=== PATIENT | female | born 1995 | race Caucasian/White ===

== ENCOUNTER 2021-09-21 15:02 | Emergency (ER) | payer OTHER, MEDICAID, SELFPAY ==
[2021-09-21 15:19] VITALS: BP 123/86; PULSE 85; RESP 20; TEMP 36.9; O2SAT 97; BMI 18.1
--- NOTE | 2021-09-21 15:51 | PC.NURSE ---
Attempted to locate from waiting room. Pt not found.
== END 2021-09-21 16:42 | disposition left against medical advice (07) ==
PROVIDERS: Emergency Provider Emergency Medicine
CPT/HCPCS: 99281

== ENCOUNTER → 2021-10-01 15:52 | Outpatient (CLI) | payer OTHER, MEDICAID, SELFPAY ==
[2021-10-01 16:40] LABS: COVID19 -Nasal RAPID Negative (Negative)
== END ==
PROVIDERS: Visit Provider Physician Assistant
DX: Z20.822 Contact with and (suspected) exposure to COVID-19 (principal)
CPT/HCPCS: 87635

== ENCOUNTER 2021-10-04 16:48 | Emergency (ER) | payer OTHER, MEDICAID, SELFPAY ==
[2021-10-04 17:02] VITALS: PULSE 111; RESP 20; TEMP 36.7; O2SAT 100; BMI 18.3
--- NOTE | 2021-10-04 17:42 | PC.NURSE ---
Pt reports green discharge, from both eyes, burning, redness and discomfort since earlier today after using OTC eye drops. Reports foggy vision. Pt also reports hx of a fever, cough, runny nose, diarrhea and nausea for the past 2 weeks. Pt given abx two weeks ago but reports I only took them 5 days then stopped when she felt better.
--- NOTE | 2021-10-04 17:56 | ED.URI ---
HPI - URI/Sore Throat <Ugo Islas PA-C - Last Filed: 10/04/21 18:19> General Chief Complaint: Eye Problems Stated Complaint: States burning eyes, discharge Time Seen by Provider: 10/04/21 17:19 Source: patient Mode of arrival: Ambulatory History of Present Illness HPI Narrative: Patient is a 25-year-old female presents to the ED complaining of URI symptoms along with conjunctivitis. She states that for the past 2 weeks she is had ongoing issues with congestion. Today she reports that she had some redness in her eyes and some purulent discharge. She is also reporting some associative shortness of breath with activity. No prior history of asthma reported. She has taken DayQuil OTC as directed with no relief of symptoms. No reported nausea vomiting or diarrhea. No fever or chills. Patient was tested last week for COVID and flu and was found to be negative. 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 Related Data Previous Rx's Medication Instructions Recorded azithromycin 250 mg tablet See Rx Instructions PO .COMPLEX #6 10/04/21 (Zithromax Z-Deni) tabs ciprofloxacin HCl 0.3 % eye drops 2 drp EYE-BOTH Q2H while awake 2 10/04/21 days #2.5 mL Allergies Allergy/AdvReac Type Severity Reaction Status Date / Time prochlorperazine Allergy Severe Palpitation Verified 10/04/21 17:05 [From Compazine] s Review of Systems <Ugo Islas PA-C - Last Filed: 10/04/21 18:19> Review of Systems ROS Unobtainable: All systems reviewed & are unremarkable except as noted in HPI and below Constitutional Constitutional: Denies chills, Denies fatigue, Denies fever(s), Denies frequent falls, Denies lethargy and Denies weakness Eyes Eyes: Denies change in vision, Reports eye discharge, Denies irritation and Denies loss of vision ENT Ears, Nose, Mouth, and Throat: Denies change in voice, Denies dizziness, Reports nasal congestion, Denies neck pain, Reports sore throat and Reports throat swelling Cardiovascular Cardiovascular: Denies chest pain, Denies irregular heart rhythm, Denies lightheadedness, Denies palpitations, Denies dyspnea, Denies dyspnea on exertion and Denies orthopnea Respiratory Respiratory: Denies cough, Denies dyspnea, Denies dyspnea on exertion and Denies wheezing Gastrointestinal Gastrointestinal: Denies abdominal pain, Denies change in bowel habits, Denies diarrhea, Denies nausea and Denies vomiting Genitourinary Genitourinary: Denies hematuria, Denies flank pain, Denies urinary incontinence and Denies urinary urgency Musculoskeletal Musculoskeletal: Denies back pain, Denies muscle weakness, Denies neck pain, Denies numbness and Denies tingling Integumentary/Breasts Skin/Breast: Denies pruritus, Denies erythema, Denies rash and Denies wounds Neurologic Neurologic: Denies behavioral changes, Denies confusion, Denies dizziness, Denies frequent falls, Denies loss of vision, Denies numbness, Denies tingling and Denies weakness Psychiatric Psychiatric: Denies anxiety, Denies behavioral changes, Denies confusion, Denies depression, Denies homicidal ideation and Denies suicidal ideation Endocrine Endocrine: Denies fatigue, Denies flushing and Denies palpitations Hematologic/Lymphatic Hematologic/Lymphatic: Denies easy bruising Allergic/Immunologic Allergic/Immunologic: Denies urticaria, Reports throat swelling and Denies wheezing Patient History <Ugo Islas PA-C - Last Filed: 10/04/21 18:19> Social History Smoking Status: Current every day smoker Smoking Status: Current every day smoker tobacco type: cigarettes Substance Use Type: marijuana Exam <Ugo Islas PA-C - Last Filed: 10/04/21 18:19> Initial Vital Signs Initial Vital Signs: Vital Signs Temperature 98.0 F 10/04/21 17:02 Pulse Rate 111 H 10/04/21 17:02 Respiratory Rate 20 10/04/21 17:02 Pulse Oximetry 100 10/04/21 17:02 Oxygen Delivery Method 10/04/21 17:02 Const General: cooperative, healthy appearing, comfortable and well developed Nutritional Appearance: average body habitus Orientation: Orientation [facility] Head: normal to inspection, normocephalic and atraumatic Ears: hearing grossly normal bilaterally and external ears normal Nose: external nose normal Face and sinus: normal facial exam Mouth: oral mucosae normal Teeth and gingiva: dentition normal and gingiva normal Throat: posterior oropharynx abnormal erythema Eyes General: Yes appearance normal, both eyes and all related structures Pupils: PERRL Neck Neck: normal visual inspection and full ROM Resp Effort & Inspection: normal respiratory effort and able to speak in complete sentences Auscultation: clear to auscultation bilaterally Cardio Palpation: normal PMI Rate: regular rate Rhythm: regular rhythm Heart Sounds: S1 normal and S2 normal GI Inspection: normal to inspection Palpation: soft and no hepatosplenomegaly Percussion: normal to percussion Auscultation: normal bowel sounds Neuro General: patient alert, patient awake and patient oriented x3 <Jose Marmolejo DO - Last Filed: 10/05/21 04:44> Initial Vital Signs Initial Vital Signs: Vital Signs Temperature 98.0 F 10/04/21 17:02 Pulse Rate 111 H 10/04/21 17:02 Respiratory Rate 20 10/04/21 17:02 Pulse Oximetry 100 10/04/21 17:02 Oxygen Delivery Method 10/04/21 17:02 Course <Ugo Islas PA-C - Last Filed: 10/04/21 18:19> Orders Ordered: ED Orders 10/04/21 17:10 Covid-19 + FLU A/B by PCR Stat Vital Signs Vital signs: Vital Signs - 8 hr 10/04/21 17:02 Temperature 98.0 F Pulse Rate 111 H Respiratory Rate 20 Pulse Oximetry 100 Oxygen Delivery Method Room Air <Jose Marmolejo DO - Last Filed: 10/05/21 04:44> Orders Ordered: ED Orders 10/04/21 17:10 Covid-19 + FLU A/B by PCR Stat Vital Signs Vital signs: Vital Signs - 8 hr 10/04/21 17:02 Temperature 98.0 F Pulse Rate 111 H Respiratory Rate 20 Pulse Oximetry 100 Oxygen Delivery Method Room Air MDM - URI/Sore Throat <ESA Aguilar Last Filed: 10/04/21 18:19> Differential Diagnosis Differential diagnosis: Likely upper respiratory infection Lab Data Labs: Lab Results 10/04/21 Range/Units 17:10 SARS-CoV-2 (PCR) Negative (Negative) Influenza A (RT-PCR) Flu a negative (NEGATIVE) Influenza B (RT-PCR) Flu b negative (NEGATIVE) MDM Narrative Medical decision making narrative: Based on patient's symptoms and the MAC the back that has been going on for a couple of weeks I think it is likely that this upper respiratory infection has moved into a bacterial infection. A Z-Deni will likely help her symptoms. I also believe a antibiotic eye drop will help with the bacterial conjunctivitis. Both of which can be treated outpatient patient will be discharged home and can follow up with regular physician. Patient will need a couple of days off work for the bacterial conjunctivitis return to work on Sunday. Patient was discharged home <Jose Marmolejo DO - Last Filed: 10/05/21 04:44> Lab Data Labs: Lab Results 10/04/21 Range/Units 17:10 SARS-CoV-2 (PCR) Negative (Negative) Influenza A (RT-PCR) Flu a negative (NEGATIVE) Influenza B (RT-PCR) Flu b negative (NEGATIVE) Discharge Plan Departure Patient Disposition: Home Clinical Impression: Bacterial conjunctivitis, Upper respiratory infection Instructions: DI for Conjunctivitis, DI for Viral Upper Respiratory Infection -- Adult Activity Restrictions/Additional Instructions: You were seen today for your upper respiratory infection. Based on the fact that it has been going on for a couple of weeks I think it is likely that we should prescribe an antibiotic at this point a Z-Deni was E scribed over to your pharmacy of choice. I also send over some antibiotic eyedrops for your bacterial conjunctivitis. It is contagious and it is spread by contact. I would recommend washing your hands frequently do not share any towels hot compresses as warm as you can make them will also help. Return to work on Sunday. Thank you for the opportunity to care for you today. Prescriptions: New azithromycin [Zithromax Z-Deni] 250 mg tablet See Rx Instructions .ROUTE .COMPLEX Qty: 6 0RF Rx Instructions: For 250 mg dose pack: take 500 mg today (day 1), then 250 mg for 4 days (days 2-5) ciprofloxacin HCl 0.3 % drops 2 drp EYE-BOTH Q2H 2 Days Qty: 2.5 0RF Referrals: Lucille Dietz INSTRUCTIONAL DESIGNER-BC [Primary Care Provider] - Stand Alone Forms: Work Release Note Visit Report Forms: Patient Portal/API <Jose Marmolejo DO - Last Filed: 10/05/21 04:44> Cosign ED Attending Cosignature Attestation: I was immediately available in the department for consultation. This documentation has been reviewed and I agree with assessment and plan. Supervised by Jose Marmolejo, DO
[2021-10-04 18:02] LABS: Influenza A - CEPHEID Flu A NEGATIVE (NEGATIVE); Influenza B - CEPHEID Flu B NEGATIVE (NEGATIVE)
[2021-10-04 18:04] LABS: COVID-19 CEPHEID PCR (VTM/NP) Negative (Negative)
[2021-10-04 18:24] VITALS: BP 120/70; PULSE 96; O2SAT 98
== END 2021-10-04 18:25 | disposition home or self-care (01) ==
PROVIDERS: Emergency Provider Physician Assistant; PCP Registered Nurse General Practice
DX: J06.9 Acute upper respiratory infection, unspecified (principal); H10.9 Unspecified conjunctivitis; Z20.822 Contact with and (suspected) exposure to COVID-19
CPT/HCPCS: 87635; 99281; 99282; C9803

== ENCOUNTER 2021-12-04 18:05 | Emergency (ER) | payer OTHER, MEDICAID, SELFPAY ==
[2021-12-04 18:19] VITALS: RESP 18; TEMP 36.7; O2SAT 100; BMI 18.3
[2021-12-04 18:42] LABS: Add Manual Diff / Slide Review NO; Basophils Absolute Auto 100 /uL (0-100); Basophils Percent Auto 1.2 % (0-2); Eosinophils Absolute Auto 0 /uL (0-450); Eosinophils Percent Auto 0.3 % (2-4); Hematocrit 41.5 % (36-46); Hemoglobin 14.3 g/dL (12.0-16.0); Lymphocytes Absolute Auto 2600 /uL (1100-4500); Lymphocytes Percent Auto 31.3 % (25-40); Mean Corpuscular HGB Conc 34.4 % (30-36); Mean Corpuscular Hemoglobin 28.8 PG (26-34); Mean Corpuscular Volume 83.8 fL (80-100); Monocytes Absolute Auto 500 /uL (0-900); Monocytes Percent Auto 6.6 % (3-14); Neutrophils Absolute Auto 4900 /uL (1500-7000); Neutrophils Percent Auto 60.6 % (50-75); Platelet Count 317 X10^3/uL (150-400); Red Blood Cell Count 4.95 X10^6/uL (4.0-5.2); Red Cell Distribution Width 13.4 % (11.6-14.8); White Blood Cell Count 8.1 X10^3/uL (4.5-11.0)
[2021-12-04 18:46] LABS: Alanine Aminotransferase 19 IU/L (<35); Albumin 5.1 g/dL (3.5-5.0); Albumin Globulin Ratio 1.3 (1.0-2.8); Alkaline Phosphatase 91 U/L (38-126); Aspartate Aminotransferase 24 IU/L (14-36); BUN Creatinine Ratio 16.3 (6-22); Bilirubin Total 1.2 mg/dL (0.2-1.3); Blood Urea Nitrogen 13 mg/dL (7-17); Calcium 9.9 mg/dL (8.4-10.2); Carbon Dioxide 26 mmol/L (22-32); Chloride 101 mmol/L (98-107); Estimated Glomerular Filt Rate > 60 mL/min (>60); Globulin 3.9 g/dL (1.7-4.1); Glucose 82 mg/dL (70-100); HEMOLYSIS < 15 (0-50); Lipase 92 U/L (23-300); Potassium 3.8 mmol/L (3.4-5.1); Sodium 139 mmol/L (137-145)
--- NOTE | 2021-12-04 19:08 | DI.US.S_ITS ---
PROCEDURE: US ABDOMEN LIMITED INDICATIONS: EPIGASTRIC PAIN TECHNIQUE: Real-time focused scanning was performed of the abdomen, with image documentation. COMPARISON: None. FINDINGS: Liver is within normal limits. Gallbladder surgically absent. No biliary ductal dilatation. Pancreas is within normal limits as visualized. IMPRESSION: No acute process. Dictated by: Fani Cheema M.D. on 12/04/2021 at 19:58 Approved by: Fani Cheema M.D. on 12/04/2021 at 19:59
--- NOTE | 2021-12-04 21:52 | ED_ITS ---
HPI - Abdominal Pain General Chief Complaint: Abdominal Pain Stated Complaint: Upper ABD pain Time Seen by Provider: 12/04/21 19:08 Source: patient Mode of arrival: Ambulatory History of Present Illness HPI narrative: 26-year-old female nonsmoker without significant alcohol history presents with a chief complaint of about 2 weeks of a burning epigastric discomfort and perhaps dark stool. She denies any emesis, let alone coffee-ground emesis. She is had no fever or chills. She denies any radiation of the discomfort but states that it seems to be worse after eating. She is not dizzy nor weak or lightheaded. She has no chest pain or difficulty breathing and has had no cough. She denies any recent injury or trauma Related Data Previous Rx's Medication Instructions Recorded azithromycin 250 mg tablet See Rx Instructions PO .COMPLEX #6 10/04/21 (Zithromax Z-Deni) tabs Allergies Allergy/AdvReac Type Severity Reaction Status Date / Time prochlorperazine Allergy Severe Palpitation Verified 10/04/21 17:05 [From Compazine] s Review of Systems Review of Systems Narrative: GENERAL: Denies chills, fatigue, malaise, fever, sweats. HEENT: Denies sinus pain, ear pain, sore throat, difficulty swallowing, dizziness. RESPIRATORY: Denies dyspnea, cough, wheezing, hemoptysis, sputum. CARDIOVASCULAR: Denies chest pain, palpitations, orthopnea, edema, GASTROINTESTINAL: See HPI : Denies dysuria, frequency, incontinence, hematuria, urinary retention. MUSCULOSKELETAL: denies weakness, joint pain, or bony pain SKIN: Denies rash, skin lesions, or other NEUROLOGIC: Denies weakness, headache, numbness, change in speech, confusion, seizures, incoordination. PSYCHIATRIC: No concerning psychosocial issues. 12 point review of systems is negative except for those stated above Patient History Social History Smoking Status: Current some day smoker Smoking Status: Current some day smoker tobacco type: cigarettes Substance Use Type: marijuana Exam Narrative Exam Narrative: GENERAL: 26[] year old patient appears stated age. Well-developed patient, in mild distress. HEAD: Atraumatic. Normocephalic. EYES: Pupils equal round and reactive. Extraocular motions intact. No scleral icterus. No injection or drainage. ENT: Nose without bleeding, purulent drainage. Throat without erythema, tonsillar hypertrophy or exudate. Airway patent. NECK: Trachea midline. Non tender CARDIOVASCULAR: Regular rate and rhythm without murmurs, gallops, or rubs. RESPIRATORY: Clear to auscultation. Breath sounds equal bilaterally. No wheezes, rales, or rhonchi. GASTROINTESTINAL: Abdomen soft, moderately tender in the epigastrium, nondistended. EXTREMITIES: No edema or joint tenderness. BACK: Nontender without deformity or crepitance. No flank tenderness. NEURO: AOx3. SKIN: No rash or erythema of visible areas Initial Vital Signs Initial Vital Signs: Vital Signs Temperature 98.0 F 12/04/21 18:19 Respiratory Rate 18 12/04/21 18:19 Pulse Oximetry 100 12/04/21 18:19 Oxygen Delivery Method 12/04/21 18:19 Course Orders Ordered: Discontinued Medications Ondansetron HCl (Ondansetron 4 Mg Odt Prepack) 1 bottle MISC SEEINSTR ONE Stop: 12/04/21 22:00 Last Admin: 12/04/21 22:08 Dose: 1 bottle Documented By: NELLY Pantoprazole Sodium (Pantoprazole 40 Mg Vial) 40 mg IV NOW ONE Stop: 12/04/21 19:09 Last Admin: 12/04/21 22:03 Dose: Not Given Documented By: NELLY Reevaluation(s) Reevaluation #1: Patient feeling much better after above-stated therapies Vital Signs Vital signs: Vital Signs - 8 hr 12/04/21 18:19 Temperature 98.0 F Respiratory Rate 18 Pulse Oximetry 100 Oxygen Delivery Method Room Air MDM - Abdominal Pain Lab Data Result diagrams: 12/04/21 18:25 12/04/21 18:25 Labs: Lab Results 12/04/21 12/04/21 12/04/21 Range/Units 18:25 18:25 21:31 WBC 8.1 (4.5-11.0) X10^3/uL RBC 4.95 (4.0-5.2) X10^6/uL Hgb 14.3 (12.0-16.0) g/dL Hct 41.5 (36-46) % MCV 83.8 (80-100) fL MCH 28.8 (26-34) PG MCHC 34.4 (30-36) % RDW 13.4 (11.6-14.8) % Plt Count 317 (150-400) X10^3/uL Neut % (Auto) 60.6 (50-75) % Lymph % (Auto) 31.3 (25-40) % [place] % (Auto) 6.6 (3-14) % Eos % (Auto) 0.3 L (2-4) % Baso % (Auto) 1.2 (0-2) % Neut # (Auto) 4900 (5702-1764) /uL Lymph # (Auto) 2600 (8878-5936) /uL [place] # (Auto) 500 (0-900) /uL Eos # (Auto) 0 (0-450) /uL Baso # (Auto) 100 (0-100) /uL Sodium 139 (137-145) mmol/L Potassium 3.8 (3.4-5.1) mmol/L Chloride 101 (98-107) mmol/L Carbon Dioxide 26 (22-32) mmol/L BUN 13 (7-17) mg/dL Creatinine 0.80 (0.52-1.04) mg/dL Estimated GFR > 60 (>60) mL/min BUN/Creatinine Ratio 16.3 (6-22) Glucose 82 (70-100) mg/dL Calcium 9.9 (8.4-10.2) mg/dL Total Bilirubin 1.2 (0.2-1.3) mg/dL AST 24 (14-36) IU/L ALT 19 (<35) IU/L Alkaline Phosphatase 91 (38-126) U/L Total Protein 9.0 H (6.3-8.2) g/dL Albumin 5.1 H (3.5-5.0) g/dL Globulin 3.9 (1.7-4.1) g/dL Albumin/Globulin Ratio 1.3 (1.0-2.8) Lipase 92 (23-300) U/L Urine RBC 1-5/hpf (0-5/HPF) Urine WBC 0-1/hpf (0-5/HPF) Ur Squamous Epith Cells 0-1 /hpf (0-5/HPF) Urine Bacteria Occasional (0-1) (None) Urine Mucus 3+ H (Negative) Ur Culture Indicated? Cult not indicated Point of care testing: Point of Care Testing Test Results Negative Urine Dip Bedside Urine Glucose Negative Bedside Urine Bilirubin - Negative Bedside Urine Ketone +++ 80 Urine Specific [place] 1.030 Bedside Urine Occult Blood +++ Bedside Urine pH 6.0 Bedside Urine Protein + 30 Bedside Urine Urobilinogen - Negative Bedside Urine Nitrite - Negative Bedside Urine Leukocytes - Negative Esterase Imaging Data US - abdomen: Radiologist's Impression: Close Abdomen Ultrasound (Signed) Fani Cheema - 12/04/21 Launch?[address] [address] Ultrasound Report Signed Patient: Jacinda Fox MR#: [id number] : 1995 Acct:[id number] Age/Sex: 26 / F Date of Service: 12/04/21 Loc: ED Accession Number: [id number] ?? Procedure: US abdomen limited Ordering Provider: Jose Marmolejo D.O. PROCEDURE: US ABDOMEN LIMITED ? INDICATIONS:? EPIGASTRIC PAIN ? TECHNIQUE:? Real-time focused scanning was performed of the abdomen, with image documen tation.? ? COMPARISON:? None. ? FINDINGS:? Liver is within normal limits.? Gallbladder surgically absent.? No biliary ductal dilatation.? Pancreas is within normal limits as visualized. ? IMPRESSION:? No acute process. ? ? Dictated by: Fani Cheema M.D. on 12/04/2021 at 19:58 ? ? Approved by: Fani Cheema M.D. on 12/04/2021 at 19:59 ? Discharge Plan Departure Patient Disposition: Home Clinical Impression: Acute epigastric pain Instructions: DI for Epigastric Pain Activity Restrictions/Additional Instructions: *You have been diagnosed with [epigastric abdominal pain likely due to gastritis , GERD, or possibly an ulcer] * As we discussed your history and physical exam as well as labs and imaging are very reassuring. There is no evidence of any severe diagnoses that would require a specific or immediate intervention. *What to do: *Please increase your Protonix from once daily to twice daily for the next 2 weeks [x ] New medication prescriptions sent to your pharmacy: [ [facility] in [place]] *Please follow up with your primary care provider in 2-3 days, call for an appointment. Let them know you were seen in the Emergency Department and that we ask that you be seen in follow up. We will electronically transmit a record of today's note if your PCP is in our system * as we discussed I have included contact info both for [facility] as well as the gastroenterology group and not [facility] as it would seem reasonable to establish locally and you will likely need endoscopy. *Please consider a clear liquid diet for the next 24-48 hours and then slowly advance to regular as tolerated. Also, try to avoid alcohol, nicotine, caffeine, spicy, acidic or fatty foods as this may worsen your symptoms Prescriptions: No Action azithromycin [Zithromax Z-Deni] 250 mg tablet See Rx Instructions .ROUTE .COMPLEX Qty: 6 0RF Rx Instructions: For 250 mg dose pack: take 500 mg today (day 1), then 250 mg for 4 days (days 2-5) Referrals: Thaddeus Olea MD [Physician] - Santos Bansal MD [Non-Staff] - Lucille Dietz, BUSINESS MANAGEMENT PROFESSOR- [Primary Care Provider] - Visit Report Forms: Patient Portal/API
[2021-12-04] MEDS: ONDANSETRON 4 MG ODT PREPACK 1 BOTTLE MISC (22:08)
[2021-12-04 22:11] VITALS: BP 120/68; PULSE 77; RESP 16; O2SAT 97
[2021-12-04 22:23] LABS: RBC Urine 1-5/HPF (0-5/HPF); WBC Urine 0-1/HPF (0-5/HPF)
[2021-12-04 22:24] LABS: Bacteria Urine Occasional (0-1); Culture Indicated Urine Cult Not Indicated; Mucus Urine 3+ (Negative); Squamous Epithelial Cell Urine 0-1 /HPF (0-5/HPF)
== END 2021-12-04 22:13 | disposition home or self-care (01) ==
PROVIDERS: Emergency Provider Emergency Medicine; PCP Registered Nurse General Practice
DX: R10.13 Epigastric pain (principal)
CPT/HCPCS: 36415; 76705; 80053; 81003; 81015; 81025; 83690; 85025; 93005; 99283; 99284

== ENCOUNTER 2021-12-30 13:48 | Emergency (ER) | payer OTHER, MEDICAID, SELFPAY ==
[2021-12-30] VITALS (8 sets, daily range): BP systolic 111–136; BP diastolic 65–80; PULSE 82–99; RESP 18; TEMP 36.8; O2SAT 95–100; BMI 18.1
[2021-12-30 14:27] LABS: Add Manual Diff / Slide Review NO; Basophils Absolute Auto 100 /uL (0-100); Basophils Percent Auto 0.9 % (0-2); Eosinophils Absolute Auto 100 /uL (0-450); Eosinophils Percent Auto 1.1 % (2-4); Hematocrit 44.1 % (36-46); Hemoglobin 15.1 g/dL (12.0-16.0); Lymphocytes Absolute Auto 2100 /uL (1100-4500); Lymphocytes Percent Auto 21.3 % (25-40); Mean Corpuscular HGB Conc 34.2 % (30-36); Mean Corpuscular Hemoglobin 28.4 PG (26-34); Monocytes Absolute Auto 500 /uL (0-900); Neutrophils Absolute Auto 7100 /uL (1500-7000); Neutrophils Percent Auto 71.7 % (50-75); Platelet Count 371 X10^3/uL (150-400); Red Blood Cell Count 5.32 X10^6/uL (4.0-5.2); Red Cell Distribution Width 13.2 % (11.6-14.8); White Blood Cell Count 9.9 X10^3/uL (4.5-11.0)
[2021-12-30 14:37] LABS: Alanine Aminotransferase 19 IU/L (<35); Albumin 4.9 g/dL (3.5-5.0); Albumin Globulin Ratio 1.2 (1.0-2.8); Alkaline Phosphatase 88 U/L (38-126); Aspartate Aminotransferase 24 IU/L (14-36); BUN Creatinine Ratio 14.1 (6-22); Bilirubin Total 0.7 mg/dL (0.2-1.3); Blood Urea Nitrogen 13 mg/dL (7-17); Calcium 9.4 mg/dL (8.4-10.2); Carbon Dioxide 28 mmol/L (22-32); Chloride 103 mmol/L (98-107); Estimated Glomerular Filt Rate > 60 mL/min (>60); Globulin 4.1 g/dL (1.7-4.1); Glucose 95 mg/dL (70-100); HEMOLYSIS < 15 (0-50); Lipase 145 U/L (23-300); Potassium 3.7 mmol/L (3.4-5.1); Sodium 141 mmol/L (137-145)
[2021-12-30 15:33] LABS: Amorphous Sediment Urine 1+; Bacteria Urine Moderate (10-30); Culture Indicated Urine Specimen Cultured; Mucus Urine 1+ (Negative); RBC Urine 0-1/HPF (0-5/HPF); Squamous Epithelial Cell Urine 1-5 /HPF (0-5/HPF); WBC Urine 1-5/HPF (0-5/HPF)
--- NOTE | 2021-12-30 15:52 | DI.CT.S_ITS ---
PROCEDURE: CT KIDNEY URETER BLADDER (KUB) INDICATIONS: Left flank pain TECHNIQUE: Axial sections were acquired from the lung bases to the pubic symphysis. Coronal and sagittal reformats were performed. For radiation dose reduction, the following was used: automated exposure control, adjustment of mA and/or kV according to patient size. COMPARISON: None. FINDINGS: Image quality: Excellent. Lung bases: Unremarkable. Heart: No significant findings. URINARY: Right Kidney: No stones or hydronephrosis. Right Ureter: No hydroureter. Left Kidney: No stones or hydronephrosis. Left Ureter: No hydroureter. Bladder: Normal wall thickness. No stones. ABDOMEN: Liver: Unremarkable. Gallbladder: Unremarkable. Biliary ducts: Unremarkable. Pancreas: Unremarkable. Spleen: Unremarkable. Adrenal Glands: Unremarkable. Stomach and Bowel: Stomach, small bowel loops, and colon are unremarkable. The appendix is not visualized; however there is no discrete right lower quadrant fluid or fat stranding to suggest acute appendicitis. Peritoneum: No abnormal intraperitoneal fluid. No free air. Ventral Wall: No hernia. Abdominal Nodes: No enlarged retroperitoneal or mesenteric lymph nodes. Vessels: Aorta and inferior vena cava are normal in size. PELVIS: Pelvic Organs: Unremarkable. Pelvic Nodes: Unremarkable. Miscellaneous: No inguinal hernias are seen. Bones: Unremarkable. IMPRESSION: 1. No hydronephrosis, nephrolithiasis, hydroureter, or ureterolithiasis. 2. The appendix is not visualized; however there are no ancillary findings to suggest acute appendicitis on this noncontrast study. Dictated by: Ginger Flores M.D. on 12/30/2021 at 16:50 Approved by: Ginger Flores M.D. on 12/30/2021 at 16:53
--- NOTE | 2021-12-30 15:53 | ED_ITS ---
HPI - Abdominal Pain General Chief Complaint: Abdominal Pain Stated Complaint: severe abdominal pain Time Seen by Provider: 12/30/21 15:34 Source: patient Mode of arrival: Ambulatory History of Present Illness HPI narrative: Patient here for left flank pain. Patient has had epigastric pain for the past couple of months. Seen here last month and had ultrasound completed. Please see results below. Hurts with movement. Sometimes hurts with eating. Today pain radiates to left flank area. No urinary complaints. No fever chills. P atient has history of cholecystectomy. No urinary complaints. [place] [address] Ultrasound Report Signed Patient: Jacinda Fox MR#: [id number] : 1995 Acct:[id number] Age/Sex: 26 / F Date of Service: 12/04/21 Loc: ED Accession Number: [id number] ?? Procedure: US abdomen limited Ordering Provider: Jose Marmolejo D.O. PROCEDURE: US ABDOMEN LIMITED ? INDICATIONS:? EPIGASTRIC PAIN ? TECHNIQUE:? Real-time focused scanning was performed of the abdomen, with image documentation.? ? COMPARISON:? None. ? FINDINGS:? Liver is within normal limits.? Gallbladder surgically absent.? No biliary ductal dilatation.? Pancreas is within normal limits as visualized. ? IMPRESSION:? No acute process. ? ? Dictated by: Fani Cheema M.D. on 12/04/2021 at 19:58 ? ? Approved by: Fani Cheema M.D. on 12/04/2021 at 19:59 ? Related Data Previous Rx's Medication Instructions Recorded azithromycin 250 mg tablet See Rx Instructions PO .COMPLEX #6 10/04/21 (Zithromax Z-Deni) tabs sucralfate 1 gram tablet 1 g PO BID #20 tabs 12/30/21 Allergies Allergy/AdvReac Type Severity Reaction Status Date / Time prochlorperazine Allergy Severe Palpitation Verified 10/04/21 17:05 [From Compazine] s Review of Systems Review of Systems Narrative: GENERAL: Denies chills, fatigue, malaise, fever, sweats. HEENT: Denies sinus pain, ear pain, sore throat RESPIRATORY: Denies dyspnea, cough CARDIOVASCULAR: Denies chest pain, palpitations GASTROINTESTINAL: Positive nausea, vomiting, abdominal pain/flank pain : Denies dysuria, frequency, hematuria MUSCULOSKELETAL: denies muscle or bony pain SKIN: Denies rash, skin lesions NEUROLOGIC: Denies weakness, numbness ROS Unobtainable: All systems reviewed & are unremarkable except as noted in HPI and below Patient History Social History Smoking Status: Former smoker Smoking Status: Former smoker tobacco type: cigarettes Substance Use Type: marijuana Exam Narrative Exam Narrative: GENERAL: in no distress, not toxic not dyspneic HEAD: Normocephalic. EYES: Pupils equal round No scleral icterus. ENT: Mucous membranes moist. NECK: Trachea midline. CARDIOVASCULAR: Regular rate and rhythm without murmurs RESPIRATORY: Clear to auscultation. Breath sounds equal bilaterally. No wheezes, rales, or rhonchi. GASTROINTESTINAL: Abdomen soft, non-tender, no peritoneal signs, bowel sounds are present EXTREMITIES: No gross deformities. BACK: Mild left CVA tenderness. No rash NEURO: AOx4. SKIN: Warm and dry PSYCH: Not anxious, is cooperative Initial Vital Signs Initial Vital Signs: Vital Signs Temperature 98.2 F 12/30/21 13:57 Pulse Rate 97 H 12/30/21 13:57 Respiratory Rate 18 12/30/21 13:57 Blood Pressure 136/80 12/30/21 13:57 Pulse Oximetry 99 12/30/21 13:57 Oxygen Delivery Method 12/30/21 13:57 Course Course Course Narrative: No new issues during course of stay Orders Ordered: Discontinued Medications Sodium Chloride (Normal Saline 0.9%) 1,000 mls @ 1,000 mls/hr IV BOLUS ONE Stop: 12/30/21 16:51 Last Infusion: 12/30/21 17:30 Dose: 0 mls/hr Documented By: Admin: 12/30/21 16:25 Dose: 1,000 mls/hr Documented By: GIORGI Ondansetron HCl (Ondansetron 4 Mg/2 Ml Inj) 4 mg IV NOW ONE Stop: 12/30/21 15:53 Last Admin: 12/30/21 16:23 Dose: Not Given Documented By: GIORGI Reevaluation(s) Reevaluation #1: Patient feeling better after IV fluids and Zofran. Did not want any other medications. Reviewed results with patient. At this time they are reassuring. Appropriate for outpatient endoscopy. I will give patient referral to general surgeon for endoscopy. Return precautions reviewed with patient. Patient agrees with treatment plan. Reviewed with patient that it still could be gastritis Time: 17:22 Vital Signs Vital signs: Vital Signs - 8 hr 12/30/21 13:57 12/30/21 14:56 12/30/21 14:56 Temperature 98.2 F Pulse Rate 97 H 99 H Respiratory Rate 18 Blood Pressure 136/80 118/76 Pulse Oximetry 99 100 Oxygen Delivery Method Room Air 12/30/21 15:00 12/30/21 15:00 12/30/21 15:30 Temperature Pulse Rate 95 H Respiratory Rate Blood Pressure 119/79 116/77 Pulse Oximetry 100 Oxygen Delivery Method 12/30/21 15:30 12/30/21 16:00 12/30/21 16:00 Temperature Pulse Rate 92 H 82 Respiratory Rate Blood Pressure 122/73 Pulse Oximetry 100 99 Oxygen Delivery Method MDM - Abdominal Pain Differential Diagnosis Differential diagnosis: Likely abdominal pain, acute appendicitis, calculus of kidney, constipation, diverticulitis, pancreatitis and small bowel obstruction Lab Data Result diagrams: 12/30/21 14:15 12/30/21 14:15 Labs: Lab Results 12/30/21 12/30/21 12/30/21 Range/Units 14:05 14:15 14:15 WBC 9.9 (4.5-11.0) X10^3/uL RBC 5.32 H (4.0-5.2) X10^6/uL Hgb 15.1 (12.0-16.0) g/dL Hct 44.1 (36-46) % MCV 83.0 (80-100) fL MCH 28.4 (26-34) PG MCHC 34.2 (30-36) % RDW 13.2 (11.6-14.8) % Plt Count 371 (150-400) X10^3/uL Neut % (Auto) 71.7 (50-75) % Lymph % (Auto) 21.3 L (25-40) % [place] % (Auto) 5.0 (3-14) % Eos % (Auto) 1.1 L (2-4) % Baso % (Auto) 0.9 (0-2) % Neut # (Auto) 7100 H (9378-7324) /uL Lymph # (Auto) 2100 (7206-0237) /uL [place] # (Auto) 500 (0-900) /uL Eos # (Auto) 100 (0-450) /uL Baso # (Auto) 100 (0-100) /uL Sodium 141 (137-145) mmol/L Potassium 3.7 (3.4-5.1) mmol/L Chloride 103 (98-107) mmol/L Carbon Dioxide 28 (22-32) mmol/L BUN 13 (7-17) mg/dL Creatinine 0.92 (0.52-1.04) mg/dL Estimated GFR > 60 (>60) mL/min BUN/Creatinine Ratio 14.1 (6-22) Glucose 95 (70-100) mg/dL Calcium 9.4 (8.4-10.2) mg/dL Total Bilirubin 0.7 (0.2-1.3) mg/dL AST 24 (14-36) IU/L ALT 19 (<35) IU/L Alkaline Phosphatase 88 (38-126) U/L Total Protein 9.0 H (6.3-8.2) g/dL Albumin 4.9 (3.5-5.0) g/dL Globulin 4.1 (1.7-4.1) g/dL Albumin/Globulin Ratio 1.2 (1.0-2.8) Lipase 145 (23-300) U/L Urine RBC 0-1/hpf (0-5/HPF) Urine WBC 1-5/hpf (0-5/HPF) Ur Squamous Epith Cells 1-5 /hpf (0-5/HPF) Amorphous Sediment 1+ Urine Bacteria Moderate (10-30) H (None) Urine Mucus 1+ H (Negative) Ur Culture Indicated? Specimen cultured Point of care testing: Point of Care Testing Test Results Negative Urine Dip Bedside Urine Glucose Negative Bedside Urine Bilirubin - Negative Bedside Urine Ketone - Negative Urine Specific [place] 1.030 Bedside Urine Occult Blood +/- Bedside Urine pH 6.0 Bedside Urine Protein - Negative Bedside Urine Urobilinogen - Negative Bedside Urine Nitrite - Negative Bedside Urine Leukocytes - Negative Esterase Imaging Data CT scan - abdomen/pelvis: Radiologist's Impression: [address] [address] [address] Scan Report Signed Patient: Jacinda Fox MR#: [id number] : 1995 Acct:[id number] Age/Sex: 26 / F Date of Service: 12/30/21 Loc: ED Accession Number: [id number] ?? Procedure: CT kidney ureter bladder (KUB) Ordering Provider: Santos Ponce MD PROCEDURE:? CT KIDNEY URETER BLADDER (KUB) ? INDICATIONS:? Left flank pain ? TECHNIQUE:? Axial sections were acquired from the lung bases to the pubic symphysis.? Coronal and sagittal reformats were performed.? For radiation dose reduction, the following was used: ?automated exposure control, adjustment of mA and/or kV according to patient size.? ? COMPARISON:? None. ? FINDINGS:? Image quality:? Excellent.? ? Lung bases:? Unremarkable.? ? Heart:? No significant findings. ? URINARY: Right Kidney: ? No stones or hydronephrosis.? Right Ureter:? No hydroureter.? ? Left Kidney: ? No stones or hydronephrosis. Left Ureter:? No hydroureter.? ? Bladder:? Normal wall thickness. No stones. ? ? ? ABDOMEN: Liver:? Unremarkable.? ? Gallbladder:? Unremarkable.? ? Biliary ducts:? Unremarkable.? ? Pancreas:? Unremarkable.? ? Spleen:? Unremarkable.? ? Adrenal Glands:? Unremarkable.? ? ? Stomach and Bowel:? Stomach, small bowel loops, and colon are unremarkable.? The appendix is not visualized; however there is no discrete right lower quadrant fluid or fat stranding to suggest acute appendicitis. Peritoneum:? No abnormal intraperitoneal fluid.? No free air.? ? Ventral Wall: ? No hernia.? Abdominal Nodes:? No enlarged retroperitoneal or mesenteric lymph nodes.? Vessels:? Aorta and inferior vena cava are normal in size.? ? PELVIS: Pelvic Organs:? Unremarkable.? ? Pelvic Nodes: Unremarkable. Miscellaneous: No inguinal hernias are seen. ? ? ? Bones:? Unremarkable. ? IMPRESSION:? ? 1. No hydronephrosis, nephrolithiasis, hydroureter, or ureterolithiasis. ? 2. The appendix is not visualized; however there are no ancillary findings to suggest acute appendicitis on this noncontrast study. ? Dictated by: Ginger Flores M.D. on 12/30/2021 at 16:50 ? ? Approved by: Ginger Flores M.D. on 12/30/2021 at 16:53 ? ECG Data Interpretation: Normal sinus rhythm rate [address] elevation or depression MDM Narrative Medical decision making narrative: Appropriate for discharge home. Exam and laboratory studies and imaging are reassuring. Differential diagnosis includes but not limited to gastritis pancreatitis diverticulitis bowel obstruction kidney stone. Patient did not want any further medications here. Patient does have Zofran at home and Protonix. Patient does agree will likely need endoscopy as these symptoms have been going on for months. Return precautions reviewed with patient. Patient desires discharge home Discharge Plan Departure Patient Disposition: Home Clinical Impression: Abdominal pain Instructions: DI for Abdominal Pain-Adult Activity Restrictions/Additional Instructions: Continue your home medications. No fried fatty greasy foods or spicy foods or carbonated drinks. Please call provided general surgery provider on Sunday for office appointment for follow-up in 2 schedule for possible endoscopy of the stomach. Return if worse if any questions or concerns. Prescriptions: New sucralfate 1 gram tablet 1 g PO BID Qty: 20 0RF No Action azithromycin [Zithromax Z-Deni] 250 mg tablet See Rx Instructions .ROUTE .COMPLEX Qty: 6 0RF Rx Instructions: For 250 mg dose pack: take 500 mg today (day 1), then 250 mg for 4 days (days 2-5) Referrals: Eliane Greer MD [Physician] - Lucille Dietz FNP-RASHI [Primary Care Provider] - Visit Report Forms: Patient Portal/API
[2021-12-30] MEDS: SODIUM CHLORIDE 0.9% 1,000 ML 1000 ML IV (16:25)
== END 2021-12-30 17:31 | disposition home or self-care (01) ==
PROVIDERS: Emergency Provider Emergency Medicine; PCP Registered Nurse General Practice
DX: R10.13 Epigastric pain (principal)
CPT/HCPCS: 36415; 74176; 80053; 81003; 81015; 81025; 83690; 85025; 87086; 93005; 99284

== ENCOUNTER → 2022-01-12 11:52 | Outpatient (CLI) | payer OTHER, MEDICAID, SELFPAY ==
--- NOTE | 2022-01-12 11:54 | DI.MRI.S_ITS ---
PROCEDURE: MR ABDOMEN WO/W CON INDICATIONS: MRCP. looking for bile duct abnormalities or stones. TECHNIQUE: Coronal HASTE, axial 2D FLASH in- and [id number]; axial breath-hold T2 FSE. Dynamic axial VIBE during the administration of contrast; post-contrast coronal VIBE or 2D FLASH with fat saturation from the hepatic dome to the iliac crests. Optional diffusion weighted imaging and ADC may be performed. COMPARISON: [facility], CT, CT KIDNEY URETER BLADDER (KUB), 12/30/2021, 16:15. [facility], US, US ABDOMEN LIMITED, 12/04/2021, 19:48. FINDINGS: Image quality: Excellent. Lung bases: No basal pleural effusions. Heart size is normal. Solid organs: Gallbladder is surgically removed. Common bile duct is normal in caliber measuring 6 mm. No intraductal filling defect to suggest retained stone or mass. The pancreatic duct is normal in caliber. Liver is normal in size and enhancement. Hepatic fatty infiltration. Biliary system is non dilated. Pancreas is normal in morphology. Spleen is normal in size and enhancement. No adrenal nodules. Both kidneys demonstrate normal size and enhancement, without hydronephrosis. Nodes and vessels: No retroperitoneal or mesenteric adenopathy by size criteria. Aorta and inferior vena cava are normal in size. Bowel and peritoneum: Unenhanced bowel loops are normal in caliber. No free fluid. Bones and soft tissues: No ventral hernias. Bone marrow is normal in overall signal. IMPRESSION: 1. Cholecystectomy. There is no intrahepatic or extrahepatic biliary dilation. No filling defects to suggest retained stones in the common bile duct. 2. Hepatic steatosis. Dictated by: Ned Marroquin M.D. on 01/12/2022 at 13:40 Approved by: Ned Marroquin M.D. on 01/12/2022 at 14:41
== END ==
PROVIDERS: Referring Provider Surgery; Visit Provider Surgery
DX: K91.5 Postcholecystectomy syndrome (principal); K76.0 Fatty (change of) liver, not elsewhere classified; R10.9 Unspecified abdominal pain; R11.0 Nausea; Z90.49 Acquired absence of other specified parts of digestive tract
CPT/HCPCS: 74183

== ENCOUNTER 2022-01-29 23:01 | Emergency (ER) | payer OTHER, MEDICAID, SELFPAY ==
[2022-01-29 23:07] VITALS: BP 135/80; PULSE 87; RESP 16; TEMP 35.9; O2SAT 100; BMI 15.9
--- NOTE | 2022-01-29 23:18 | ED_ITS ---
HPI - General Adult General Chief complaint: Dizziness Stated complaint: possible septic, dizzy Time Seen by Provider: 01/29/22 23:08 Source: patient Mode of arrival: Ambulatory History of Present Illness HPI narrative: 26-year-old female is here for evaluation of somewhat vague symptoms to include just not feeling very well and somewhat dizzy. She also thinks she could have a urinary tract infection although she is not having any dysuria. She has a prescription for metronidazole already prescribed to her by another provider for with the patient states is recurrent bacterial vaginosis. She denies any sore throat. No headaches. No chest pain. No shortness of breath. No abdominal pain. No skin rashes. No diarrhea. No nausea and vomiting. She states that she has been septic in the past and was concerned for this. Related Data Previous Rx's Medication Instructions Recorded azithromycin 250 mg tablet See Rx Instructions PO .COMPLEX #6 10/04/21 (Zithromax Z-Deni) tabs sucralfate 1 gram tablet 1 g PO BID #20 tabs 12/30/21 Allergies Allergy/AdvReac Type Severity Reaction Status Date / Time prochlorperazine Allergy Severe Palpitation Verified 01/10/22 14:03 [From Compazine] s Review of Systems Review of Systems ROS Unobtainable: All systems reviewed & are unremarkable except as noted in HPI and below Patient History Medical History Post-cholecystectomy syndrome Upper abdominal pain, unspecified Surgical History (Updated 01/10/22 @ 15:29 by Eliane Greer MD) Status post laparoscopic cholecystectomy Social History Smoking Status: Former smoker Smoking Status: Former smoker tobacco type: cigarettes Substance Use Type: marijuana Exam Initial Vital Signs Initial Vital Signs: Vital Signs Temperature 96.7 F L 01/29/22 23:07 Pulse Rate 87 01/29/22 23:07 Respiratory Rate 16 01/29/22 23:07 Blood Pressure 135/80 01/29/22 23:07 Pulse Oximetry 100 01/29/22 23:07 Oxygen Delivery Method 01/29/22 23:07 Const General: cooperative and comfortable HENMT Head: normal to inspection and normocephalic Resp Effort & Inspection: normal respiratory effort Auscultation: clear to auscultation bilaterally Cardio Rate: regular rate Rhythm: regular rhythm GI Inspection: normal to inspection Palpation: soft and tender Skin General: no rashes or lesions noted Neuro General: patient alert, patient awake and moves all extremities Extrem General: normal to inspection and capillary refill normal Course Vital Signs Vital signs: Vital Signs - 8 hr 01/29/22 23:07 Temperature 96.7 F L Pulse Rate 87 Respiratory Rate 16 Blood Pressure 135/80 Pulse Oximetry 100 Oxygen Delivery Method Room Air Medical Decision Making Lab Data Labs: Point of Care Testing Test Results Negative Urine Dip Bedside Urine Glucose Negative Bedside Urine Bilirubin - Negative Bedside Urine Ketone - Negative Bedside Urine Occult Blood - Negative Bedside Urine Protein - Negative Bedside Urine Urobilinogen - Negative Bedside Urine Nitrite - Negative Bedside Urine Leukocytes - Negative Esterase Point of care testing: Point of Care Testing Test Results Negative Urine Dip Bedside Urine Glucose Negative Bedside Urine Bilirubin - Negative Bedside Urine Ketone - Negative Bedside Urine Occult Blood - Negative Bedside Urine Protein - Negative Bedside Urine Urobilinogen - Negative Bedside Urine Nitrite - Negative Bedside Urine Leukocytes - Negative Esterase MDM Narrative Medical decision making narrative: Urinalysis shows no signs of infection. Patient is well-appearing. Normal vital signs. Vague symptoms. No indication for further workup now as I do not have any specific reason to do any radiologic studies or blood testing. Provided reassurance to the patient. She was given return precautions. She expressed understanding and agreement. Discharge Plan Departure Patient Disposition: Home Clinical Impression: Fatigue Activity Restrictions/Additional Instructions: I recommend that you take the Flagyl that you have already been prescribed as di rected. Return to the emergency department for any new symptoms. Prescriptions: No Action sucralfate 1 gram tablet 1 g PO BID Qty: 20 0RF azithromycin [Zithromax Z-Deni] 250 mg tablet See Rx Instructions .ROUTE .COMPLEX Qty: 6 0RF Rx Instructions: For 250 mg dose pack: take 500 mg today (day 1), then 250 mg for 4 days (days 2-5) Referrals: Miscellaneous,Doctor, MD [Primary Care Provider] - Stand Alone Forms: Work Release Note Visit Report Forms: Patient Portal/API
== END 2022-01-30 00:21 | disposition home or self-care (01) ==
PROVIDERS: Emergency Provider Emergency Medicine
DX: R53.83 Other fatigue (principal); R42 Dizziness and giddiness
CPT/HCPCS: 81003; 81025; 99282

== ENCOUNTER → 2022-02-07 10:50 | Outpatient (CLI) | payer OTHER, MEDICAID, SELFPAY | PROVIDERS: Referring Provider Internal Medicine; Visit Provider Internal Medicine | DX: Z23 Encounter for immunization (principal) | CPT/HCPCS: 90471; 90686 ==

== ENCOUNTER 2022-03-14 13:33 | Emergency (ER) | payer OTHER, MEDICAID, SELFPAY ==
[2022-03-14 13:40] VITALS: BP 135/92; PULSE 99; RESP 12; TEMP 36.2; O2SAT 99; BMI 17.5
--- NOTE | 2022-03-14 14:42 | ED.ABDPAIN ---
HPI - Abdominal Pain <Miguel Irving PA-C - Last Filed: 03/14/22 15:26> General Chief Complaint: Abdominal Pain Stated Complaint: Possible Bowel Obstruction Time Seen by Provider: 03/14/22 13:52 History of Present Illness HPI narrative: 26-year-old female who is status post a laparoscopic cholecystectomy presents to the ED with 3 days of constipation. Patient states that she had a bout of diarrhea for a day about 4 days ago, following which she has been constipated. Patient states that she feels the need to have a bowel movement, however it is too painful. Patient endorses some nausea, denies vomiting. Patient denies fever, chills, chest pain, shortness of breath, sore throat, rhinorrhea, cough, dysuria. Patient endorses some lower abdominal pain. Patient does endorse a tendency towards constipation. Related Data Previous Rx's Medication Instructions Recorded sucralfate 1 gram tablet 1 g PO BID #20 tabs 12/30/21 Allergies Allergy/AdvReac Type Severity Reaction Status Date / Time prochlorperazine Allergy Severe Palpitation Verified 01/10/22 14:03 [From Compazine] s Review of Systems <Miguel Irving PA-C - Last Filed: 03/14/22 15:26> Review of Systems ROS Unobtainable: All systems reviewed & are unremarkable except as noted in HPI and below Constitutional Constitutional: Denies chills, Denies fatigue, Denies fever(s), Denies frequent falls, Denies lethargy and Denies weakness Eyes Eyes: Denies change in vision, Denies eye discharge, Denies irritation and Denies loss of vision ENT Ears, Nose, Mouth, and Throat: Denies change in voice, Denies dizziness, Denies neck pain, Denies sore throat and Denies throat swelling Cardiovascular Cardiovascular: Denies chest pain, Denies irregular heart rhythm, Denies lightheadedness, Denies palpitations, Denies dyspnea, Denies dyspnea on exertion and Denies orthopnea Respiratory Respiratory: Denies cough, Denies dyspnea, Denies dyspnea on exertion and Denies wheezing Gastrointestinal Gastrointestinal: Reports abdominal pain, Denies change in bowel habits, Reports constipation, Denies diarrhea, Reports nausea and Denies vomiting Genitourinary Genitourinary: Denies hematuria, Denies flank pain, Denies urinary incontinence and Denies urinary urgency Musculoskeletal Musculoskeletal: Denies back pain, Denies muscle weakness, Denies neck pain, Denies numbness and Denies tingling Integumentary/Breasts Skin/Breast: Denies pruritus, Denies erythema, Denies rash and Denies wounds Neurologic Neurologic: Denies behavioral changes, Denies confusion, Denies dizziness, Denies frequent falls, Denies loss of vision, Denies numbness, Denies tingling and Denies weakness Psychiatric Psychiatric: Denies anxiety, Denies behavioral changes, Denies confusion, Denies depression, Denies homicidal ideation and Denies suicidal ideation Endocrine Endocrine: Denies fatigue, Denies flushing and Denies palpitations Hematologic/Lymphatic Hematologic/Lymphatic: Denies easy bruising Allergic/Immunologic Allergic/Immunologic: Denies urticaria, Denies throat swelling and Denies wheezing Patient History <Miguel Irving PA-C - Last Filed: 03/14/22 15:26> Medical History Post-cholecystectomy syndrome Upper abdominal pain, unspecified Surgical History Status post laparoscopic cholecystectomy Social History Smoking Status: Former smoker Smoking Status: Former smoker tobacco type: cigarettes alcohol intake frequency: 0-2 drinks per day Substance Use Type: does not use and marijuana Exam <Miguel Irving PA-C - Last Filed: 03/14/22 15:26> Narrative Exam Narrative: Const General:?cooperative, healthy appearing and comfortable [facility] Head:?normal to inspection Ears:?hearing grossly normal bilaterally Nose:?external nose normal Face and sinus:?normal facial exam and sinuses nontender Mouth:?oral mucosae normal Throat:?posterior oropharynx normal Eyes General:?appearance normal, both eyes and all related structures Neck Neck:?normal visual inspection and no lymphadenopathy noted Resp Effort & Inspection:?normal respiratory effort Auscultation:?clear to auscultation bilaterally Cardio Rate:?regular rate Rhythm:?regular rhythm GI Abdomen is soft, nondistended. Mildly tender to palpation in the LLQ and suprapubic areas. No CVA TTP. Neuro General:?patient alert, patient awake and patient oriented x3 Initial Vital Signs Initial Vital Signs: Vital Signs Temperature 97.1 F L 03/14/22 13:40 Pulse Rate 99 H 03/14/22 13:40 Respiratory Rate 12 03/14/22 13:40 Blood Pressure 135/92 H 03/14/22 13:40 Pulse Oximetry 99 03/14/22 13:40 Oxygen Delivery Method 03/14/22 13:40 <DO Filemon Erwin Last Filed: 03/14/22 17:10> Initial Vital Signs Initial Vital Signs: Vital Signs Temperature 97.1 F L 03/14/22 13:40 Pulse Rate 99 H 03/14/22 13:40 Respiratory Rate 12 03/14/22 13:40 Blood Pressure 135/92 H 03/14/22 13:40 Pulse Oximetry 99 03/14/22 13:40 Oxygen Delivery Method 03/14/22 13:40 Course <ESA Rios Last Filed: 03/14/22 15:26> Orders Ordered: ED Orders 03/14/22 14:30 Complete Blood Count AUTO DIFF Stat Comprehensive Metabolic Panel Stat Lipase Stat Vital Signs Vital signs: Vital Signs - 8 hr 03/14/22 13:40 03/14/22 15:51 Temperature 97.1 F L Pulse Rate 99 H 95 H Respiratory Rate 12 16 Blood Pressure 135/92 H 118/73 Pulse Oximetry 99 97 Oxygen Delivery Method Room Air Room Air <DO Filemon Erwin Last Filed: 03/14/22 17:10> Orders Ordered: ED Orders 03/14/22 14:30 Complete Blood Count AUTO DIFF Stat Comprehensive Metabolic Panel Stat Lipase Stat Vital Signs Vital signs: Vital Signs - 8 hr 03/14/22 13:40 03/14/22 15:51 Temperature 97.1 F L Pulse Rate 99 H 95 H Respiratory Rate 12 16 Blood Pressure 135/92 H 118/73 Pulse Oximetry 99 97 Oxygen Delivery Method Room Air Room Air MDM - Abdominal Pain <ESA Rios Last Filed: 03/14/22 15:26> Lab Data Result diagrams: 03/14/22 14:30 03/14/22 14:30 Labs: Lab Results 03/14/22 03/14/22 Range/Units 14:30 14:30 WBC 9.2 (4.5-11.0) X10^3/uL RBC 4.96 (4.0-5.2) X10^6/uL Hgb 14.1 (12.0-16.0) g/dL Hct 41.6 (36-46) % MCV 83.8 (80-100) fL MCH 28.4 (26-34) PG MCHC 33.8 (30-36) % RDW 13.2 (11.6-14.8) % Plt Count 308 (150-400) X10^3/uL Neut % (Auto) 70.2 (50-75) % Lymph % (Auto) 20.3 L (25-40) % [place] % (Auto) 8.5 (3-14) % Eos % (Auto) 0.3 L (2-4) % Baso % (Auto) 0.7 (0-2) % Neut # (Auto) 6500 (8178-6723) /uL Lymph # (Auto) 1900 (0065-2698) /uL [place] # (Auto) 800 (0-900) /uL Eos # (Auto) 0 (0-450) /uL Baso # (Auto) 100 (0-100) /uL Sodium 139 (137-145) mmol/L Potassium 3.8 (3.4-5.1) mmol/L Chloride 104 (98-107) mmol/L Carbon Dioxide 23 (22-32) mmol/L BUN 13 (7-17) mg/dL Creatinine 0.59 (0.52-1.04) mg/dL Estimated GFR > 60 (>60) mL/min BUN/Creatinine Ratio 22.0 (6-22) Glucose 84 (70-100) mg/dL Calcium 9.5 (8.4-10.2) mg/dL Total Bilirubin 0.8 (0.2-1.3) mg/dL AST 26 (14-36) IU/L ALT 22 (<35) IU/L Alkaline Phosphatase 85 (38-126) U/L Total Protein 8.2 (6.3-8.2) g/dL Albumin 4.7 (3.5-5.0) g/dL Globulin 3.5 (1.7-4.1) g/dL Albumin/Globulin Ratio 1.3 (1.0-2.8) Lipase 100 (23-300) U/L MDM Narrative Medical decision making narrative: 26-year-old female who is status post a laparoscopic cholecystectomy presents to the ED with 3 days of constipation. History and physical exam reassuring for likely constipation and fecal impaction versus other intra-abdominal pathology. Abdominal exam was benign. Will obtain some labs to ensure electrolytes within normal limits. Patient declined pain medication. Likely discharge home with bowel regimen recommendations. Labs within normal limits. Bowel regimen recommendations discussed with patient. ED return precautions were also discussed with patient. Patient verbalized understanding. <Avery Anderson, DO - Last Filed: 03/14/22 17:10> Lab Data Labs: Lab Results 03/14/22 03/14/22 Range/Units 14:30 14:30 WBC 9.2 (4.5-11.0) X10^3/uL RBC 4.96 (4.0-5.2) X10^6/uL Hgb 14.1 (12.0-16.0) g/dL Hct 41.6 (36-46) % MCV 83.8 (80-100) fL MCH 28.4 (26-34) PG MCHC 33.8 (30-36) % RDW 13.2 (11.6-14.8) % Plt Count 308 (150-400) X10^3/uL Neut % (Auto) 70.2 (50-75) % Lymph % (Auto) 20.3 L (25-40) % [place] % (Auto) 8.5 (3-14) % Eos % (Auto) 0.3 L (2-4) % Baso % (Auto) 0.7 (0-2) % Neut # (Auto) 6500 (1112-1031) /uL Lymph # (Auto) 1900 (1299-4924) /uL [place] # (Auto) 800 (0-900) /uL Eos # (Auto) 0 (0-450) /uL Baso # (Auto) 100 (0-100) /uL Sodium 139 (137-145) mmol/L Potassium 3.8 (3.4-5.1) mmol/L Chloride 104 (98-107) mmol/L Carbon Dioxide 23 (22-32) mmol/L BUN 13 (7-17) mg/dL Creatinine 0.59 (0.52-1.04) mg/dL Estimated GFR > 60 (>60) mL/min BUN/Creatinine Ratio 22.0 (6-22) Glucose 84 (70-100) mg/dL Calcium 9.5 (8.4-10.2) mg/dL Total Bilirubin 0.8 (0.2-1.3) mg/dL AST 26 (14-36) IU/L ALT 22 (<35) IU/L Alkaline Phosphatase 85 (38-126) U/L Total Protein 8.2 (6.3-8.2) g/dL Albumin 4.7 (3.5-5.0) g/dL Globulin 3.5 (1.7-4.1) g/dL Albumin/Globulin Ratio 1.3 (1.0-2.8) Lipase 100 (23-300) U/L Discharge Plan Departure Patient Disposition: Home Clinical Impression: Constipation Instructions: DI for Constipation Activity Restrictions/Additional Instructions: You were evaluated in the ED today for constipation and rectal pain. Your symptoms are likely due to fecal impaction and constipation. You may take 300 of magnesium citrate once today, ensure that you are by an easily accessible bathroom. You may repeat a 2nd dose tomorrow if you are still feeling constipated. Otherwise you may start taking MiraLax nightly for the next few weeks until your bowels normalized. Dietary modifications including increased fiber, water will also be helpful to maintain a good bowel regimen. Please follow-up with your PCP in 3-5 days. Return to the ED if your symptoms worsen, you have persistent vomiting, worsening abdominal pain. Prescriptions: No Action sucralfate 1 gram tablet 1 g PO BID Qty: 20 0RF Referrals: Miscellaneous,Doctor, MD [Primary Care Provider] - Visit Report Forms: Patient Portal/API <Avery Anderson DO - Last Filed: 03/14/22 17:10> Cosign ED Attending [facility] Services[facility]ermaine[facility] Attestation: Dr Anderson Co-Sign Statement: I was available for consultation during this patient's emergency department visit. This chart is signed by myself for administrative purposes only. I did not have direct contact with this patient during this visit. They were seen independently by the APC.
[2022-03-14 15:00] LABS: Add Manual Diff / Slide Review NO; Basophils Absolute Auto 100 /uL (0-100); Basophils Percent Auto 0.7 % (0-2); Eosinophils Absolute Auto 0 /uL (0-450); Eosinophils Percent Auto 0.3 % (2-4); Hematocrit 41.6 % (36-46); Hemoglobin 14.1 g/dL (12.0-16.0); Lymphocytes Absolute Auto 1900 /uL (1100-4500); Lymphocytes Percent Auto 20.3 % (25-40); Mean Corpuscular HGB Conc 33.8 % (30-36); Mean Corpuscular Hemoglobin 28.4 PG (26-34); Mean Corpuscular Volume 83.8 fL (80-100); Monocytes Absolute Auto 800 /uL (0-900); Monocytes Percent Auto 8.5 % (3-14); Neutrophils Absolute Auto 6500 /uL (1500-7000); Neutrophils Percent Auto 70.2 % (50-75); Platelet Count 308 X10^3/uL (150-400); Red Blood Cell Count 4.96 X10^6/uL (4.0-5.2); Red Cell Distribution Width 13.2 % (11.6-14.8); White Blood Cell Count 9.2 X10^3/uL (4.5-11.0)
[2022-03-14 15:13] LABS: Alanine Aminotransferase 22 IU/L (<35); Albumin 4.7 g/dL (3.5-5.0); Albumin Globulin Ratio 1.3 (1.0-2.8); Alkaline Phosphatase 85 U/L (38-126); Aspartate Aminotransferase 26 IU/L (14-36); Bilirubin Total 0.8 mg/dL (0.2-1.3); Blood Urea Nitrogen 13 mg/dL (7-17); Calcium 9.5 mg/dL (8.4-10.2); Carbon Dioxide 23 mmol/L (22-32); Chloride 104 mmol/L (98-107); Estimated Glomerular Filt Rate > 60 mL/min (>60); Globulin 3.5 g/dL (1.7-4.1); Glucose 84 mg/dL (70-100); HEMOLYSIS < 15 (0-50); Lipase 100 U/L (23-300); Potassium 3.8 mmol/L (3.4-5.1); Sodium 139 mmol/L (137-145); Total Protein 8.2 g/dL (6.3-8.2)
[2022-03-14 15:51] VITALS: BP 118/73; PULSE 95; RESP 16; O2SAT 97
== END 2022-03-14 15:54 | disposition home or self-care (01) ==
PROVIDERS: Emergency Medicine; Emergency Provider Student in an Organized Health Care Education/Training Program
DX: K59.00 Constipation, unspecified (principal); K62.89 Other specified diseases of anus and rectum
CPT/HCPCS: 36415; 80053; 83690; 85025; 99283

== ENCOUNTER → 2022-05-05 17:47 | Outpatient (CLI) | payer OTHER, MEDICAID, SELFPAY ==
[2022-05-05 18:39] LABS: Appearance Urine UA CLEAR; Bilirubin Urine UA NEGATIVE (NEGATIVE); Color Urine UA YELLOW; Glucose Urine UA NEGATIVE (Negative); Ketones Urine UA NEGATIVE (NEGATIVE); Leukocyte Esterase Urine UA NEGATIVE (NEGATIVE); Nitrite Urine UA NEGATIVE (Negative); Occult Blood Urine UA NEGATIVE (Negative); Protein Urine UA NEGATIVE (Negative); Urobilinogen Urine UA 0.2 E.U./dL (0.2)
[2022-05-05 18:39] LABS: Add Manual Diff / Slide Review NO; Basophils Absolute Auto 100 /uL (0-100); Basophils Percent Auto 1.1 % (0-2); Eosinophils Absolute Auto 100 /uL (0-450); Eosinophils Percent Auto 1.2 % (2-4); Hematocrit 41.6 % (36-46); Hemoglobin 13.9 g/dL (12.0-16.0); Lymphocytes Absolute Auto 3600 /uL (1100-4500); Lymphocytes Percent Auto 39.2 % (25-40); Mean Corpuscular HGB Conc 33.3 % (30-36); Mean Corpuscular Hemoglobin 28.5 PG (26-34); Mean Corpuscular Volume 85.7 fL (80-100); Monocytes Absolute Auto 700 /uL (0-900); Monocytes Percent Auto 7.2 % (3-14); Neutrophils Absolute Auto 4700 /uL (1500-7000); Neutrophils Percent Auto 51.3 % (50-75); Platelet Count 310 X10^3/uL (150-400); Red Blood Cell Count 4.85 X10^6/uL (4.0-5.2); Red Cell Distribution Width 12.7 % (11.6-14.8); White Blood Cell Count 9.2 X10^3/uL (4.5-11.0)
[2022-05-05 18:51] LABS: Bacteria Urine None Seen; Culture Indicated Urine Cult Not Indicated; RBC Urine None Seen (0-5/HPF); WBC Urine None Seen (0-5/HPF)
[2022-05-05 18:52] LABS: Alanine Aminotransferase 30 IU/L (<35); Albumin 4.8 g/dL (3.5-5.0); Albumin Globulin Ratio 1.3 (1.0-2.8); Alkaline Phosphatase 88 U/L (38-126); Aspartate Aminotransferase 30 IU/L (14-36); BUN Creatinine Ratio 14.9 (6-22); Bilirubin Total 0.5 mg/dL (0.2-1.3); Blood Urea Nitrogen 10 mg/dL (7-17); Calcium 9.2 mg/dL (8.4-10.2); Carbon Dioxide 31 mmol/L (22-32); Chloride 101 mmol/L (98-107); Estimated Glomerular Filt Rate > 60 mL/min (>60); Globulin 3.8 g/dL (1.7-4.1); Glucose 83 mg/dL (70-100); HEMOLYSIS < 15 (0-50); Potassium 4.1 mmol/L (3.4-5.1); Sodium 141 mmol/L (137-145); Total Protein 8.6 g/dL (6.3-8.2)
[2022-05-05 19:03] LABS: C-Reactive Protein Quant < 0.5 mg/dL (<1.0)
== END ==
PROVIDERS: Visit Provider Nurse Practitioner Critical Care Medicine
DX: N89.8 Other specified noninflammatory disorders of vagina (principal)
CPT/HCPCS: 80053; 81001; 85025; 86140; 87210

== ENCOUNTER → 2022-07-18 17:05 | Outpatient (CLI) | payer OTHER, MEDICAID, SELFPAY ==
[2022-07-18 18:09] LABS: Influenza A - CEPHEID Flu A NEGATIVE (NEGATIVE); Influenza B - CEPHEID Flu B NEGATIVE (NEGATIVE); Respiratory Syncytial Virus Negative (Negative)
[2022-07-18 18:14] LABS: COVID-19 CEPHEID 4-PLEX PCR Negative (Negative)
== END ==
PROVIDERS: Visit Provider Physician Assistant
DX: J06.9 Acute upper respiratory infection, unspecified (principal)
CPT/HCPCS: 0241U

== ENCOUNTER → 2022-07-25 11:24 | Outpatient (CLI) | payer OTHER, MEDICAID, SELFPAY ==
--- NOTE | 2022-07-25 11:36 | DI.ECHO.S_ITS ---
:Name: NESTOR DEVINE Study Date: 07/25/2022 Height: 64 in : :[facility] ReadingLocation: Weight: 116 lb : : Gender: Female BSA: 1.6 m2 : :: 1995 Age: 26 yrs BP: 106/74 mmHg: :Reason For Study: SUPRAVENTRICULAR TACHYCARDIA : :Ordering Physician: EDNA HERRERAerformed By: Светлана De Jesus : :Referring: EFRAIN HERRERA : + + Interpretation Summary The left ventricle is normal in size and wall thickness. Left ventricular systolic function appears normal without focal wall motion abnormalities. The ejection fraction is estimated to be 60-65%. Diastolic parameters suggest probable normal left ventricular diastolic function and normal filling pressures. The right ventricle is normal in size and function. The left atrial size is normal. Right atrial size is normal. There is no significant valvular heart disease. The aortic root is normal size. Procedure: A two-dimensional transthoracic echocardiogram with color flow and Doppler was performed. The study quality was technically difficult. There is no prior echocardiogram noted for this patient. The patient was in sinus rhythm with heart rates between 81-88 bpm during the exam. Left Ventricle: The left ventricle is normal in size and wall thickness. Left ventricular systolic function appears normal without focal wall motion abnormalities. The ejection fraction is estimated to be 60-65%. Diastolic parameters suggest probable normal left ventricular diastolic function and normal filling pressures. Right Ventricle: The right ventricle is normal in size and function. Atria: The left atrial size is normal. Right atrial size is normal. There is no Doppler evidence for an interatrial shunt. Mitral Valve: The mitral valve is normal in structure and function. There is trace mitral regurgitation. Aortic Valve: The aortic valve is not well visualized. The aortic valve opens well. There is no aortic valve stenosis. No aortic regurgitation is present. Tricuspid Valve: The tricuspid valve is normal in structure and function. No tricuspid regurgitation. Pulmonic Valve: The pulmonic valve leaflets are thin and pliable; valve motion is normal. There is no pulmonic valvular regurgitation. There is no significant valvular heart disease. Great Vessels: The aortic root is normal size. The dimensions of the ascending aorta are normal. The IVC is of normal diameter and collapses greater than 50% with a sniff. This suggests a low right atrial pressure of 3 mm Hg. Pericardium/ Pleura There is no pericardial effusion. There is no pleural effusion. MMode/2D Measurements & Calculations LVIDd: 4.4 cm LVOT diam: 1.9 cm LVIDs: 3.0 cm Ao root diam: 2.7 cm FS: 32.1 % asc Aorta Diam: 2.5 cm IVSd: 0.68 cm Ao Arch Diam (Prox Trans): 2.6 cm LVPWd: 0.60 cm LV schuler. diameter/BSA (cm/m^2): 2.8 LV sys. diameter/BSA (cm/m^2): 1.9 LA dimension: 2.9 cm RA long axis: 3.4 cm LA A4 area: 11.9 cm2 RA area: 10.8 cm2 LA length (vol): 3.8 cm RA vol: 28.9 ml RA : 18.7 ml/m2 IVC diam: 1.1 cm RVD1 (basal): 3.5 cm TAPSE: 1.8 cm Doppler Measurements & Calculations Ao V2 max: 104.2 cm/sec LVOT Max Antonio: 86.6 cm/sec Ao V2 mean: 70.7 cm/sec LV V1 max P.0 mmHg Ao max P.3 mmHg LV V1 VTI: 17.5 cm Ao mean P.3 mmHg CLARA(I,D): 2.5 cm2 Ao V2 VTI: 20.4 cm CLARA(V,D): 2.4 cm2 sev ratio: 0.86 CLARA indexed to BSA (cm^2/m^2): 1.6 MV E max antonio: 82.5 cm/sec PA V2 max: 84.0 cm/sec MV A max antonio: 64.9 cm/sec PA V2 mean: 56.5 cm/sec MV E/A: 1.3 PA mean P.4 mmHg Med Peak E' Antonio: 13.7 cm/sec PA pr(Accel): 25.9 mmHg E/E' med: 6.0 Lat Peak E' Antonio: 17.2 cm/sec E/E' lat: 4.8 E/e' average: 5.4 MV dec time: 0.19 sec SV(LVOT): 51.3 ml Reading Physician:06:21 PM
== END ==
PROVIDERS: PCP Family Medicine; Referring Provider Internal Medicine Cardiovascular Disease; Visit Provider Internal Medicine Cardiovascular Disease
DX: I47.1 Supraventricular tachycardia (principal)
CPT/HCPCS: 93306

== ENCOUNTER 2022-10-17 17:02 | Emergency (ER) | payer OTHER, MEDICAID, SELFPAY ==
[2022-10-17] VITALS (23 sets, daily range): BP systolic 102–140; BP diastolic 56–84; PULSE 78–109; RESP 16–28; TEMP 36.8; O2SAT 94–100; BMI 25.4
[2022-10-17] MEDS: ONDANSETRON 4 MG/2 ML INJ IV (17:55)
[2022-10-17] MEDS: PANTOPRAZOLE 40 MG VIAL 80 MG IV (17:55)
[2022-10-17 17:58] LABS: Add Manual Diff / Slide Review NO; Basophils Absolute Auto 100 /uL (0-100); Basophils Percent Auto 0.9 % (0-2); Eosinophils Absolute Auto 100 /uL (0-450); Eosinophils Percent Auto 0.8 % (2-4); Hematocrit 40.5 % (36-46); Hemoglobin 13.8 g/dL (12.0-16.0); Lymphocytes Absolute Auto 2400 /uL (1100-4500); Lymphocytes Percent Auto 27.6 % (25-40); Mean Corpuscular Hemoglobin 28.1 PG (26-34); Mean Corpuscular Volume 82.6 fL (80-100); Monocytes Absolute Auto 600 /uL (0-900); Monocytes Percent Auto 6.7 % (3-14); Neutrophils Absolute Auto 5500 /uL (1500-7000); Platelet Count 335 X10^3/uL (150-400); Red Blood Cell Count 4.91 X10^6/uL (4.0-5.2); White Blood Cell Count 8.7 X10^3/uL (4.5-11.0)
[2022-10-17 18:13] LABS: INR 1.1 (0.9-1.3); Prothrombin Time 12.2 SECONDS (10.1-12.7)
[2022-10-17 18:16] LABS: PTT Partial Thromboplastin Tim 30 SECONDS (26-36)
[2022-10-17 18:23] LABS: Alanine Aminotransferase 48 IU/L (<35); Albumin 4.7 g/dL (3.5-5.0); Albumin Globulin Ratio 1.3 (1.0-2.8); Alkaline Phosphatase 93 U/L (38-126); Aspartate Aminotransferase 48 IU/L (14-36); BUN Creatinine Ratio 19.4 (6-22); Bilirubin Total 0.7 mg/dL (0.2-1.3); Blood Urea Nitrogen 13 mg/dL (7-17); Calcium 8.9 mg/dL (8.4-10.2); Carbon Dioxide 27 mmol/L (22-32); Chloride 101 mmol/L (98-107); Estimated Glomerular Filt Rate > 60 mL/min (>60); Globulin 3.7 g/dL (1.7-4.1); Glucose 89 mg/dL (70-100); HEMOLYSIS < 15 (0-50); Potassium 3.7 mmol/L (3.4-5.1); Sodium 138 mmol/L (137-145); Total Protein 8.4 g/dL (6.3-8.2)
--- NOTE | 2022-10-17 18:54 | ED.GIBLEED ---
HPI - GI Bleed General Chief complaint: GI Bleed Stated complaint: thinks gi bleed Time Seen by Provider: 10/17/22 17:57 Source: patient and family Mode of arrival: Ambulatory History of Present Illness HPI Narrative: Patient is a 26-year-old female who is here for evaluation approximately 5 days of diarrhea and vomiting. No recent travel. No recent antibiotics. Today had 1 episode of bright red blood per rectum. She has had a GI bleed in the past because of norovirus. No urinary symptoms. No fevers. Has not tried anything for the symptoms prior to arrival. Related Data Previous Rx's Medication Instructions Recorded sucralfate 1 gram tablet 1 g PO BID #20 tabs 12/30/21 Allergies Allergy/AdvReac Type Severity Reaction Status Date / Time prochlorperazine Allergy Severe Palpitation Verified 01/10/22 14:03 [From Compazine] s Review of Systems Constitutional Constitutional: Reports system reviewed and no additional complaints, except as documented Gastrointestinal Gastrointestinal: Reports system reviewed and no additional complaints, except as documented Genitourinary Genitourinary: Reports system reviewed and no additional complaints, except as documented Musculoskeletal Musculoskeletal: Reports system reviewed and no additional complaints, except as documented Hematologic/Lymphatic On Anticoagulants: No Patient History Medical History Post-cholecystectomy syndrome Upper abdominal pain, unspecified Surgical History Status post laparoscopic cholecystectomy Social History Smoking Status: Former smoker Smoking Status: Former smoker tobacco type: cigarettes alcohol intake frequency: 0-2 drinks per day Substance Use Type: does not use and marijuana Exam Initial Vital Signs Initial Vital Signs: Vital Signs Blood Pressure 140/84 10/17/22 17:09 Const General: cooperative, comfortable and No ill appearing HENMT Head: normal to inspection and normocephalic Resp Effort & Inspection: normal respiratory effort Cardio Rate: regular rate GI Inspection: normal to inspection and non-distended Neuro General: patient alert, patient awake, patient oriented x3 and moves all extremities Extrem General: normal to inspection Course Orders Ordered: ED Orders 10/17/22 17:45 Complete Blood Count AUTO DIFF Stat Comprehensive Metabolic Panel Stat PTT Partial Thromboplastin Elie Stat Prothrombin Time INR Stat Type and Screen Stat 10/17/22 19:28 GI Panel (Film Array) Stat Discontinued Medications Ondansetron HCl (Ondansetron 4 Mg/2 Ml Inj) 4 mg IV NOW PRN PRN Reason: Nausea And Vomiting Last Admin: 10/17/22 17:55 Dose: 4 mg Documented By: RB Ondansetron HCl (Ondansetron 4 Mg Odt) 4 mg SL NOW PRN PRN Reason: Nausea And Vomiting Pantoprazole Sodium (Pantoprazole 40 Mg Vial) 80 mg IV NOW ONE Stop: 10/17/22 17:28 Last Admin: 10/17/22 17:55 Dose: 80 mg Documented By: RB Vital Signs Vital signs: Vital Signs - 8 hr 10/17/22 17:19 10/17/22 17:09 10/17/22 17:10 Temperature 98.2 F Pulse Rate 95 H 93 H Respiratory Rate 20 Blood Pressure 140/84 140/84 Pulse Oximetry 99 100 Oxygen Delivery Method Room Air 10/17/22 17:15 10/17/22 17:30 10/17/22 17:30 Temperature Pulse Rate 93 H 89 Respiratory Rate Blood Pressure 127/77 Pulse Oximetry 100 99 Oxygen Delivery Method 10/17/22 17:45 10/17/22 18:00 10/17/22 18:00 Temperature Pulse Rate 96 H 109 H Respiratory Rate 25 H Blood Pressure 128/78 Pulse Oximetry 99 100 Oxygen Delivery Method 10/17/22 18:15 10/17/22 18:15 10/17/22 18:31 Temperature Pulse Rate 91 H 97 H Respiratory Rate 20 Blood Pressure 106/56 L Pulse Oximetry 98 98 Oxygen Delivery Method 10/17/22 18:32 10/17/22 18:32 10/17/22 18:45 Temperature Pulse Rate 93 H Respiratory Rate 17 Blood Pressure 120/74 109/73 Pulse Oximetry 97 Oxygen Delivery Method 10/17/22 18:45 10/17/22 19:00 10/17/22 19:00 Temperature Pulse Rate 94 H 88 Respiratory Rate 17 17 Blood Pressure 110/64 Pulse Oximetry 98 97 Oxygen Delivery Method 10/17/22 19:15 10/17/22 19:15 10/17/22 19:30 Temperature Pulse Rate 91 H 96 H Respiratory Rate 25 H Blood Pressure 118/79 Pulse Oximetry 97 Oxygen Delivery Method 10/17/22 19:45 10/17/22 19:45 10/17/22 20:00 Temperature Pulse Rate 90 Respiratory Rate 22 Blood Pressure 109/67 109/63 Pulse Oximetry 96 Oxygen Delivery Method 10/17/22 20:00 10/17/22 20:15 10/17/22 20:15 Temperature Pulse Rate 83 85 Respiratory Rate 17 28 H Blood Pressure 131/68 Pulse Oximetry 96 96 Oxygen Delivery Method 10/17/22 20:30 10/17/22 20:30 10/17/22 20:45 Temperature Pulse Rate 84 Respiratory Rate 19 Blood Pressure 109/62 109/63 Pulse Oximetry 94 Oxygen Delivery Method 10/17/22 20:45 10/17/22 21:00 10/17/22 21:00 Temperature Pulse Rate 82 81 Respiratory Rate 25 H 17 Blood Pressure 102/62 Pulse Oximetry 96 97 Oxygen Delivery Method 10/17/22 21:15 10/17/22 21:15 10/17/22 21:30 Temperature Pulse Rate 78 Respiratory Rate 16 Blood Pressure 109/64 108/61 Pulse Oximetry 96 Oxygen Delivery Method 10/17/22 21:30 10/17/22 21:43 Temperature Pulse Rate 79 85 Respiratory Rate 17 20 Blood Pressure 108/61 Pulse Oximetry 97 96 Oxygen Delivery Method Room Air MDM - GI Bleed Lab Data Attestation: I reviewed the patient's lab results. 10/17/22 17:45 10/17/22 17:45 Labs: Lab Results 10/17/22 10/17/22 10/17/22 Range/Units 17:45 17:45 17:45 WBC 8.7 (4.5-11.0) X10^3/uL RBC 4.91 (4.0-5.2) X10^6/uL Hgb 13.8 (12.0-16.0) g/dL Hct 40.5 (36-46) % MCV 82.6 (80-100) fL MCH 28.1 (26-34) PG MCHC 34.0 (30-36) % RDW 13.0 (11.6-14.8) % Plt Count 335 (150-400) X10^3/uL Neut % (Auto) 64.0 (50-75) % Lymph % (Auto) 27.6 (25-40) % [place]abella % (Auto) 6.7 (3-14) % Eos % (Auto) 0.8 L (2-4) % Baso % (Auto) 0.9 (0-2) % Neut # (Auto) 5500 (1388-1052) /uL Lymph # (Auto) 2400 (9392-8972) /uL [place]abella # (Auto) 600 (0-900) /uL Eos # (Auto) 100 (0-450) /uL Baso # (Auto) 100 (0-100) /uL PT 12.2 (10.1-12.7) SECONDS INR 1.1 (0.9-1.3) APTT 30 (26-36) SECONDS Sodium 138 (137-145) mmol/L Potassium 3.7 (3.4-5.1) mmol/L Chloride 101 (98-107) mmol/L Carbon Dioxide 27 (22-32) mmol/L BUN 13 (7-17) mg/dL Creatinine 0.67 (0.52-1.04) mg/dL Estimated GFR > 60 (>60) mL/min BUN/Creatinine Ratio 19.4 (6-22) Glucose 89 (70-100) mg/dL Calcium 8.9 (8.4-10.2) mg/dL Total Bilirubin 0.7 (0.2-1.3) mg/dL AST 48 H (14-36) IU/L ALT 48 H (<35) IU/L Alkaline Phosphatase 93 (38-126) U/L Total Protein 8.4 H (6.3-8.2) g/dL Albumin 4.7 (3.5-5.0) g/dL Globulin 3.7 (1.7-4.1) g/dL Albumin/Globulin Ratio 1.3 (1.0-2.8) Stl C. cayetanensis PCR (Not Detect) Stool Rotavirus (PCR) (Not Detect) Stool Adenovirus (PCR) (Not Detect) Stool Astrovirus (PCR) (Not Detect) Stool Cryptosporidium PCR (Not Detect) Stl E.coli Shiga Tox PCR (Not Detect) St Sh/Enteroin Ecoli PCR (Not Detect) Stool E coli O157 PCR Stl Enterotoxigenic E PCR (Not Detect) Stool EPEC (PCR) (Not Detect) Stl E. histolytica PCR (Not Detect) Stool Giardia Lamblia PCR (Not Detect) Stool Sapovirus (PCR) (Not Detect) Stl P. shigelloides PCR (Not Detect) St Y.enterocolitica PCR (Not Detect) Stool Vibrio (PCR) (Not Detect) Stl Vibrio cholerae PCR (Not Detect) Stl Enteroaggr Ecoli PCR (Not Detect) Stl Norovirus GI/GII PCR (Not Detect) Campylobacter (PCR) (Not Detect) C. difficile Tox (PCR) (Not Detect) Salmonella (PCR) (Not Detect) Blood Type Antibody Screen 10/17/22 10/17/22 Range/Units 17:45 19:28 WBC (4.5-11.0) X10^3/uL RBC (4.0-5.2) X10^6/uL Hgb (12.0-16.0) g/dL Hct (36-46) % MCV (80-100) fL MCH (26-34) PG MCHC (30-36) % RDW (11.6-14.8) % Plt Count (150-400) X10^3/uL Neut % (Auto) (50-75) % Lymph % (Auto) (25-40) % Isabella % (Auto) (3-14) % Eos % (Auto) (2-4) % Baso % (Auto) (0-2) % Neut # (Auto) (2849-6413) /uL Lymph # (Auto) (0884-2889) /uL Isabella # (Auto) (0-900) /uL Eos # (Auto) (0-450) /uL Baso # (Auto) (0-100) /uL PT (10.1-12.7) SECONDS INR (0.9-1.3) APTT (26-36) SECONDS Sodium (137-145) mmol/L Potassium (3.4-5.1) mmol/L Chloride (98-107) mmol/L Carbon Dioxide (22-32) mmol/L BUN (7-17) mg/dL Creatinine (0.52-1.04) mg/dL Estimated GFR (>60) mL/min BUN/Creatinine Ratio (6-22) Glucose (70-100) mg/dL Calcium (8.4-10.2) mg/dL Total Bilirubin (0.2-1.3) mg/dL AST (14-36) IU/L ALT (<35) IU/L Alkaline Phosphatase (38-126) U/L Total Protein (6.3-8.2) g/dL Albumin (3.5-5.0) g/dL Globulin (1.7-4.1) g/dL Albumin/Globulin Ratio (1.0-2.8) Stl C. cayetanensis PCR Not detected (Not Detect) Stool Rotavirus (PCR) Not detected (Not Detect) Stool Adenovirus (PCR) Not detected (Not Detect) Stool Astrovirus (PCR) Not detected (Not Detect) Stool Cryptosporidium PCR Not detected (Not Detect) Stl E.coli Shiga Tox PCR Not detected (Not Detect) St Sh/Enteroin Ecoli PCR Not detected (Not Detect) Stool E coli O157 PCR Not Reportable Stl Enterotoxigenic E PCR Not detected (Not Detect) Stool EPEC (PCR) Not detected (Not Detect) Stl E. histolytica PCR Not detected (Not Detect) Stool Giardia Lamblia PCR Not detected (Not Detect) Stool Sapovirus (PCR) Not detected (Not Detect) Stl P. shigelloides PCR Not detected (Not Detect) St Y.enterocolitica PCR Not detected (Not Detect) Stool Vibrio (PCR) Not detected (Not Detect) Stl Vibrio cholerae PCR Not detected (Not Detect) Stl Enteroaggr Ecoli PCR Not detected (Not Detect) Stl Norovirus GI/GII PCR Not detected (Not Detect) Campylobacter (PCR) Not detected (Not Detect) C. difficile Tox (PCR) Not detected (Not Detect) Salmonella (PCR) Not detected (Not Detect) Blood Type B Positive Antibody Screen Negative Point of Care Testing Test Results Negative Urine Dip Bedside Urine Glucose Negative Bedside Urine Bilirubin - Negative Bedside Urine Ketone - Negative Urine Specific [place] 1.000 Bedside Urine Occult Blood - Negative Bedside Urine pH 6.0 Bedside Urine Protein - Negative Bedside Urine Urobilinogen - Negative Bedside Urine Nitrite - Negative Bedside Urine Leukocytes - Negative Esterase MDM Narrative Medical decision making narrative: Benign exam, unremarkable vital signs, unremarkable labs, GI panel was negative. Patient is not anemic. Not hypotensive. Not tachycardic. No indication for blood transfusion. No indication for radiologic studies. No indication for surgical consultation. No indication for antibiotics. High suspicion that this is a benign cause of GI bleeding. She has had a colonoscopy in the past. She knows she has a history of hemorrhoids. I suspect that her symptoms will resolve within the next couple days. Will discharge patient home. She was given return precautions. She expressed understanding and agreement. Discharge Plan Departure Patient Disposition: Home Clinical Impression: Rectal bleeding Instructions: DI for Rectal Bleeding Activity Restrictions/Additional Instructions: I recommend that you contact your primary doctor for a follow-up. Use the nausea medication as needed. Return to the emergency department for new or worsening symptoms. Prescriptions: No Action sucralfate 1 gram tablet 1 g PO BID Qty: 20 0RF Referrals: Josiah Coleman MD [Primary Care Provider] - Stand Alone Forms: Patient Portal/API
[2022-10-17 20:59] LABS: Adenovirus F 40/41 Not Detected (Not Detect); Astrovirus Not Detected (Not Detect); Campylobacter Not Detected (Not Detect); Clostridium difficile toxin AB Not Detected (Not Detect); Cryptosporidium Not Detected (Not Detect); Cyclospora cayetanensis Not Detected (Not Detect); Entamoeba histolytica Not Detected (Not Detect); Enteroaggregative E.coli Not Detected (Not Detect); Enteropathogenic E.coli Not Detected (Not Detect); Enterotoxigenic E.coli It/st Not Detected (Not Detect); Giardia lamblia Not Detected (Not Detect); Norovirus GI/GII Not Detected (Not Detect); Plesiomonsa shigelloides Not Detected (Not Detect); Rotavirus A Not Detected (Not Detect); Salmonella Not Detected (Not Detect); Sapovirus Not Detected (Not Detect); Shiga-like toxin-prod E.coli Not Detected (Not Detect); Shigella/Enteroinvasive E.coli Not Detected (Not Detect); Vibrio Not Detected (Not Detect); Vibrio cholerae Not Detected (Not Detect); Yersinia enterocolitica Not Detected (Not Detect)
== END 2022-10-17 21:44 | disposition home or self-care (01) ==
PROVIDERS: Emergency Medicine; Emergency Provider Emergency Medicine; PCP Family Medicine
DX: K62.5 Hemorrhage of anus and rectum (principal)
CPT/HCPCS: 36415; 80053; 81003; 81025; 85025; 85610; 85730; 86850; 86900; 86901; 87507; 96374; 96375; 99284; C9113; J2405

== ENCOUNTER 2022-10-23 15:25 | Emergency (ER) | payer OTHER, MEDICAID, SELFPAY ==
[2022-10-23 15:30] VITALS: BP 124/72; PULSE 87; RESP 18; TEMP 36.1; O2SAT 97
--- NOTE | 2022-10-23 17:06 | ED.ABDPAIN ---
HPI - Abdominal Pain <Miguel Irving PA-C - Last Filed: 10/23/22 17:49> General Chief Complaint: Abdominal Pain Stated Complaint: abd pain T-6 Time Seen by Provider: 10/23/22 16:11 Source: patient Mode of arrival: Ambulatory History of Present Illness HPI narrative: 26-year-old female with past medical history GERD presents to the ED with 6 days of epigastric pain, nausea. Patient denies fever, chills, vomiting, chest pain, shortness of breath, lightheadedness, dizziness, syncope. Patient states that she was seen in the ED 6 days ago for a rectal bleed, that her liver enzymes were somewhat elevated. Patient is concerned today that she continues to have abdominal pain and that her liver enzymes might be worse. Patient is taking Protonix 20 daily. Related Data Previous Rx's Medication Instructions Recorded sucralfate 1 gram tablet 1 g PO BID #20 tabs 12/30/21 Allergies Allergy/AdvReac Type Severity Reaction Status Date / Time prochlorperazine Allergy Severe Palpitation Verified 01/10/22 14:03 [From Compazine] s Review of Systems <Miguel Irving PA-C - Last Filed: 10/23/22 17:49> Review of Systems ROS Unobtainable: All systems reviewed & are unremarkable except as noted in HPI and below Constitutional Constitutional: Denies chills, Denies fatigue, Denies fever(s), Denies frequent falls, Denies lethargy and Denies weakness Eyes Eyes: Denies change in vision, Denies eye discharge, Denies irritation and Denies loss of vision ENT Ears, Nose, Mouth, and Throat: Denies change in voice, Denies dizziness, Denies neck pain, Denies sore throat and Denies throat swelling Cardiovascular Cardiovascular: Denies chest pain, Denies irregular heart rhythm, Denies lightheadedness, Denies palpitations, Denies dyspnea, Denies dyspnea on exertion and Denies orthopnea Respiratory Respiratory: Denies cough, Denies dyspnea, Denies dyspnea on exertion and Denies wheezing Gastrointestinal Gastrointestinal: Reports abdominal pain, Denies change in bowel habits, Denies diarrhea, Reports nausea and Denies vomiting Genitourinary Genitourinary: Denies hematuria, Denies flank pain, Denies urinary incontinence and Denies urinary urgency Musculoskeletal Musculoskeletal: Denies back pain, Denies muscle weakness, Denies neck pain, Denies numbness and Denies tingling Integumentary/Breasts Skin/Breast: Denies pruritus, Denies erythema, Denies rash and Denies wounds Neurologic Neurologic: Denies behavioral changes, Denies confusion, Denies dizziness, Denies frequent falls, Denies loss of vision, Denies numbness, Denies tingling and Denies weakness Psychiatric Psychiatric: Denies anxiety, Denies behavioral changes, Denies confusion, Denies depression, Denies homicidal ideation and Denies suicidal ideation Endocrine Endocrine: Denies fatigue, Denies flushing and Denies palpitations Hematologic/Lymphatic Hematologic/Lymphatic: Denies easy bruising Allergic/Immunologic Allergic/Immunologic: Denies urticaria, Denies throat swelling and Denies wheezing Patient History <Miguel Irving PA-C - Last Filed: 10/23/22 17:49> Medical History Post-cholecystectomy syndrome Upper abdominal pain, unspecified Surgical History Status post laparoscopic cholecystectomy Social History Smoking Status: Former smoker Smoking Status: Former smoker tobacco type: cigarettes alcohol intake frequency: 0-2 drinks per day Substance Use Type: does not use and marijuana Exam <Miguel Irving PA-C - Last Filed: 10/23/22 17:49> Narrative Exam Narrative: Const General:?cooperative, healthy appearing and comfortable [facility] Head:?normal to inspection Ears:?hearing grossly normal bilaterally Nose:?external nose normal Face and sinus:?normal facial exam and sinuses nontender Mouth:?oral mucosae normal Throat:?posterior oropharynx normal Eyes General:?appearance normal, both eyes and all related structures Neck Neck:?normal visual inspection and no lymphadenopathy noted Resp Effort & Inspection:?normal respiratory effort Auscultation:?clear to auscultation bilaterally Cardio Rate:?regular rate Rhythm:?regular rhythm GI Abdomen is soft, nondistended. Abdomen is tender to palpation in the epigastric region. Neuro General:?patient alert, patient awake and patient oriented x3 Initial Vital Signs Initial Vital Signs: Vital Signs Temperature 97.0 F L 10/23/22 15:30 Pulse Rate 87 10/23/22 15:30 Respiratory Rate 18 10/23/22 15:30 Blood Pressure 124/72 10/23/22 15:30 Pulse Oximetry 97 10/23/22 15:30 Oxygen Delivery Method Room Air 10/23/22 15:30 <Carmen Dudley DO - Last Filed: 10/24/22 09:53> Initial Vital Signs Initial Vital Signs: Vital Signs Temperature 97.0 F L 10/23/22 15:30 Pulse Rate 87 10/23/22 15:30 Respiratory Rate 18 10/23/22 15:30 Blood Pressure 124/72 10/23/22 15:30 Pulse Oximetry 97 10/23/22 15:30 Oxygen Delivery Method Room Air 10/23/22 15:30 Course <Miguel Irving PA-C - Last Filed: 10/23/22 17:49> Orders Ordered: Discontinued Medications Ondansetron HCl (Ondansetron 4 Mg Odt) 4 mg PO NOW PRN PRN Reason: Nausea And Vomiting Ondansetron HCl (Ondansetron 4 Mg/2 Ml Inj) 4 mg IV NOW PRN PRN Reason: Nausea And Vomiting Vital Signs Vital signs: Vital Signs - 8 hr 10/23/22 15:30 10/23/22 17:38 Temperature 97.0 F L Pulse Rate 87 77 Respiratory Rate 18 16 Blood Pressure 124/72 126/75 Pulse Oximetry 97 98 Oxygen Delivery Method Room Air Room Air <Carmen Dudley DO - Last Filed: 10/24/22 09:53> Orders Ordered: Discontinued Medications Ondansetron HCl (Ondansetron 4 Mg Odt) 4 mg PO NOW PRN PRN Reason: Nausea And Vomiting Ondansetron HCl (Ondansetron 4 Mg/2 Ml Inj) 4 mg IV NOW PRN PRN Reason: Nausea And Vomiting Vital Signs Vital signs: Vital Signs - 8 hr 10/23/22 15:30 10/23/22 17:38 Temperature 97.0 F L Pulse Rate 87 77 Respiratory Rate 18 16 Blood Pressure 124/72 126/75 Pulse Oximetry 97 98 Oxygen Delivery Method Room Air Room Air MDM - Abdominal Pain <ESA Rios Last Filed: 10/23/22 17:49> Lab Data 10/23/22 17:00 10/23/22 17:00 Labs: Lab Results 10/23/22 10/23/22 Range/Units 17:00 17:00 WBC 7.1 (4.5-11.0) X10^3/uL RBC 4.47 (4.0-5.2) X10^6/uL Hgb 12.5 (12.0-16.0) g/dL Hct 36.7 (36-46) % MCV 82.2 (80-100) fL MCH 28.0 (26-34) PG MCHC 34.1 (30-36) % RDW 13.3 (11.6-14.8) % Plt Count 296 (150-400) X10^3/uL Neut % (Auto) 55.8 (50-75) % Lymph % (Auto) 33.3 (25-40) % [place] % (Auto) 8.9 (3-14) % Eos % (Auto) 1.0 L (2-4) % Baso % (Auto) 1.0 (0-2) % Neut # (Auto) 4000 (5556-4369) /uL Lymph # (Auto) 2400 (0188-4199) /uL [place] # (Auto) 600 (0-900) /uL Eos # (Auto) 100 (0-450) /uL Baso # (Auto) 100 (0-100) /uL Sodium 137 (137-145) mmol/L Potassium 4.0 (3.4-5.1) mmol/L Chloride 104 (98-107) mmol/L Carbon Dioxide 24 (22-32) mmol/L BUN 16 (7-17) mg/dL Creatinine 0.66 (0.52-1.04) mg/dL Estimated GFR > 60 (>60) mL/min BUN/Creatinine Ratio 24.2 H (6-22) Glucose 95 (70-100) mg/dL Calcium 9.1 (8.4-10.2) mg/dL Total Bilirubin 0.5 (0.2-1.3) mg/dL AST 26 (14-36) IU/L ALT 31 (<35) IU/L Alkaline Phosphatase 76 (38-126) U/L Total Protein 8.0 (6.3-8.2) g/dL Albumin 4.6 (3.5-5.0) g/dL Globulin 3.4 (1.7-4.1) g/dL Albumin/Globulin Ratio 1.4 (1.0-2.8) Lipase 125 (23-300) U/L Point of care testing: Point of Care Testing Test Results Negative Urine Dip Bedside Urine Glucose Negative Bedside Urine Bilirubin - Negative Bedside Urine Ketone - Negative Urine Specific [place] 1.010 Bedside Urine Occult Blood - Negative Bedside Urine pH 6.5 Bedside Urine Protein - Negative Bedside Urine Urobilinogen - Negative Bedside Urine Nitrite - Negative Bedside Urine Leukocytes - Negative Esterase MDM Narrative Medical decision making narrative: 26-year-old female with past medical history GERD presents to the ED with 6 days of epigastric pain, nausea. Concern for exacerbation of GERD versus gastritis versus pancreatitis versus other. Physical exam is reassuring, there is some epigastric tenderness but no other areas of tenderness. Labs are within normal limits today. Liver enzymes within normal limits today. Lipase within normal limits. Patient's symptoms are most consistent with a GERD exacerbation. Recommend continuing the Protonix. Recommend adding on Pepcid AC twice a day for the next 2-4 weeks. No indication for imaging today. Recommend follow-up with PCP as soon as possible. ED return precautions were discussed with patient. Patient verbalized understanding. Medical records reviewed: Yes <Carmen Dudley, - Last Filed: 10/24/22 09:53> Lab Data Labs: Lab Results 10/23/22 10/23/22 Range/Units 17:00 17:00 WBC 7.1 (4.5-11.0) X10^3/uL RBC 4.47 (4.0-5.2) X10^6/uL Hgb 12.5 (12.0-16.0) g/dL Hct 36.7 (36-46) % MCV 82.2 (80-100) fL MCH 28.0 (26-34) PG MCHC 34.1 (30-36) % RDW 13.3 (11.6-14.8) % Plt Count 296 (150-400) X10^3/uL Neut % (Auto) 55.8 (50-75) % Lymph % (Auto) 33.3 (25-40) % [place] % (Auto) 8.9 (3-14) % Eos % (Auto) 1.0 L (2-4) % Baso % (Auto) 1.0 (0-2) % Neut # (Auto) 4000 (7636-8108) /uL Lymph # (Auto) 2400 (7427-1088) /uL [place] # (Auto) 600 (0-900) /uL Eos # (Auto) 100 (0-450) /uL Baso # (Auto) 100 (0-100) /uL Sodium 137 (137-145) mmol/L Potassium 4.0 (3.4-5.1) mmol/L Chloride 104 (98-107) mmol/L Carbon Dioxide 24 (22-32) mmol/L BUN 16 (7-17) mg/dL Creatinine 0.66 (0.52-1.04) mg/dL Estimated GFR > 60 (>60) mL/min BUN/Creatinine Ratio 24.2 H (6-22) Glucose 95 (70-100) mg/dL Calcium 9.1 (8.4-10.2) mg/dL Total Bilirubin 0.5 (0.2-1.3) mg/dL AST 26 (14-36) IU/L ALT 31 (<35) IU/L Alkaline Phosphatase 76 (38-126) U/L Total Protein 8.0 (6.3-8.2) g/dL Albumin 4.6 (3.5-5.0) g/dL Globulin 3.4 (1.7-4.1) g/dL Albumin/Globulin Ratio 1.4 (1.0-2.8) Lipase 125 (23-300) U/L Point of care testing: Point of Care Testing Test Results Negative Urine Dip Bedside Urine Glucose Negative Bedside Urine Bilirubin - Negative Bedside Urine Ketone - Negative Urine Specific [place] 1.010 Bedside Urine Occult Blood - Negative Bedside Urine pH 6.5 Bedside Urine Protein - Negative Bedside Urine Urobilinogen - Negative Bedside Urine Nitrite - Negative Bedside Urine Leukocytes - Negative Esterase Discharge Plan Departure Patient Disposition: Home Clinical Impression: Gastroesophageal reflux disease Instructions: DI for Gastroesophageal Reflux Disease (GERD) Activity Restrictions/Additional Instructions: You were evaluated in the ED today for some epigastric pain and nausea. Your labs and urine were normal. Your liver enzymes were normal today. It appears that your symptoms are most likely due to an exacerbation of acid reflux. Please continue to take the Protonix as prescribed. You may also add on Pepcid AC twice a day for the next 2-4 weeks. Please follow-up with your PCP as soon as possible. Return to the ED if you have worsening symptoms, persistent vomiting. Prescriptions: No Action sucralfate 1 gram tablet 1 g PO BID Qty: 20 0RF Referrals: Josiah Coleman MD [Primary Care Provider] - Stand Alone Forms: Patient Portal/API <Carmen Dudley DO - Last Filed: 10/24/22 09:53> Cosign ED Attending Vanesa Attestation: I was immediately available in the department for consultation. Documentation has been reviewed.
[2022-10-23 17:08] LABS: Add Manual Diff / Slide Review NO; Basophils Absolute Auto 100 /uL (0-100); Eosinophils Absolute Auto 100 /uL (0-450); Hematocrit 36.7 % (36-46); Hemoglobin 12.5 g/dL (12.0-16.0); Lymphocytes Absolute Auto 2400 /uL (1100-4500); Lymphocytes Percent Auto 33.3 % (25-40); Mean Corpuscular HGB Conc 34.1 % (30-36); Mean Corpuscular Volume 82.2 fL (80-100); Monocytes Absolute Auto 600 /uL (0-900); Monocytes Percent Auto 8.9 % (3-14); Neutrophils Absolute Auto 4000 /uL (1500-7000); Neutrophils Percent Auto 55.8 % (50-75); Platelet Count 296 X10^3/uL (150-400); Red Blood Cell Count 4.47 X10^6/uL (4.0-5.2); Red Cell Distribution Width 13.3 % (11.6-14.8); White Blood Cell Count 7.1 X10^3/uL (4.5-11.0)
[2022-10-23 17:19] LABS: Alanine Aminotransferase 31 IU/L (<35); Albumin 4.6 g/dL (3.5-5.0); Albumin Globulin Ratio 1.4 (1.0-2.8); Alkaline Phosphatase 76 U/L (38-126); Aspartate Aminotransferase 26 IU/L (14-36); BUN Creatinine Ratio 24.2 (6-22); Bilirubin Total 0.5 mg/dL (0.2-1.3); Blood Urea Nitrogen 16 mg/dL (7-17); Calcium 9.1 mg/dL (8.4-10.2); Carbon Dioxide 24 mmol/L (22-32); Chloride 104 mmol/L (98-107); Estimated Glomerular Filt Rate > 60 mL/min (>60); Globulin 3.4 g/dL (1.7-4.1); Glucose 95 mg/dL (70-100); HEMOLYSIS < 15 (0-50); Lipase 125 U/L (23-300); Sodium 137 mmol/L (137-145)
[2022-10-23 17:38] VITALS: BP 126/75; PULSE 77; RESP 16; O2SAT 98
== END 2022-10-23 17:48 | disposition home or self-care (01) ==
PROVIDERS: Emergency Medicine; Emergency Provider Student in an Organized Health Care Education/Training Program; PCP Family Medicine
DX: K21.9 Gastro-esophageal reflux disease without esophagitis (principal)
CPT/HCPCS: 36415; 80053; 81003; 81025; 83690; 85025; 99283

== ENCOUNTER → 2022-11-18 15:46 | Outpatient (ROUT) | payer OTHER, MEDICAID, SELFPAY ==
[2022-11-18 16:16] LABS: Appearance Urine UA CLEAR; Bilirubin Urine UA NEGATIVE (NEGATIVE); Color Urine UA YELLOW; Glucose Urine UA NEGATIVE (Negative); Ketones Urine UA NEGATIVE (NEGATIVE); Leukocyte Esterase Urine UA NEGATIVE (NEGATIVE); Nitrite Urine UA NEGATIVE (Negative); Occult Blood Urine UA 3+ (Negative); Protein Urine UA NEGATIVE (Negative); Specific Gravity Urine UA 1.025 (1.000-1.035)
[2022-11-18 16:20] LABS: pH Urine UA 6.5 (4.5-8.0)
[2022-11-18 16:28] LABS: Bacteria Urine Few (2-10); Culture Indicated Urine Cult Not Indicated; Mucus Urine 1+ (Negative); RBC Urine None Seen (0-5/HPF); Squamous Epithelial Cell Urine 1-5 /HPF (0-5/HPF); WBC Urine 1-5/HPF (0-5/HPF)
== END ==
PROVIDERS: PCP Family Medicine; Visit Provider Surgery
DX: R30.0 Dysuria (principal)
CPT/HCPCS: 81001

== ENCOUNTER → 2023-01-16 18:49 | Outpatient (CLI) | payer OTHER, SELFPAY | PROVIDERS: PCP Family Medicine; Referring Provider Family Medicine; Visit Provider Family Medicine | DX: Z23 Encounter for immunization (principal) | CPT/HCPCS: 90471; 90686 ==

== ENCOUNTER 2023-02-02 09:58 | Day surgery (SDC) | payer OTHER, SELFPAY ==
[2023-02-02] VITALS (8 sets, daily range): BP systolic 98–126; BP diastolic 66–88; PULSE 76–92; RESP 13–19; TEMP 36.2–36.8; O2SAT 98–99; BMI 23.1
[2023-02-02] MEDS: LACTATED RINGERS 1,000 ML 42 ML IV (11:37)
--- NOTE | 2023-02-02 12:06 | P.HP_ITS ---
History of Present Illness History of Present Illness Date Patient Seen: 02/02/23 Time Patient Seen: 12:06 Chief complaint: EUA, Anal Dilation, Hemorrhoid Banding Narrative: Clinical findings of anal fissure, less likely hemorrhoids. [facility] Medical History Upper abdominal pain, unspecified Post-cholecystectomy syndrome Surgical History Status post laparoscopic cholecystectomy Social History household members: spouse Smoking Status: Former smoker alcohol intake: never Meds Home Medications and Allergies Home Medications Medication Instructions Recorded Confirmed Type betamethasone dipropionate 0.05 % 1 applic topical BID PRN rash #45 01/22/23 02/02/23 Rx topical cream grams escitalopram oxalate 10 mg tablet 10 mg PO DAILY 01/22/23 02/02/23 History metoprolol succinate 25 mg 25 mg PO DAILY 01/22/23 02/02/23 History tablet,extended release 24 hr pantoprazole 20 mg tablet,delayed 20 mg PO DAILY 01/22/23 02/02/23 History release testosterone cypionate 200 mg/mL mg IM 01/22/23 01/22/23 History intramuscular oil Allergies Allergy/AdvReac Type Severity Reaction Status Date / Time prochlorperazine Allergy Severe Palpitation Verified 02/02/23 10:30 [From Compazine] s Review of Systems Review of Systems Narrative: rectal pain with bleeding Nausea ROS: Yes All systems reviewed with the patient and are negative except as otherwise documented Exam Vital Signs (past 8 hours): - 02/02/23 10:46 Temperature 97.2 F L Pulse Rate 92 H Respiratory Rate 19 Blood Pressure 121/88 Pulse Oximetry 98 Oxygen Delivery Method Room Air Oxygen Delivery Method Room Air Const General: cooperative and comfortable Nutritional Appearance: average body habitus HENMT Head: normocephalic and atraumatic Eyes Sclera: normal sclerae Neck Neck: trachea midline Resp Effort & Inspection: normal respiratory effort and able to speak in complete sentences Cardio Rate: regular rate Rhythm: regular rhythm GI Inspection: normal to inspection and non-distended Skin General: elasticity normal and turgor normal Neuro General: patient alert, patient awake and patient oriented x3 Cranial Nerves: tongue midline Psych Appearance: grossly normal Mental Status: mental status grossly normal Judgment: judgment good Assessment & Plan Assessment & Plan narrative: Anal fissure Plan: EUA with anal dilation Time Spent With Patient Time with patient: 30 to 49 minutes with 50% spent counseling/coordinating care
[2023-02-02] MEDS: BUPIVACAINE 0.25% (PF) 30 ML, EPINEPHrine 0.15 MG INJ (12:29)
--- NOTE | 2023-02-02 12:30 | SUR.OPER ---
Supine on padded OR bed, head on pillow, arms secured on padded arm boards at <90 degrees abduction, legs uncrossed, safety belt at thigh, tape over blanket over lower legs.
--- NOTE | 2023-02-02 12:35 | PM.OP.1 ---
Operative Date/Time/Diagnoses Date of procedure: 02/02/23 Time of procedure: 12:35 Pre-op diagnosis: Anal fissure Post-op diagnosis: same Procedure & Clinicians Procedure: Exam under anesthesia with anal dilatation Same procedure as scheduled: Yes Indications: Anal fissure Surgeon: Inna Albert Click Yes if Unassisted: Yes Anesthesia Type: General Operative Notes Findings: Increased sphincter tone and palpable scar tissue at posterior, 6 o'clock position. Closure Type: not applicable Specimen(s): none sent Blood products transfused: none Procedure in detail: Preop diagnosis: Anal fissure Postop diagnosis: Same Operative procedure: Exam under anesthesia with anal dilatation Surgeon: Toyin Albert MD Findings: Anal fissure, anal stenosis Procedure: Patient placed in lateral position. Local anesthetic of 0.25% Marcaine with epinephrine was injected in a circumferential fashion around the anus. Anal exam was performed with the above findings. And then a manual dilatation was performed. Peripad was placed patient was awakened, extubated, taken to recovery room in stable condition. Needle, instrument, sponge counts were correct. Blood loss: Minimal Specimen: None Complications: none Post-operative Condition: stable Disposition: PACU Plan for aftercare: Home, shower and/or bath as needed or on a daily basis. Anticipate small amount of bleeding for the next 24-48 hours
== END 2023-02-02 13:54 | disposition home or self-care (01) ==
PROVIDERS: PCP Family Medicine; Referring Provider Surgery; Visit Provider Surgery
PROC: (CPT 45990; principal; 2023-02-02 11:15)
DX: K60.2 Anal fissure, unspecified (principal); K62.4 Stenosis of anus and rectum
CPT/HCPCS: 45905; J0171; J1100; J2250; J2405; J2704; J3010

== ENCOUNTER 2023-05-26 07:40 | Emergency (ER) | payer OTHER, SELFPAY ==
[2023-05-26] VITALS (8 sets, daily range): BP systolic 115–135; BP diastolic 72–77; PULSE 71–84; RESP 18; TEMP 37.1; O2SAT 97–99; BMI 25.7
--- NOTE | 2023-05-26 08:05 | ED.DIZZY ---
HPI - Dizziness General Chief Complaint: Dizziness Stated Complaint: Nausea, Dizzy Time Seen by Provider: 05/26/23 07:54 Source: patient Mode of arrival: Ambulatory History of Present Illness HPI Narrative: Patient 27-year-old female history of SVT on metoprolol, recently diagnosed with UTI yesterday started Macrobid last night presents today with dizziness. 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 [place] like she might pass out but not. It lasted for about 1 minute. Did not feel like she was in SVT. She feels nauseous now but has a regular prescription for Zofran this happens often. No abdominal pain flank pain vomiting or fever. Diagnosed with UTI at PCP office yesterday. Afebrile. She had a hysterectomy 1 month ago and is back to work. Related Data Home Medications Medication Instructions Recorded Confirmed escitalopram oxalate 10 mg tablet 10 mg PO DAILY 01/22/23 03/15/23 metoprolol succinate 25 mg 25 mg PO DAILY 01/22/23 03/15/23 tablet,extended release 24 hr pantoprazole 20 mg tablet,delayed 20 mg PO DAILY 01/22/23 03/15/23 release testosterone cypionate 200 mg/mL mg IM 01/22/23 03/15/23 intramuscular oil Previous Rx's Medication Instructions Recorded betamethasone dipropionate 0.05 % 1 applic topical BID PRN rash #45 01/22/23 topical cream grams tramadol 100 mg tablet 100 mg PO TID PRN pain #10 tabs 02/02/23 Allergies Allergy/AdvReac Type Severity Reaction Status Date / Time prochlorperazine Allergy Severe Palpitation Verified 03/15/23 16:01 [From Compazine] s Patient History Medical History Upper abdominal pain, unspecified Post-cholecystectomy syndrome Surgical History Status post laparoscopic cholecystectomy Social History household members: spouse Smoking Status: Former smoker alcohol intake: never Smoking Status: Former smoker tobacco type: cigarettes alcohol intake frequency: 0-2 drinks per day Substance Use Type: marijuana Exam Initial Vital Signs Initial Vital Signs: Vital Signs Pulse Rate 82 05/26/23 07:47 Pulse Oximetry 99 05/26/23 07:47 GENERAL: Alert pleasant no acute distress HEENT: Head atraumatic,EOMI, pupils reactive, face symmetric, moist mucous membranes CARDIOVASCULAR: Regular rate and rhythm without murmurs, rubs or gallops. RESPIRATORY: Breath sounds equal bilaterally, no wheezes rales or rhonchi. ABDOMEN: Soft, nontender. Normoactive bowel sounds all 4 quadrants. No guarding or rebound. EXTREMITIES: Normal range of motion, no clubbing or edema. Neurovascularly intact NEUROLOGICAL: Alert and oriented x4 SKIN: Warm, dry, no laceration, no petechiae, no rashes or lesions. Course Orders Ordered: ED Orders 05/26/23 08:05 EKG-12 Lead Stat Discontinued Medications Ondansetron HCl (Ondansetron 4 Mg Odt) 4 mg SL NOW ONE Stop: 05/26/23 08:06 Last Admin: 05/26/23 08:08 Dose: 4 mg Vital Signs Vital signs: Vital Signs - 8 hr 05/26/23 07:47 05/26/23 07:48 05/26/23 08:00 Temperature 98.8 F Pulse Rate 82 84 83 Respiratory Rate 18 Blood Pressure 135/75 Pulse Oximetry 99 97 99 Oxygen Delivery Method Room Air MDM - Dizziness MDM Narrative Medical decision making narrative: 27-year-old female presents today with a brief episode of dizziness. Reports that she does have equilibrium issues and has for awhile. Orthostatics are negative EKG shows a normal sinus rhythm. No evidence of sepsis afebrile. Encouraged to continue taking antibiotics as previously prescribed. Feeling much better now. At this time I see no need for any further workup in the ED but encourage outpatient follow-up with PCP. Discharge Plan Departure Patient Disposition: Home Clinical Impression: Dizziness Instructions: DI for Dizziness-Nonvertigo Activity Restrictions/Additional Instructions: *You have been diagnosed with dizziness non vertigo *What to do: At this time I do recommend outpatient follow-up with primary for ongoing dizziness and further testing *Continue to take medications as directed *Follow up with your primary care provider in 2-3 days or call [phone] *Return to ER if you should have increased dizziness passing out elevated heart rate or any new, worsening or concerning symptoms Prescriptions: No Action testosterone cypionate 200 mg/mL oil IM pantoprazole 20 mg tablet,delayed release (DR/EC) 20 mg PO DAILY escitalopram oxalate 10 mg tablet 10 mg PO DAILY metoprolol succinate 25 mg tablet extended release 24 hr 25 mg PO DAILY betamethasone dipropionate 0.05 % cream 1 applic topical BID PRN (Reason: rash) Qty: 45 0RF tramadol 100 mg tablet 100 mg PO TID PRN (Reason: pain) Qty: 10 0RF Referrals: Dev Escoto MD [Primary Care Provider] - Stand Alone Forms: Patient Portal/API
[2023-05-26] MEDS: ONDANSETRON 4 MG ODT SL (08:08)
== END 2023-05-26 08:32 | disposition home or self-care (01) ==
PROVIDERS: Emergency Provider Emergency Medicine; PCP Family Medicine
DX: R42 Dizziness and giddiness (principal); R07.9 Chest pain, unspecified; R11.0 Nausea
CPT/HCPCS: 93005; 93010; 99283

== ENCOUNTER 2023-06-04 13:05 | Emergency (ER) | payer OTHER, SELFPAY ==
[2023-06-04 13:09] VITALS: BP 144/85; PULSE 89; RESP 18; TEMP 37.2; O2SAT 97; BMI 25.7
[2023-06-04 13:34] LABS: Urine Volume 10mL (spun)
[2023-06-04 13:36] LABS: Bacteria Urine None Seen; RBC Urine None Seen (0-5/HPF); Squamous Epithelial Cell Urine 1-5 /HPF (0-5/HPF); WBC Urine 1-5/HPF (0-5/HPF)
--- NOTE | 2023-06-04 14:08 | ED.FEMALEGU ---
HPI - Female Genitourinary <Miguel Irving PA-C - Last Filed: 06/04/23 15:33> General Chief complaint: Urogenital-Female Stated complaint: possible uti Time Seen by Provider: 06/04/23 13:20 Source: patient Mode of arrival: Ambulatory History of Present Illness HPI Narrative: 27-year-old female, 1 month status post hysterectomy presents to the ED with nausea and dysuria. Patient also complains of sporadic chills and face flushing. Patient is on testosterone supplements. No other exogenous hormones currently. Patient did take progesterone for a month after the hysterectomy. Patient denies fever, vomiting, abdominal pain, flank pain, lightheadedness, dizziness, syncope. Related Data Home Medications Medication Instructions Recorded Confirmed escitalopram oxalate 10 mg tablet 10 mg PO DAILY 01/22/23 03/15/23 metoprolol succinate 25 mg 25 mg PO DAILY 01/22/23 03/15/23 tablet,extended release 24 hr pantoprazole 20 mg tablet,delayed 20 mg PO DAILY 01/22/23 03/15/23 release testosterone cypionate 200 mg/mL mg IM 01/22/23 03/15/23 intramuscular oil Previous Rx's Medication Instructions Recorded betamethasone dipropionate 0.05 % 1 applic topical BID PRN rash #45 01/22/23 topical cream grams tramadol 100 mg tablet 100 mg PO TID PRN pain #10 tabs 02/02/23 cefpodoxime 200 mg tablet 200 mg PO Q12H 10 days #20 tabs 06/04/23 Allergies Allergy/AdvReac Type Severity Reaction Status Date / Time prochlorperazine Allergy Severe Palpitation Verified 06/04/23 13:13 [From Compazine] s articaine Allergy Palpitation Verified 06/04/23 13:13 s Review of Systems <Miguel Irving PA-C - Last Filed: 06/04/23 15:33> Constitutional Constitutional: Reports chills, Denies fatigue, Denies fever(s), Denies frequent falls, Denies lethargy and Denies weakness Comments: face flushing Eyes Eyes: Denies change in vision, Denies eye discharge, Denies irritation and Denies loss of vision ENT Ears, Nose, Mouth, and Throat: Denies change in voice, Denies dizziness, Denies neck pain, Denies sore throat and Denies throat swelling Cardiovascular Cardiovascular: Denies chest pain, Denies irregular heart rhythm, Denies lightheadedness, Denies palpitations, Denies dyspnea, Denies dyspnea on exertion and Denies orthopnea Respiratory Respiratory: Denies cough, Denies dyspnea, Denies dyspnea on exertion and Denies wheezing Gastrointestinal Gastrointestinal: Denies abdominal pain, Denies change in bowel habits, Denies diarrhea, Denies nausea and Denies vomiting Genitourinary Genitourinary: Reports dysuria Musculoskeletal Musculoskeletal: Denies neck pain and Denies numbness Integumentary/Breasts Skin/Breast: Denies pruritus, Denies erythema, Denies rash and Denies wounds Neurologic Neurologic: Denies behavioral changes, Denies confusion, Denies dizziness, Denies frequent falls, Denies loss of vision, Denies numbness and Denies weakness Psychiatric Psychiatric: Denies anxiety, Denies behavioral changes, Denies confusion, Denies depression, Denies homicidal ideation and Denies suicidal ideation Endocrine Endocrine: Denies fatigue, Denies flushing and Denies palpitations Hematologic/Lymphatic Hematologic/Lymphatic: Denies easy bruising Allergic/Immunologic Allergic/Immunologic: Denies urticaria, Denies throat swelling and Denies wheezing Patient History <Miguel Irving PA-C - Last Filed: 06/04/23 15:33> Medical History Upper abdominal pain, unspecified Post-cholecystectomy syndrome Surgical History Status post laparoscopic cholecystectomy tobacco type: cigarettes alcohol intake frequency: 0-2 drinks per day Substance Use Type: marijuana Exam <Miguel Irving PA-C - Last Filed: 06/04/23 15:33> Narrative Exam Narrative: Const General:?cooperative, healthy appearing and comfortable [facility] Head:?normal to inspection Ears:?hearing grossly normal bilaterally Nose:?external nose normal Face and sinus:?normal facial exam and sinuses nontender Mouth:?oral mucosae normal Throat:?posterior oropharynx normal Eyes General:?appearance normal, both eyes and all related structures Neck Neck:?normal visual inspection and no lymphadenopathy noted Resp Effort & Inspection:?normal respiratory effort Auscultation:?clear to auscultation bilaterally Cardio Rate:?regular rate Rhythm:?regular rhythm Neuro General:?patient alert, patient awake and patient oriented x3 Initial Vital Signs Initial Vital Signs: Vital Signs Temperature 99.0 F 06/04/23 13:09 Pulse Rate 89 06/04/23 13:09 Respiratory Rate 18 06/04/23 13:09 Blood Pressure 144/85 H 06/04/23 13:09 Pulse Oximetry 97 06/04/23 13:09 Oxygen Delivery Method Room Air 06/04/23 13:09 <Tatyana Tracy MD - Last Filed: 06/05/23 07:28> Initial Vital Signs Initial Vital Signs: Vital Signs Temperature 99.0 F 06/04/23 13:09 Pulse Rate 89 06/04/23 13:09 Respiratory Rate 18 06/04/23 13:09 Blood Pressure 144/85 H 06/04/23 13:09 Pulse Oximetry 97 06/04/23 13:09 Oxygen Delivery Method Room Air 06/04/23 13:09 Course <Miguel Irving PA-C - Last Filed: 06/04/23 15:33> Orders Ordered: Discontinued Medications Ondansetron HCl (Ondansetron 4 Mg Odt) 4 mg SL NOW PRN PRN Reason: Nausea And Vomiting Vital Signs Vital signs: Vital Signs - 8 hr 06/04/23 13:09 06/04/23 14:57 Temperature 99.0 F Pulse Rate 89 71 Respiratory Rate 18 18 Blood Pressure 144/85 H 124/60 Pulse Oximetry 97 98 Oxygen Delivery Method Room Air Room Air <Tatyana Tracy MD - Last Filed: 06/05/23 07:28> Orders Ordered: Discontinued Medications Ondansetron HCl (Ondansetron 4 Mg Odt) 4 mg SL NOW PRN PRN Reason: Nausea And Vomiting Vital Signs Vital signs: Vital Signs - 8 hr 06/04/23 13:09 06/04/23 14:57 Temperature 99.0 F Pulse Rate 89 71 Respiratory Rate 18 18 Blood Pressure 144/85 H 124/60 Pulse Oximetry 97 98 Oxygen Delivery Method Room Air Room Air MDM - Female Genitourinary <Miguel Irving PA-C - Last Filed: 06/04/23 15:33> Lab Data Labs: Lab Results 06/04/23 06/04/23 Range/Units 13:18 13:58 Urine RBC None seen (0-5/HPF) Urine WBC 1-5/hpf (0-5/HPF) Ur Squamous Epith Cells 1-5 /hpf (0-5/HPF) Urine Bacteria None seen (None) Vol Urine Centrifuged 10ml (spun) SARS-CoV-2 (PCR) Negative (Negative) Influenza A (RT-PCR) Flu a negative (NEGATIVE) Influenza B (RT-PCR) Flu b negative (NEGATIVE) RSV (PCR) Negative (Negative) Urine Dip Bedside Urine Glucose Negative Bedside Urine Bilirubin - Negative Bedside Urine Ketone - Negative Urine Specific [place] 1.010 Bedside Urine Occult Blood - Negative Bedside Urine pH 6.5 Bedside Urine Protein - Negative Bedside Urine Urobilinogen +/- 1mg Bedside Urine Nitrite - Negative Bedside Urine Leukocytes +/- 15 Esterase MDM Narrative Medical decision making narrative: 27-year-old female, 1 month status post hysterectomy presents to the ED with nausea and dysuria. Patient also complains of sporadic chills and face flushing. Concern for UTI versus pyelonephritis versus other. Urine dip shows some leukocyte esterase but no WBCs on UA. Unlikely infection. Patient is also concerned about COVID exposure. Requests a swab. COVID negative. Prescribed antibiotics and recommend starting if symptoms worsen. ED return precautions discussed with patient. Patient verbalized understanding. Medical records reviewed: Yes <Tatyana Tracy MD - Last Filed: 06/05/23 07:28> Lab Data Labs: Lab Results 06/04/23 06/04/23 Range/Units 13:18 13:58 Urine RBC None seen (0-5/HPF) Urine WBC 1-5/hpf (0-5/HPF) Ur Squamous Epith Cells 1-5 /hpf (0-5/HPF) Urine Bacteria None seen (None) Vol Urine Centrifuged 10ml (spun) SARS-CoV-2 (PCR) Negative (Negative) Influenza A (RT-PCR) Flu a negative (NEGATIVE) Influenza B (RT-PCR) Flu b negative (NEGATIVE) RSV (PCR) Negative (Negative) Urine Dip Bedside Urine Glucose Negative Bedside Urine Bilirubin - Negative Bedside Urine Ketone - Negative Urine Specific [place] 1.010 Bedside Urine Occult Blood - Negative Bedside Urine pH 6.5 Bedside Urine Protein - Negative Bedside Urine Urobilinogen +/- 1mg Bedside Urine Nitrite - Negative Bedside Urine Leukocytes +/- 15 Esterase Discharge Plan Departure Patient Disposition: Home Clinical Impression: Dysuria Instructions: DI for Urinary Tract Infection (UTI) Activity Restrictions/Additional Instructions: You were evaluated in the ED today for burning with urination and flushing. Your urine did not show a UTI, however given that you are symptomatic you were being prescribed an antibiotic to take if your symptoms worsen. Please continue to stay well hydrated. Please follow-up with your PCP as soon as possible. Please return to the ED if you have worsening symptoms, persistent vomiting. Prescriptions: New cefpodoxime 200 mg tablet 200 mg PO Q12H 10 Days Qty: 20 0RF Rx Instructions: must administer with a meal/food No Action testosterone cypionate 200 mg/mL oil IM pantoprazole 20 mg tablet,delayed release (DR/EC) 20 mg PO DAILY escitalopram oxalate 10 mg tablet 10 mg PO DAILY metoprolol succinate 25 mg tablet extended release 24 hr 25 mg PO DAILY betamethasone dipropionate 0.05 % cream 1 applic topical BID PRN (Reason: rash) Qty: 45 0RF tramadol 100 mg tablet 100 mg PO TID PRN (Reason: pain) Qty: 10 0RF Referrals: Dev Escoto MD [Primary Care Provider] - Stand Alone Forms: Patient Portal/API ED Sign-out <Tatyana Tracy MD - Last Filed: 06/05/23 07:28> Cosign ED Attending Cosignature Attestation: I was immediately available in the department for consultation throughout this patient's visit. Tatyana Tracy MD
[2023-06-04 14:40] LABS: COVID-19 CEPHEID 4-PLEX PCR Negative (Negative); Influenza A - CEPHEID Flu A NEGATIVE (NEGATIVE); Influenza B - CEPHEID Flu B NEGATIVE (NEGATIVE); Respiratory Syncytial Virus Negative (Negative)
[2023-06-04 14:57] VITALS: BP 124/60; PULSE 71; RESP 18; O2SAT 98
== END 2023-06-04 14:57 | disposition home or self-care (01) ==
PROVIDERS: Emergency Provider Student in an Organized Health Care Education/Training Program; PCP Family Medicine
DX: R30.0 Dysuria (principal); Z20.822 Contact with and (suspected) exposure to COVID-19
CPT/HCPCS: 0241U; 81003; 81015; 87086; 99282

== ENCOUNTER → 2023-08-09 13:00 | Outpatient (CLI) | payer OTHER, SELFPAY ==
--- NOTE | 2023-08-10 13:54 | DIET.OUTPTC ---
Dietary Outpatient Consultation Note Consultation Date: 08/09/2023 Assessment: 27 y referred to dietitian for IBS with diarrhea and S/P cholecystectomy. Patient goes by Octavio. Octavio wants help managing episodes of diarrhea. In 2020 had cholecystectomy and dx with NAFLD. Suffered from 4+ episodes of diarrhea until about a year ago when he started to eliminate lactose from diet or takes lactose enzyme. Episodes are now reduced to 2-3 movements per day, usually occurring in the late morning to early afternoon. Also experiences: nausea most often in the afternoons 1-2x/week, bloating and abdominal discomfort daily throughout day. Manages acid reflux with medication or TUMS. Also, he notes he previously struggled to maintain his weight, but now is concerned about weight gain and looking to ensure meals are balanced. Diet recall: Breakfast: If working: [employer] and [employer] breakfast sandwich (18 g fat) and strawberry refresher AND additional breakfast of cafe foods (farmers scramble, hashbrowns) If not workin hashbrowns + 2 eggs Lunch: If working: Leftovers or hospital cafe foods If not working: sometimes skips or leftovers Dinner: cooks: pasta, pizza, rice and beans, readily prepared frozen meals After dinner: Snacks- chips, little debbies, etc Beverages: Water, Root beer or Mt Dew can 1x/d, 4x/week No alcohol intake. No sugar substitutions used. Takes probiotic supplement. Ht: - Wt: 68.039 kg BMI: - Nutrition Diagnosis: Altered GI function r/t changes in GI tract as evidence by multiple daily episodes of diarrhea, dx of IBS with diarrhea and cholecystectomy Interventions: 1. MNT for IBS with diarrhea and cholecystectomy -Including: macros, fiber, label reading -Handouts provided: fiber foods, label guide Goals: 1. Oatmeal and eggs for breakfast or oats at [employer] on working days 2. Trade out or pairing of post dinner snacks with soluble fiber containing foods (list provided) Will attempt to resolve symptoms with fiber, balanced meals, and modification of high fat foods first before determining if other nutrition related interventions, diet adjustments or elimination trials are needed to alleviate symptoms. Monitoring/Evaluations: f/u in 1.5 months, goals, GI s/s, diet recall Electronically Signed by: Luba Naylor 08/10/23 13:54 Clinical Dietitian [address] [address]
== END ==
PROVIDERS: Family Provider Family Medicine; PCP Family Medicine; Referring Provider Family Medicine
DX: K58.0 Irritable bowel syndrome with diarrhea (principal); Z90.49 Acquired absence of other specified parts of digestive tract; Z71.3 Dietary counseling and surveillance; K76.0 Fatty (change of) liver, not elsewhere classified
CPT/HCPCS: 97802

== ENCOUNTER 2023-08-22 17:15 | Emergency (ER) | payer OTHER, SELFPAY ==
[2023-08-22 17:20] VITALS: BP 134/84; PULSE 81; RESP 18; TEMP 36.6; O2SAT 98; BMI 25.7
[2023-08-22] MEDS: SODIUM CHLORIDE 0.9% 1,000 ML 1000 ML IV (17:49)
[2023-08-22] MEDS: ONDANSETRON 4 MG/2 ML INJ IV (17:49)
[2023-08-22 17:50] LABS: Add Manual Diff / Slide Review NO; Basophils Absolute Auto 100 /uL (0-100); Basophils Percent Auto 0.8 % (0-2); Eosinophils Absolute Auto 300 /uL (0-450); Hemoglobin 14.7 g/dL (12.0-16.0); Lymphocytes Absolute Auto 2400 /uL (1100-4500); Lymphocytes Percent Auto 33.8 % (25-40); Mean Corpuscular HGB Conc 33.4 % (30-36); Mean Corpuscular Hemoglobin 26.5 PG (26-34); Mean Corpuscular Volume 79.4 fL (80-100); Monocytes Absolute Auto 700 /uL (0-900); Monocytes Percent Auto 10.3 % (3-14); Neutrophils Absolute Auto 3600 /uL (1500-7000); Neutrophils Percent Auto 51.1 % (50-75); Platelet Count 280 X10^3/uL (150-400); Red Blood Cell Count 5.54 X10^6/uL (4.0-5.2); Red Cell Distribution Width 17.5 % (11.6-14.8); White Blood Cell Count 7.1 X10^3/uL (4.5-11.0)
--- NOTE | 2023-08-22 18:05 | ED.ABDPAIN ---
HPI - Abdominal Pain <Sarah Biggs PA-C - Last Filed: 08/22/23 19:58> General Chief Complaint: Abdominal Pain Stated Complaint: Epi gastric px, diarrhea x3 days Time Seen by Provider: 08/22/23 17:28 Source: patient Mode of arrival: Ambulatory History of Present Illness HPI narrative: This is a 27-year-old male; female anatomy at , who presents with concern for epigastric pain and lower abdominal pain for 3 days as well as frequent stools with increasing diarrhea throughout the day and increased pain after eating. Patient has had previous hysterectomy and also cholecystectomy. Endorses chronic intermittent problems with the liver and pain in the epigastrium since having gallbladder removed. He also states he used to take pantoprazole regularly but had transitioned to famotidine trial for reflux symptoms. Has also been experiencing increased burping and symptoms of indigestion over the last few days. Pain radiates to the right shoulder blade. About 7 stools today increasingly watery as the day progressed. Also some nausea. Pain is about a 1/10 without palpation and goes up to a 5/10 with palpation over the abdomen. Patient denies any other complaints or concerns. Related Data Home Medications Medication Instructions Recorded Confirmed escitalopram oxalate 10 mg tablet 10 mg PO DAILY 01/22/23 03/15/23 metoprolol succinate 25 mg 25 mg PO DAILY 01/22/23 03/15/23 tablet,extended release 24 hr pantoprazole 20 mg tablet,delayed 20 mg PO DAILY 01/22/23 03/15/23 release testosterone cypionate 200 mg/mL mg IM 01/22/23 03/15/23 intramuscular oil Previous Rx's Medication Instructions Recorded betamethasone dipropionate 0.05 % 1 applic topical BID PRN rash #45 01/22/23 topical cream grams tramadol 100 mg tablet 100 mg PO TID PRN pain #10 tabs 02/02/23 pantoprazole 20 mg tablet,delayed 20 mg PO DAILY #14 tabs 08/22/23 release Allergies Allergy/AdvReac Type Severity Reaction Status Date / Time prochlorperazine Allergy Severe Palpitation Verified 06/04/23 13:13 [From Compazine] s articaine Allergy Palpitation Verified 06/04/23 13:13 s Review of Systems <Sarah Biggs PA-C - Last Filed: 08/22/23 19:58> Review of Systems Narrative: See HPI Patient History <Sarah Biggs PA-C - Last Filed: 08/22/23 19:58> Medical History Upper abdominal pain, unspecified Post-cholecystectomy syndrome Surgical History Status post laparoscopic cholecystectomy Social History household members: spouse Smoking Status: Former smoker alcohol intake: never Smoking Status: Former smoker tobacco type: cigarettes alcohol intake frequency: 0-2 drinks per day Substance Use Type: marijuana Exam <Sarah Biggs PA-C - Last Filed: 08/22/23 19:58> Narrative Exam Narrative: GENERAL: [27] year old patient appears stated age. Well-developed patient, in mild distress. HEAD: Atraumatic. Normocephalic. EYES: Pupils equal round and reactive. Extraocular motions intact. No scleral icterus. No injection or drainage. ENT: Nose without bleeding, purulent drainage. Airway patent. NECK: Trachea midline. Non tender CARDIOVASCULAR: Regular rate and rhythm without murmurs, gallops, or rubs. RESPIRATORY: Clear to auscultation. Breath sounds equal bilaterally. No wheezes, rales, or rhonchi. GASTROINTESTINAL: Abdomen soft, there is epigastric tenderness, right upper quadrant tenderness, right lower quadrant tenderness and generalized abdominal tenderness, there is no suprapubic tenderness, nondistended, no CVA tenderness. EXTREMITIES: No edema or joint tenderness. BACK: Nontender without deformity or crepitance. No flank tenderness. NEURO: AOx3. SKIN: No rash or erythema of visible areas Initial Vital Signs Initial Vital Signs: Vital Signs Temperature 98 F 08/22/23 17:20 Pulse Rate 81 08/22/23 17:20 Respiratory Rate 18 08/22/23 17:20 Blood Pressure 134/84 08/22/23 17:20 Pulse Oximetry 98 08/22/23 17:20 Oxygen Delivery Method Room Air 08/22/23 17:20 <Tatyana Tracy MD - Last Filed: 08/23/23 02:56> Initial Vital Signs Initial Vital Signs: Vital Signs Temperature 98 F 08/22/23 17:20 Pulse Rate 81 08/22/23 17:20 Respiratory Rate 18 08/22/23 17:20 Blood Pressure 134/84 08/22/23 17:20 Pulse Oximetry 98 08/22/23 17:20 Oxygen Delivery Method Room Air 08/22/23 17:20 Course <Sarah Biggs PA-C - Last Filed: 08/22/23 19:58> Orders Ordered: ED Orders 08/22/23 18:04 CT abdomen pelvis w con Stat Discontinued Medications Sodium Chloride (Normal Saline 0.9%) 1,000 mls @ 1,000 mls/hr IV BOLUS ONE Stop: 08/22/23 18:28 Last Infusion: 08/22/23 18:51 Dose: Infused Documented By: Admin: 08/22/23 17:49 Dose: 1,000 mls/hr Documented By: MURALI Ondansetron HCl (Ondansetron 4 Mg/2 Ml Inj) 4 mg IV NOW ONE Stop: 08/22/23 17:30 Last Admin: 08/22/23 17:49 Dose: 4 mg Documented By: MURALI Pantoprazole Sodium (Pantoprazole 40 Mg Vial) 40 mg IV NOW ONE Stop: 08/22/23 18:06 Last Admin: 08/22/23 18:30 Dose: 40 mg Documented By: ED Vital Signs Vital signs: Vital Signs - 8 hr 08/22/23 19:00 08/22/23 19:08 08/22/23 19:08 Pulse Rate 80 79 Blood Pressure 115/69 Pulse Oximetry 100 98 <Tatyana Tracy MD - Last Filed: 08/23/23 02:56> Orders Ordered: ED Orders 08/22/23 18:04 CT abdomen pelvis w con Stat Discontinued Medications Sodium Chloride (Normal Saline 0.9%) 1,000 mls @ 1,000 mls/hr IV BOLUS ONE Stop: 08/22/23 18:28 Last Infusion: 08/22/23 18:51 Dose: Infused Documented By: Admin: 08/22/23 17:49 Dose: 1,000 mls/hr Documented By: MURALI Ondansetron HCl (Ondansetron 4 Mg/2 Ml Inj) 4 mg IV NOW ONE Stop: 08/22/23 17:30 Last Admin: 08/22/23 17:49 Dose: 4 mg Documented By: MURALI Pantoprazole Sodium (Pantoprazole 40 Mg Vial) 40 mg IV NOW ONE Stop: 08/22/23 18:06 Last Admin: 08/22/23 18:30 Dose: 40 mg Documented By: ED Vital Signs Vital signs: Vital Signs - 8 hr 08/22/23 19:00 08/22/23 19:08 08/22/23 19:08 Pulse Rate 80 79 Blood Pressure 115/69 Pulse Oximetry 100 98 MDM - Abdominal Pain <Sarah Biggs PA-C - Last Filed: 08/22/23 19:58> Differential Diagnosis Differential diagnosis: Likely abdominal pain, acute appendicitis, calculus of kidney, constipation, diverticulitis, gastroenteritis, pancreatitis and other (Colitis, GERD) Medical Records Attestation: I reviewed the patient's medical records. Lab Data Attestation: I reviewed the patient's lab results. 08/22/23 17:38 08/22/23 17:38 Labs: Lab Results 08/22/23 Range/Units 17:38 WBC 7.1 (4.5-11.0) X10^3/uL RBC 5.54 H (4.0-5.2) X10^6/uL Hgb 14.7 (12.0-16.0) g/dL Hct 44.0 (36-46) % MCV 79.4 L (80-100) fL MCH 26.5 (26-34) PG MCHC 33.4 (30-36) % RDW 17.5 H (11.6-14.8) % Plt Count 280 (150-400) X10^3/uL Neut % (Auto) 51.1 (50-75) % Lymph % (Auto) 33.8 (25-40) % [place] % (Auto) 10.3 (3-14) % Eos % (Auto) 4.0 (2-4) % Baso % (Auto) 0.8 (0-2) % Neut # (Auto) 3600 (0391-6658) /uL Lymph # (Auto) 2400 (8543-3408) /uL [place] # (Auto) 700 (0-900) /uL Eos # (Auto) 300 (0-450) /uL Baso # (Auto) 100 (0-100) /uL Sodium 140 (137-145) mmol/L Potassium 3.7 (3.4-5.1) mmol/L Chloride 108 H (98-107) mmol/L Carbon Dioxide 23 (22-32) mmol/L BUN 11 (7-17) mg/dL Creatinine 0.70 (0.52-1.04) mg/dL Estimated GFR > 60 (>60) mL/min BUN/Creatinine Ratio 15.7 (6-22) Glucose 84 (70-100) mg/dL Calcium 8.9 (8.4-10.2) mg/dL Total Bilirubin 0.6 (0.2-1.3) mg/dL AST 28 (14-36) IU/L ALT 33 (<35) IU/L Alkaline Phosphatase 104 (38-126) U/L Total Protein 8.0 (6.3-8.2) g/dL Albumin 4.7 (3.5-5.0) g/dL Globulin 3.3 (1.7-4.1) g/dL Albumin/Globulin Ratio 1.4 (1.0-2.8) Lipase 111 (23-300) U/L Imaging Data CT scan - abdomen/pelvis: My Impression: Agree with Radiology interpretation Radiologist's Impression: [address] [address] [address] Scan Report Signed Patient: Jacinda Fox MR#: [id number] : 1995 Acct:[id number] Age/Sex: 27 / F Date of Service: 08/22/23 Loc: ED Accession Number: [id number] Procedure: CT abdomen pelvis w con Ordering Provider: Sarah Biggs P.A-C PROCEDURE: CT ABDOMEN PELVIS W CON INDICATIONS: epigastric and RLQ pain; hx cholecystectomy/hysterectomy TECHNIQUE: After the administration of intravenous contrast, axial sections acquired from the lung bases to the pubic symphysis. Coronal and sagittal reformats were performed. For radiation dose reduction, the following was used: automated exposure control, adjustment of mA and/or kV according to patient size. COMPARISON: [facility], CT, CT KIDNEY URETER BLADDER (KUB), 12/30/2021, 16:15. [facility], MR, MR ABDOMEN WO/W CON, 01/12/2022, 11:59. FINDINGS: Image quality: Diagnostic Lower chest: Unremarkable lung bases. Normal heart size where visualized Liver: Subcentimeter lesions are too small to characterize, usually cysts. Gallbladder and biliary system: Absent, nondilated Pancreas: No ductal dilation Spleen: Nonenlarged Adrenals: No discrete nodules Kidneys: No solid mass or hydronephrosis Vessels and lymph nodes: The main portal vein is patent. No abdominal aortic aneurysm. No pathologic lymph nodes by size criteria. Bowel and peritoneum: No evidence of small bowel obstruction or pathologic ascites The appendix is nondilated. Moderate diffuse mucosal hyperemia and wall thickening throughout the colon and rectum. There is also segmental involvement of the terminal ileum and distal ileum. No abscess identified. Body wall: Small fat containing umbilical hernia Pelvis: Uterus is absent. Adnexal structures likely physiologic on limited CT evaluation. Bladder is unremarkable Bones: No acute or suspicious osseous finding. IMPRESSION: Moderate findings of proctocolitis. Possible additional inflammatory changes in the segmental distribution in the distal ileum and terminal ileum. Nondilated appendix. These findings may be infectious or inflammatory, including consideration for IBD. Other findings above. Dictated by: Suraj Sanches M.D. on 08/22/2023 at 18:27 Approved by: Suraj Sanches M.D. on 08/22/2023 at 18:31 [facility] Narrative Medical decision making narrative: This is a 27-year-old male presenting with concern for epigastric pain and generalized abdominal pain with worsened pain after eating and loose stools with frequent stools over the past 3 days. Based on exam and history CT scan is obtained for further evaluation after discussion with the patient regarding medical radiation. Labs also obtained and labs do return unremarkable, inflammatory markers were not assessed however there is no leukocytosis and liver enzymes are not elevated. Patient has no urinary symptoms and no suspicion for UTI. CT scan is consistent with a procto colitis, inflammatory versus infectious, based on labs/history low suspicion for infectious process. Discussed the patient with attending physician Dr Tracy, who feels no need for antibiotics, I agree with this, we will do 2 week course of pantoprazole and advise close follow-up with PCP, see their sales representative [employer]. Discussed pain medicine options with the patient and they declined any strong pain meds, they also did not need any pain medication management while in the emergency department. They already have a prescription for Zofran and declined this as well. Advised bland diet, push fluids, monitor for new or worsening symptoms. Return precautions provided, follow-up plan discussed, all questions answered. <Tatyana Tracy MD - Last Filed: 08/23/23 02:56> Lab Data Labs: Lab Results 08/22/23 Range/Units 17:38 WBC 7.1 (4.5-11.0) X10^3/uL RBC 5.54 H (4.0-5.2) X10^6/uL Hgb 14.7 (12.0-16.0) g/dL Hct 44.0 (36-46) % MCV 79.4 L (80-100) fL MCH 26.5 (26-34) PG MCHC 33.4 (30-36) % RDW 17.5 H (11.6-14.8) % Plt Count 280 (150-400) X10^3/uL Neut % (Auto) 51.1 (50-75) % Lymph % (Auto) 33.8 (25-40) % [place] % (Auto) 10.3 (3-14) % Eos % (Auto) 4.0 (2-4) % Baso % (Auto) 0.8 (0-2) % Neut # (Auto) 3600 (0433-5761) /uL Lymph # (Auto) 2400 (8864-0225) /uL [place] # (Auto) 700 (0-900) /uL Eos # (Auto) 300 (0-450) /uL Baso # (Auto) 100 (0-100) /uL Sodium 140 (137-145) mmol/L Potassium 3.7 (3.4-5.1) mmol/L Chloride 108 H (98-107) mmol/L Carbon Dioxide 23 (22-32) mmol/L BUN 11 (7-17) mg/dL Creatinine 0.70 (0.52-1.04) mg/dL Estimated GFR > 60 (>60) mL/min BUN/Creatinine Ratio 15.7 (6-22) Glucose 84 (70-100) mg/dL Calcium 8.9 (8.4-10.2) mg/dL Total Bilirubin 0.6 (0.2-1.3) mg/dL AST 28 (14-36) IU/L ALT 33 (<35) IU/L Alkaline Phosphatase 104 (38-126) U/L Total Protein 8.0 (6.3-8.2) g/dL Albumin 4.7 (3.5-5.0) g/dL Globulin 3.3 (1.7-4.1) g/dL Albumin/Globulin Ratio 1.4 (1.0-2.8) Lipase 111 (23-300) U/L Discharge Plan Departure Patient Disposition: Home Clinical Impression: Colitis Acid reflux Qualifiers: Esophagitis presence: without esophagitis Qualified Code(s): K21.9 - Gastro-esophageal reflux disease without esophagitis Activity Restrictions/Additional Instructions: *You have been diagnosed with [proctocolitis, acid reflux] *What to do: *Please continue to take your regular medications as directed. [ 1] New medication prescriptions sent to your pharmacy: [Pantoprazole] [ ] New medication written as a paper prescription [ ] No new medications given *Please follow up with your primary care provider in 2-3 days, call for an appointment. Let them know you were seen in the Emergency Department and that we ask that you be seen in follow up. We will electronically transmit a record of today's note if your PCP is in our system. You came in today with concern for frequent and loose stools over the last few days pain after eating and epigastric and lower abdominal pain. Your labs look very good your liver enzymes were not elevated and you did not have a increased white count. Your CT scan did show that you have evidence of colitis or inflammation in your large intestine. Because your labs look good this is unlikely an infectious process and we are not doing antibiotics today. But you should take it easy with your diet until your symptoms improve, make sure you are getting a good amount of fluids and a bland diet such as bananas rice applesauce toast. I would avoid NSAIDs but you can take Tylenol as needed for pain. You have declined a prescription for Zofran it sounds like you already have that, I would like you to take a PPI, pantoprazole for the next 2 weeks and follow up closely with your primary care. We did give you the same medicine as an IV in the emergency department and this did help your symptoms. You may want to consider seeing a GI doctor as well especially if your symptoms are not improving. If you develop new or concerning symptoms do not hesitate seek re-evaluation, hope you feel better soon. *If you do not have a primary care provider please contact the [facility] Resource line at [phone]. They will ask some questions about your medical history and help get you set up with a doctor in the community. *Return to Emergency Department if you should have any new, worsening or concerning symptoms, such as [fever greater than 101 F, shaking chills, worsening pain, persistent vomiting or other bothersome symptoms] Prescriptions: New pantoprazole 20 mg tablet,delayed release (DR/EC) 20 mg PO DAILY Qty: 14 0RF No Action testosterone cypionate 200 mg/mL oil IM pantoprazole 20 mg tablet,delayed release (DR/EC) 20 mg PO DAILY escitalopram oxalate 10 mg tablet 10 mg PO DAILY metoprolol succinate 25 mg tablet extended release 24 hr 25 mg PO DAILY betamethasone dipropionate 0.05 % cream 1 applic topical BID PRN (Reason: rash) Qty: 45 0RF tramadol 100 mg tablet 100 mg PO TID PRN (Reason: pain) Qty: 10 0RF Referrals: Dev Escoto MD [Primary Care Provider] - Stand Alone Forms: Patient Portal/API ED Sign-out <Tatyana Tracy MD - Last Filed: 08/23/23 02:56> Cosign ED Attending Cosignature Attestation: I was immediately available in the department for consultation throughout this patient's visit. Tatyana Tracy MD
[2023-08-22 18:11] LABS: Alanine Aminotransferase 33 IU/L (<35); Albumin 4.7 g/dL (3.5-5.0); Albumin Globulin Ratio 1.4 (1.0-2.8); Alkaline Phosphatase 104 U/L (38-126); Aspartate Aminotransferase 28 IU/L (14-36); BUN Creatinine Ratio 15.7 (6-22); Bilirubin Total 0.6 mg/dL (0.2-1.3); Blood Urea Nitrogen 11 mg/dL (7-17); Calcium 8.9 mg/dL (8.4-10.2); Carbon Dioxide 23 mmol/L (22-32); Chloride 108 mmol/L (98-107); Estimated Glomerular Filt Rate > 60 mL/min (>60); Globulin 3.3 g/dL (1.7-4.1); Glucose 84 mg/dL (70-100); HEMOLYSIS < 15 (0-50); Lipase 111 U/L (23-300); Potassium 3.7 mmol/L (3.4-5.1); Sodium 140 mmol/L (137-145)
[2023-08-22 18:24] VITALS: PULSE 95; O2SAT 100
[2023-08-22 18:25] VITALS: BP 135/82; PULSE 95; O2SAT 100
[2023-08-22 18:30] VITALS: PULSE 94; O2SAT 100
[2023-08-22] MEDS: PANTOPRAZOLE 40 MG VIAL IV (18:30)
[2023-08-22 19:00] VITALS: PULSE 80; O2SAT 100
[2023-08-22 19:08] VITALS: BP 115/69; PULSE 79; O2SAT 98
== END 2023-08-22 19:27 | disposition home or self-care (01) ==
PROVIDERS: Emergency Medicine; Emergency Provider Student in an Organized Health Care Education/Training Program; Family Provider Family Medicine; PCP Family Medicine
DX: K52.9 Noninfective gastroenteritis and colitis, unspecified (principal); K21.9 Gastro-esophageal reflux disease without esophagitis
CPT/HCPCS: 36415; 74177; 80053; 83690; 85025; 96361; 96374; 96375; 99284; C9113; J2405; Q9967

== ENCOUNTER → 2023-09-19 12:59 | Outpatient (CLI) | payer OTHER, SELFPAY ==
--- NOTE | 2023-09-28 15:45 | DIET.OUTPTC ---
Dietary Outpatient Consultation Note Consultation Date: 09/19/2023 Assessment: Nutrition f/u. 27 y referred to dietitian for IBS with diarrhea and S/P cholecystectomy. Octavio reports improvement in incidences of diarrhea. He does feel these correlate with an increase in fiber intake when he does have adequate fiber intake (such as oatmeal) and reduced intake of fat at snacks. Experiences diarrhea 1x/day still. Previously reported 2-3x/day. Reports nighttime snacking of various items, but is wanting to balance snacks. Diet recall: Breakfast: 2 eggs, bagel, Nutrigrain bar OR eggs and hashbrowns OR oatmeal Lunch: Leftovers or hospital cafe foods Dinner: cooks: pasta, pizza, rice and beans, readily prepared frozen meals After dinner: Snacks- baked chips etc Beverages: Water, Root beer or Mt Dew can 1x/d, 4x/week No alcohol intake. No sugar substitutions used. Takes probiotic supplement. Ht: - Wt: 68.039 kg BMI: - Nutrition Diagnosis: (initial) Altered GI function r/t changes in GI tract as evidence by multiple daily episodes of diarrhea, dx of IBS with diarrhea and cholecystectomy Interventions: 1. Composition of meals/snacks -Increased fiber and lower saturated fat foods -Balanced meals/snacks Goals: 1. Continue working towards increasing fiber at breakfast - whole grain or fruit 2. Pairing of post dinner snacks with soluble fiber containing foods and label reading for lower saturated fat options Monitoring/Evaluations: f/u in 3 months, goals, GI s/s, diet recall Electronically Signed by: Luba Naylor 09/28/23 15:45 Clinical Dietitian [address] [id number]
== END ==
LOC: DIET 12:59
PROVIDERS: Family Provider Family Medicine; PCP Family Medicine; Referring Provider Family Medicine
DX: K58.0 Irritable bowel syndrome with diarrhea (principal); Z71.3 Dietary counseling and surveillance; Z90.49 Acquired absence of other specified parts of digestive tract
CPT/HCPCS: 97803

== ENCOUNTER → 2023-09-26 15:51 | Outpatient (CLI) | payer OTHER, SELFPAY ==
[2023-09-26 16:30] LABS: Add Manual Diff / Slide Review NO; Basophils Absolute Auto 100 /uL (0-100); Basophils Percent Auto 1.2 % (0-2); Eosinophils Absolute Auto 200 /uL (0-450); Eosinophils Percent Auto 2.4 % (2-4); Hematocrit 40.6 % (36-46); Hemoglobin 13.5 g/dL (12.0-16.0); Lymphocytes Absolute Auto 3000 /uL (1100-4500); Mean Corpuscular HGB Conc 33.2 % (30-36); Mean Corpuscular Hemoglobin 27.4 PG (26-34); Mean Corpuscular Volume 82.6 fL (80-100); Monocytes Absolute Auto 800 /uL (0-900); Monocytes Percent Auto 8.3 % (3-14); Neutrophils Absolute Auto 5000 /uL (1500-7000); Neutrophils Percent Auto 55.1 % (50-75); Platelet Count 340 X10^3/uL (150-400); Red Blood Cell Count 4.92 X10^6/uL (4.0-5.2); Red Cell Distribution Width 15.6 % (11.6-14.8); White Blood Cell Count 9.1 X10^3/uL (4.5-11.0)
[2023-09-26 16:48] LABS: Hemoglobin A1C% w Est Avg Glu 4.7 % (4.0-6.0)
== END ==
PROVIDERS: Family Provider Family Medicine; PCP Family Medicine; Referring Provider Family Medicine; Visit Provider Family Medicine
DX: E34.9 Endocrine disorder, unspecified (principal); Z79.890 Hormone replacement therapy
CPT/HCPCS: 36415; 83036; 85025

== ENCOUNTER → 2023-11-06 11:24 | Outpatient (CLI) | payer OTHER, SELFPAY | LOC: LAB 11:26 | PROVIDERS: Family Provider Family Medicine; PCP Family Medicine; Referring Provider Internal Medicine Gastroenterology; Visit Provider Internal Medicine Gastroenterology | DX: R93.5 Abnormal findings on diagnostic imaging of other abdominal regions, including retroperitoneum (principal) | CPT/HCPCS: 83993 ==

== ENCOUNTER → 2023-11-30 12:41 | Outpatient (CLI) | payer OTHER, SELFPAY ==
[2023-11-30 13:31] LABS: Add Manual Diff / Slide Review NO; Basophils Absolute Auto 100 /uL (0-100); Basophils Percent Auto 1.1 % (0-2); Eosinophils Absolute Auto 100 /uL (0-450); Eosinophils Percent Auto 1.7 % (2-4); Hematocrit 41.1 % (36-46); Hemoglobin 13.8 g/dL (12.0-16.0); Lymphocytes Absolute Auto 2600 /uL (1100-4500); Lymphocytes Percent Auto 33.4 % (25-40); Mean Corpuscular HGB Conc 33.6 % (30-36); Mean Corpuscular Hemoglobin 27.8 PG (26-34); Mean Corpuscular Volume 82.7 fL (80-100); Monocytes Absolute Auto 600 /uL (0-900); Neutrophils Absolute Auto 4300 /uL (1500-7000); Neutrophils Percent Auto 55.8 % (50-75); Platelet Count 318 X10^3/uL (150-400); Red Blood Cell Count 4.96 X10^6/uL (4.0-5.2); Red Cell Distribution Width 13.1 % (11.6-14.8); White Blood Cell Count 7.7 X10^3/uL (4.5-11.0)
[2023-11-30 13:46] LABS: C-Reactive Protein Quant < 0.5 mg/dL (<1.0)
[2023-11-30 15:11] LABS: Erythrocyte Sedimentation Rate 7 MM/HR (0-20)
== END ==
PROVIDERS: Family Provider Family Medicine; PCP Family Medicine; Referring Provider Family Medicine; Visit Provider Family Medicine
DX: R19.5 Other fecal abnormalities (principal); E34.9 Endocrine disorder, unspecified
CPT/HCPCS: 36415; 85025; 85651; 86140

== ENCOUNTER 2023-12-02 05:11 | Emergency (ER) | payer OTHER, SELFPAY ==
--- NOTE | 2023-12-02 05:25 | DI.RAD.S_ITS ---
PROCEDURE: XR CHEST 1V INDICATIONS: frequent PVCs TECHNIQUE: One view of the chest was acquired. COMPARISON: None. FINDINGS: Surgical changes and devices: None. Lungs and pleura: Lungs are clear. No pleural effusions or pneumothorax. Mediastinum: Mediastinal contours appear normal. Heart size is normal. Bones and chest wall: No suspicious bony lesions. Minimal dextroconvex scoliotic curvature can be seen. Overlying soft tissues appear unremarkable. IMPRESSION: Portable chest within normal limits. Note: No significant discrepancy from the preliminary report. Dictated by: Patrick Holloway M.D. on 12/02/2023 at 6:14 Approved by: Patrick Holloway M.D. on 12/02/2023 at 6:15
--- NOTE | 2023-12-02 05:27 | ED.GENADULT ---
HPI - General Adult General Chief complaint: Extremity Problem,Nontraumatic Stated complaint: SOB Chest tightness Time Seen by Provider: 12/02/23 05:13 History of Present Illness HPI narrative: 28-year-old FTM transgender patient with hx SVT presents by private vehicle from home out of concerns for electrolyte deficiencies. For the last 24 hours has had twitching in his left foot and leg. With history of SVT concerned that electrolytes may be abnormal. While so reporting slightly higher than usual burden of PVCs. On 12.5 of metoprolol daily. Triage complaint states shortness of breath and chest tightness, however patient denies these to myself. Related Data Home Medications Medication Instructions Recorded Confirmed escitalopram oxalate 10 mg tablet 10 mg PO DAILY 01/22/23 03/15/23 metoprolol succinate 25 mg 25 mg PO DAILY 01/22/23 03/15/23 tablet,extended release 24 hr pantoprazole 20 mg tablet,delayed 20 mg PO DAILY 01/22/23 03/15/23 release testosterone cypionate 200 mg/mL mg IM 01/22/23 03/15/23 intramuscular oil Diltiazem Topical topical 10/26/23 Previous Rx's Medication Instructions Recorded betamethasone dipropionate 0.05 % 1 applic topical BID PRN rash #45 01/22/23 topical cream grams tramadol 100 mg tablet 100 mg PO TID PRN pain #10 tabs 02/02/23 pantoprazole 20 mg tablet,delayed 20 mg PO DAILY #14 tabs 08/22/23 release Allergies Allergy/AdvReac Type Severity Reaction Status Date / Time prochlorperazine Allergy Severe Palpitation Verified 06/04/23 13:13 [From Compazine] s articaine Allergy Palpitation Verified 06/04/23 13:13 s Patient History Medical History Upper abdominal pain, unspecified Post-cholecystectomy syndrome Surgical History Status post laparoscopic cholecystectomy Social History household members: spouse Smoking Status: Former smoker alcohol intake: never Smoking Status: Former smoker tobacco type: cigarettes alcohol intake frequency: 0-2 drinks per day Substance Use Type: marijuana Exam Initial Vital Signs Initial Vital Signs: Vital Signs Temperature 98.2 F 12/02/23 05:29 Pulse Rate 82 12/02/23 05:29 Respiratory Rate 16 12/02/23 05:29 Blood Pressure 134/82 12/02/23 05:29 Pulse Oximetry 99 12/02/23 05:29 Oxygen Delivery Method Room Air 12/02/23 05:29 Const: Awake, alert, no acute distress, nontoxic appearing Cardiac: regular rate, regular rhythm RESP: unlabored, clear bilaterally, no wheezing MSK: Atraumatic, full range of motion, pulses equal Skin: Warm, Dry, intact, no rashes Neuro: AO x3, CN II-XII grossly intact, moves all extremities Course Orders Ordered: ED Orders 12/02/23 05:25 Chest [XR chest 1V] Stat EKG-12 Lead Stat 12/02/23 05:47 CMP [Comprehensive Metabolic Panel] Stat MAG [Magnesium] Stat Vital Signs Vital signs: Vital Signs - 8 hr 12/02/23 05:29 12/02/23 05:51 Temperature 98.2 F Pulse Rate 82 Pulse Rate [Left Dorsalis Pedis] 74 Respiratory Rate 16 Blood Pressure 134/82 Pulse Oximetry 99 Oxygen Delivery Method Room Air Medical Decision Making Lab Data 12/02/23 05:47 Labs: Lab Results 12/02/23 Range/Units 05:47 Sodium 139 (137-145) mmol/L Potassium 4.2 (3.4-5.1) mmol/L Chloride 106 (98-107) mmol/L Carbon Dioxide 24 (22-32) mmol/L BUN 13 (7-17) mg/dL Creatinine 0.71 (0.52-1.04) mg/dL Estimated GFR > 60 (>60) mL/min BUN/Creatinine Ratio 18.3 (6-22) Glucose 103 H (70-100) mg/dL Calcium 9.1 (8.4-10.2) mg/dL Magnesium 2.1 (1.6-2.3) mg/dL Total Bilirubin 0.8 (0.2-1.3) mg/dL AST 36 (14-36) IU/L ALT 36 H (<35) IU/L Alkaline Phosphatase 102 (38-126) U/L Total Protein 7.6 (6.3-8.2) g/dL Albumin 4.4 (3.5-5.0) g/dL Globulin 3.2 (1.7-4.1) g/dL Albumin/Globulin Ratio 1.4 (1.0-2.8) TSH 1.80 (0.47-4.68) uIU/mL ECG Data Interpretation: Normal sinus rhythm at 76 beats per minute. Normal UT, no ST T wave changes, no STEMI MDM Narrative Medical decision making narrative: Well-appearing patient with fasciculation sensation in lower extremity, concern for electrolyte derangement. EKG sinus rhythm, physical exam is unremarkable. Laboratory work shows normal electrolytes. Patient's heart rate and blood pressure stable, recommended increasing metoprolol to 25 mg daily. Thyroid level ordered, however correct to not sent to lab. Patient declined thyroid testing here and will follow up with his primary care doctor. Discharge Plan Departure Patient Disposition: Home Clinical Impression: Fasciculation Instructions: Premature Ventricular Beats Activity Restrictions/Additional Instructions: Your electrolytes today were normal. Your EKG did not show any concerning findings, and your chest x-ray was read as normal. There is a thyroid level pending, I recommend checking your portal for the results and following up with Dr. Escoto if it is abnormal. In the meantime you may try increasing your metoprolol to 25mg daily from 12.5mg daily to see if this helps your PVCs. Prescriptions: No Action testosterone cypionate 200 mg/mL oil IM pantoprazole 20 mg tablet,delayed release (DR/EC) 20 mg PO DAILY escitalopram oxalate 10 mg tablet 10 mg PO DAILY metoprolol succinate 25 mg tablet extended release 24 hr 25 mg PO DAILY betamethasone dipropionate 0.05 % cream 1 applic topical BID PRN (Reason: rash) Qty: 45 0RF Diltiazem Topical ointment topical Rx Instructions: Per Giuliana, called in 2% Diltiazem and 2% Lidocaine to [facility] #[phone] 30 grams 2 refills pantoprazole 20 mg tablet,delayed release (DR/EC) 20 mg PO DAILY Qty: 14 0RF tramadol 100 mg tablet 100 mg PO TID PRN (Reason: pain) Qty: 10 0RF Referrals: Dev Escoto MD [Primary Care Provider] - Stand Alone Forms: Patient Portal/API, Work Release Note
[2023-12-02 05:29] VITALS: BP 134/82; PULSE 82; RESP 16; TEMP 36.8; O2SAT 99; BMI 27.4
--- NOTE | 2023-12-02 05:38 | EKG_ITS ---
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
[2023-12-02 05:42] VITALS: BP 123/77
[2023-12-02 05:43] VITALS: PULSE 85; O2SAT 99
[2023-12-02 05:51] VITALS: PULSE 74
[2023-12-02 06:00] VITALS: BP 113/71; PULSE 77; O2SAT 96
[2023-12-02 06:11] LABS: Alanine Aminotransferase 36 IU/L (<35); Albumin 4.4 g/dL (3.5-5.0); Albumin Globulin Ratio 1.4 (1.0-2.8); Alkaline Phosphatase 102 U/L (38-126); Aspartate Aminotransferase 36 IU/L (14-36); BUN Creatinine Ratio 18.3 (6-22); Bilirubin Total 0.8 mg/dL (0.2-1.3); Blood Urea Nitrogen 13 mg/dL (7-17); Calcium 9.1 mg/dL (8.4-10.2); Carbon Dioxide 24 mmol/L (22-32); Chloride 106 mmol/L (98-107); Estimated Glomerular Filt Rate > 60 mL/min (>60); Globulin 3.2 g/dL (1.7-4.1); Glucose 103 mg/dL (70-100); HEMOLYSIS 45 (0-50); Magnesium 2.1 mg/dL (1.6-2.3); Potassium 4.2 mmol/L (3.4-5.1); Sodium 139 mmol/L (137-145); Total Protein 7.6 g/dL (6.3-8.2)
[2023-12-02 06:30] VITALS: BP 115/77; PULSE 78; TEMP 36.5; O2SAT 97
== END 2023-12-02 06:35 | disposition home or self-care (01) ==
PROVIDERS: Emergency Provider Emergency Medicine; Family Provider Family Medicine; PCP Family Medicine
DX: R25.3 Fasciculation (principal); R06.02 Shortness of breath; R07.9 Chest pain, unspecified
CPT/HCPCS: 36415; 71045; 80053; 83735; 84443; 93005; 99283; 99284

== ENCOUNTER → 2023-12-09 11:38 | Outpatient (CLI) | payer OTHER, SELFPAY ==
[2023-12-09 13:04] LABS: Influenza A - CEPHEID Flu A NEGATIVE (NEGATIVE); Influenza B - CEPHEID Flu B NEGATIVE (NEGATIVE); Respiratory Syncytial Virus Negative (Negative)
[2023-12-09 13:06] LABS: COVID-19 CEPHEID 4-PLEX PCR Negative (Negative)
== END ==
PROVIDERS: Family Provider Family Medicine; PCP Family Medicine; Visit Provider Nurse Practitioner Family
DX: J02.0 Streptococcal pharyngitis (principal); J02.9 Acute pharyngitis, unspecified
CPT/HCPCS: 0241U; 87070; 87147

== ENCOUNTER 2023-12-26 13:00 | Outpatient (RCR) | payer OTHER, SELFPAY ==
--- NOTE | 2023-07-24 13:42 | PT.OPPOC ---
Addendum entered and electronically signed by Judith Hernadez PT 07/24/23 13:42: Send to Ben Original Note: Physical, Occupational & Speech Therapy At [facility] Current Diagnoses Pain in thoracic spine (07/24/23) Dizziness and giddiness (07/24/23) Visit Care Team Role Provider Type Dev Escoto MD Family Provider Physician Primary Care Provider Specialty: [facility] Practice Address: [address] [place] [address], [id number] Email: [email or web address] Emmanuel Contreras MD Attending Provider Physician Referring Provider Specialty: [facility] Address: [address] [place] [address], [id number] Email: [email or web address] Plan Of Care PT-OP-T Assessment and Plan Start: 07/15/23 10:35 Freq: Status: Active Protocol: Document 07/24/23 10:31 MB (Rec: 07/24/23 13:42 MB [id number]) Physical Therapy Assessment Rehab Potential Rehabilitation Potential Good Evaluation Complexity Number of Personal Factors/Comorbidities 3 or More Number of Body Systems Impaired 3 Clinical Presentation at Evaluation Evolving Impairments Impairments Balance,Coordination,Pain, Posture,ROM,Sensation,Soft Tissue Mobility,Strength, Vestibular Goals 5 Impairment Lack of HEP Fci Goal (LTG) Pt will perform progressive HEP with I including pelvic realignment exercises, breathing and other relaxation exercises, postural exercises , flexibility, strengthening and balance exercises to improve symptoms and quality of life. LTG Duration 8 weeks 4 Impairment Reports of imbalance Spike Maker Goal (LTG) Pt will perform WNLs on FGA as well as demonstrate B SLS at least 30 sec to improve overall functional balance and I. LTG Duration 8 weeks 3 Impairment Decreased thoracic rotation Spike Maker Goal (LTG) Pt will present with improved B thoracic rotation to at least 25 deg B to improve functional mobility for posture, cervical comfort and pain. LTG Duration 8 weeks 2 Impairment DHI 42/100 Spike Maker Goal (LTG) Pt will present with an improved DHI score to reflect no more than 20% impairment d/ t dizziness. LTG Duration 8 weeks 1 Impairment FES 37/64 Fci Goal (LTG) Pt will present with an improved FES score to no more than 20/64 to reflect improved confidence with mobility and less fear of falling. LTG Duration 8 weeks Assessment Summary Assessment Pt presents with postural changes including spinal convexities, history of pectus excavatum, pelvic obliquities and very little thoracic mobility. Initial VOR and balance screens are negative as well as orthostatic assessment. Pt is hypertensive today, especially with diastolic BP. Pt will benefit from PT for postural and pelvic alignment treatment, manual work, breathing and other relaxation training and progressive core and stability training and balance training . PT feels that pt has both postural contributions to symptoms of neck stiffness and RAMON as well as possible non- organic contributions to dizziness and imbalanced symptoms in setting of history of anxiety and PTSD. Pt is a good PT candidate and is very receptive to PT education today. His functional prognosis with PT is good. Physical Therapy Plan Frequency and Duration Frequency of Treatment 1-2x/wk Duration of treatment (weeks) 8 Plan of Care Start Date 07/24/23 Plan of Care End Date 09/24/23 Therapeutic Interventions Therapeutic Interventions Balance Training,Canalithic Repositioning,Coordination Training,Gait Training,Home Exercise Program,Joint Mobilizations,Manual Therapy, Neuromuscular Re-education, Patient/Caregiver Education, Self-Care/Home Management, Sensory Integration,Soft Tissue Mobilization,Taping, Therapeutic Activities, Therapeutic Exercises, Vestibular Rehabilitation Modalities Cold Pack/Ice Massage,Electric Stimulation,Hot Packs, Ultrasound Next Visit Focus/Plan Next Note Type Treatment Note Next Visit Plan Teach pelvic realignment exercises and a thoracic mobility exercise, initiate manual work. With primary PT, initiate Buteyko breathing and may even consider this on the first treatment with primary PT. Progress to other postural exercises, balance exercises. Primary PT to perform DVA and consider VOMs. Run FGA and score and create HEP. Plan of Care Dates Plan of Care Start Date 07/24/23 Plan of Care End Date 09/24/23 Electronically Signed by: Judith Hernadez PT 07/24/23 1227 If you are in agreement with this Plan of Care, please return a signed and dated copy. I have reviewed this Plan of Care and certify that the skilled therapy services above are required to meet the patient?s needs. Physician Signature Date Printed Name and Credentials Clinical Instructor Signature Printed Name and Credentials
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
--- NOTE | 2023-10-02 12:50 | PT.OPPOC ---
Physical, Occupational & Speech Therapy At [facility] Current Diagnoses Pain in thoracic spine (10/02/23) Dizziness and giddiness (10/02/23) Visit Care Team Role Provider Type Dev Escoto MD Family Provider Physician Primary Care Provider Specialty: [facility] Address: [address] [place], [address] Email: [email or web address] Emmanuel Contreras MD Attending Provider Physician Referring Provider Specialty: [facility] Address: [address] [place] [address], [address] Email: [email or web address] Of Care PT-OP-T Assessment and Plan Start: 07/15/23 10:35 Freq: Status: Active Protocol: Document 10/02/23 10:31 MB (Rec: 10/02/23 11:17 MB [id number]) Physical Therapy Assessment Rehab Potential Rehabilitation Potential Good Evaluation Complexity Number of Personal Factors/Comorbidities 3 or More Number of Body Systems Impaired 3 Clinical Presentation at Evaluation Evolving Impairments Impairments Balance,Coordination,Pain, Posture,ROM,Sensation,Soft Tissue Mobility,Strength, Vestibular Goals 5 Impairment Lack of HEP Nursing Home Goal (LTG) Pt will perform progressive HEP with I including pelvic realignment exercises, breathing and other relaxation exercises, postural exercises , flexibility, strengthening and balance exercises to improve symptoms and quality of life in 10 weeks. 10/02/23: Pt is performing pelvic realignment exercises, breathing, pect stretch and thoracic mobility exercises. LTG Duration Progressing 4 Impairment Reports of imbalance Employee Training Specialist Goal (LTG) Pt will perform WNLs on FGA as well as demonstrate B SLS at least 30 sec to improve overall functional balance and I. 10/02/23: FGA: 28/30 and only trial with eyes closed; SLS in socks: 30 sec on each leg LTG Duration Met goal 3 Impairment Decreased thoracic rotation Employee Training Specialist Goal (LTG) Pt will present with improved B thoracic rotation to at least 25 deg B to improve functional mobility for posture, cervical comfort and pain in 10 weeks. 10/02/23: Pt con't with stiffness and tenderness with right more than left thoracic spine with more restrictions to the right, grossly 15% less right rotation than left LTG Duration 10 weeks 2 Impairment DHI 42/100 Nursing Home Goal (LTG) Pt will present with an improved DHI score to reflect no more than 20% impairment d/ t dizziness. 10/02/23: DHI reflects 16% impairment LTG Duration Surpassed goal 1 Impairment FES 37/64 Employee Training Specialist Goal (LTG) Pt will present with an improved FES score to no more than 20/64 to reflect improved confidence with mobility and less fear of falling in 10 weeks. 10/02/23: FES score is improving at 25/64 LTG Duration Improving Assessment Summary Assessment Pt is progressing towards PT goals. Thoracic rotation and postural changes appear to be the most persistent challenges . Pt has been compliant with HEP. Recommend ongoing PT to improve posture, balance, core and to assess VOR/VOMS. Overall, pt's dizziness symptoms have appeared to be mostly related to guarded posture and anxiety and he is making good gains in awareness and self-care. Physical Therapy Plan Frequency and Duration Frequency of Treatment 1-2x/wk Duration of treatment (weeks) 10 Plan of Care Start Date 09/24/23 Plan of Care End Date 12/07/23 Therapeutic Interventions Therapeutic Interventions Balance Training,Canalithic Repositioning,Coordination Training,Gait Training,Home Exercise Program,Joint Mobilizations,Manual Therapy, Neuromuscular Re-education, Patient/Caregiver Education, Self-Care/Home Management, Sensory Integration,Soft Tissue Mobilization,Taping, Therapeutic Activities, Therapeutic Exercises, Vestibular Rehabilitation Modalities Cold Pack/Ice Massage,Electric Stimulation,Hot Packs, Ultrasound Other Referrals/Consults Referrals/Consults Recommended Pelvic floor PT in the future Next Visit Focus/Plan Next Note Type Treatment Note Next Visit Plan Consider stretching over therapy ball and pool noodle. Exercises to include core and intrascapular strengthening and shoulder strengthening with band at wall. Primary PT to perform DVA and consider VOMs. Consider body blade for core and balance Plan of Care Dates Plan of Care Start Date 09/24/23 Plan of Care End Date 12/07/23 Electronically Signed by: Judith Hernadez PT 10/02/23 2692 If you are in agreement with this Plan of Care, please return a signed and dated copy. I have reviewed this Plan of Care and certify that the skilled therapy services above are required to meet the patient?s needs. Physician Signature Date Printed Name and Credentials Clinical Instructor Signature Printed Name and Credentials
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
--- NOTE | 2023-10-30 13:11 | PT.OPPOC ---
Addendum entered and electronically signed by Judith Hernadez PT 10/31/23 07:23: Send to Ben to sign Original Note: Physical, Occupational & Speech Therapy At [facility] Current Diagnoses Pain in thoracic spine (10/30/23) Dizziness and giddiness (10/30/23) Visit Care Team Role Provider Type Dev Escoto MD Family Provider Physician Primary Care Provider Specialty: [facility] Practice Address: [address] [place] [address], [id number] Email: [email or web address] Attending Provider Physician Referring Provider Specialty: [facility] Address: [address] [place] [address], [id number] Email: [email or web address] Plan Of Care PT-OP-T Assessment and Plan Start: 07/15/23 10:35 Freq: Status: Active Protocol: Document 10/30/23 09:49 MB (Rec: 10/30/23 10:28 MB [id number]) Physical Therapy Assessment Rehab Potential Rehabilitation Potential Good Evaluation Complexity Number of Personal Factors/Comorbidities 3 or More Number of Body Systems Impaired 3 Clinical Presentation at Evaluation Evolving Impairments Impairments Balance,Coordination,Pain, Posture,ROM,Sensation,Soft Tissue Mobility,Strength, Vestibular Goals 6 Impairment QuickDASH 61.36% impairment Inventory Control Assistant Goal (LTG) Pt will present with improved QuickDASH score to reflect no more than 20% impairment to improve quality of lift and function. LTG Duration 10 weeks 5 Impairment Lack of HEP Custodial Goal (LTG) Pt will perform progressive HEP with I including pelvic realignment exercises, breathing and other relaxation exercises, postural exercises , flexibility, strengthening and balance exercises to improve symptoms and quality of life in 10 weeks. 10/02/23: Pt is performing pelvic realignment exercises, breathing, pect stretch and thoracic mobility exercises. 10/30/23: Pt is performing pelvic realignment exercises, balance exercises, breathing and thoracic mobility LTG Duration Progressing 4 Impairment Reports of imbalance Custodial Goal (LTG) Pt will perform WNLs on FGA as well as demonstrate B SLS at least 30 sec to improve overall functional balance and I. 10/02/23: FGA: and only trial with eyes closed; SLS in socks: 30 sec on each leg LTG Duration Met goal 3 Impairment Decreased thoracic rotation Custodial Goal (LTG) Pt will present with improved B thoracic rotation to at least 25 deg B to improve functional mobility for posture, cervical comfort and pain in 10 weeks. 10/02/23: Pt con't with stiffness and tenderness with right more than left thoracic spine with more restrictions to the right, grossly 15% less right rotation than left 10/30/23: Pt presents with approximately 10% less rotation to right compared to left LTG Duration 10 weeks 2 Impairment DHI 42/100 Custodial Goal (LTG) Pt will present with an improved DHI score to reflect no more than 20% impairment d/ t dizziness. 10/02/23: DHI reflects 16% impairment 10/30/23: DHI reflects 14% impairment LTG Duration Surpassed goal 1 Impairment FES 37/64 Inventory Control Assistant Goal (LTG) Pt will present with an improved FES score to no more than 20/64 to reflect improved confidence with mobility and less fear of falling in 10 weeks. 10/02/23: FES score is improving at 25/64 10/30/23 FES score is similar at 25/64 and pt reports ongoing concern since he fell on the ice LTG Duration Improving Assessment Summary Assessment Pt has progressed towards all PT goals and has met DHI and FGA goals. AROM cervical spine and shoulders in standing today: cervical flexion and extension about 45 deg; rotation right 80 deg and left 65 deg. Shoulder flexion B 150 deg and pt with lowering left arm; abduction bilateral 170 deg and some crackling reports with raising left arm: IR behing back: right to T10 and left to T9. MMT: 5/5 B flexion, abduction and IR in standing. ER right is 5/5 and left is 4/5 and pt with pain with testing. Pt with increased tension and pain with left pect STM and PT feels that this could contributing to pain. Pt presents with cervical and thoracic postural changes and these may be affecting left shoulder pain and PT is hopeful that ongoing ergonomic and postural training may assist patient. Physical Therapy Plan Frequency and Duration Frequency of Treatment 1-2x/wk Duration of treatment (weeks) 10 Plan of Care Start Date 10/30/23 Plan of Care End Date 01/07/24 Therapeutic Interventions Therapeutic Interventions Balance Training,Canalithic Repositioning,Coordination Training,Gait Training,Home Exercise Program,Joint Mobilizations,Manual Therapy, Neuromuscular Re-education, Patient/Caregiver Education, Self-Care/Home Management, Sensory Integration,Soft Tissue Mobilization,Taping, Therapeutic Activities, Therapeutic Exercises, Vestibular Rehabilitation Modalities Cold Pack/Ice Massage,Electric Stimulation,Hot Packs, Ultrasound Other Referrals/Consults Referrals/Consults Recommended Pelvic floor PT in the future Next Visit Focus/Plan Next Note Type Treatment Note Next Visit Plan VOR exercises with eye chart Consider stretching over therapy ball. Exercises to include core and intrascapular strengthening and shoulder strengthening with band at wall. Consider body blade for core and balance. Progress strengthening over pool noodle . Plan of Care Dates Plan of Care Start Date 10/30/23 Plan of Care End Date 01/07/24 Electronically Signed by: Judith Hernadez PT 10/30/23 [id number] If you are in agreement with this Plan of Care, please return a signed and dated copy. I have reviewed this Plan of Care and certify that the skilled therapy services above are required to meet the patient?s needs. Physician Signature Date Printed Name and Credentials Clinical Instructor Signature Printed Name and Credentials
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
== END 2024-01-01 12:46 | disposition home or self-care (01) ==
LOC: PHYS 13:00
PROVIDERS: Family Provider Family Medicine; PCP Family Medicine; Referring Provider Family Medicine; Visit Provider Family Medicine
DX: M54.6 Pain in thoracic spine (principal); R42 Dizziness and giddiness; M25.512 Pain in left shoulder
CPT/HCPCS: 97110; 97112; 97140; 97161; 97162; 97164; 97535

== ENCOUNTER → 2024-01-04 14:40 | Outpatient (ROUT) | payer OTHER, SELFPAY ==
[2024-01-04 15:26] LABS: Influenza A - CEPHEID Flu A NEGATIVE (NEGATIVE); Influenza B - CEPHEID Flu B NEGATIVE (NEGATIVE); Respiratory Syncytial Virus Negative (Negative)
[2024-01-04 15:28] LABS: COVID-19 CEPHEID 4-PLEX PCR Negative (Negative)
== END ==
PROVIDERS: Family Provider Family Medicine; PCP Family Medicine; Visit Provider Family Medicine
DX: R05.1 Acute cough (principal); J02.9 Acute pharyngitis, unspecified
CPT/HCPCS: 0241U

== ENCOUNTER 2024-01-11 08:12 | Day surgery (SDC) | payer OTHER, SELFPAY ==
[2024-01-11] VITALS (7 sets, daily range): BP systolic 93–134; BP diastolic 50–90; PULSE 69–96; RESP 14–18; TEMP 36.4–36.8; O2SAT 92–98
--- NOTE | 2024-01-11 | PATH_ITS ---
[facility] Accession Number: [id number] No. of containers..01 Tissue . 01 Material submitted: . colon - RANDOM COLON . 01 Diagnosis: RANDOM COLON, BIOPSY: Colonic mucosa with no diagnostic abnormality. Negative for active, chronic, and microscopic colitis. Negative for dysplasia and malignancy. [facility] 01/15/2024 0938 Local . 01 Electronically signed: . Lucille Gomez MD, Pathologist NPI- [id number] . 01 Gross description: . RANDOM COLON: Received in formalin are multiple fragment(s) of webber, soft tissue measuring 0.1 x 0.1 x 0.1 cm to 0.2 x 0.2 x 0.2 cm submitted entirely in 1 cassette(s) /[facility] 01/12/2024 0139 Local . 01 Pathologist provided ICD-10: R19.4 . 01 CPT . 465204 Specimen Comment: A courtesy copy of this report has been sent to [phone] Performed at: [address] [address], [place], [place] [id number] MD Logan uGtiérrez MD Phone: [phone]
[2024-01-11] MEDS: LACTATED RINGERS 1,000 ML 42 ML IV (09:24)
--- NOTE | 2024-01-11 09:49 | PM.HP.1 ---
History of Present Illness History of Present Illness Date Patient Seen: 01/11/24 Time Patient Seen: 09:50 Chief complaint: Dx Colonoscopy w/poss bx Narrative: 28-year-old transgender male with change in bowel habits. A chronic anal fissure. Concerns for inflammatory bowel disease [facility] Medical History Upper abdominal pain, unspecified Post-cholecystectomy syndrome Surgical History Status post laparoscopic cholecystectomy Social History household members: spouse Smoking Status: Former smoker alcohol intake: never Meds Home Medications and Allergies Home Medications Medication Instructions Recorded Confirmed Type betamethasone dipropionate 0.05 % 1 applic topical BID PRN rash #45 01/22/23 12/09/23 Rx topical cream grams escitalopram oxalate 10 mg tablet 10 mg PO DAILY 01/22/23 12/09/23 History metoprolol succinate 25 mg 25 mg PO DAILY 01/22/23 01/11/24 History tablet,extended release 24 hr pantoprazole 20 mg tablet,delayed 20 mg PO DAILY 01/22/23 12/09/23 History release testosterone cypionate 200 mg/mL mg IM 01/22/23 12/09/23 History intramuscular oil tramadol 100 mg tablet 100 mg PO TID PRN pain #10 tabs 02/02/23 12/09/23 Rx pantoprazole 20 mg tablet,delayed 20 mg PO DAILY #14 tabs 08/22/23 12/09/23 Rx release Diltiazem Topical topical 10/26/23 12/09/23 History Allergies Allergy/AdvReac Type Severity Reaction Status Date / Time prochlorperazine Allergy Severe Palpitation Verified 01/11/24 09:13 [From Compazine] s articaine Allergy Palpitation Verified 01/11/24 09:13 s Review of Systems Review of Systems ROS: Yes All systems reviewed with the patient and are negative except as otherwise documented Exam Vital Signs (past 8 hours): - 01/11/24 09:14 Temperature 97.5 F L Pulse Rate 96 H Respiratory Rate 16 Blood Pressure 134/90 Pulse Oximetry 97 Oxygen Delivery Method Room Air Oxygen Delivery Method Room Air Const General: cooperative and healthy appearing Nutritional Appearance: well nourished [facility] Head: normocephalic and atraumatic Eyes General: appearance normal, both eyes and all related structures Periorbital: periorbital findings normal Neck Neck: trachea midline and No JVD Chest Chest: normal inspection of the chest Resp Effort & Inspection: normal respiratory effort and able to speak in complete sentences Cardio Rate: regular rate Rhythm: regular rhythm GI Palpation: soft and No tender Skin General: turgor normal and No atrophy Neuro General: patient alert, patient awake and patient oriented x3 Cognition: normal cognition Extrem General: normal to inspection Psych Appearance: grossly normal Mental Status: mental status grossly normal Affect: normal affect Judgment: judgment good Assessment & Plan Assessment & Plan narrative: abdominal pain and change in bowel habits Plan: diagnostic EGC, colonoscopy, anal dilations with sedation Time-Based Coding :: [TOTAL MINUTES] spent with patient and on the chart (including review of chart, obtaining history, exam, reviewing outside data, placing orders, documenting exam and treatment plan, and counseling patient) on [DATE].
--- NOTE | 2024-01-11 10:14 | PM.OP.EC ---
Operative Date/Time/Diagnoses Date of procedure: 01/11/24 Time of procedure: 10:14 Pre-op diagnosis: Abdominal pain change in bowel habit Post-op diagnosis: same Procedure & Clinicians Study performed: EGD and colonoscopy Same procedure as scheduled: Yes Indications: Change in bowel habits Surgeon: Inna Albert Procedure Notes Procedure in detail: Preop diagnosis: Change in bowel habits Postop diagnosis: Same Operative procedure: EGD followed by colonoscopy with cold forceps random mucosal biopsies under anesthesia Surgeon: Toyin Albert MD Findings: No abnormalities of the foregut. No hiatal hernias, no gastritis. Colonoscopy demonstrated no mucosal changes, no polyps, no diverticulosis. Procedure: Patient placed in a supine position. Anesthetic was provided. EGD was performed with the above findings by inserting a scope into the esophagus insufflating advancing of the stomach and then identifying the pylorus intubate into the duodenal. First and 2nd portion duodenal were without abnormalities. Extraction of the scope including retroflex showed normal anatomy as well. No biopsies taken in the upper scope. We then moved to do the colonoscopy. Patient was placed in a lateral position. Rectal exam was performed showing increased tone possible inflammatory changes consistent with anal fissure. Scope was inserted into the rectum and advanced to ileocecal valve with minimal difficulty. Insufflation extraction of the scope and the above findings. Retroflex was included. Impression: I found no evidence of inflammatory bowel disease in the stomach, duodenal, or colon. Random biopsies of the colon were taken for pathology purposes. Plan: Await pathology specimens, follow up with GI Specimen(s): other (Cold forceps, random, colon mucosa) Complications: none Post-procedure Follow up: as needed Disposition: PACU
--- NOTE | 2024-01-11 10:19 | P.OP_ITS ---
Operative Date/Time/Diagnoses Date of procedure: 01/11/24 Time of procedure: 10:19 Pre-op diagnosis: Chronic anal fissure Post-op diagnosis: same Procedure & Clinicians Procedure: Manual anal dilatation Same procedure as scheduled: Yes Indications: Anal fissure Surgeon: Inna Albert Anesthesia Type: MAC +/- Operative Notes Findings: Increased anal tone with palpable fissure. Closure Type: not applicable Specimen(s): none sent Blood products transfused: none Procedure in detail: Preop diagnosis: Anal fissure Postop diagnosis: Same Operative procedure: Anal dilation under MAC Surgeon: Toyin Albert MD Findings: Increased tone, anal fissure Procedure: Patient is lying in a lateral position following her colonoscopy. Additional propofol was given for deeper sedation followed by a manual dilation of the anus with good success. Mild amount of the bleeding. Patient was aw akened and taken to recovery room in stable condition. Pathology: None Bleeding: Minimal Complications: none Post-operative Condition: stable Disposition: PACU
== END 2024-01-11 11:05 | disposition home or self-care (01) ==
PROVIDERS: Family Provider Family Medicine; PCP Family Medicine; Referring Provider Surgery; Visit Provider Surgery
PROC: 0DJ08ZZ Inspection of Upper Intestinal Tract, Via Natural or Artificial Opening Endoscopic (ICD-10-PCS; CPT 43235; principal; 2024-01-11 09:45)
PROC: 0DJD8ZZ Inspection of Lower Intestinal Tract, Via Natural or Artificial Opening Endoscopic (ICD-10-PCS; CPT 45378; 2024-01-11 09:45)
DX: R10.9 Unspecified abdominal pain (principal); R19.4 Change in bowel habit
CPT/HCPCS: 45380; 43235; J2704

== ENCOUNTER → 2024-01-14 11:04 | Outpatient (ROUT) | payer OTHER, SELFPAY ==
[2024-01-14 11:55] LABS: Influenza A - CEPHEID Flu A NEGATIVE (NEGATIVE); Influenza B - CEPHEID Flu B NEGATIVE (NEGATIVE); Respiratory Syncytial Virus Negative (Negative)
[2024-01-14 11:57] LABS: COVID-19 CEPHEID 4-PLEX PCR Negative (Negative)
== END ==
PROVIDERS: Family Provider Family Medicine; PCP Family Medicine; Visit Provider Family Medicine
DX: R05.1 Acute cough (principal); J02.9 Acute pharyngitis, unspecified
CPT/HCPCS: 0241U

== ENCOUNTER → 2024-01-31 14:12 | Outpatient (CLI) | payer OTHER, SELFPAY | PROVIDERS: Family Provider Family Medicine; PCP Family Medicine; Referring Provider Internal Medicine; Visit Provider Internal Medicine | DX: Z23 Encounter for immunization (principal) | CPT/HCPCS: 90471; 90656 ==

== ENCOUNTER 2024-02-13 16:32 | Emergency (ER) | payer OTHER, SELFPAY ==
[2024-02-13 16:36] VITALS: BP 134/72; PULSE 85; RESP 17; TEMP 36.6; O2SAT 97; BMI 27.4
--- NOTE | 2024-02-13 17:14 | ED.GENADULT ---
HPI - General Adult <Carley Sahni PA-C - Last Filed: 02/13/24 18:55> General Chief complaint: Blood/Body fluid exposure Stated complaint: blood exposure Time Seen by Provider: 02/13/24 17:14 Source: patient Mode of arrival: Ambulatory History of Present Illness HPI narrative: Jacinda Fox is a pleasant 28 yo transgender male who presents to the emergency department for a needlestick exposure. 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 Related Data Home Medications Medication Instructions Recorded Confirmed escitalopram oxalate 10 mg tablet 10 mg PO DAILY 01/22/23 12/09/23 metoprolol succinate 25 mg 25 mg PO DAILY 01/22/23 01/11/24 tablet,extended release 24 hr pantoprazole 20 mg tablet,delayed 20 mg PO DAILY 01/22/23 12/09/23 release testosterone cypionate 200 mg/mL mg IM 01/22/23 12/09/23 intramuscular oil Diltiazem Topical topical 10/26/23 12/09/23 Previous Rx's Medication Instructions Recorded betamethasone dipropionate 0.05 % 1 applic topical BID PRN rash #45 01/22/23 topical cream grams tramadol 100 mg tablet 100 mg PO TID PRN pain #10 tabs 02/02/23 pantoprazole 20 mg tablet,delayed 20 mg PO DAILY #14 tabs 08/22/23 release Allergies Allergy/AdvReac Type Severity Reaction Status Date / Time prochlorperazine Allergy Severe Palpitation Verified 02/13/24 16:39 [From Compazine] s articaine Allergy Palpitation Verified 02/13/24 16:39 s Review of Systems <Carley Sahni PA-C - Last Filed: 02/13/24 18:55> Review of Systems ROS Unobtainable: All systems reviewed & are unremarkable except as noted in HPI and below Patient History <Carley Sahni PA-C - Last Filed: 02/13/24 18:55> Medical History Upper abdominal pain, unspecified Post-cholecystectomy syndrome Surgical History Status post laparoscopic cholecystectomy Social History household members: spouse Smoking Status: Former smoker alcohol intake: never Smoking Status: Former smoker tobacco type: cigarettes alcohol intake frequency: 0-2 drinks per day Substance Use Type: marijuana Exam <Carley Sahni PA-C - Last Filed: 02/13/24 18:55> Narrative Exam Narrative: GENERAL: 28 year old patient appears stated age. Well-developed patient, in no acute distress. HEAD: Atraumatic. Normocephalic. EYES: No injection or drainage. ENT: Nose without bleeding, purulent drainage. Airway patent. NECK: Trachea midline. CARDIOVASCULAR: Regular rate and rhythm. RESPIRATORY: Speaking in clear full sentences. No respiratory distress. NEURO: AOx3. SKIN: Right 2nd index finger with punctuate needle injury on distal tip. Initial Vital Signs Initial Vital Signs: Vital Signs Temperature 98 F 02/13/24 16:36 Pulse Rate 85 02/13/24 16:36 Respiratory Rate 17 02/13/24 16:36 Blood Pressure 134/72 02/13/24 16:36 Pulse Oximetry 97 02/13/24 16:36 Oxygen Delivery Method Room Air 02/13/24 16:36 <Avery Anderson DO - Last Filed: 02/13/24 18:56> Initial Vital Signs Initial Vital Signs: Vital Signs Temperature 98 F 02/13/24 16:36 Pulse Rate 85 02/13/24 16:36 Respiratory Rate 17 02/13/24 16:36 Blood Pressure 134/72 02/13/24 16:36 Pulse Oximetry 97 02/13/24 16:36 Oxygen Delivery Method Room Air 02/13/24 16:36 Course <Carley Sahni PA-C - Last Filed: 02/13/24 18:55> Orders Ordered: ED Orders 02/13/24 17:00 Alanine Aminotransferase Stat HIV 1 & 2 Ab/Ag 4th Gen Combo Stat Hep C Virus Ab w/Reflex Quant Stat Discontinued Medications Diphtheria/Tetanus/Acell Pertussis (Tet,Diph,Pertuss(Acell),Vac/Pf 0.5 Ml Syringe) 0.5 ml IM .ONCE ONE Stop: 02/13/24 18:17 Last Admin: 02/13/24 18:43 Dose: 0.5 ml Documented By: SB Vital Signs Vital signs: Vital Signs - 8 hr 02/13/24 16:36 Temperature 98 F Pulse Rate 85 Respiratory Rate 17 Blood Pressure 134/72 Pulse Oximetry 97 Oxygen Delivery Method Room Air <Avery Anderson DO - Last Filed: 02/13/24 18:56> Orders Ordered: ED Orders 02/13/24 17:00 Alanine Aminotransferase Stat HIV 1 & 2 Ab/Ag 4th Gen Combo Stat Hep C Virus Ab w/Reflex Quant Stat Discontinued Medications Diphtheria/Tetanus/Acell Pertussis (Tet,Diph,Pertuss(Acell),Vac/Pf 0.5 Ml Syringe) 0.5 ml IM .ONCE ONE Stop: 02/13/24 18:17 Last Admin: 02/13/24 18:43 Dose: 0.5 ml Documented By: AKIN Vital Signs Vital signs: Vital Signs - 8 hr 02/13/24 16:36 Temperature 98 F Pulse Rate 85 Respiratory Rate 17 Blood Pressure 134/72 Pulse Oximetry 97 Oxygen Delivery Method Room Air Medical Decision Making <Carley Sahni PA-C - Last Filed: 02/13/24 18:55> Lab Data Labs: Lab Results 02/13/24 Range/Units 17:00 ALT 38 H (<35) IU/L Hepatitis C Antibody Negative (NEGATIVE) s/c HIV 1&2 Ab/P24 Ag 4thGn Negative (NEGATIVE) MDM Narrative Medical decision making narrative: 28 year old transgender male patient presents to the emergency department after a needlestick injury to his right index finger. 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 Differential diagnosis includes but not limited to blood exposure, wound, etc. Hepatitis-B antibody, hepatitis-C antibody, HIV 1 and 2 antibody ordered. Patient states the source patient is currently admitted and they consented to having labs drawn as well. Labs will take 2 days. Discussed with patient the risks and benefits of prophylactic treatment. Source patient denies history of any communicable diseases. After shared decision-making with Jacinda, he will wait to be treated for any possible exposures after labs have resulted. His last tetanus shot was in 2017, therefore we will update as it has been less than 5 years and he has no open wound. Wound was washed extensively and Band-Aid applied. Discussed signs and symptoms of wound infection to return to the ER for. Patient will follow up with employee health and their primary care doctor. Patient is stable for discharge. <Avery Anderson DO - Last Filed: 02/13/24 18:56> Lab Data Labs: Lab Results 02/13/24 Range/Units 17:00 ALT 38 H (<35) IU/L Hepatitis C Antibody Negative (NEGATIVE) s/c HIV 1&2 Ab/P24 Ag 4thGn Negative (NEGATIVE) Discharge Plan Departure Patient Disposition: Home Clinical Impression: Needlestick injury accident Instructions: DI for Accidental Exposure to Body Fluids Activity Restrictions/Additional Instructions: Today you were evaluated for a needlestick injury to your right index finger. We updated your Tdap vaccine. Baseline exposure labs were obtained from you today, and results should be back in about 2 days. Please follow up with [facility] for further management. Please keep the wound on your index finger clean and covered with a bandaid. Return to the ER for any signs of infection of the finger including but not limited to increased redness, swelling, pus drainage, streaking redness, or fevers. Prescriptions: No Action testosterone cypionate 200 mg/mL oil IM pantoprazole 20 mg tablet,delayed release (DR/EC) 20 mg PO DAILY escitalopram oxalate 10 mg tablet 10 mg PO DAILY metoprolol succinate 25 mg tablet extended release 24 hr 25 mg PO DAILY betamethasone dipropionate 0.05 % cream 1 applic topical BID PRN (Reason: rash) Qty: 45 0RF Diltiazem Topical ointment topical Rx Instructions: Per Giuliana, called in 2% Diltiazem and 2% Lidocaine to [facility] #[phone] 30 grams 2 refills pantoprazole 20 mg tablet,delayed release (DR/EC) 20 mg PO DAILY Qty: 14 0RF tramadol 100 mg tablet 100 mg PO TID PRN (Reason: pain) Qty: 10 0RF Referrals: Dev Escoto MD [Primary Care Provider] - Stand Alone Forms: Patient Portal/API/Survey ED Sign-out <Avery Anderson DO - Last Filed: 02/13/24 18:56> Cosign ED Attending Cosignature Attestation: Dr Anderson Co-Sign Statement: I was available for consultation during this patient's emergency department visit. This chart is signed by myself for administrative purposes only. I did not have direct contact with this patient during this visit. They were seen independently by the APC.
[2024-02-13 17:30] LABS: Alanine Aminotransferase 38 IU/L (<35)
[2024-02-13] MEDS: TET,DIPH,PERTUSS(ACELL),VAC/PF 0.5 ML SYRINGE IM (18:43)
[2024-02-13 18:54] LABS: HIV 1 & 2 Ab/Ag 4th Gen Combo NEGATIVE (NEGATIVE); Hep C Virus Ab w/Reflex Quant NEGATIVE s/c (NEGATIVE)
[2024-02-13 18:59] VITALS: BP 123/65; PULSE 76; RESP 16; O2SAT 96
[2024-02-15 07:11] LABS: Hepatitis B Surf Ab Qualitativ Non Reactive (.)
== END 2024-02-13 19:01 | disposition home or self-care (01) ==
PROVIDERS: Emergency Medicine; Emergency Provider Physician Assistant; Family Provider Family Medicine; PCP Family Medicine
DX: Z77.21 Contact with and (suspected) exposure to potentially hazardous body fluids (principal); W46.0XXA Contact with hypodermic needle, initial encounter; Z23 Encounter for immunization
CPT/HCPCS: 84460; 86706; 86803; 87389; 90471; 99283; 90715

== ENCOUNTER 2024-02-14 15:43 | Emergency (ER) | payer OTHER, SELFPAY ==
[2024-02-14 15:47] VITALS: BP 144/85; PULSE 105; RESP 19; TEMP 36.8; O2SAT 97; BMI 27.4
--- NOTE | 2024-02-14 16:16 | ED_ITS ---
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 Patient reports episode lasted for approximately 3 minutes before it started to improve. At this time, symptoms have improved but not completely resolved. Reports symptoms do feel similar to past anxiety/panic attacks. Patient also admits to left calf pain for the last 1 month. Denies cough, fevers, chills, abdominal pain, nausea, vomiting, recent surgery, history of VTE. Patient has had a recent increase in testosterone dose. Related Data Home Medications Medication Instructions Recorded Confirmed escitalopram oxalate 10 mg tablet 10 mg PO DAILY 01/22/23 12/09/23 metoprolol succinate 25 mg 25 mg PO DAILY 01/22/23 01/11/24 tablet,extended release 24 hr pantoprazole 20 mg tablet,delayed 20 mg PO DAILY 01/22/23 12/09/23 release testosterone cypionate 200 mg/mL mg IM 01/22/23 12/09/23 intramuscular oil Diltiazem Topical topical 10/26/23 12/09/23 Previous Rx's Medication Instructions Recorded betamethasone dipropionate 0.05 % 1 applic topical BID PRN rash #45 01/22/23 topical cream grams tramadol 100 mg tablet 100 mg PO TID PRN pain #10 tabs 02/02/23 pantoprazole 20 mg tablet,delayed 20 mg PO DAILY #14 tabs 08/22/23 release Allergies Allergy/AdvReac Type Severity Reaction Status Date / Time prochlorperazine Allergy Severe Palpitation Verified 02/13/24 16:39 [From Compazine] s articaine Allergy Palpitation Verified 02/13/24 16:39 s Review of Systems <Carley Sahni PA-C - Last Filed: 02/14/24 20:00> Review of Systems ROS Unobtainable: All systems reviewed & are unremarkable except as noted in HPI and below Patient History <Carley Sahni PA-C - Last Filed: 02/14/24 20:00> Medical History Upper abdominal pain, unspecified Post-cholecystectomy syndrome Surgical History Status post laparoscopic cholecystectomy Social History household members: spouse Smoking Status: Former smoker alcohol intake: never Smoking Status: Former smoker tobacco type: cigarettes alcohol intake frequency: 0-2 drinks per day Substance Use Type: marijuana Exam <Carley Sahni PA-C - Last Filed: 02/14/24 20:00> Narrative Exam Narrative: GENERAL: 28 year old patient appears stated age. Well-developed patient, in no acute distress. HEAD: Atraumatic. Normocephalic. EYES: Extraocular motions intact. No scleral icterus. No injection or drainage. ENT: Nose without bleeding, purulent drainage. Airway patent. NECK: Trachea midline. CARDIOVASCULAR: Regular rate and rhythm. RESPIRATORY: Clear to auscultation. Breath sounds equal bilaterally. No wheezes, rales, or rhonchi. GASTROINTESTINAL: Abdomen soft, non-tender, nondistended. EXTREMITIES: No edema. Mild TTP left medial calf with no swelling or erythema. NEURO: AOx3. SKIN: No rash or erythema of visible areas Initial Vital Signs Initial Vital Signs: Vital Signs Temperature 98.3 F 02/14/24 15:47 Pulse Rate 105 H 02/14/24 15:47 Respiratory Rate 19 02/14/24 15:47 Blood Pressure 144/85 H 02/14/24 15:47 Pulse Oximetry 97 02/14/24 15:47 Oxygen Delivery Method Room Air 02/14/24 15:47 <Avery Anderson DO - Last Filed: 02/14/24 20:01> Initial Vital Signs Initial Vital Signs: Vital Signs Temperature 98.3 F 02/14/24 15:47 Pulse Rate 105 H 02/14/24 15:47 Respiratory Rate 19 02/14/24 15:47 Blood Pressure 144/85 H 02/14/24 15:47 Pulse Oximetry 97 02/14/24 15:47 Oxygen Delivery Method Room Air 02/14/24 15:47 Scores <Carley Sahni PA-C - Last Filed: 02/14/24 20:00> HEART Score Heart Score history: Slightly Suspicious Heart Score EKG: Normal Heart Score Age: < 45 years old Heart Score risk factors: 1-2 risk factors Heart Score troponin: < or = to normal limit Heart Score Total: 1 <Avery Anderson DO - Last Filed: 02/14/24 20:01> HEART Score Heart Score Total: 1 Course <Carley Sahni PA-C - Last Filed: 02/14/24 20:00> Orders Ordered: ED Orders 02/14/24 16:03 EKG-12 Lead Stat 02/14/24 16:36 US periph venous low extrem lt Stat XR chest 1V Stat 02/14/24 16:42 Complete Blood Count AUTO DIFF Stat Comprehensive Metabolic Panel Stat Lipase Stat Troponin & CK Cardiac Panel Stat 02/14/24 18:53 Troponin I Stat Discontinued Medications Pantoprazole Sodium (Pantoprazole Dr 20 Mg Tablet) 20 mg PO NOW ONE Stop: 02/14/24 16:37 Last Admin: 02/14/24 16:57 Dose: 20 mg Documented By: BS Vital Signs Vital signs: Vital Signs - 8 hr 02/14/24 15:47 02/14/24 17:56 02/14/24 19:56 Temperature 98.3 F Pulse Rate 105 H 94 H 85 Respiratory Rate 19 16 16 Blood Pressure 144/85 H 129/76 119/77 Pulse Oximetry 97 98 98 Oxygen Delivery Method Room Air Room Air Room Air <Avery Anderson DO - Last Filed: 02/14/24 20:01> Orders Ordered: ED Orders 02/14/24 16:03 EKG-12 Lead Stat 02/14/24 16:36 US periph venous low extrem lt Stat XR chest 1V Stat 02/14/24 16:42 Complete Blood Count AUTO DIFF Stat Comprehensive Metabolic Panel Stat Lipase Stat Troponin & CK Cardiac Panel Stat 02/14/24 18:53 Troponin I Stat Discontinued Medications Pantoprazole Sodium (Pantoprazole Dr 20 Mg Tablet) 20 mg PO NOW ONE Stop: 02/14/24 16:37 Last Admin: 02/14/24 16:57 Dose: 20 mg Documented By: BS Vital Signs Vital signs: Vital Signs - 8 hr 02/14/24 15:47 02/14/24 17:56 02/14/24 19:56 Temperature 98.3 F Pulse Rate 105 H 94 H 85 Respiratory Rate 19 16 16 Blood Pressure 144/85 H 129/76 119/77 Pulse Oximetry 97 98 98 Oxygen Delivery Method Room Air Room Air Room Air MDM - SOB/Dyspnea <Carley Sahni PA-C - Last Filed: 02/14/24 20:00> Lab Data 02/14/24 16:42 02/14/24 16:42 Labs: Lab Results 02/14/24 02/14/24 Range/Units 16:42 18:53 WBC 8.7 (4.5-11.0) X10^3/uL RBC 4.96 (4.0-5.2) X10^6/uL Hgb 14.0 (12.0-16.0) g/dL Hct 41.7 (36-46) % MCV 84.1 (80-100) fL MCH 28.3 (26-34) PG MCHC 33.7 (30-36) % RDW 14.0 (11.6-14.8) % Plt Count 278 (150-400) X10^3/uL Neut % (Auto) 74.0 (50-75) % Lymph % (Auto) 16.5 L (25-40) % [place] % (Auto) 7.7 (3-14) % Eos % (Auto) 1.2 L (2-4) % Baso % (Auto) 0.6 (0-2) % Neut # (Auto) 6400 (4957-2231) /uL Lymph # (Auto) 1400 (4895-5761) /uL [place] # (Auto) 700 (0-900) /uL Eos # (Auto) 100 (0-450) /uL Baso # (Auto) 100 (0-100) /uL Sodium 138 (137-145) mmol/L Potassium 3.5 (3.4-5.1) mmol/L Chloride 104 (98-107) mmol/L Carbon Dioxide 27 (22-32) mmol/L BUN 13 (7-17) mg/dL Creatinine 0.89 (0.52-1.04) mg/dL Estimated GFR > 60 (>60) mL/min BUN/Creatinine Ratio 14.6 (6-22) Glucose 101 H (70-100) mg/dL Calcium 8.9 (8.4-10.2) mg/dL Total Bilirubin 0.8 (0.2-1.3) mg/dL AST 34 (14-36) IU/L ALT 35 H (<35) IU/L Alkaline Phosphatase 89 (38-126) U/L Total Creatine Kinase 74 (30-135) U/L Troponin I < 0.012 < 0.012 (0.01-0.034) ng/mL Total Protein 7.5 (6.3-8.2) g/dL Albumin 4.4 (3.5-5.0) g/dL Globulin 3.1 (1.7-4.1) g/dL Albumin/Globulin Ratio 1.4 (1.0-2.8) Lipase 89 (23-300) U/L Imaging Data Left leg vascular US: Radiologist's Impression: FINDINGS: The common femoral, femoral, popliteal, and the visualized calf veins are normally compressible, and free of intraluminal thrombus. Color and pulse Doppler demonstrate normal phasic intraluminal flow. There is normal augmentation response to distal compression maneuver. IMPRESSION: No findings of lower extremity deep venous thrombosis. Chest x-ray: Radiologist's Impression: FINDINGS: Surgical changes and devices: None. Lungs and pleura: Lungs are clear. No pleural effusions or pneumothorax. Mediastinum: Mediastinal contours appear normal. Heart size is normal. Bones and chest wall: No suspicious bony lesions. Overlying soft tissues appear unremarkable. IMPRESSION: No acute cardiopulmonary abnormality is seen. [facility] Narrative Medical decision making narrative: 28-year-old transgender male presents to the emergency department for a 3 minute episode of chest pain and shortness of breath. Differential diagnosis includes but not limited to panic attack, anxiety, ACS/LA, PE, GERD, costochondritis, pneumonia, etc. On exam patient is in no acute distress, nontoxic appearing. Initial triage heart rate was 105, decreased to 90s during my exam. Lungs clear to auscultation bilaterally. Mild tenderness to palpation of medial left calf. We will proceed with cardiac workup including an ultrasound of the left lower leg for calf pain to r/o DVT. Pt would prefer to avoid CTA, but understands if US is positive will need to proceed with CTA chest. Troponin negative x 2. Heart score 1. Chest x-ray negative. Left lower leg ultrasound negative for DVT. Patient remained symptom free during ED stay. We had an extensive discussion about discussing w/ PCP about management to anxiety regimen. Pt has a lot of stressful life factors currently. Advised patient follow up with primary care doctor within the next week. Strict ER return precautions discussed. Patient is agreeable with the plan and stable for discharge. <Avery Anderson, DO - Last Filed: 02/14/24 20:01> Lab Data Labs: Lab Results 02/14/24 02/14/24 Range/Units 16:42 18:53 WBC 8.7 (4.5-11.0) X10^3/uL RBC 4.96 (4.0-5.2) X10^6/uL Hgb 14.0 (12.0-16.0) g/dL Hct 41.7 (36-46) % MCV 84.1 (80-100) fL MCH 28.3 (26-34) PG MCHC 33.7 (30-36) % RDW 14.0 (11.6-14.8) % Plt Count 278 (150-400) X10^3/uL Neut % (Auto) 74.0 (50-75) % Lymph % (Auto) 16.5 L (25-40) % [place] % (Auto) 7.7 (3-14) % Eos % (Auto) 1.2 L (2-4) % Baso % (Auto) 0.6 (0-2) % Neut # (Auto) 6400 (9959-2842) /uL Lymph # (Auto) 1400 (8094-8264) /uL [place] # (Auto) 700 (0-900) /uL Eos # (Auto) 100 (0-450) /uL Baso # (Auto) 100 (0-100) /uL Sodium 138 (137-145) mmol/L Potassium 3.5 (3.4-5.1) mmol/L Chloride 104 (98-107) mmol/L Carbon Dioxide 27 (22-32) mmol/L BUN 13 (7-17) mg/dL Creatinine 0.89 (0.52-1.04) mg/dL Estimated GFR > 60 (>60) mL/min BUN/Creatinine Ratio 14.6 (6-22) Glucose 101 H (70-100) mg/dL Calcium 8.9 (8.4-10.2) mg/dL Total Bilirubin 0.8 (0.2-1.3) mg/dL AST 34 (14-36) IU/L ALT 35 H (<35) IU/L Alkaline Phosphatase 89 (38-126) U/L Total Creatine Kinase 74 (30-135) U/L Troponin I < 0.012 < 0.012 (0.01-0.034) ng/mL Total Protein 7.5 (6.3-8.2) g/dL Albumin 4.4 (3.5-5.0) g/dL Globulin 3.1 (1.7-4.1) g/dL Albumin/Globulin Ratio 1.4 (1.0-2.8) Lipase 89 (23-300) U/L Discharge Plan Departure Patient Disposition: Home Clinical Impression: Atypical chest pain Instructions: DI for Atypical Chest Pain Activity Restrictions/Additional Instructions: Please rest, hydrate, follow up with your primary care doctor within the next week for repeat evaluation. Return to the ER with any new or worsening symptoms. Prescriptions: No Action testosterone cypionate 200 mg/mL oil IM pantoprazole 20 mg tablet,delayed release (DR/EC) 20 mg PO DAILY escitalopram oxalate 10 mg tablet 10 mg PO DAILY metoprolol succinate 25 mg tablet extended release 24 hr 25 mg PO DAILY betamethasone dipropionate 0.05 % cream 1 applic topical BID PRN (Reason: rash) Qty: 45 0RF Diltiazem Topical ointment topical Rx Instructions: Per Giuliana, called in 2% Diltiazem and 2% Lidocaine to [facility][phone] 30 grams 2 refills pantoprazole 20 mg tablet,delayed release (DR/EC) 20 mg PO DAILY Qty: 14 0RF tramadol 100 mg tablet 100 mg PO TID PRN (Reason: pain) Qty: 10 0RF Referrals: Dev Escoto MD [Primary Care Provider] - Stand Alone Forms: Patient Portal/API/Survey ED Sign-out <Avery Anderson DO - Last Filed: 02/14/24 20:01> Cosign ED Attending Cosignature Attestation: Dr Anderson Co-Sign Statement: I was available for consultation during this patient's emergency department visit. This chart is signed by myself for administrative purposes only. I did not have direct contact with this patient during this visit. They were seen independently by the APC.
--- NOTE | 2024-02-14 16:16 | EKG_ITS ---
[address] [address] Test Date: 2024-02-14 Pat Name: Jacinda Fox Department: [facility] Room: Gender: Female [employer] Consultant: YURIY : 1995 Requested By: Order Number: [id number] Reading MD: Kingsley Oshea MD Measurements Intervals [place] Rate: 94 P: 71 [place]: 136 QRS: 56 QRSD: 84 T: 19 QT: 340 QTc: 425 Interpretive Statements Normal sinus rhythm T wave abnormality, consider inferior ischemia Electronically Signed On 02-14-2024 17:43:07 PST by Kingsley Oshea MD
--- NOTE | 2024-02-14 16:36 | DI.US.S_ITS ---
PROCEDURE: US PERIPH VENOUS LOW EXTREM LT INDICATIONS: left calf pain; concern for DVT TECHNIQUE: Real-time imaging, as well as color and pulse Doppler interrogation, were performed of the lower extremity deep veins from the inguinal ligament to the popliteal fossa, with documentation of the visualized calf veins. COMPARISON: None. FINDINGS: The common femoral, femoral, popliteal, and the visualized calf veins are normally compressible, and free of intraluminal thrombus. Color and pulse Doppler demonstrate normal phasic intraluminal flow. There is normal augmentation response to distal compression maneuver. IMPRESSION: No findings of lower extremity deep venous thrombosis. Dictated by: Morgan Alaniz M.D. on 02/14/2024 at 18:15 Approved by: Morgan Alaniz M.D. on 02/14/2024 at 18:15
--- NOTE | 2024-02-14 16:36 | DI.RAD.S_ITS ---
PROCEDURE: XR CHEST 1V INDICATIONS: chest pain TECHNIQUE: One view of the chest was acquired. COMPARISON: [facility], CR, XR CHEST 1V, 12/02/2023, 5:44. FINDINGS: Surgical changes and devices: None. Lungs and pleura: Lungs are clear. No pleural effusions or pneumothorax. Mediastinum: Mediastinal contours appear normal. Heart size is normal. Bones and chest wall: No suspicious bony lesions. Overlying soft tissues appear unremarkable. IMPRESSION: No acute cardiopulmonary abnormality is seen. Approved by: Arthur Ross M.D. on 02/14/2024 at 17:01
[2024-02-14] MEDS: PANTOPRAZOLE DR 20 MG TABLET PO (16:57)
[2024-02-14 17:12] LABS: Add Manual Diff / Slide Review NO; Basophils Absolute Auto 100 /uL (0-100); Basophils Percent Auto 0.6 % (0-2); Eosinophils Absolute Auto 100 /uL (0-450); Eosinophils Percent Auto 1.2 % (2-4); Hematocrit 41.7 % (36-46); Lymphocytes Absolute Auto 1400 /uL (1100-4500); Lymphocytes Percent Auto 16.5 % (25-40); Mean Corpuscular HGB Conc 33.7 % (30-36); Mean Corpuscular Hemoglobin 28.3 PG (26-34); Mean Corpuscular Volume 84.1 fL (80-100); Monocytes Absolute Auto 700 /uL (0-900); Monocytes Percent Auto 7.7 % (3-14); Neutrophils Absolute Auto 6400 /uL (1500-7000); Platelet Count 278 X10^3/uL (150-400); Red Blood Cell Count 4.96 X10^6/uL (4.0-5.2); White Blood Cell Count 8.7 X10^3/uL (4.5-11.0)
[2024-02-14 17:18] LABS: Alanine Aminotransferase 35 IU/L (<35); Albumin 4.4 g/dL (3.5-5.0); Albumin Globulin Ratio 1.4 (1.0-2.8); Alkaline Phosphatase 89 U/L (38-126); Aspartate Aminotransferase 34 IU/L (14-36); BUN Creatinine Ratio 14.6 (6-22); Bilirubin Total 0.8 mg/dL (0.2-1.3); Blood Urea Nitrogen 13 mg/dL (7-17); Calcium 8.9 mg/dL (8.4-10.2); Carbon Dioxide 27 mmol/L (22-32); Chloride 104 mmol/L (98-107); Creatine Kinase 74 U/L (30-135); Estimated Glomerular Filt Rate > 60 mL/min (>60); Globulin 3.1 g/dL (1.7-4.1); Glucose 101 mg/dL (70-100); HEMOLYSIS < 15 (0-50); Lipase 89 U/L (23-300); Potassium 3.5 mmol/L (3.4-5.1); Sodium 138 mmol/L (137-145); Total Protein 7.5 g/dL (6.3-8.2)
[2024-02-14 17:30] LABS: Troponin I < 0.012 ng/mL (0.01-0.034)
[2024-02-14 17:56] VITALS: BP 129/76; PULSE 94; RESP 16; O2SAT 98
[2024-02-14 19:33] LABS: Troponin I < 0.012 ng/mL (0.01-0.034)
[2024-02-14 19:56] VITALS: BP 119/77; PULSE 85; RESP 16; O2SAT 98
== END 2024-02-14 20:02 | disposition home or self-care (01) ==
PROVIDERS: Emergency Provider Physician Assistant; Family Provider Family Medicine; PCP Family Medicine
DX: R07.89 Other chest pain (principal); R06.02 Shortness of breath
CPT/HCPCS: 36415; 71045; 80053; 82550; 83690; 84484; 85025; 93005; 93010; 93971; 99284

== ENCOUNTER → 2024-04-25 15:11 | Outpatient (CLI) | payer OTHER, SELFPAY ==
[2024-04-25 16:20] LABS: Add Manual Diff / Slide Review NO; Basophils Absolute Auto 100 /uL (0-100); Basophils Percent Auto 0.9 % (0-2); Eosinophils Absolute Auto 100 /uL (0-450); Eosinophils Percent Auto 1.6 % (2-4); Hematocrit 44.8 % (36-46); Lymphocytes Absolute Auto 1900 /uL (1100-4500); Lymphocytes Percent Auto 24.4 % (25-40); Mean Corpuscular HGB Conc 33.4 % (30-36); Mean Corpuscular Hemoglobin 27.9 PG (26-34); Mean Corpuscular Volume 83.5 fL (80-100); Monocytes Absolute Auto 700 /uL (0-900); Monocytes Percent Auto 9.5 % (3-14); Neutrophils Absolute Auto 5000 /uL (1500-7000); Neutrophils Percent Auto 63.6 % (50-75); Platelet Count 335 X10^3/uL (150-400); Red Blood Cell Count 5.37 X10^6/uL (4.0-5.2); Red Cell Distribution Width 13.2 % (11.6-14.8); White Blood Cell Count 7.8 X10^3/uL (4.5-11.0)
== END ==
LOC: LAB 15:22
PROVIDERS: Family Provider Family Medicine; PCP Family Medicine; Referring Provider Family Medicine; Visit Provider Family Medicine
DX: E34.9 Endocrine disorder, unspecified (principal)
CPT/HCPCS: 36415; 85025

== ENCOUNTER → 2024-05-13 10:34 | Outpatient (CLI) | payer OTHER, SELFPAY | LOC: WC 05-20 10:42 | PROVIDERS: Family Provider Family Medicine; PCP Family Medicine; Referring Provider Family Medicine; Visit Provider Surgery | DX: T81.89XA Other complications of procedures, not elsewhere classified, initial encounter (principal); S21.001A Unspecified open wound of right breast, initial encounter; S21.002A Unspecified open wound of left breast, initial encounter | CPT/HCPCS: 11042; 11045; 87070; 87075; 87205; 99203; 99212 ==

== ENCOUNTER → 2024-05-20 10:42 | Outpatient (CLI) | payer OTHER, SELFPAY | LOC: WC 10:42 | PROVIDERS: Family Provider Family Medicine; PCP Family Medicine; Referring Provider Family Medicine; Visit Provider Surgery | DX: T81.89XA Other complications of procedures, not elsewhere classified, initial encounter (principal); S21.001A Unspecified open wound of right breast, initial encounter; S21.002A Unspecified open wound of left breast, initial encounter | CPT/HCPCS: 11042; 11045; 97605 ==

== ENCOUNTER → 2024-05-22 14:03 | Outpatient (CLI) | payer OTHER, SELFPAY | LOC: WC 14:05 | PROVIDERS: Family Provider Family Medicine; PCP Family Medicine; Referring Provider Family Medicine; Visit Provider Surgery | DX: S21.101A Unspecified open wound of right front wall of thorax without penetration into thoracic cavity, initial encounter (principal); S21.102A Unspecified open wound of left front wall of thorax without penetration into thoracic cavity, initial encounter | CPT/HCPCS: 97605 ==

== ENCOUNTER → 2024-05-26 15:12 | Outpatient (CLI) | payer OTHER, SELFPAY | LOC: WC 15:14 | PROVIDERS: Family Provider Family Medicine; PCP Family Medicine; Referring Provider Family Medicine; Visit Provider Surgery | DX: T81.89XA Other complications of procedures, not elsewhere classified, initial encounter (principal); L98.8 Other specified disorders of the skin and subcutaneous tissue; S21.001A Unspecified open wound of right breast, initial encounter; S21.002A Unspecified open wound of left breast, initial encounter | CPT/HCPCS: 11042; 11045; 97605 ==

== ENCOUNTER → 2024-05-29 10:00 | Outpatient (CLI) | payer OTHER, SELFPAY | LOC: WC 10:01 | PROVIDERS: Family Provider Family Medicine; PCP Family Medicine; Referring Provider Family Medicine; Visit Provider Surgery | DX: T81.89XA Other complications of procedures, not elsewhere classified, initial encounter (principal); L98.8 Other specified disorders of the skin and subcutaneous tissue; S21.101A Unspecified open wound of right front wall of thorax without penetration into thoracic cavity, initial encounter; S21.102A Unspecified open wound of left front wall of thorax without penetration into thoracic cavity, initial encounter | CPT/HCPCS: 97605 ==

== ENCOUNTER → 2024-06-02 14:53 | Outpatient (CLI) | payer OTHER, SELFPAY | PROVIDERS: Family Provider Family Medicine; PCP Family Medicine; Referring Provider Family Medicine; Visit Provider Surgery | DX: T81.89XA Other complications of procedures, not elsewhere classified, initial encounter (principal); S21.002A Unspecified open wound of left breast, initial encounter; S21.001A Unspecified open wound of right breast, initial encounter | CPT/HCPCS: 11042; 97605 ==

== ENCOUNTER → 2024-06-05 09:24 | Outpatient (CLI) | payer OTHER, SELFPAY | PROVIDERS: Family Provider Family Medicine; PCP Family Medicine; Referring Provider Family Medicine; Visit Provider Surgery | DX: T81.89XA Other complications of procedures, not elsewhere classified, initial encounter (principal); S21.102A Unspecified open wound of left front wall of thorax without penetration into thoracic cavity, initial encounter | CPT/HCPCS: 97605 ==

== ENCOUNTER → 2024-06-09 09:09 | Outpatient (CLI) | payer OTHER, SELFPAY | PROVIDERS: Family Provider Family Medicine; PCP Family Medicine; Referring Provider Family Medicine; Visit Provider Surgery | DX: T81.31XA Disruption of external operation (surgical) wound, not elsewhere classified, initial encounter (principal); S21.001A Unspecified open wound of right breast, initial encounter; S21.002A Unspecified open wound of left breast, initial encounter | CPT/HCPCS: 11042; 99213 ==

== ENCOUNTER → 2024-06-09 16:02 | Outpatient (CLI) | payer OTHER, SELFPAY ==
--- NOTE | 2024-06-09 16:05 | DI.RAD.S_ITS ---
PROCEDURE: XR SHOULDER LT MIN 2V INDICATIONS: SHOULDER PAIN TECHNIQUE: For views of the shoulder were acquired. COMPARISON: None. FINDINGS: Bones: No fractures or dislocations. No suspicious bony lesions. Visualized ribs appear intact. Soft tissues: No suspicious soft tissue calcifications. IMPRESSION: No acute bony abnormality. Approved by: Sage Acosta M.D. on 06/10/2024 at 17:58
== END ==
LOC: RAD 16:03
PROVIDERS: Family Provider Family Medicine; PCP Family Medicine; Referring Provider Family Medicine; Visit Provider Family Medicine
DX: M25.512 Pain in left shoulder (principal)
CPT/HCPCS: 73030

== ENCOUNTER → 2024-06-12 10:55 | Outpatient (CLI) | payer OTHER, SELFPAY | PROVIDERS: Family Provider Family Medicine; PCP Family Medicine; Referring Provider Family Medicine; Visit Provider Surgery | DX: T81.89XA Other complications of procedures, not elsewhere classified, initial encounter (principal); S21.102A Unspecified open wound of left front wall of thorax without penetration into thoracic cavity, initial encounter; S21.101A Unspecified open wound of right front wall of thorax without penetration into thoracic cavity, initial encounter | CPT/HCPCS: 97605 ==

== ENCOUNTER → 2024-06-16 11:10 | Outpatient (CLI) | payer OTHER, SELFPAY | PROVIDERS: Family Provider Family Medicine; PCP Family Medicine; Referring Provider Family Medicine; Visit Provider Surgery | DX: T81.89XA Other complications of procedures, not elsewhere classified, initial encounter (principal); S21.002A Unspecified open wound of left breast, initial encounter; S21.001A Unspecified open wound of right breast, initial encounter | CPT/HCPCS: 11042; 97605 ==

== ENCOUNTER → 2024-06-19 14:05 | Outpatient (CLI) | payer OTHER, SELFPAY | LOC: WC 14:06 | PROVIDERS: Family Provider Family Medicine; PCP Family Medicine; Referring Provider Family Medicine; Visit Provider Surgery | DX: T81.89XA Other complications of procedures, not elsewhere classified, initial encounter (principal); L98.8 Other specified disorders of the skin and subcutaneous tissue; S21.101A Unspecified open wound of right front wall of thorax without penetration into thoracic cavity, initial encounter; S21.102A Unspecified open wound of left front wall of thorax without penetration into thoracic cavity, initial encounter | CPT/HCPCS: 97605 ==

== ENCOUNTER → 2024-06-24 14:10 | Outpatient (CLI) | payer OTHER, SELFPAY | PROVIDERS: Family Provider Family Medicine; PCP Family Medicine; Referring Provider Family Medicine; Visit Provider Surgery | DX: T81.31XA Disruption of external operation (surgical) wound, not elsewhere classified, initial encounter (principal); S21.002A Unspecified open wound of left breast, initial encounter; S21.001A Unspecified open wound of right breast, initial encounter | CPT/HCPCS: 11042; 97605 ==

== ENCOUNTER → 2024-06-27 11:33 | Outpatient (CLI) | payer OTHER, SELFPAY | PROVIDERS: Family Provider Family Medicine; PCP Family Medicine; Referring Provider Family Medicine; Visit Provider Physician Assistant | DX: T81.31XA Disruption of external operation (surgical) wound, not elsewhere classified, initial encounter (principal); S21.002A Unspecified open wound of left breast, initial encounter; S21.001A Unspecified open wound of right breast, initial encounter | CPT/HCPCS: 99213 ==

== ENCOUNTER → 2024-06-30 11:42 | Outpatient (CLI) | payer OTHER, SELFPAY | PROVIDERS: Family Provider Family Medicine; PCP Family Medicine; Referring Provider Family Medicine; Visit Provider Surgery | DX: T81.31XA Disruption of external operation (surgical) wound, not elsewhere classified, initial encounter (principal); S21.002A Unspecified open wound of left breast, initial encounter; S21.001A Unspecified open wound of right breast, initial encounter | CPT/HCPCS: 99213 ==

== ENCOUNTER → 2024-07-02 14:45 | Outpatient (CLI) | payer OTHER, SELFPAY ==
--- NOTE | 2024-07-02 | OV.WND_ITS ---
PROGRESS NOTE DETAILS PATIENT NAME: NESTOR DEVINE PATIENT NUMBER: [id number] CLINICIAN: BETSY REYNA PATIENT DATE OF : 1995 PHYSICIAN / TOOL CRIB SUPERVISOR: LYDIA TELLEZ PATIENT SUBJECTIVE CHIEF COMPLAINT THIS INFORMATION WAS OBTAINED FROM THE PATIENT. WE SPRUNG A LEAK ALLERGIES ACETAMINOPHEN (SEVERITY: MODERATE, REACTION: HIVES), HYDROCODONE (SEVERITY: MODERATE, REACTION: HIVES), PROCHLORPERAZINE (REACTION: UNKNOWN), ARTICAINE HPI THIS INFORMATION WAS OBTAINED FROM THE PATIENT. THE FOLLOWING HPI ELEMENTS WERE DOCUMENTED FOR THE PATIENT'S WOUND: LOCATION: CHEST DURATION: 04/22/24 CONTEXT: SURGICAL THE PATIENT IS A 28 YEAR OLD WHO WITH HISTORY OF SVT WHO RETURNS TODAY FOR FOLLOW UP OF A SURGICAL WOUND THAT DEVELOPED AFTER HAVING BILATERAL NIPPLE SPARING MASTECTOMIES ON APRIL 01, 2024. INITIALLY THE NIPPLE-AREOLAR COMPLEX ON EACH SIDE BECAME VERY ISCHEMIC THEN DEVELOPED NECROTIC ESCHARS AND OPEN WOUNDS. THE PATIENT WAS RECEIVING NEGATIVE PRESSURE WOUND THERAPY BUT IT HAD TO BE REMOVED LAST WEEK WHEN HE RETURNED TO WORK AND HE IS NOW RECEIVING DRESSING CHANGES WITH HYDROFERA BLUE. HE HAS NOT HAD ANY PAIN, ERYTHEMA, DRAINAGE, OR FEVER. THE PATIENT REPORTS GOOD APPETITE AND HAS STARTED TAKING UNIQUE. HE DENIES HAVING ANY OTHER RECENT CHANGES IN OVERALL HEALTH. THE PATIENT RECENTLY HAD A FOLLOW UP APPOINTMENT WITH HIS SURGEON AND THEY HAD NOTHING FURTHER TO ADD. NO HISTORY OF CIGARETTE USE. ON EXAM TODAY THERE IS MORE GRANULATION TISSUE AND THE MEASUREMENTS ARE STABLE, NO SIGN OF INFECTION. LABS: 05/13/24: CULTURE GREW LIGHT GROWTH MIXED SKIN MANISHA 04/25/24: WBC 7.8, HEMOGLOBIN 15.0, HCT 44.8, ELECTROLYTES UNREMARKABLE, GFR GREATER THAN 60, LFTS NORMAL EXCEPT FOR ALT 35 MEDICAL HISTORY THIS INFORMATION WAS OBTAINED FROM THE CHART, PATIENT. PATIENT HAS A MEDICAL HISTORY OF: SEPTIC SHOCK GASTRO ESOPH. 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 YES? COMPLETE ALL QUESTIONS.: NO SURGICAL HISTORY THIS INFORMATION WAS OBTAINED FROM THE CHART, PATIENT. PATIENT HAS A SURGICAL HISTORY OF: HYSTERECTOMY- LAPAROSCOPIC CHOLECYSTECTOMY- BILATERAL MASTECTOMY- 04/01/2024 OBJECTIVE VITALS HEIGHT/LENGTH: 64 IN (162.56 CM), WEIGHT: 165 LBS (75 KGS), BMI: 28.3, TEMPERATURE: 97.5 ?F (36.39 ?C), PULSE: 83 BPM, RESPIRATORY RATE: 16 BREATHS/MIN, BLOOD PRESSURE: 133/81 MMHG, PULSE OXIMETRY: 97 %. PHYSICAL EXAM CONSTITUTIONAL: VITAL SIGNS REVIEWED AND NOTED. WELL DEVELOPED, WELL NOURISHED, AND IN NO ACUTE DISTRESS. ALERT AND ORIENTED X3. RESPIRATORY: EVEN RESPIRATIONS WITHOUT USE OF ACCESSORY MUSCLES. NO INTERCOASTAL RETRACTIONS NOTED. EVEN AND NON LABORED RESPIRATION. INTEGUMENTARY (HAIR, SKIN): NO ERYTHEMA. NO SWELLING OR TENDERNESS. SEE WOUND ASSESSMENT. SKIN WARM AND DRY. NO RASHES. NEUROLOGICAL: SENSATION: SYMMETRIC FUNCTION BY INFORMAL OBSERVATION. PSYCHIATRIC: ORIENTATION TO TIME, PLACE AND PERSON: NORMAL AFFECT WITH NORMAL THOUGHT PATTERN. ADDITIONAL INFORMATION THE PATIENT'S POTENTIAL TO HEAL IS: GOOD. WOUND ASSESSMENT(S) WOUND #1 LEFT CHEST IS A CHRONIC FULL THICKNESS SURGICAL WOUND ACQUIRED ON 04/22/2024 AND HAS RECEIVED A STATUS OF NOT HEALED. INITIAL WOUND ENCOUNTER MEASUREMENTS ARE 2.2CM LENGTH X 2.4CM WIDTH X 0.4 CM DEPTH, WITH AN AREA OF 5.28 SQ CM AND A VOLUME OF 2.112 CUBIC CM.INITIAL WOUND ENCOUNTER PREVIOUS MEASUREMENTS FROM 06/30/2024 ARE 2.1CM LENGTH X 2.2CM WIDTH X 0.4CM DEPTH, WITH AN AREA OF 4.62 SQ CM AND A VOLUME OF 1.848 CUBIC CM. ADIPOSE IS EXPOSED. TUNNELING HAS BEEN NOTED AT 2:00 WITH A MAXIMUM DISTANCE OF 0.5CM. THERE IS ADDITIONAL TUNNELING, AT 6:00 WITH A MAXIMUM DISTANCE OF 1CM AND AT 11:00 WITH A MAXIMUM DISTANCE OF 1CM. NO SINUS TRACT HAS BEEN NOTED. NO UNDERMINING HAS BEEN NOTED. THERE IS A MODERATE AMOUNT OF SEROSANGUINEOUS DRAINAGE NOTED WHICH HAS NO ODOR. THE PATIENT REPORTS A WOUND PAIN OF LEVEL 0/10. THE WOUND MARGIN IS UNATTACHED WOUND BED HAS YES, BRIGHT RED, FIRM, GRANULATION, YES SLOUGH, YES ESCHAR, NO EPITHELIALIZATION. THE PERIWOUND SKIN EXHIBITED RASH. THE PERIWOUND SKIN DID NOT EXHIBIT BRAWNY INDURATION, EDEMA, EXCORIATION, INDURATION, CALLUS, CREPITUS, FLUCTUANCE, MACERATION, ATROPHIE SHIRA, CYANOSIS, ECCHYMOSIS, ERYTHEMA, HEMOSIDEROSIS, PALLOR AND RUBOR. THE PERIWOUND SKIN WAS NOT FRIABLE, DRY/SCALY AND MOIST. THE TEMPERATURE OF THE PERIWOUND SKIN IS WNL. PERIWOUND SKIN DOES NOT EXHIBIT SIGNS OR SYMPTOMS OF INFECTION. LOCAL PULSE IS N/A. ADDITIONAL INFORMATION NESTOR DEVINE [id number] 1995 OTHER DEVITALIZED TISSUE PRESENT: BIOFILM WOUND #2 RIGHT CHEST IS A CHRONIC FULL THICKNESS SURGICAL WOUND ACQUIRED ON 04/22/2024 AND HAS RECEIVED A STATUS OF NOT HEALED. INITIAL WOUND ENCOUNTER MEASUREMENTS ARE 2.4CM LENGTH X 3.4CM WIDTH X 0.8 CM DEPTH, WITH AN AREA OF 8.16 SQ CM AND A VOLUME OF 6.528 CUBIC CM.INITIAL WOUND ENCOUNTER PREVIOUS MEASUREMENTS FROM 06/30/2024 ARE 2.3CM LENGTH X 2.4CM WIDTH X 0.8CM DEPTH, WITH AN AREA OF 5.52 SQ CM AND A VOLUME OF 4.416 CUBIC CM. NECROTIC ADIPOSE IS EXPOSED. TUNNELING HAS BEEN NOTED AT 5:00 WITH A MAXIMUM DISTANCE OF 0.8CM. THERE IS ADDITIONAL TUNNELING AND AT 11:00 WITH A MAXIMUM DISTANCE OF 0.9CM. NO SINUS TRACT HAS BEEN NOTED. NO UNDERMINING HAS BEEN NOTED. THERE IS A MODERATE AMOUNT OF SEROSANGUINEOUS DRAINAGE NOTED WHICH HAS NO ODOR. THE PATIENT REPORTS A WOUND PAIN OF LEVEL 0/10. THE WOUND MARGIN IS UNATTACHED WOUND BED HAS YES, BRIGHT RED, FIRM, GRANULATION, YES SLOUGH, YES ESCHAR, NO EPITHELIALIZATION. THE PERIWOUND SKIN DID NOT EXHIBIT BRAWNY INDURATION, EDEMA, EXCORIATION, INDURATION, CALLUS, CREPITUS, FLUCTUANCE, RASH, MACERATION, ATROPHIE SHIRA, CYANOSIS, ECCHYMOSIS, ERYTHEMA, HEMOSIDEROSIS, PALLOR AND RUBOR. THE PERIWOUND SKIN WAS FRIABLE. THE PERIWOUND SKIN WAS NOT DRY/SCALY AND MOIST. THE TEMPERATURE OF THE PERIWOUND SKIN IS WNL. PERIWOUND SKIN DOES NOT EXHIBIT SIGNS OR SYMPTOMS OF INFECTION. LOCAL PULSE IS N/A. ADDITIONAL INFORMATION OTHER DEVITALIZED TISSUE PRESENT: BIOFILM ASSESSMENT ACTIVE PROBLEMS ICD-10 (ENCOUNTER DIAGNOSIS) S21.001D - UNSPECIFIED OPEN WOUND OF RIGHT BREAST, SUBSEQUENT ENCOUNTER (ENCOUNTER DIAGNOSIS) S21.002D - UNSPECIFIED OPEN WOUND OF LEFT BREAST, SUBSEQUENT ENCOUNTER (ENCOUNTER DIAGNOSIS) T81.31XD - DISRUPTION OF EXTERNAL OPERATION (SURGICAL) WOUND, NOT ELSEWHERE CLASSIFIED, SUBSEQUENT ENCOUNTER GENERAL NOTES OPEN WOUND EACH BREAST WHERE THERE HAS BEEN NECROSIS OF THE NIPPLE-AREOLAR COMPLEX, INCREASED GRANULATION TISSUE, MEASUREMENTS SLOWLY IMPROVING THE FOLLOWING FACTORS HAVE BEEN IDENTIFIED THAT MAY AFFECT WOUND HEALING: DEVITALIZED TISSUE BIOFILM RECENT SURGERY COMPROMISED CIRCULATION GOALS: REMOVE DEVITALIZED TISSUE REMOVE AND PREVENT BIOFILM PREVENT INFECTION WOUND CLOSURE PLAN: DEBRIDEMENT, SWITCH TO DRESSING CHANGES WITH HYDROFERA BLUE AND COLLAGEN, CONTINUE PROTEIN SUPPLEMENTATION, FOLLOW UP IN 1 WEEK FOR A RECHECK. SUBMIT FOR USE OF SKIN SUBSTITUTES. PROCEDURES WOUND #1 WOUND #1 (SURGICAL WOUND) IS LOCATED ON THE LEFT CHEST. A SKIN/SUBCUTANEOUS TISSUE LEVEL SURGICAL SYBILNESTOR [id number] 1995 DEBRIDEMENT WITH A TOTAL AREA DEBRIDED OF 5.28 SQ CM. WAS PERFORMED BY LYDIA TELLEZ MD. SUBCUTANEOUS WAS REMOVED ALONG WITH DEVITALIZED TISSUE: BIOFILM, EXUDATE AND SLOUGH. THE FOLLOWING INSTRUMENT(S) WERE USED: CURETTE. PAIN CONTROL WAS ACHIEVED USING 4% LIDO. A TIME OUT WAS CONDUCTED PRIOR TO THE START OF THE PROCEDURE. A MINIMAL AMOUNT OF BLEEDING WAS CONTROLLED WITH PRESSURE. THE PROCEDURE WAS TOLERATED WELL WITH A PAIN LEVEL OF 0 THROUGHOUT AND A PAIN LEVEL OF 0 FOLLOWING THE PROCEDURE. POST DEBRIDEMENT MEASUREMENTS: 2.2CM LENGTH X 2.4CM WIDTH X 0.5CM DEPTH; WITH AN AREA OF 5.28 SQ CM AND A VOLUME OF 2.64 CUBIC CM. ADDITIONAL INFORMATION MUSCLE FASCIA OR BONE REMOVED AND SENT TO PATHOLOGY?: NO WOUND #2 WOUND #2 (SURGICAL WOUND) IS LOCATED ON THE RIGHT CHEST. A SKIN/SUBCUTANEOUS TISSUE LEVEL SURGICAL DEBRIDEMENT WITH A TOTAL AREA DEBRIDED OF 8.16 SQ CM. WAS PERFORMED BY LYDIA TELLEZ MD. SUBCUTANEOUS WAS REMOVED ALONG WITH DEVITALIZED TISSUE: BIOFILM, EXUDATE AND SLOUGH. THE FOLLOWING INSTRUMENT(S) WERE USED: CURETTE. PAIN CONTROL WAS ACHIEVED USING 4% LIDO. A TIME OUT WAS CONDUCTED PRIOR TO THE START OF THE PROCEDURE. A MINIMAL AMOUNT OF BLEEDING WAS CONTROLLED WITH PRESSURE. THE PROCEDURE WAS TOLERATED WELL WITH A PAIN LEVEL OF 0 THROUGHOUT AND A PAIN LEVEL OF 0 FOLLOWING THE PROCEDURE. POST DEBRIDEMENT MEASUREMENTS: 2.4CM LENGTH X 3.4CM WIDTH X 0.9CM DEPTH; WITH AN AREA OF 8.16 SQ CM AND A VOLUME OF 7.344 CUBIC CM. ADDITIONAL INFORMATION MUSCLE FASCIA OR BONE REMOVED AND SENT TO PATHOLOGY?: NO PLAN WOUND ORDERS: WOUND #1 LEFT CHEST HAND HYGIENE HAND HYGIENE - WASH HANDS BEFORE AND AFTER WOUND CARE. CALL THE WOUND CENTER AT [phone] IF YOU HAVE SIGNS OR SYMPTOMS OF INFECTION, FEVER CHILLS OR SHAKES, INCREASED DRAINAGE, INCREASED ODOR OR UNUSUAL REDNESS. AFTER WOUND CENTER HOURS PLEASE NOTIFY YOUR PCP OR GO TO THE EMERGENCY ROOM. CLEANSER CLEANSE WOUND WITH NORMAL SALINE APPLY HYPOCHLOROUS ACID (VASHE OR SIMILAR) SOAKED 4X4 GAUZE TO WOUND BED FOR 5- 10 MINUTES AFTER PROVIDER HAS COMPLETED WOUND EXAM. REMOVE GAUZE AND DRESS WOUND ACCORDING TO DRESSING ORDERS. MAY SHOWER, LEAVE WOUND DRESSING INTACT. COVER WOUND DRESSING WITH A WATERPROOF BARRIER. KEEP DRESSING DRY. NO BATHS PLEASE. PROCEDURE / ANESTHETIC 5% TOPICAL LIDOCAINE TO WOUND BED PRIOR TO PROCEDURE, IN CLINIC ONLY. DRESSING ORDERS APPLY DRESSING(S) AND SECURE WITH: - PROMOGRAN, HYDROFERA BLUE CLASSIC FOAM (MOISTEN WITH NORMAL SALINE OR DISTILLED WATER, ALLOW TO SOAK FOR SEVERAL SECONDS THEN WRING OUT MOISTURE) TO WOUND BED. COVER WITH SILICONE BORDERED FOAM. DRESSING CHANGE FREQUENCY CHANGE DRESSING EVERY OTHER DAY. CHANGE DRESSING IF IT BECOMES SOILED OR WET. WOUND #2 RIGHT CHEST HAND HYGIENE HAND HYGIENE - WASH HANDS BEFORE AND AFTER WOUND CARE. CALL THE WOUND CENTER AT [phone] IF YOU HAVE SIGNS OR SYMPTOMS OF INFECTION, FEVER CHILLS OR SHAKES, INCREASED DRAINAGE, INCREASED ODOR OR UNUSUAL REDNESS. AFTER WOUND CENTER HOURS PLEASE NOTIFY YOUR PCP OR GO TO THE EMERGENCY ROOM. CLEANSER CLEANSE WOUND WITH NORMAL SALINE APPLY HYPOCHLOROUS ACID (VASHE OR SIMILAR) SOAKED 4X4 GAUZE TO WOUND BED FOR 5- 10 MINUTES AFTER PROVIDER HAS COMPLETED WOUND EXAM. REMOVE GAUZE AND DRESS WOUND ACCORDING TO DRESSING ORDERS. NESTOR DEVINE [id number] 1995 MAY SHOWER, LEAVE WOUND DRESSING INTACT. COVER WOUND DRESSING WITH A WATERPROOF BARRIER. KEEP DRESSING DRY. NO BATHS PLEASE. PROCEDURE / ANESTHETIC 5% TOPICAL LIDOCAINE TO WOUND BED PRIOR TO PROCEDURE, IN CLINIC ONLY. DRESSING ORDERS APPLY DRESSING(S) AND SECURE WITH: - PROMOGRAN, HYDROFERA BLUE CLASSIC FOAM (MOISTEN WITH NORMAL SALINE OR DISTILLED WATER, ALLOW TO SOAK FOR SEVERAL SECONDS THEN WRING OUT MOISTURE) TO WOUND BED. COVER WITH SILICONE BORDERED FOAM. DRESSING CHANGE FREQUENCY CHANGE DRESSING EVERY OTHER DAY. CHANGE DRESSING IF IT BECOMES SOILED OR WET. ADDITIONAL ORDERS: DIETARY TAKE VITAMIN C 1000MG BY MOUTH DAILY. TAKE ZINC 25MG BY MOUTH DAILY. INCREASE THE PROTEIN IN YOUR DIET. - AIM FOR ADDITIONAL 30 GRAMS BETWEEN MEALS. FOLLOW-UP APPOINTMENTS RETURN APPOINTMENT 1 WEEK - SUNDAY RETURN FOR NURSE VISIT ON DATE NOTED BELOW FOR WOUND ASSESSMENT, MECHANICAL DEBRIDEMENT NECESSARY, AND DRESSING CHANGE ORDERED DURING TODAY'S VISIT: COMPLETE FOR DIAGNOSIS OF: - SUNDAY AND SUNDAY THIS WEEK. SCRIBING ATTESTATION I ATTEST, THE NURSE, THAT I SCRIBED THESE ORDERS FOR THE WOUND CARE PROVIDER. PROVIDER REVIEW AND ATTESTATION: REVIEWED AND EVALUATED LABS. REVIEWED HOSPITAL RECORDS. DISCUSSED THE PLAN OF CARE @ BEDSIDE WITH - THE PATIENT I AGREE AND ATTEST TO THE ABOVE INFORMATION PROVIDED FROM OTHER LICENSED PROFESSIONALS. PLAN OF CARE: 01. ENSURE/ESTABLISH OPTIMAL BLOOD FLOW : - REVIEWED, NOT APPLICABLE 02. ASSESS FOR/TREAT INFECTION : - EVALUATE FOR SIGNS AND SYMPTOMS OF INFECTION AND DOCUMENT FINDINGS. STATUS: CONTINUED DATE: 05/20/2024 - OBTAIN CULTURE AND SENSITIVITY (CANDS) OR TISSUE CULTURE WHEN INFECTION IS SUSPECTED. (NOTE:) CONSIDER REPEATING WHEN WOUND HEALING <40% AFTER 30 DAYS OF WOUND CARE. STATUS: COMPLETED DATE: 05/13/2024 03. DEBRIDE WEEKLY OR MORE OFTEN PRN : - EVALUATE PATIENT IN CENTER WEEKLY TO ASSESS WOUND BED AND MARGINS FOR NEED FOR DEBRIDEMENT. STATUS: CONTINUED DATE: 05/20/2024 04. OPTIMIZE GLUCOSE CONTROL AND NUTRITION : - COMPLETE A NUTRITION RISK ASSESSMENT. STATUS: COMPLETED DATE: 05/13/2024 05. OFFLOADING PLAN : - REVIEWED, NOT APPLICABLE 06. OPTIMIZE HOST FACTORS: - ASSESS AND REVIEW PATIENT HISTORY FOR WOUND ETIOLOGY, CO-MORBID CONDITIONS, MEDICATION REGIME, AND SMOKING HISTORY. STATUS: CONTINUED DATE: 05/20/2024 07. DRESSING SELECTION : - EVALUATE FOR DRESSING-RELATED FACTORS, SUCH AVAILABILITY, WEAR TIME, ADAPTABILITY AND USE TO BETTER OPTIMIZE WOUND HEALING AND PATIENT COMPLIANCE. STATUS: CONTINUED DATE: 05/20/2024 08. ADVANCED MODALITIES : NESTOR DEVINE [id number] 1995 - RE-EVALUATE PLAN OF CARE IF NO EVIDENCE OF HEALING (40% IN 4 WEEKS). STATUS: CONTINUED DATE: 05/20/2024 09. FALL PREVENTION : - COMPLETE FALL ASSESSMENT. STATUS: COMPLETED DATE: 05/13/2024 10. PAIN MANAGEMENT : - COMPLETE PAIN ASSESSMENT STATUS: COMPLETED DATE: 05/13/2024 11. MEASURABLE GOALS FOR WOUND HEALING AND/OR HYPERBARIC OXYGEN THERAPY : - WOUND CLOSURE STATUS: CONTINUED DATE: 05/20/2024 12. DURATION/FREQUENCY OF WOUND CARE VISITS : - 2X WEEKLY FOR 30 DAYS STATUS: CONTINUED DATE: 05/20/2024 ELECTRONIC SIGNATURE(S) SIGNED BY: DATE: LYDIA TELLEZ MD 07/02/2024 15:50:59 (PT) ENTERED BY: LYDIA TELLEZ MD ON 07/02/2024 15:46:32 (PT) NESTOR DEVINE [id number] 1995
== END ==
PROVIDERS: Family Provider Family Medicine; PCP Family Medicine; Referring Provider Family Medicine; Visit Provider Surgery
DX: T81.31XA Disruption of external operation (surgical) wound, not elsewhere classified, initial encounter (principal); S21.002A Unspecified open wound of left breast, initial encounter; S21.001A Unspecified open wound of right breast, initial encounter
CPT/HCPCS: 11042

== ENCOUNTER → 2024-07-04 11:11 | Outpatient (CLI) | payer OTHER, SELFPAY | PROVIDERS: Family Provider Family Medicine; PCP Family Medicine; Referring Provider Family Medicine; Visit Provider Physician Assistant | DX: T81.89XA Other complications of procedures, not elsewhere classified, initial encounter (principal); S21.102A Unspecified open wound of left front wall of thorax without penetration into thoracic cavity, initial encounter; S21.101A Unspecified open wound of right front wall of thorax without penetration into thoracic cavity, initial encounter; R21 Rash and other nonspecific skin eruption | CPT/HCPCS: 99213 ==

== ENCOUNTER → 2024-07-04 11:50 | Outpatient (CLI) | payer OTHER, SELFPAY ==
--- NOTE | 2024-07-04 11:51 | DI.MRI.S_ITS ---
PROCEDURE: MR SHOULDER LT WO CON INDICATIONS: pain in left shoulder TECHNIQUE: Noncontrast oblique coronal T2 fast spin echo with fat saturation, oblique sagittal T1 spin echo and T2 fast spin echo with fat saturation, axial T1 spin echo and T2 fast spin echo with fat saturation through the shoulder. COMPARISON: [facility], CR, XR SHOULDER LT MIN 2V, 06/09/2024, 16:33. FINDINGS: Image quality: Excellent. Rotator cuff: Calcifications involving distal supraspinatus at its insertion on the humeral head is seen most consistent with hydroxyapatite deposition and calcific tendinitis. Low-grade articular surface partial-thickness tear involving distal supraspinatus at its insertion on the humeral head is also likely present. Distal infraspinatus and subscapularis tendons are intact. No full-thickness rotator cuff tendon rupture. Sagittal images demonstrate no rotator cuff muscle atrophy. Bones and bursae: No bone marrow contusions or fractures. No acromioclavicular joint degeneration. Type 2 acromion without an os acromiale. There is small amount of subacromial subdeltoid bursal fluid, no loose bodies. Capsule and soft tissues: Labrum is intact. The long head of the biceps tendon demonstrates normal location and morphology. The rotator interval appears normal, without fibrosis. The coracohumeral ligament is normal in thickness. IMPRESSION: 1. Calcific tendinitis involving distal supraspinatus at its insertion on the humeral head. Low-grade articular surface partial-thickness tear involving distal supraspinatus is also likely present. No full-thickness rotator cuff tendon rupture. No muscle atrophy. 2. No marrow edema. No fracture or dislocation. Small amount of subacromial subdeltoid bursal fluid, no loose bodies. 3. No evidence of focal glenoid labral tear. Dictated by: Isaias William M.D. on 07/04/2024 at 13:45 Approved by: Isaias William M.D. on 07/04/2024 at 13:49
== END ==
PROVIDERS: Family Provider Family Medicine; PCP Family Medicine; Referring Provider Family Medicine; Visit Provider Family Medicine
DX: M75.32 Calcific tendinitis of left shoulder (principal); M25.512 Pain in left shoulder
CPT/HCPCS: 73221

== ENCOUNTER → 2024-07-07 14:40 | Outpatient (CLI) | payer OTHER, SELFPAY | PROVIDERS: Family Provider Family Medicine; PCP Family Medicine; Referring Provider Family Medicine; Visit Provider Surgery | DX: T81.89XA Other complications of procedures, not elsewhere classified, initial encounter (principal); S31.102A Unspecified open wound of abdominal wall, epigastric region without penetration into peritoneal cavity, initial encounter; S31.101A Unspecified open wound of abdominal wall, left upper quadrant without penetration into peritoneal cavity, initial encounter; R21 Rash and other nonspecific skin eruption | CPT/HCPCS: 99213 ==

== ENCOUNTER → 2024-07-09 13:40 | Outpatient (CLI) | payer OTHER, SELFPAY | PROVIDERS: Family Provider Family Medicine; PCP Family Medicine; Referring Provider Family Medicine; Visit Provider Surgery | DX: T81.89XA Other complications of procedures, not elsewhere classified, initial encounter (principal); L98.8 Other specified disorders of the skin and subcutaneous tissue; S21.001A Unspecified open wound of right breast, initial encounter; S21.002A Unspecified open wound of left breast, initial encounter; K21.9 Gastro-esophageal reflux disease without esophagitis; I49.9 Cardiac arrhythmia, unspecified; I47.10 Supraventricular tachycardia, unspecified | CPT/HCPCS: 11042; 99213 ==

== ENCOUNTER → 2024-07-11 13:42 | Outpatient (CLI) | payer OTHER, SELFPAY | PROVIDERS: Family Provider Family Medicine; PCP Family Medicine; Referring Provider Family Medicine; Visit Provider Physician Assistant | DX: T81.89XA Other complications of procedures, not elsewhere classified, initial encounter (principal); L98.8 Other specified disorders of the skin and subcutaneous tissue; S21.001A Unspecified open wound of right breast, initial encounter; S21.002A Unspecified open wound of left breast, initial encounter; L53.9 Erythematous condition, unspecified | CPT/HCPCS: 99213 ==

== ENCOUNTER → 2024-07-14 11:08 | Outpatient (CLI) | payer OTHER, SELFPAY | LOC: WC 08-25 11:09 | PROVIDERS: Family Provider Family Medicine; PCP Family Medicine; Referring Provider Family Medicine; Visit Provider Surgery | DX: T81.89XA Other complications of procedures, not elsewhere classified, initial encounter (principal); S21.102A Unspecified open wound of left front wall of thorax without penetration into thoracic cavity, initial encounter; S21.101A Unspecified open wound of right front wall of thorax without penetration into thoracic cavity, initial encounter; L53.8 Other specified erythematous conditions; R21 Rash and other nonspecific skin eruption | CPT/HCPCS: 99213 ==

== ENCOUNTER → 2024-07-16 11:30 | Outpatient (CLI) | payer OTHER, SELFPAY | LOC: WC 08-25 11:30 | PROVIDERS: Family Provider Family Medicine; PCP Family Medicine; Referring Provider Family Medicine; Visit Provider Surgery | DX: T81.89XA Other complications of procedures, not elsewhere classified, initial encounter (principal); S21.102A Unspecified open wound of left front wall of thorax without penetration into thoracic cavity, initial encounter | CPT/HCPCS: 99213 ==

== ENCOUNTER → 2024-07-18 10:58 | Outpatient (CLI) | payer OTHER, SELFPAY | PROVIDERS: Family Provider Family Medicine; PCP Family Medicine; Referring Provider Family Medicine; Visit Provider Physician Assistant | DX: T81.89XA Other complications of procedures, not elsewhere classified, initial encounter (principal); S21.102A Unspecified open wound of left front wall of thorax without penetration into thoracic cavity, initial encounter; S21.101A Unspecified open wound of right front wall of thorax without penetration into thoracic cavity, initial encounter | CPT/HCPCS: 99213 ==

== ENCOUNTER → 2024-07-21 14:35 | Outpatient (CLI) | payer OTHER, SELFPAY | PROVIDERS: Family Provider Family Medicine; PCP Family Medicine; Referring Provider Family Medicine; Visit Provider Surgery | DX: T81.31XA Disruption of external operation (surgical) wound, not elsewhere classified, initial encounter (principal); S21.002A Unspecified open wound of left breast, initial encounter; S21.001A Unspecified open wound of right breast, initial encounter | CPT/HCPCS: 11042 ==

== ENCOUNTER → 2024-07-25 10:30 | Outpatient (CLI) | payer OTHER, SELFPAY | PROVIDERS: Family Provider Family Medicine; PCP Family Medicine; Referring Provider Family Medicine; Visit Provider Physician Assistant | DX: T81.89XA Other complications of procedures, not elsewhere classified, initial encounter (principal); S21.102A Unspecified open wound of left front wall of thorax without penetration into thoracic cavity, initial encounter; S21.101A Unspecified open wound of right front wall of thorax without penetration into thoracic cavity, initial encounter | CPT/HCPCS: 99213 ==

== ENCOUNTER → 2024-07-28 10:53 | Outpatient (CLI) | payer OTHER, SELFPAY | PROVIDERS: Family Provider Family Medicine; PCP Family Medicine; Referring Provider Family Medicine; Visit Provider Surgery | DX: T81.31XA Disruption of external operation (surgical) wound, not elsewhere classified, initial encounter (principal); S21.001A Unspecified open wound of right breast, initial encounter; S21.002A Unspecified open wound of left breast, initial encounter | CPT/HCPCS: 11042 ==

== ENCOUNTER → 2024-07-30 15:37 | Outpatient (CLI) | payer OTHER, SELFPAY | PROVIDERS: Family Provider Family Medicine; PCP Family Medicine; Referring Provider Family Medicine; Visit Provider Surgery | DX: S21.102A Unspecified open wound of left front wall of thorax without penetration into thoracic cavity, initial encounter (principal); S21.101A Unspecified open wound of right front wall of thorax without penetration into thoracic cavity, initial encounter | CPT/HCPCS: 99212 ==

== ENCOUNTER → 2024-08-01 09:48 | Outpatient (CLI) | payer OTHER, SELFPAY | PROVIDERS: Family Provider Family Medicine; PCP Family Medicine; Referring Provider Family Medicine; Visit Provider Nurse Practitioner Family | DX: T81.89XA Other complications of procedures, not elsewhere classified, initial encounter (principal); S21.102A Unspecified open wound of left front wall of thorax without penetration into thoracic cavity, initial encounter | CPT/HCPCS: 99213 ==

== ENCOUNTER → 2024-08-07 10:26 | Outpatient (CLI) | payer OTHER, SELFPAY | LOC: WC 10:27 | PROVIDERS: Family Provider Family Medicine; PCP Family Medicine; Referring Provider Family Medicine; Visit Provider Surgery | DX: T81.31XA Disruption of external operation (surgical) wound, not elsewhere classified, initial encounter (principal); S21.102A Unspecified open wound of left front wall of thorax without penetration into thoracic cavity, initial encounter; S21.101A Unspecified open wound of right front wall of thorax without penetration into thoracic cavity, initial encounter; R23.4 Changes in skin texture | CPT/HCPCS: 11042; 99213 ==

== ENCOUNTER → 2024-08-11 13:24 | Outpatient (CLI) | payer OTHER, SELFPAY | PROVIDERS: Family Provider Family Medicine; PCP Family Medicine; Referring Provider Family Medicine; Visit Provider Surgery | DX: L98.492 Non-pressure chronic ulcer of skin of other sites with fat layer exposed (principal); T81.89XA Other complications of procedures, not elsewhere classified, initial encounter | CPT/HCPCS: 99213 ==

== ENCOUNTER → 2024-08-13 09:52 | Outpatient (CLI) | payer OTHER, SELFPAY | LOC: WC 09:53 | PROVIDERS: Family Provider Family Medicine; PCP Family Medicine; Referring Provider Family Medicine; Visit Provider Surgery | DX: T81.89XA Other complications of procedures, not elsewhere classified, initial encounter (principal); S21.102A Unspecified open wound of left front wall of thorax without penetration into thoracic cavity, initial encounter; S21.101A Unspecified open wound of right front wall of thorax without penetration into thoracic cavity, initial encounter | CPT/HCPCS: 11042 ==

== ENCOUNTER → 2024-08-15 11:48 | Outpatient (CLI) | payer OTHER, SELFPAY | LOC: WC 11:52 | PROVIDERS: Family Provider Family Medicine; PCP Family Medicine; Referring Provider Family Medicine; Visit Provider Physician Assistant | DX: L98.492 Non-pressure chronic ulcer of skin of other sites with fat layer exposed (principal); T81.89XA Other complications of procedures, not elsewhere classified, initial encounter | CPT/HCPCS: 99212 ==

== ENCOUNTER → 2024-08-18 15:35 | Outpatient (CLI) | payer OTHER, SELFPAY | LOC: WC 15:37 | PROVIDERS: Family Provider Family Medicine; PCP Family Medicine; Referring Provider Family Medicine; Visit Provider Surgery | DX: T81.89XA Other complications of procedures, not elsewhere classified, initial encounter (principal); S21.102A Unspecified open wound of left front wall of thorax without penetration into thoracic cavity, initial encounter; S21.101A Unspecified open wound of right front wall of thorax without penetration into thoracic cavity, initial encounter | CPT/HCPCS: 99213 ==

== ENCOUNTER → 2024-08-20 14:00 | Outpatient (CLI) | payer OTHER, SELFPAY | LOC: WC 14:00 | PROVIDERS: Family Provider Family Medicine; PCP Family Medicine; Referring Provider Family Medicine; Visit Provider Surgery | DX: S21.102A Unspecified open wound of left front wall of thorax without penetration into thoracic cavity, initial encounter (principal); S21.101A Unspecified open wound of right front wall of thorax without penetration into thoracic cavity, initial encounter | CPT/HCPCS: 11042; 87070; 87077; 87147; 87186; 87205 ==

== ENCOUNTER → 2024-08-22 10:38 | Outpatient (CLI) | payer OTHER, SELFPAY | PROVIDERS: Family Provider Family Medicine; PCP Family Medicine; Referring Provider Family Medicine; Visit Provider Physician Assistant | DX: T81.89XA Other complications of procedures, not elsewhere classified, initial encounter (principal); S21.102A Unspecified open wound of left front wall of thorax without penetration into thoracic cavity, initial encounter; S21.101A Unspecified open wound of right front wall of thorax without penetration into thoracic cavity, initial encounter | CPT/HCPCS: 99213 ==

== ENCOUNTER → 2024-08-25 10:29 | Outpatient (CLI) | payer OTHER, SELFPAY | PROVIDERS: Family Provider Family Medicine; PCP Family Medicine; Referring Provider Family Medicine; Visit Provider Surgery | DX: T81.89XA Other complications of procedures, not elsewhere classified, initial encounter (principal); S21.102A Unspecified open wound of left front wall of thorax without penetration into thoracic cavity, initial encounter; S21.101A Unspecified open wound of right front wall of thorax without penetration into thoracic cavity, initial encounter | CPT/HCPCS: 99213 ==

== ENCOUNTER → 2024-08-27 15:02 | Outpatient (CLI) | payer OTHER, SELFPAY | PROVIDERS: Family Provider Family Medicine; PCP Family Medicine; Referring Provider Family Medicine; Visit Provider Surgery | DX: T81.89XA Other complications of procedures, not elsewhere classified, initial encounter (principal); S21.102A Unspecified open wound of left front wall of thorax without penetration into thoracic cavity, initial encounter; S21.101A Unspecified open wound of right front wall of thorax without penetration into thoracic cavity, initial encounter | CPT/HCPCS: 11042 ==

== ENCOUNTER → 2024-08-29 09:47 | Outpatient (CLI) | payer OTHER, SELFPAY | PROVIDERS: Family Provider Family Medicine; PCP Family Medicine; Referring Provider Family Medicine; Visit Provider Physician Assistant | DX: T81.89XA Other complications of procedures, not elsewhere classified, initial encounter (principal); S21.102A Unspecified open wound of left front wall of thorax without penetration into thoracic cavity, initial encounter; S21.101A Unspecified open wound of right front wall of thorax without penetration into thoracic cavity, initial encounter | CPT/HCPCS: 99212 ==

== ENCOUNTER → 2024-09-03 09:15 | Outpatient (CLI) | payer OTHER, SELFPAY | PROVIDERS: Family Provider Family Medicine; PCP Family Medicine; Referring Provider Family Medicine; Visit Provider Surgery | DX: T81.31XA Disruption of external operation (surgical) wound, not elsewhere classified, initial encounter (principal); S21.002A Unspecified open wound of left breast, initial encounter; S21.001A Unspecified open wound of right breast, initial encounter | CPT/HCPCS: 99213 ==

== ENCOUNTER → 2024-09-05 09:58 | Outpatient (CLI) | payer OTHER, SELFPAY | PROVIDERS: Family Provider Family Medicine; PCP Family Medicine; Referring Provider Family Medicine; Visit Provider Surgery | DX: T81.89XA Other complications of procedures, not elsewhere classified, initial encounter (principal); L98.8 Other specified disorders of the skin and subcutaneous tissue; S21.101A Unspecified open wound of right front wall of thorax without penetration into thoracic cavity, initial encounter; S21.102A Unspecified open wound of left front wall of thorax without penetration into thoracic cavity, initial encounter | CPT/HCPCS: 99213 ==

== ENCOUNTER → 2024-09-08 10:30 | Outpatient (CLI) | payer OTHER, SELFPAY | PROVIDERS: Family Provider Family Medicine; PCP Family Medicine; Referring Provider Family Medicine; Visit Provider Surgery | DX: T81.89XA Other complications of procedures, not elsewhere classified, initial encounter (principal); S21.102A Unspecified open wound of left front wall of thorax without penetration into thoracic cavity, initial encounter; S21.101A Unspecified open wound of right front wall of thorax without penetration into thoracic cavity, initial encounter; L98.8 Other specified disorders of the skin and subcutaneous tissue | CPT/HCPCS: 11042; 99213 ==

== ENCOUNTER → 2024-09-15 14:45 | Outpatient (CLI) | payer OTHER, SELFPAY | LOC: WC 14:45 | PROVIDERS: Family Provider Family Medicine; PCP Family Medicine; Referring Provider Family Medicine; Visit Provider Surgery | DX: T81.89XA Other complications of procedures, not elsewhere classified, initial encounter (principal); S21.102A Unspecified open wound of left front wall of thorax without penetration into thoracic cavity, initial encounter; S21.101A Unspecified open wound of right front wall of thorax without penetration into thoracic cavity, initial encounter; I47.10 Supraventricular tachycardia, unspecified; L98.8 Other specified disorders of the skin and subcutaneous tissue | CPT/HCPCS: 11042 ==

== ENCOUNTER → 2024-09-17 09:32 | Outpatient (CLI) | payer OTHER, SELFPAY ==
[2024-09-17 13:55] LABS: Appearance Urine UA CLEAR; Bilirubin Urine UA NEGATIVE (NEGATIVE); Color Urine UA YELLOW; Glucose Urine UA NEGATIVE (Negative); Ketones Urine UA NEGATIVE (NEGATIVE); Leukocyte Esterase Urine UA NEGATIVE (NEGATIVE); Nitrite Urine UA NEGATIVE (Negative); Occult Blood Urine UA NEGATIVE (Negative); Protein Urine UA NEGATIVE (Negative); Specific Gravity Urine UA <=1.005 (1.000-1.035); Urobilinogen Urine UA 0.2 E.U./dL (0.2)
[2024-09-17 13:59] LABS: pH Urine UA 5.5 (4.5-8.0)
[2024-09-17 14:02] LABS: Bacteria Urine None Seen; Culture Indicated Urine Cult Not Indicated; RBC Urine None Seen (0-5/HPF); Squamous Epithelial Cell Urine None Seen (0-5/HPF); Urine Volume 10mL (spun); WBC Urine None Seen (0-5/HPF)
== END ==
PROVIDERS: Family Provider Family Medicine; PCP Family Medicine; Visit Provider Obstetrics & Gynecology Gynecology
DX: N39.0 Urinary tract infection, site not specified (principal)
CPT/HCPCS: 81001; 87086

== ENCOUNTER → 2024-09-22 13:56 | Outpatient (CLI) | payer OTHER, SELFPAY | LOC: WC 14:00 | PROVIDERS: Family Provider Family Medicine; PCP Family Medicine; Referring Provider Family Medicine; Visit Provider Surgery | DX: T81.89XA Other complications of procedures, not elsewhere classified, initial encounter (principal); S21.102A Unspecified open wound of left front wall of thorax without penetration into thoracic cavity, initial encounter; S21.101A Unspecified open wound of right front wall of thorax without penetration into thoracic cavity, initial encounter; Z90.13 Acquired absence of bilateral breasts and nipples; I47.10 Supraventricular tachycardia, unspecified | CPT/HCPCS: 11042 ==

== ENCOUNTER → 2024-09-29 09:18 | Outpatient (CLI) | payer OTHER, SELFPAY ==
[2024-10-02 02:36] LABS: Estrogen 137 pg/mL (.)
== END ==
PROVIDERS: Family Provider Family Medicine; PCP Family Medicine; Referring Provider Family Medicine; Visit Provider Family Medicine
DX: E34.9 Endocrine disorder, unspecified (principal)
CPT/HCPCS: 36415; 82672; 84402; 84403

== ENCOUNTER → 2024-09-29 16:16 | Outpatient (CLI) | payer OTHER, SELFPAY | PROVIDERS: Family Provider Family Medicine; PCP Family Medicine; Referring Provider Family Medicine; Visit Provider Physician Assistant | DX: T81.89XA Other complications of procedures, not elsewhere classified, initial encounter (principal); S21.102A Unspecified open wound of left front wall of thorax without penetration into thoracic cavity, initial encounter; S21.101A Unspecified open wound of right front wall of thorax without penetration into thoracic cavity, initial encounter | CPT/HCPCS: 99213 ==

== ENCOUNTER → 2024-10-02 09:41 | Outpatient (CLI) | payer OTHER, SELFPAY | LOC: WC 09:41 | PROVIDERS: Family Provider Family Medicine; PCP Family Medicine; Referring Provider Family Medicine; Visit Provider Surgery | DX: T81.89XA Other complications of procedures, not elsewhere classified, initial encounter (principal); S21.102A Unspecified open wound of left front wall of thorax without penetration into thoracic cavity, initial encounter; S21.101A Unspecified open wound of right front wall of thorax without penetration into thoracic cavity, initial encounter; L98.8 Other specified disorders of the skin and subcutaneous tissue | CPT/HCPCS: 11042; 99213 ==

== ENCOUNTER → 2024-10-09 14:56 | Outpatient (CLI) | payer OTHER, SELFPAY | LOC: WC 14:56 | PROVIDERS: Family Provider Family Medicine; PCP Family Medicine; Referring Provider Family Medicine; Visit Provider Surgery | DX: T81.89XA Other complications of procedures, not elsewhere classified, initial encounter (principal); S21.102A Unspecified open wound of left front wall of thorax without penetration into thoracic cavity, initial encounter; S21.101A Unspecified open wound of right front wall of thorax without penetration into thoracic cavity, initial encounter; I47.10 Supraventricular tachycardia, unspecified; L98.8 Other specified disorders of the skin and subcutaneous tissue | CPT/HCPCS: 11042; 99213 ==

== ENCOUNTER → 2024-10-14 16:11 | Outpatient (CLI) | payer OTHER, SELFPAY | PROVIDERS: Family Provider Family Medicine; PCP Family Medicine; Referring Provider Family Medicine; Visit Provider Surgery | DX: T81.31XA Disruption of external operation (surgical) wound, not elsewhere classified, initial encounter (principal); S21.102A Unspecified open wound of left front wall of thorax without penetration into thoracic cavity, initial encounter; S21.101D Unspecified open wound of right front wall of thorax without penetration into thoracic cavity, subsequent encounter; M75.32 Calcific tendinitis of left shoulder | CPT/HCPCS: 20610; 99213; J3301 ==

== ENCOUNTER → 2024-10-20 14:55 | Outpatient (CLI) | payer OTHER, SELFPAY | LOC: WC 14:55 | PROVIDERS: Family Provider Family Medicine; PCP Family Medicine; Referring Provider Family Medicine; Visit Provider Surgery | DX: T81.31XA Disruption of external operation (surgical) wound, not elsewhere classified, initial encounter (principal); S21.102A Unspecified open wound of left front wall of thorax without penetration into thoracic cavity, initial encounter | CPT/HCPCS: 99213 ==

== ENCOUNTER → 2024-10-27 15:27 | Outpatient (CLI) | payer OTHER, SELFPAY | LOC: WC 15:27 | PROVIDERS: Family Provider Family Medicine; PCP Family Medicine; Referring Provider Family Medicine; Visit Provider Surgery | DX: T81.31XD Disruption of external operation (surgical) wound, not elsewhere classified, subsequent encounter (principal); S21.102D Unspecified open wound of left front wall of thorax without penetration into thoracic cavity, subsequent encounter | CPT/HCPCS: 99213 ==

== ENCOUNTER → 2024-11-03 12:36 | Outpatient (CLI) | payer OTHER, SELFPAY ==
[2024-11-03 13:07] LABS: Appearance Urine UA CLEAR; Bilirubin Urine UA NEGATIVE (NEGATIVE); Color Urine UA YELLOW; Glucose Urine UA NEGATIVE (Negative); Ketones Urine UA TRACE (NEGATIVE); Leukocyte Esterase Urine UA NEGATIVE (NEGATIVE); Nitrite Urine UA NEGATIVE (Negative); Occult Blood Urine UA NEGATIVE (Negative); Protein Urine UA 1+ (Negative); Specific Gravity Urine UA >=1.030 (1.000-1.035); Urobilinogen Urine UA 0.2 E.U./dL (0.2)
[2024-11-03 13:08] LABS: pH Urine UA 6.0 (4.5-8.0)
[2024-11-03 13:14] LABS: Culture Indicated Urine Cult Not Indicated
== END ==
PROVIDERS: Family Provider Family Medicine; PCP Family Medicine; Referring Provider Family Medicine; Visit Provider Family Medicine
DX: R30.0 Dysuria (principal)
CPT/HCPCS: 81001

== ENCOUNTER 2024-11-04 15:15 | Emergency (ER) | payer OTHER, SELFPAY ==
[2024-11-04 15:43] VITALS: BP 133/81; PULSE 76; RESP 16; TEMP 36.8; O2SAT 97; BMI 29.2
[2024-11-04 16:24] LABS: Appearance Urine UA CLEAR; Bilirubin Urine UA NEGATIVE (NEGATIVE); Color Urine UA YELLOW; Glucose Urine UA NEGATIVE (Negative); Ketones Urine UA NEGATIVE (NEGATIVE); Leukocyte Esterase Urine UA 1+ (NEGATIVE); Nitrite Urine UA NEGATIVE (Negative); Occult Blood Urine UA NEGATIVE (Negative); Protein Urine UA NEGATIVE (Negative); Specific Gravity Urine UA <=1.005 (1.000-1.035); Urobilinogen Urine UA 0.2 E.U./dL (0.2)
[2024-11-04 16:26] LABS: pH Urine UA 6.0 (4.5-8.0)
[2024-11-04 17:23] VITALS: BP 131/81; PULSE 75; RESP 16; O2SAT 97
--- NOTE | 2024-11-04 17:57 | ED.FEMALEGU ---
HPI - Female Genitourinary General Chief complaint: Urogenital-Female Stated complaint: uti Time Seen by Provider: 11/04/24 16:44 Source: patient Mode of arrival: Family Vehicle History of Present Illness HPI Narrative: 28-year-old female presents to the ED with 2 weeks of urinary symptoms. Patient endorses dysuria, flank pain, fatigue, brain fog. No fever, chills, chest pain, shortness of breath, nausea, vomiting, abdominal pain, lightheadedness, dizziness, syncope. Patient is status post hysterectomy. Related Data Home Medications ?Medication ?Instructions ?Recorded ?Confirmed escitalopram oxalate 10 mg tablet 10 mg PO DAILY 01/22/23 10/14/24 metoprolol succinate 25 mg 25 mg PO DAILY 01/22/23 10/14/24 tablet,extended release 24 hr pantoprazole 20 mg tablet,delayed 20 mg PO DAILY 01/22/23 10/14/24 release testosterone cypionate 200 mg/mL mg IM 01/22/23 10/14/24 intramuscular oil Diltiazem Topical topical 10/26/23 10/14/24 Previous Rx's ?Medication ?Instructions ?Recorded betamethasone dipropionate 0.05 % 1 applic topical BID PRN rash #45 01/22/23 topical cream grams tramadol 100 mg tablet 100 mg PO TID PRN pain #10 tabs 02/02/23 pantoprazole 20 mg tablet,delayed 20 mg PO DAILY #14 tabs 08/22/23 release meloxicam 15 mg tablet 15 mg PO DAILY #90 tabs 09/04/24 estradiol 0.01% (0.1 mg/gram) 1 g vaginal 3XW #42.5 grams 09/17/24 vaginal cream (Estrace) cefpodoxime 200 mg tablet 200 mg PO BID 10 days #20 tabs 11/04/24 Allergies Allergy/AdvReac Type Severity Reaction Status Date / Time acetaminophen (From [place]) Allergy Severe Rash Verified 11/04/24 15:52 hydrocodone (From [facility] [place]) Allergy Severe Rash Verified 11/04/24 15:52 prochlorperazine (From Allergy Severe Palpitation Verified 11/04/24 15:52 Compazine) s articaine Allergy Palpitation Verified 11/04/24 15:52 s Review of Systems Constitutional Constitutional: Denies chills, Reports fatigue, Denies fever(s), Denies frequent falls, Denies lethargy and Denies weakness Eyes Eyes: Denies change in vision, Denies eye discharge, Denies irritation and Denies loss of vision ENT Ears, Nose, Mouth, and Throat: Denies change in voice, Denies dizziness, Denies neck pain, Denies sore throat and Denies throat swelling Cardiovascular Cardiovascular: Denies chest pain, Denies irregular heart rhythm, Denies lightheadedness, Denies palpitations, Denies dyspnea, Denies dyspnea on exertion and Denies orthopnea Respiratory Respiratory: Denies cough, Denies dyspnea, Denies dyspnea on exertion and Denies wheezing Gastrointestinal Gastrointestinal: Denies abdominal pain, Denies change in bowel habits, Denies diarrhea, Denies nausea and Denies vomiting Genitourinary Genitourinary: Reports dysuria Comments: Flank pain Musculoskeletal Musculoskeletal: Denies neck pain and Denies numbness Integumentary/Breasts Skin/Breast: Denies pruritus, Denies erythema, Denies rash and Denies wounds Neurologic Neurologic: Denies behavioral changes, Denies confusion, Denies dizziness, Denies frequent falls, Denies loss of vision, Denies numbness and Denies weakness Comments: Brain fog Psychiatric Psychiatric: Denies anxiety, Denies behavioral changes, Denies confusion, Denies depression, Denies homicidal ideation and Denies suicidal ideation Endocrine Endocrine: Reports fatigue, Denies flushing and Denies palpitations Hematologic/Lymphatic Hematologic/Lymphatic: Denies easy bruising Allergic/Immunologic Allergic/Immunologic: Denies urticaria, Denies throat swelling and Denies wheezing Patient History Medical History Pain in vestibule of vulva Mdyeag-gw-kxed transgender person Dyspareunia Upper abdominal pain, unspecified Post-cholecystectomy syndrome Surgical History Status post laparoscopic cholecystectomy tobacco type: cigarettes Exam Narrative Exam Narrative: Const General:?cooperative, healthy appearing and comfortable [facility] Head:?normal to inspection Ears:?hearing grossly normal bilaterally Nose:?external nose normal Face and sinus:?normal facial exam and sinuses nontender Mouth:?oral mucosae normal Throat:?posterior oropharynx normal Eyes General:?appearance normal, both eyes and all related structures Neck Neck:?normal visual inspection and no lymphadenopathy noted Resp Effort & Inspection:?normal respiratory effort Auscultation:?clear to auscultation bilaterally Cardio Rate:?regular rate Rhythm:?regular rhythm GI Abdomen is soft, nondistended, nontender to palpation. No CVA tenderness. Neuro General:?patient alert, patient awake and patient oriented x3 Initial Vital Signs Initial Vital Signs: Vital Signs Temperature 98.3 F 11/04/24 15:43 Pulse Rate 76 11/04/24 15:43 Respiratory Rate 16 11/04/24 15:43 Blood Pressure 133/81 11/04/24 15:43 Pulse Oximetry 97 11/04/24 15:43 Oxygen Delivery Method Room Air 11/04/24 15:43 Course Orders Ordered: ED Orders 11/04/24 15:52 Urinalysis and Microscopic Stat Urine Culture Stat Vital Signs Vital signs: Vital Signs - 8 hr 11/04/24 15:43 11/04/24 17:23 Temperature 98.3 F Pulse Rate 76 75 Respiratory Rate 16 16 Blood Pressure 133/81 131/81 Pulse Oximetry 97 97 Oxygen Delivery Method Room Air Room Air MDM - Female Genitourinary Lab Data Labs: Lab Results 11/04/24 Range/Units 15:52 Urine Color Yellow Urine Appearance Clear Urine pH 6.0 (4.5-8.0) Ur Specific [place] <=1.005 (1.000-1.035) Urine Protein Negative (Negative) Urine Glucose (UA) Negative (Negative) g/dL Urine Ketones Negative (NEGATIVE) Urine Occult Blood Negative (Negative) Urine Nitrate Negative (Negative) Urine Bilirubin Negative (NEGATIVE) Urine Urobilinogen 0.2 (0.2) E.U./dL Ur Leukocyte Esterase 1+ H (NEGATIVE) Urine RBC 0-1/hpf (0-5/HPF) Urine WBC 0-1/hpf (0-5/HPF) Ur Squamous Epith Cells 0-1 /hpf (0-5/HPF) Urine Bacteria Few (2-10) H (None) Vol Urine Centrifuged 10ml (spun) MDM Narrative Medical decision making narrative: 28-year-old female presents to the ED with 2 weeks of urinary symptoms. UA is positive for leukocyte esterase. Sample sent for culture. Discussed findings with patient. Prescribed antibiotics, given that patient is symptomatic. Recommend follow-up with PCP. ED return precautions discussed with patient. Patient verbalized understanding. Medical records reviewed: Yes Discharge Plan Departure Patient Disposition: Home Clinical Impression: UTI (urinary tract infection) Qualifiers: Urinary tract infection type: site unspecified Hematuria presence: without hematuria Qualified Code(s): N39.0 - Urinary tract infection, site not specified Instructions: DI for Urinary Tract Infection (UTI) Activity Restrictions/Additional Instructions: You were evaluated in the ED today for urinary symptoms. You are being prescribed antibiotics to take if your symptoms worsen. Your urine sample has been sent for culture as well. Please follow-up with your PCP as soon as possible. Return to the ED if you have worsening symptoms. Prescriptions: New cefpodoxime 200 mg tablet 200 mg PO BID 10 Days Qty: 20 0RF Rx Instructions: must administer with a meal/food No Action testosterone cypionate 200 mg/mL oil IM pantoprazole 20 mg tablet,delayed release (DR/EC) 20 mg PO DAILY escitalopram oxalate 10 mg tablet 10 mg PO DAILY metoprolol succinate 25 mg tablet extended release 24 hr 25 mg PO DAILY betamethasone dipropionate 0.05 % cream 1 applic topical BID PRN (Reason: rash) Qty: 45 0RF Diltiazem Topical ointment topical Rx Instructions: Per Giuliana called in 2% Diltiazem and 2% Lidocaine to [facility] #[phone] 30 grams 2 refills estradiol [Estrace] 0.01 % (0.1 mg/gram) cream 1 g vaginal 3XW Qty: 42.5 6RF Rx Instructions: apply 1 gm to vagina 3 nights a week. OK to use indefinitely. pantoprazole 20 mg tablet,delayed release (DR/EC) 20 mg PO DAILY Qty: 14 0RF tramadol 100 mg tablet 100 mg PO TID PRN (Reason: pain) Qty: 10 0RF meloxicam 15 mg tablet 15 mg PO DAILY Qty: 90 0RF Referrals: Dev Escoto MD [Primary Care Provider, Family Practice] Stand Alone Forms: Patient Portal/API
== END 2024-11-04 17:23 | disposition home or self-care (01) ==
PROVIDERS: Emergency Medicine; Emergency Provider Student in an Organized Health Care Education/Training Program; Family Provider Family Medicine; PCP Family Medicine
DX: N39.0 Urinary tract infection, site not specified (principal)
CPT/HCPCS: 81001; 87086; 99281; 99282

== ENCOUNTER 2024-12-16 14:30 | Outpatient (RCR) | payer OTHER, SELFPAY ==
--- NOTE | 2024-04-23 16:29 | PT.OIE ---
Current Diagnoses Encounter for breast reconstruction following mastectomy (04/23/24) Past Medical History (Last Reviewed 02/14/24 @ 16:49 by Carley Sahni PA-C) Post-cholecystectomy syndrome Upper abdominal pain, unspecified Past Surgical History (Last Reviewed 02/14/24 @ 16:49 by Carley Sahni PA-C) Status post laparoscopic cholecystectomy Visit Care Team Role Provider Type Dev Escoto MD Attending Provider Physician Family Provider Primary Care Provider Referring Provider Specialty: Family Practice Address: [facility] [place], [facility] Email: [email or web address] Physical Therapy Initial Evaluation PT-OP-A Visit Information Start: 04/17/24 07:50 Freq: Status: Active Protocol: Document 04/23/24 10:47 MB (Rec: 04/23/24 11:20 MB [id number]) Out-Patient Physical Therapy Visit Information Visit Information Visit Type Initial Evaluation Visit Start Time 10:47 Visit Stop Time 11:27 Visit Number 1 Number of GERIATRIC PHYSICIAN Visits 0 Evaluation Information Evaluation Date 04/23/24 Precautions Precautions Pt reports AROM shoulder unlimited and 15 lb weight lifting limit of unknown time limit, sees surgeon 04/30/24, for manual work, private treatment room PT-OP-B Current Condition Start: 04/17/24 07:50 Freq: Status: Active Protocol: Document 04/23/24 10:47 MB (Rec: 04/23/24 11:20 MB [id number]) Current Condition History of Current Condition Onset Date 04/01/24 Current Complaints Edema and minimal pain left clavicular area History of Current Condition Pt is s/p B mastectomy . Surgery went well and he is having a little B arm pit edema and edema over pect attachment area. Pt has a history of left clavicular area pain, increased thoracic kyphosis and tight anterior chest and shoulders. Pt is on testosterone, has history of hysterectomy, lap jackelyn, B eye procedures, dizziness felt to be postural in nature in the past. He has referral for ENT in future. He is starting migraine medication, once a month injection. Pt is right handed. Pt is having trouble with hygiene after toileting and reaching overhead d/t tightness and fear. Pt has numbness when holding phone in bed and he points to medial elbow. Treatment Goals Patient/Caregiver Goals Decrease pain and improve mobility PT-OP-C Subjective Start: 04/17/24 07:50 Freq: Status: Active Protocol: Document 04/23/24 10:47 MB (Rec: 04/23/24 11:20 MB [id number]) OP-PT Subjective Patient Comments Patient Comments See history of current condition Patient Questionnaires Quick Dash- Upper Extremity Quick Dash UE Score 35 Quick Dash UE Impairment 40 to 59% Impaired (Score 40- 59) PT-OP-F Manual Assessment Start: 04/17/24 07:50 Freq: Status: Active Protocol: Document 04/23/24 09:47 MB (Rec: 04/23/24 16:29 MB [id number]) Manual Assessments Other Manual Assessments Other Manual Assessments Mild but more fascial type edema B axillary area PT-OP-J Posture/Palpation/Skin Start: 04/17/24 07:50 Freq: Status: Active Protocol: Document 04/23/24 10:47 MB (Rec: 04/23/24 11:20 MB [id number]) Posture Evaluation Comments Posture Comments Pectus excavatum, B nipples moved and with some dryness and blackened tissue for skin that may fall off, pt with skin tightness around nipples and no other surgical lines and binder does indent into skin, pt con't with forward head, rounded shoulders, elevated shoulders, right shoulder mildly higher than the left, mild Dowager's hump, mild righ thoracic convexity, right iliac crest mildly higher than the left, increased lumbar lordosis and soft tissue abdomen. PT-OP-K Range of Motion Start: 04/17/24 07:50 Freq: Status: Active Protocol: Document 04/23/24 10:47 MB (Rec: 04/23/24 11:20 MB [id number]) Shoulder Goniometric Range of Motion Shoulder Left Testing Position Standing Flexion 140 Extension 28 Abduction 140 Internal Rotation Behind Back (text) T12 Comments Abduction in scaption plane Pt supine for PROM ER and IR at 90/90: pt apprehensive at 90 deg abduction and PT just reaches 90 deg abduction and ER is neutral and IR to 15 deg Right Testing Position Standing Flexion 148 Extension 28 Abduction 152 Internal Rotation Behind Back (text) T10 Comments Abduction in scaption plane Pt supine for PROM ER and IR at 90/90: shoulder moves easily into 90 deg abduction and ER to 75 deg and IR to 45 deg PT-OP-M Strength Start: 04/17/24 07:50 Freq: Status: Active Protocol: Document 04/23/24 10:47 MB (Rec: 04/23/24 11:20 MB [id number]) Shoulder Strength Shoulder Manual Muscle Testing Bilateral Flexion 5 Normal Abduction (C5) 5 Normal Elbow/Forearm Strength Elbow and Forearm Manual Muscle Testing Bilateral Flexion (C6) 5 Normal Extension (C7) 5 Normal PT-OP-Q Treatments Start: 04/17/24 07:50 Freq: Status: Active Protocol: Document 04/23/24 09:47 MB (Rec: 04/23/24 16:29 MB [id number]) Therapeutic Exercises Supine Exercises Cane AAROM Supine Exercise Name HEP-flexion, abduction and 90/ 90 ER left shoulder Side bilateral Equipment Used Cane, pillows under head Reps/Minutes Many Comments Knees bent Self-Care/Home Management Treatment Education Patient Education Home Exercise Program,Pain Management,Posture Other Education Ed pt on benefits of having lymphedema PT appointment in this clinic as part of POC to assess skin and any edema concerns, ed pt on importance of really following through with exercises this PT course including thoracic and shoulder ROM exercises: his strength is fine but his ROM is not and he will really have to work on this to improve pain and for recovery, ed to start AAROM 3x/day and PT 2x/ wk for ongoing management PT-OP-T Assessment and Plan Start: 04/17/24 07:50 Freq: Status: Active Protocol: Document 04/23/24 09:47 MB (Rec: 04/23/24 16:29 MB [id number]) Physical Therapy Assessment Rehab Potential Rehabilitation Potential Good Evaluation Complexity Number of Personal Factors/Comorbidities 1-2 Number of Body Systems Impaired 1-2 Clinical Presentation at Evaluation Evolving Impairments Impairments Activity Tolerance,Edema, Functional Activities, Functional Mobility,Integument ,Pain,Posture,ROM,Soft Tissue Mobility Goals 3 Impairment Pt not performing HEP including thoracic range and shoulder strength ex Biomedical Manager Goal (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 LTG Duration 8 weeks 2 Impairment Limited shoulder ROM, left worse than right Biomedical Manager Goal (LTG) Pt will present with B shoulder active flexion and abduction to at least 160 deg and left shoulder passive 90/ 90 ER to 75 deg and IR to 40 deg to improve functional use of arm. LTG Duration 8 weeks 1 Impairment QuickDASH reflects over 54% impairment Correction Goal (LTG) Pt will present with improved QuickDASH score to reflect no more than 15% impairment to improve quality of life and function. LTG Duration 8 weeks Assessment Summary Assessment Pt is a 28 y/o patient presenting s/p B mastectomy . Pt received PT at this clinic with this therapist earlier last year and had trouble following through with alignment, thoracic, flexibility and strengthening exercises. His posture was poor at that time and also now with forward shoulders, pectus excavatum, increased abdominal soft tissue and sway back and increased thoracic kyphosis. His left shoulder ROM is particularly limited post-op, though his strength is good in available range ( testing flexion and abduction only today, though) Extension, rotatory and retraction movements no MMT and they will need strengthening as range improves. Shoulder range limits his comfort with ADLs and he has been self-limiting range d/t some fear. Initiated exercises today and encouragement. Physical Therapy Plan Frequency and Duration Frequency of Treatment 2x/Week Duration of treatment (weeks) 8 Plan of Care Start Date 04/23/24 Plan of Care End Date 06/23/24 Therapeutic Interventions Therapeutic Interventions Balance Training,Canalithic Repositioning,Home Exercise Program,Joint Mobilizations, Lymphedema Management,Manual Therapy,Neuromuscular Re- education,Patient/Caregiver Education,Self-Care/Home Management,Soft Tissue Mobilization,Taping, Therapeutic Activities, Therapeutic Exercises Modalities Cold Pack/Ice Massage,Electric Stimulation,Hot Packs, Ultrasound Next Visit Focus/Plan Next Note Type Treatment Note Next Visit Plan Reassess HEP performance and see if he can lie over pool noodle vertically with knees bent. If he can tolerate, intiate pelvic tilt and pect stretch in this position. If not, consider open book and supine pect stretching, initiate manual work. Lymphedema PT will assess since and axillary areas
--- NOTE | 2024-04-23 16:29 | PT.OPPOC ---
Physical, Occupational & Speech Therapy At [facility] Current Diagnoses Encounter for breast reconstruction following mastectomy (04/23/24) Visit Care Team Role Provider Type Dev Escoto MD Attending Provider Physician Family Provider Primary Care Provider Referring Provider Specialty: Family Practice Address: [address] [place], [address] Email: [email or web address] Plan Of Care PT-OP-B Current Condition Start: 04/17/24 07:50 Freq: Status: Active Protocol: Document 04/23/24 10:47 MB (Rec: 04/23/24 11:20 MB [id number]) Current Condition History of Current Condition Onset Date 04/01/24 Current Complaints Edema and minimal pain left clavicular area History of Current Condition Pt is s/p B mastectomy . Surgery went well and he is having a little B arm pit edema and edema over pect attachment area. Pt has a history of left clavicular area pain, increased thoracic kyphosis and tight anterior chest and shoulders. Pt is on testosterone, has history of hysterectomy, lap jackelyn, B eye procedures, dizziness felt to be postural in nature in the past. He has referral for ENT in future. He is starting migraine medication, once a month injection. Pt is right handed. Pt is having trouble with hygiene after toileting and reaching overhead d/t tightness and fear. Pt has numbness when holding phone in bed and he points to medial elbow. Treatment Goals Patient/Caregiver Goals Decrease pain and improve mobility PT-OP-T Assessment and Plan Start: 04/17/24 07:50 Freq: Status: Active Protocol: Document 04/23/24 09:47 MB (Rec: 04/23/24 16:29 MB [id number]) Physical Therapy Assessment Rehab Potential Rehabilitation Potential Good Evaluation Complexity Number of Personal Factors/Comorbidities 1-2 Number of Body Systems Impaired 1-2 Clinical Presentation at Evaluation Evolving Impairments Impairments Activity Tolerance,Edema, Functional Activities, Functional Mobility,Integument ,Pain,Posture,ROM,Soft Tissue Mobility Goals 3 Impairment Pt not performing HEP including thoracic range and shoulder strength ex Fdc Goal (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 LTG Duration 8 weeks 2 Impairment Limited shoulder ROM, left worse than right Fdc Goal (LTG) Pt will present with B shoulder active flexion and abduction to at least 160 deg and left shoulder passive 90/ 90 ER to 75 deg and IR to 40 deg to improve functional use of arm. LTG Duration 8 weeks 1 Impairment QuickDASH reflects over 54% impairment Website Optimization Strategist Goal (LTG) Pt will present with improved QuickDASH score to reflect no more than 15% impairment to improve quality of life and function. LTG Duration 8 weeks Assessment Summary Assessment Pt is a 28 y/o patient presenting s/p B mastectomy . Pt received PT at this clinic with this therapist earlier last year and had trouble following through with alignment, thoracic, flexibility and strengthening exercises. His posture was poor at that time and also now with forward shoulders, pectus excavatum, increased abdominal soft tissue and sway back and increased thoracic kyphosis. His left shoulder ROM is particularly limited post-op, though his strength is good in available range ( testing flexion and abduction only today, though) Extension, rotatory and retraction movements no MMT and they will need strengthening as range improves. Shoulder range limits his comfort with ADLs and he has been self-limiting range d/t some fear. Initiated exercises today and encouragement. Physical Therapy Plan Frequency and Duration Frequency of Treatment 2x/Week Duration of treatment (weeks) 8 Plan of Care Start Date 04/23/24 Plan of Care End Date 06/23/24 Therapeutic Interventions Therapeutic Interventions Balance Training,Canalithic Repositioning,Home Exercise Program,Joint Mobilizations, Lymphedema Management,Manual Therapy,Neuromuscular Re- education,Patient/Caregiver Education,Self-Care/Home Management,Soft Tissue Mobilization,Taping, Therapeutic Activities, Therapeutic Exercises Modalities Cold Pack/Ice Massage,Electric Stimulation,Hot Packs, Ultrasound Next Visit Focus/Plan Next Note Type Treatment Note Next Visit Plan Reassess HEP performance and see if he can lie over pool noodle vertically with knees bent. If he can tolerate, intiate pelvic tilt and pect stretch in this position. If not, consider open book and supine pect stretching, initiate manual work. Lymphedema PT will assess since and axillary areas Plan of Care Dates Plan of Care Start Date 04/23/24 Plan of Care End Date 06/23/24 Electronically Signed by: Judith Hernadez, PT 04/23/24 1629 If you are in agreement with this Plan of Care, please return a signed and dated copy. I have reviewed this Plan of Care and certify that the skilled therapy services above are required to meet the patient?s needs. Physician Signature Date Printed Name and Credentials Clinical Instructor Signature Printed Name and Credentials
--- NOTE | 2024-04-24 12:45 | PT-OP ANOTE ---
Pt contacts PT to communicate infection at left nipple post-op site. He is going to surgeon's office and will communicate further findings/recommendations. PT asks him to communicate with [facility] office about appointments as appropriate.
--- NOTE | 2024-04-30 07:21 | PT-OP ANOTE ---
Pt has contacted PT to communicate that he saw surgeon and is cleared to con't with PT without any further precautions. PT calls pt to leave a message that he is scheduled to see Hansa Foreman, lymphedema PT, tomorrow. Pt can communicate further details about appointment with surgeon with Hansa during treatment next date.
--- NOTE | 2024-05-01 16:50 | PT.OTN ---
Current Diagnoses Encounter for breast reconstruction following mastectomy (05/01/24) Physical Therapy Treatment Note PT-OP-A Visit Information Start: 04/17/24 07:50 Freq: Status: Active Protocol: Document 05/01/24 09:04 [facility] (Rec: 05/01/24 09:47 [facility] [id number]) Out-Patient Physical Therapy Visit Information Visit Information Visit Type Treatment Note Visit Start Time 09:05 Visit Stop Time 09:45 Visit Number 2 Evaluation Information Evaluation Date 04/23/24 Precautions Precautions Pt reports AROM shoulder unlimited and 15 lb weight lifting limit of unknown time limit, sees surgeon 04/30/24, for manual work, private treatment room PT-OP-B Current Condition Start: 04/17/24 07:50 Freq: Status: Active Protocol: Document 05/01/24 09:04 [facility] (Rec: 05/01/24 09:47 [facility] [id number]) Current Condition History of Current Condition Onset Date 04/01/24 Current Complaints Edema and minimal pain left clavicular area History of Current Condition Pt is s/p B mastectomy . Surgery went well and he is having a little B arm pit edema and edema over pect attachment area. Pt has a history of left clavicular area pain, increased thoracic kyphosis and tight anterior chest and shoulders. Pt is on testosterone, has history of hysterectomy, lap jackelyn, B eye procedures, dizziness felt to be postural in nature in the past. He has referral for ENT in future. He is starting migraine medication, once a month injection. Pt is right handed. Pt is having trouble with hygiene after toileting and reaching overhead d/t tightness and fear. Pt has numbness when holding phone in bed and he points to medial elbow. PT-OP-C Subjective Start: 04/17/24 07:50 Freq: Status: Active Protocol: Document 05/01/24 09:04 [facility] (Rec: 05/01/24 09:47 [facility] [id number]) OP-PT Subjective Patient Comments Patient Comments Feeling some better than at last session.. Saw PA after PT due to concerned about healing around nipple, is using antibiotic ointment. Saw surgeon yesterday, can stop binder, can lift as tolerated, can't go swimming yet. Just recommended watching wound around nipple. Pt uncertain about any lymph node removal with his surgery . Does have some swelling primarily under armpits. JUst started PT exercises last night after being reassured by physician they were ok to do. Still concerned about wound healing on chest, agreeable to PT consulting with wound care physician Dr. Hutton. PT-OP-F Manual Assessment Start: 04/17/24 07:50 Freq: Status: Active Protocol: Document 04/23/24 09:47 MB (Rec: 04/23/24 16:29 MB [id number]) Manual Assessments Other Manual Assessments Other Manual Assessments Mild but more fascial type edema B axillary area PT-OP-J Posture/Palpation/Skin Start: 04/17/24 07:50 Freq: Status: Active Protocol: Document 04/23/24 10:47 MB (Rec: 04/23/24 11:20 MB [id number]) Posture Evaluation Comments Posture Comments Pectus excavatum, B nipples moved and with some dryness and blackened tissue for skin that may fall off, pt with skin tightness around nipples and no other surgical lines and binder does indent into skin, pt con't with forward head, rounded shoulders, elevated shoulders, right shoulder mildly higher than the left, mild Dowager's hump, mild righ thoracic convexity, right iliac crest mildly higher than the left, increased lumbar lordosis and soft tissue abdomen. PT-OP-K Range of Motion Start: 04/17/24 07:50 Freq: Status: Active Protocol: Document 04/23/24 10:47 MB (Rec: 04/23/24 11:20 MB [id number]) Shoulder Goniometric Range of Motion Shoulder Left Testing Position Standing Flexion 140 Extension 28 Abduction 140 Internal Rotation Behind Back (text) T12 Comments Abduction in scaption plane Pt supine for PROM ER and IR at 90/90: pt apprehensive at 90 deg abduction and PT just reaches 90 deg abduction and ER is neutral and IR to 15 deg Right Testing Position Standing Flexion 148 Extension 28 Abduction 152 Internal Rotation Behind Back (text) T10 Comments Abduction in scaption plane Pt supine for PROM ER and IR at 90/90: shoulder moves easily into 90 deg abduction and ER to 75 deg and IR to 45 deg PT-OP-M Strength Start: 04/17/24 07:50 Freq: Status: Active Protocol: Document 04/23/24 10:47 MB (Rec: 04/23/24 11:20 MB [id number]) Shoulder Strength Shoulder Manual Muscle Testing Bilateral Flexion 5 Normal Abduction (C5) 5 Normal Elbow/Forearm Strength Elbow and Forearm Manual Muscle Testing Bilateral Flexion (C6) 5 Normal Extension (C7) 5 Normal PT-OP-Q Treatments Start: 04/17/24 07:50 Freq: Status: Active Protocol: Document 05/01/24 09:04 [facility] (Rec: 05/01/24 09:47 [facility] [id number]) Therapeutic Exercises Supine Exercises Cane AAROM Supine Exercise Name verbal review Sidelying Exercises open book Sidelying Exercise Name added to HEP Reps/Minutes 5x dejuan Comments cues for deep breath end range circles Sidelying Exercise Name added to HEP Reps/Minutes 5x CW, 5x CCW Comments cues for slow, gentle stretch Sitting Exercises deep breathing Sitting Exercise Name diaphragmatic, lateral thorax, chest Comments issue HO next session pulleys Sitting Exercise Name flexion and scaption Reps/Minutes 10x ea Comments cues for gentle stretch Standing Exercises wall posture Standing Exercise Name cued start with pelvic tilt Reps/Minutes 3 min Comments issue HO next session Manual Therapy Treatment Other Other Manual Treatments circumferential measurements subaxillary, nipple line, and dejuan UE's for baseline monitoring: subax: 92.7cm chest: 88.5cm wrist 15.7cm R 15.7cm L forearm 25.1cm R, 25.5cm L elbow 26cm R, 27.6cm L upper arm 31.8cm R, 32.4cm L Self-Care/Home Management Treatment Education Patient Education Body Mechanics,Home Exercise Program,Posture Other Education issued HO with sidelying open book and arm circles to add to HEP. Initiated self MLD instruction. Consulted with Dr. Hutton from wound care who recommended wound care consult, patient to request from Dr. Byrne. Instruction in neutral posture using pt phone to take picture of standing posture then working at wall for reference. PT-OP-T Assessment and Plan Start: 04/17/24 07:50 Freq: Status: Active Protocol: Document 05/01/24 09:04 [facility] (Rec: 05/01/24 09:47 [facility] [id number]) Physical Therapy Assessment Impairments Impairments Activity Tolerance,Edema, Functional Activities, Functional Mobility,Integument ,Pain,Posture,ROM,Soft Tissue Mobility Goals 3 Impairment Pt not performing HEP including thoracic range and shoulder strength ex Correction Goal (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 LTG Duration 8 weeks 2 Impairment Limited shoulder ROM, left worse than right Correction Goal (LTG) Pt will present with B shoulder active flexion and abduction to at least 160 deg and left shoulder passive 90/ 90 ER to 75 deg and IR to 40 deg to improve functional use of arm. LTG Duration 8 weeks 1 Impairment QuickDASH reflects over 54% impairment Patent Counsel Goal (LTG) Pt will present with improved QuickDASH score to reflect no more than 15% impairment to improve quality of life and function. LTG Duration 8 weeks Assessment Summary Assessment Baseline circumferential measurements taken with initiation of self MLD instruction. UE measurements mildly increased on L ( nondominant) as compared to right. Added sidelying open book and arm circles to HEP. PT concerned over surgical wounds with dried eschar present dejuan, consulted with Dr Malika Hutton from wound care who recommended wound care , patient to request order from Dr. Byrne. Continued with postural education including wall posture as well as instruction in deep breathing; diaphragmatic, lateral thorax , chest with patient demonstrating good understanding. Physical Therapy Plan Frequency and Duration Frequency of Treatment 2x/Week Duration of treatment (weeks) 8 Plan of Care Start Date 04/23/24 Plan of Care End Date 06/23/24 Therapeutic Interventions Therapeutic Interventions Balance Training,Canalithic Repositioning,Home Exercise Program,Joint Mobilizations, Lymphedema Management,Manual Therapy,Neuromuscular Re- education,Patient/Caregiver Education,Self-Care/Home Management,Soft Tissue Mobilization,Taping, Therapeutic Activities, Therapeutic Exercises Modalities Cold Pack/Ice Massage,Electric Stimulation,Hot Packs, Ultrasound Next Visit Focus/Plan Next Note Type Treatment Note Next Visit Plan Continue ther ex for shoulder ROM, postural correction. Supine pool noodle ex as tolerated for postural correction and shoulder ROM starting with pelvic tilt. Gentle manual work as indicated for shoulder ROM, review self MLD and issue handout. Update HEP HO as needed.
--- NOTE | 2024-05-07 12:09 | PT.OTN ---
Current Diagnoses Encounter for breast reconstruction following mastectomy (05/07/24) Physical Therapy Treatment Note PT-OP-A Visit Information Start: 04/17/24 07:50 Freq: Status: Active Protocol: Document 05/07/24 11:29 MB (Rec: 05/07/24 11:34 MB [id number]) Out-Patient Physical Therapy Visit Information Visit Information Visit Type Treatment Note Visit Note Progress note by 05/24/24 Visit Start Time 11:29 Visit Stop Time 12:09 Visit Number 3 Evaluation Information Evaluation Date 04/23/24 Precautions Precautions Pt reports AROM shoulder unlimited and 15 lb weight lifting limit of unknown time limit, sees surgeon 04/30/24, for manual work, private treatment room PT-OP-B Current Condition Start: 04/17/24 07:50 Freq: Status: Active Protocol: Document 05/01/24 09:04 [facility] (Rec: 05/01/24 09:47 [facility] [id number]) Current Condition History of Current Condition Onset Date 04/01/24 Current Complaints Edema and minimal pain left clavicular area History of Current Condition Pt is s/p B mastectomy . Surgery went well and he is having a little B arm pit edema and edema over pect attachment area. Pt has a history of left clavicular area pain, increased thoracic kyphosis and tight anterior chest and shoulders. Pt is on testosterone, has history of hysterectomy, lap jackelyn, B eye procedures, dizziness felt to be postural in nature in the past. He has referral for ENT in future. He is starting migraine medication, once a month injection. Pt is right handed. Pt is having trouble with hygiene after toileting and reaching overhead d/t tightness and fear. Pt has numbness when holding phone in bed and he points to medial elbow. PT-OP-C Subjective Start: 04/17/24 07:50 Freq: Status: Active Protocol: Document 05/07/24 11:29 MB (Rec: 05/07/24 11:34 MB [id number]) OP-PT Subjective Patient Comments Patient Comments Pt saw Dr. Escoto and he states that everything looks good and that B nipples are healing . Wound care referral is pending. PT-OP-F Manual Assessment Start: 04/17/24 07:50 Freq: Status: Active Protocol: Document 04/23/24 09:47 MB (Rec: 04/23/24 16:29 MB [id number]) Manual Assessments Other Manual Assessments Other Manual Assessments Mild but more fascial type edema B axillary area PT-OP-J Posture/Palpation/Skin Start: 04/17/24 07:50 Freq: Status: Active Protocol: Document 04/23/24 10:47 MB (Rec: 04/23/24 11:20 MB [id number]) Posture Evaluation Comments Posture Comments Pectus excavatum, B nipples moved and with some dryness and blackened tissue for skin that may fall off, pt with skin tightness around nipples and no other surgical lines and binder does indent into skin, pt con't with forward head, rounded shoulders, elevated shoulders, right shoulder mildly higher than the left, mild Dowager's hump, mild righ thoracic convexity, right iliac crest mildly higher than the left, increased lumbar lordosis and soft tissue abdomen. PT-OP-K Range of Motion Start: 04/17/24 07:50 Freq: Status: Active Protocol: Document 04/23/24 10:47 MB (Rec: 04/23/24 11:20 MB [id number]) Shoulder Goniometric Range of Motion Shoulder Left Testing Position Standing Flexion 140 Extension 28 Abduction 140 Internal Rotation Behind Back (text) T12 Comments Abduction in scaption plane Pt supine for PROM ER and IR at 90/90: pt apprehensive at 90 deg abduction and PT just reaches 90 deg abduction and ER is neutral and IR to 15 deg Right Testing Position Standing Flexion 148 Extension 28 Abduction 152 Internal Rotation Behind Back (text) T10 Comments Abduction in scaption plane Pt supine for PROM ER and IR at 90/90: shoulder moves easily into 90 deg abduction and ER to 75 deg and IR to 45 deg PT-OP-M Strength Start: 04/17/24 07:50 Freq: Status: Active Protocol: Document 04/23/24 10:47 MB (Rec: 04/23/24 11:20 MB [id number]) Shoulder Strength Shoulder Manual Muscle Testing Bilateral Flexion 5 Normal Abduction (C5) 5 Normal Elbow/Forearm Strength Elbow and Forearm Manual Muscle Testing Bilateral Flexion (C6) 5 Normal Extension (C7) 5 Normal PT-OP-Q Treatments Start: 04/17/24 07:50 Freq: Status: Active Protocol: Document 05/07/24 11:29 MB (Rec: 05/07/24 11:52 MB [id number]) Therapeutic Exercises Supine Exercises Foam roller Supine Exercise Name HEP Comments Today, started foam roller lying with pelvic tilt, cane exercises over Cane AAROM Supine Exercise Name Performed over foam roller today for flexion, ER and abd Sitting Exercises pulleys Sitting Exercise Name Forward flexion, abduction, forward circles and backwards circles Side bilateral Standing Exercises Band exercises for strengthening Standing Exercise Name HEP Side bilateral Resistance [place] green band Equipment Used See above Reps/Minutes Several reps for training Comments Scapular ret arms straight, shoulder ER, scap ret and tricps, reverse fly Self-Care/Home Management Treatment Education Other Education Progressed strengthening exercises and foam roller today and ed pt to perform during [place]: take a break and get up and do some exercises, ed pt on supported back in [place] chair and car with use of rolled up yoga mat or pool noodle PT-OP-T Assessment and Plan Start: 04/17/24 07:50 Freq: Status: Active Protocol: Document 05/07/24 11:29 MB (Rec: 05/07/24 11:34 MB [id number]) Physical Therapy Assessment Rehab Potential Rehabilitation Potential Good Evaluation Complexity Number of Personal Factors/Comorbidities 1-2 Number of Body Systems Impaired 1-2 Clinical Presentation at Evaluation Evolving Impairments Impairments Activity Tolerance,Edema, Functional Activities, Functional Mobility,Integument ,Pain,Posture,ROM,Soft Tissue Mobility Goals 3 Impairment Pt not performing HEP including thoracic range and shoulder strength ex Section Maintainer Goal (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 LTG Duration 8 weeks 2 Impairment Limited shoulder ROM, left worse than right Section Maintainer Goal (LTG) Pt will present with B shoulder active flexion and abduction to at least 160 deg and left shoulder passive 90/ 90 ER to 75 deg and IR to 40 deg to improve functional use of arm. LTG Duration 8 weeks 1 Impairment QuickDASH reflects over 54% impairment Fpc Goal (LTG) Pt will present with improved QuickDASH score to reflect no more than 15% impairment to improve quality of life and function. LTG Duration 8 weeks Assessment Summary Assessment Progressed exercises today and encouraged pt to perform when he is modesta--take a break and perform some foam roller exercises and some band exercises. Physical Therapy Plan Frequency and Duration Frequency of Treatment 2x/Week Duration of treatment (weeks) 8 Plan of Care Start Date 04/23/24 Plan of Care End Date 06/23/24 Therapeutic Interventions Therapeutic Interventions Balance Training,Canalithic Repositioning,Home Exercise Program,Joint Mobilizations, Lymphedema Management,Manual Therapy,Neuromuscular Re- education,Patient/Caregiver Education,Self-Care/Home Management,Soft Tissue Mobilization,Taping, Therapeutic Activities, Therapeutic Exercises Modalities Cold Pack/Ice Massage,Electric Stimulation,Hot Packs, Ultrasound Next Visit Focus/Plan Next Note Type Treatment Note Next Visit Plan Review and progress exercises as needed: next: over foam roller ROM and then use theraband for shoulder ER, looped band around wrists for shoulder flexion and chopping wood elbow flexion and extension, consider band with PNF 1/2 X
--- NOTE | 2024-05-09 08:59 | PT.OTN ---
Current Diagnoses Encounter for breast reconstruction following mastectomy (05/09/24) Physical Therapy Treatment Note PT-OP-A Visit Information Start: 04/17/24 07:50 Freq: Status: Active Protocol: Document 05/09/24 08:19 SP (Rec: 05/09/24 09:03 SP [id number]) Out-Patient Physical Therapy Visit Information Visit Information Visit Type Treatment Note Visit Note Progress note by 05/24/24 Visit Start Time 08:19 Visit Stop Time 08:59 Visit Number 4 Number of SECURITY SERGEANT Visits 1 Evaluation Information Evaluation Date 04/23/24 Precautions Precautions Pt reports AROM shoulder unlimited and 15 lb weight lifting limit of unknown time limit, sees surgeon 04/30/24, for manual work, private treatment room PT-OP-B Current Condition Start: 04/17/24 07:50 Freq: Status: Active Protocol: Document 05/01/24 09:04 SAK (Rec: 05/01/24 09:47 SAK [id number]) Current Condition History of Current Condition Onset Date 04/01/24 Current Complaints Edema and minimal pain left clavicular area History of Current Condition Pt is s/p B mastectomy . Surgery went well and he is having a little B arm pit edema and edema over pect attachment area. Pt has a history of left clavicular area pain, increased thoracic kyphosis and tight anterior chest and shoulders. Pt is on testosterone, has history of hysterectomy, lap jackelyn, B eye procedures, dizziness felt to be postural in nature in the past. He has referral for ENT in future. He is starting migraine medication, once a month injection. Pt is right handed. Pt is having trouble with hygiene after toileting and reaching overhead d/t tightness and fear. Pt has numbness when holding phone in bed and he points to medial elbow. PT-OP-C Subjective Start: 04/17/24 07:50 Freq: Status: Active Protocol: Document 05/09/24 08:19 SP (Rec: 05/09/24 09:03 SP [id number]) OP-PT Subjective Patient Comments Patient Comments Pt reports doing ok and compliant with HEP. Stated foam roller firm on pelvis but doing well with ex, more compliant this go around. PT-OP-F Manual Assessment Start: 04/17/24 07:50 Freq: Status: Active Protocol: Document 04/23/24 09:47 MB (Rec: 04/23/24 16:29 MB [id number]) Manual Assessments Other Manual Assessments Other Manual Assessments Mild but more fascial type edema B axillary area PT-OP-J Posture/Palpation/Skin Start: 04/17/24 07:50 Freq: Status: Active Protocol: Document 04/23/24 10:47 MB (Rec: 04/23/24 11:20 MB [id number]) Posture Evaluation Comments Posture Comments Pectus excavatum, B nipples moved and with some dryness and blackened tissue for skin that may fall off, pt with skin tightness around nipples and no other surgical lines and binder does indent into skin, pt con't with forward head, rounded shoulders, elevated shoulders, right shoulder mildly higher than the left, mild Dowager's hump, mild righ thoracic convexity, right iliac crest mildly higher than the left, increased lumbar lordosis and soft tissue abdomen. PT-OP-K Range of Motion Start: 04/17/24 07:50 Freq: Status: Active Protocol: Document 04/23/24 10:47 MB (Rec: 04/23/24 11:20 MB [id number]) Shoulder Goniometric Range of Motion Shoulder Left Testing Position Standing Flexion 140 Extension 28 Abduction 140 Internal Rotation Behind Back (text) T12 Comments Abduction in scaption plane Pt supine for PROM ER and IR at 90/90: pt apprehensive at 90 deg abduction and PT just reaches 90 deg abduction and ER is neutral and IR to 15 deg Right Testing Position Standing Flexion 148 Extension 28 Abduction 152 Internal Rotation Behind Back (text) T10 Comments Abduction in scaption plane Pt supine for PROM ER and IR at 90/90: shoulder moves easily into 90 deg abduction and ER to 75 deg and IR to 45 deg PT-OP-M Strength Start: 04/17/24 07:50 Freq: Status: Active Protocol: Document 04/23/24 10:47 MB (Rec: 04/23/24 11:20 MB [id number]) Shoulder Strength Shoulder Manual Muscle Testing Bilateral Flexion 5 Normal Abduction (C5) 5 Normal Elbow/Forearm Strength Elbow and Forearm Manual Muscle Testing Bilateral Flexion (C6) 5 Normal Extension (C7) 5 Normal PT-OP-Q Treatments Start: 04/17/24 07:50 Freq: Status: Active Protocol: Document 05/09/24 08:19 SP (Rec: 05/09/24 09:03 SP [id number]) Therapeutic Exercises Supine Exercises Foam roller Supine Exercise Name HEP: gentle pec stretch Equipment Used foam roller Comments pelvic tilt Cane AAROM Supine Exercise Name ER (elbows at side) & abd /c Wand; TB FF, T & 1/2 X Resistance wand AAROM > TB #1 light blue Equipment Used foam roller Reps/Minutes 10 reps each Comments cues gentle ROM Standing Exercises chopping Standing Exercise Name D2 flexion (chopping wood)- added to HEP /c HO Side bilateral Resistance Tb #1 anchored over door Reps/Minutes 10 reps each side Comments cues for form and posture Manual Therapy Treatment Consent Patient gave verbal consent for manual Yes treatment Other Other Manual Treatments Manual gentle STMs and ed self small gentle skin mobility lateral to scar and light pressure over scar for allowance shld ROM. PT-OP-T Assessment and Plan Start: 04/17/24 07:50 Freq: Status: Active Protocol: Document 05/09/24 08:19 SP (Rec: 05/09/24 09:03 SP [id number]) Physical Therapy Assessment Goals 3 Impairment Pt not performing HEP including thoracic range and shoulder strength ex Glove Maker Goal (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 LTG Duration 8 weeks 2 Impairment Limited shoulder ROM, left worse than right Glove Maker Goal (LTG) Pt will present with B shoulder active flexion and abduction to at least 160 deg and left shoulder passive 90/ 90 ER to 75 deg and IR to 40 deg to improve functional use of arm. LTG Duration 8 weeks 1 Impairment QuickDASH reflects over 54% impairment Glove Maker Goal (LTG) Pt will present with improved QuickDASH score to reflect no more than 15% impairment to improve quality of life and function. LTG Duration 8 weeks Assessment Summary Assessment Pt good performance with wand and able to progress HEP over foam roller, cues for gentle not over stretch anterior pec/ scar. End tx time spent gentle skin mobility to support shld ROM with good response and able to swing arms better end tx. Provided HOs for foam roller HEP and chopping standing. Physical Therapy Plan Frequency and Duration Frequency of Treatment 2x/Week Duration of treatment (weeks) 8 Plan of Care Start Date 04/23/24 Plan of Care End Date 06/23/24 Therapeutic Interventions Therapeutic Interventions Balance Training,Canalithic Repositioning,Home Exercise Program,Joint Mobilizations, Lymphedema Management,Manual Therapy,Neuromuscular Re- education,Patient/Caregiver Education,Self-Care/Home Management,Soft Tissue Mobilization,Taping, Therapeutic Activities, Therapeutic Exercises Modalities Cold Pack/Ice Massage,Electric Stimulation,Hot Packs, Ultrasound Next Visit Focus/Plan Next Note Type Treatment Note Next Visit Plan Review and progress exercises as needed: next: over foam roller ROM and then use theraband for shoulder ER, looped band around wrists for shoulder flexion and chopping wood elbow flexion and extension, consider band with PNF 1/2 X
--- NOTE | 2024-05-13 14:51 | PT.OTN ---
Current Diagnoses Encounter for breast reconstruction following mastectomy (05/13/24) Physical Therapy Treatment Note PT-OP-A Visit Information Start: 04/17/24 07:50 Freq: Status: Active Protocol: Document 05/13/24 11:27 SAK (Rec: 05/13/24 12:25 [facility] [id number]) Out-Patient Physical Therapy Visit Information Visit Information Visit Type Treatment Note Visit Note Progress note by 05/24/24 Visit Start Time 11:27 Visit Stop Time 12:15 Visit Number 5 Number of SEROLOGIST Visits 0 Evaluation Information Evaluation Date 04/23/24 Precautions Precautions Pt reports AROM shoulder unlimited and 15 lb weight lifting limit of unknown time limit, sees surgeon 04/30/24, for manual work, private treatment room PT-OP-B Current Condition Start: 04/17/24 07:50 Freq: Status: Active Protocol: Document 05/13/24 11:27 SAK (Rec: 05/13/24 12:25 [facility] [id number]) Current Condition History of Current Condition Onset Date 04/01/24 Current Complaints Edema and minimal pain left clavicular area History of Current Condition Pt is s/p B mastectomy . Surgery went well and he is having a little B arm pit edema and edema over pect attachment area. Pt has a history of left clavicular area pain, increased thoracic kyphosis and tight anterior chest and shoulders. Pt is on testosterone, has history of hysterectomy, lap jackelyn, B eye procedures, dizziness felt to be postural in nature in the past. He has referral for ENT in future. He is starting migraine medication, once a month injection. Pt is right handed. Pt is having trouble with hygiene after toileting and reaching overhead d/t tightness and fear. Pt has numbness when holding phone in bed and he points to medial elbow. PT-OP-C Subjective Start: 04/17/24 07:50 Freq: Status: Active Protocol: Document 05/13/24 11:27 SAK (Rec: 05/13/24 12:25 [facility] [id number]) OP-PT Subjective Patient Comments Patient Comments Went to wound care today, is going to have to get a wound vac, a little sore from debridement. PT-OP-F Manual Assessment Start: 04/17/24 07:50 Freq: Status: Active Protocol: Document 04/23/24 09:47 MB (Rec: 04/23/24 16:29 MB [id number]) Manual Assessments Other Manual Assessments Other Manual Assessments Mild but more fascial type edema B axillary area PT-OP-J Posture/Palpation/Skin Start: 04/17/24 07:50 Freq: Status: Active Protocol: Document 04/23/24 10:47 MB (Rec: 04/23/24 11:20 MB [id number]) Posture Evaluation Comments Posture Comments Pectus excavatum, B nipples moved and with some dryness and blackened tissue for skin that may fall off, pt with skin tightness around nipples and no other surgical lines and binder does indent into skin, pt con't with forward head, rounded shoulders, elevated shoulders, right shoulder mildly higher than the left, mild Dowager's hump, mild righ thoracic convexity, right iliac crest mildly higher than the left, increased lumbar lordosis and soft tissue abdomen. PT-OP-K Range of Motion Start: 04/17/24 07:50 Freq: Status: Active Protocol: Document 04/23/24 10:47 MB (Rec: 04/23/24 11:20 MB [id number]) Shoulder Goniometric Range of Motion Shoulder Left Testing Position Standing Flexion 140 Extension 28 Abduction 140 Internal Rotation Behind Back (text) T12 Comments Abduction in scaption plane Pt supine for PROM ER and IR at 90/90: pt apprehensive at 90 deg abduction and PT just reaches 90 deg abduction and ER is neutral and IR to 15 deg Right Testing Position Standing Flexion 148 Extension 28 Abduction 152 Internal Rotation Behind Back (text) T10 Comments Abduction in scaption plane Pt supine for PROM ER and IR at 90/90: shoulder moves easily into 90 deg abduction and ER to 75 deg and IR to 45 deg PT-OP-M Strength Start: 04/17/24 07:50 Freq: Status: Active Protocol: Document 04/23/24 10:47 MB (Rec: 04/23/24 11:20 MB [id number]) Shoulder Strength Shoulder Manual Muscle Testing Bilateral Flexion 5 Normal Abduction (C5) 5 Normal Elbow/Forearm Strength Elbow and Forearm Manual Muscle Testing Bilateral Flexion (C6) 5 Normal Extension (C7) 5 Normal PT-OP-Q Treatments Start: 04/17/24 07:50 Freq: Status: Active Protocol: Document 05/13/24 11:27 SAK (Rec: 05/13/24 12:25 SAK [id number]) Therapeutic Exercises Supine Exercises Foam roller Supine Exercise Name HEP: gentle pec stretch Equipment Used foam roller Comments pelvic tilt Cane AAROM Supine Exercise Name HEP Sidelying Exercises open book Sidelying Exercise Name added to HEP Reps/Minutes 5x dejuan Comments cues for deep breath end range , segmental circles Reps/Minutes 5x CW, 5x CCW Comments cues for slow, gentle stretch Sitting Exercises pulleys Sitting Exercise Name HEP Standing Exercises doorway stretch Standing Exercise Name verbal review wall posture Standing Exercise Name cued start with pelvic tilt, segmental Reps/Minutes 4 min Manual Therapy Treatment Consent Patient gave verbal consent for manual Yes treatment Soft Tissue Mobilization MLD Body Location chest, subax Mobilization Type Manual Lymphatic Drainage Intensity/Depth light Body Position Hooklying UT, periscap Mobilization Type Myofascial Release,Strumming, Sustained Pressure Intensity/Depth mod Manual Techniques pin and stretch Type for shoulder elevation and ab Comments gentle next session PT-OP-T Assessment and Plan Start: 04/17/24 07:50 Freq: Status: Active Protocol: Document 05/13/24 11:27 [facility] (Rec: 05/13/24 12:25 [facility] [id number]) Physical Therapy Assessment Evaluation Complexity Number of Personal Factors/Comorbidities 1-2 Number of Body Systems Impaired 1-2 Clinical Presentation at Evaluation Evolving Impairments Impairments Activity Tolerance,Edema, Functional Activities, Functional Mobility,Integument ,Pain,Posture,ROM,Soft Tissue Mobility Goals 3 Impairment Pt not performing HEP including thoracic range and shoulder strength ex Jail Goal (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 LTG Duration 8 weeks 2 Impairment Limited shoulder ROM, left worse than right Tuyere Fitter Goal (LTG) Pt will present with B shoulder active flexion and abduction to at least 160 deg and left shoulder passive 90/ 90 ER to 75 deg and IR to 40 deg to improve functional use of arm. LTG Duration 8 weeks 1 Impairment QuickDASH reflects over 54% impairment Tuyere Fitter Goal (LTG) Pt will present with improved QuickDASH score to reflect no more than 15% impairment to improve quality of life and function. LTG Duration 8 weeks Assessment Summary Assessment Patient sore from wound care so treatment modified, no resistance training. Increased emphasis manual after ther ex for thoracic mobility, postural correction and shoulder ROM. Patient frustrated by need for wound vac and delayed return to work . REporting good compliance to HEP. Physical Therapy Plan Frequency and Duration Frequency of Treatment 2x/Week Duration of treatment (weeks) 8 Plan of Care Start Date 04/23/24 Plan of Care End Date 06/23/24 Therapeutic Interventions Therapeutic Interventions Balance Training,Canalithic Repositioning,Home Exercise Program,Joint Mobilizations, Lymphedema Management,Manual Therapy,Neuromuscular Re- education,Patient/Caregiver Education,Self-Care/Home Management,Soft Tissue Mobilization,Taping, Therapeutic Activities, Therapeutic Exercises Modalities Cold Pack/Ice Massage,Electric Stimulation,Hot Packs, Ultrasound Next Visit Focus/Plan Next Note Type Treatment Note Next Visit Plan Continue PT with emphasis on postural correction, shoulder ROM, manual as indicated, modify as needed after wound vac application. Shoulder ROM measurements.
--- NOTE | 2024-05-15 09:45 | PT-OP ANOTE ---
cancelled due to weather.
--- NOTE | 2024-05-20 12:16 | PT.OTN ---
Current Diagnoses Encounter for breast reconstruction following mastectomy (05/20/24) Physical Therapy Treatment Note PT-OP-A Visit Information Start: 04/17/24 07:50 Freq: Status: Active Protocol: Document 05/20/24 11:35 MB (Rec: 05/20/24 12:15 MB [id number]) Out-Patient Physical Therapy Visit Information Visit Information Visit Type Progress Note Visit Note Next prog note by 06/17/24 Visit Start Time 11:35 Visit Stop Time 12:15 Visit Number 6 Number of REMOTE SENSING TECHNOLOGIST Visits 0 Evaluation Information Evaluation Date 04/23/24 Precautions Precautions Pt with wound vac over B nipples and PT to attempt to avoid stretching the surgical area PT-OP-B Current Condition Start: 04/17/24 07:50 Freq: Status: Active Protocol: Document 05/13/24 11:27 SAK (Rec: 05/13/24 12:25 SAK [id number]) Current Condition History of Current Condition Onset Date 04/01/24 Current Complaints Edema and minimal pain left clavicular area History of Current Condition Pt is s/p B mastectomy . Surgery went well and he is having a little B arm pit edema and edema over pect attachment area. Pt has a history of left clavicular area pain, increased thoracic kyphosis and tight anterior chest and shoulders. Pt is on testosterone, has history of hysterectomy, lap jackelyn, B eye procedures, dizziness felt to be postural in nature in the past. He has referral for ENT in future. He is starting migraine medication, once a month injection. Pt is right handed. Pt is having trouble with hygiene after toileting and reaching overhead d/t tightness and fear. Pt has numbness when holding phone in bed and he points to medial elbow. PT-OP-C Subjective Start: 04/17/24 07:50 Freq: Status: Active Protocol: Document 05/20/24 11:35 MB (Rec: 05/20/24 12:15 MB [id number]) OP-PT Subjective Patient Comments Patient Comments Pt just got wound vac placed. No pain. He doing exercises at home. He put pool noodle in [place] chair. Pt c/o concern about left shoulder with donning jacket on and off and putting shirt on and off. He also reports limitations with washing hair. PT-OP-F Manual Assessment Start: 04/17/24 07:50 Freq: Status: Active Protocol: Document 04/23/24 09:47 MB (Rec: 04/23/24 16:29 MB [id number]) Manual Assessments Other Manual Assessments Other Manual Assessments Mild but more fascial type edema B axillary area PT-OP-J Posture/Palpation/Skin Start: 04/17/24 07:50 Freq: Status: Active Protocol: Document 04/23/24 10:47 MB (Rec: 04/23/24 11:20 MB [id number]) Posture Evaluation Comments Posture Comments Pectus excavatum, B nipples moved and with some dryness and blackened tissue for skin that may fall off, pt with skin tightness around nipples and no other surgical lines and binder does indent into skin, pt con't with forward head, rounded shoulders, elevated shoulders, right shoulder mildly higher than the left, mild Dowager's hump, mild righ thoracic convexity, right iliac crest mildly higher than the left, increased lumbar lordosis and soft tissue abdomen. PT-OP-K Range of Motion Start: 04/17/24 07:50 Freq: Status: Active Protocol: Document 04/23/24 10:47 MB (Rec: 04/23/24 11:20 MB [id number]) Shoulder Goniometric Range of Motion Shoulder Left Testing Position Standing Flexion 140 Extension 28 Abduction 140 Internal Rotation Behind Back (text) T12 Comments Abduction in scaption plane Pt supine for PROM ER and IR at 90/90: pt apprehensive at 90 deg abduction and PT just reaches 90 deg abduction and ER is neutral and IR to 15 deg Right Testing Position Standing Flexion 148 Extension 28 Abduction 152 Internal Rotation Behind Back (text) T10 Comments Abduction in scaption plane Pt supine for PROM ER and IR at 90/90: shoulder moves easily into 90 deg abduction and ER to 75 deg and IR to 45 deg PT-OP-M Strength Start: 04/17/24 07:50 Freq: Status: Active Protocol: Document 04/23/24 10:47 MB (Rec: 04/23/24 11:20 MB [id number]) Shoulder Strength Shoulder Manual Muscle Testing Bilateral Flexion 5 Normal Abduction (C5) 5 Normal Elbow/Forearm Strength Elbow and Forearm Manual Muscle Testing Bilateral Flexion (C6) 5 Normal Extension (C7) 5 Normal PT-OP-Q Treatments Start: 04/17/24 07:50 Freq: Status: Active Protocol: Document 05/20/24 11:35 MB (Rec: 05/20/24 12:15 MB [id number]) Therapeutic Exercises Other Exercises HEP review Comments Performed today during progress note, went though all exercises Manual Therapy Treatment Consent Patient gave verbal consent for manual Yes treatment Other Other Manual Treatments Pt supine with head and legs supported: STM B upper traps with more tension on the left, first rib isometrics, STM B SCM, platysma, B pects, grade II PA cervical mobs. Gentle left shoulder abduction with pect mobilization. PT-OP-T Assessment and Plan Start: 04/17/24 07:50 Freq: Status: Active Protocol: Document 05/20/24 11:35 MB (Rec: 05/20/24 12:15 MB [id number]) Physical Therapy Assessment Rehab Potential Rehabilitation Potential Good Evaluation Complexity Number of Personal Factors/Comorbidities 1-2 Number of Body Systems Impaired 1-2 Clinical Presentation at Evaluation Evolving Impairments Impairments Activity Tolerance,Edema, Functional Activities, Functional Mobility,Integument ,Pain,Posture,ROM,Soft Tissue Mobility Goals 3 Impairment Pt not performing HEP including thoracic range and shoulder strength ex Residential Goal (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 05/20/24: Pt is performing band resisted exercises in standing and over foam roller, baseball bat AAROM, open book LTG Duration 8 weeks 2 Impairment Limited shoulder ROM, left worse than right Ship Painter Helper Goal (LTG) Pt will present with B shoulder active flexion and abduction to at least 160 deg and left shoulder passive 90/ 90 ER to 75 deg and IR to 40 deg to improve functional use of arm. 05/20/24: AROM in standing: flexion right 160 deg, flexion left 148 deg; abduction right 168 deg and left 148 deg; pt supine with left shoulder 90/ 90, PROM: ER to 25 deg and IR to 60 deg. LTG Duration 8 weeks 1 Impairment QuickDASH reflects over 54% impairment Ship Painter Helper Goal (LTG) Pt will present with improved QuickDASH score to reflect no more than 15% impairment to improve quality of life and function. 05/20/24: QuickDASH score reflects 29.54% impairment, improvement since evaluation LTG Duration 8 weeks Assessment Summary Assessment Pt progressing towards goals and now has a wound vac. Con't per POC. Physical Therapy Plan Frequency and Duration Frequency of Treatment 2x/Week Duration of treatment (weeks) 8 Plan of Care Start Date 04/23/24 Plan of Care End Date 06/23/24 Therapeutic Interventions Therapeutic Interventions Balance Training,Canalithic Repositioning,Home Exercise Program,Joint Mobilizations, Lymphedema Management,Manual Therapy,Neuromuscular Re- education,Patient/Caregiver Education,Self-Care/Home Management,Soft Tissue Mobilization,Taping, Therapeutic Activities, Therapeutic Exercises Modalities Cold Pack/Ice Massage,Electric Stimulation,Hot Packs, Ultrasound Next Visit Focus/Plan Next Note Type Treatment Note Next Visit Plan Continue PT with emphasis on postural correction, shoulder ROM, manual as indicated. Progress exercises as needed.
--- NOTE | 2024-05-23 12:22 | PT-OP ANOTE ---
Pt cancelled due to snowy roads where she lives, feels unsafe to drive in today.
--- NOTE | 2024-05-27 11:28 | PT.OTN ---
Current Diagnoses Encounter for breast reconstruction following mastectomy (05/27/24) Physical Therapy Treatment Note PT-OP-A Visit Information Start: 04/17/24 07:50 Freq: Status: Active Protocol: Document 05/27/24 10:49 MB (Rec: 05/27/24 11:28 MB [id number]) Out-Patient Physical Therapy Visit Information Visit Information Visit Type Treatment Note Visit Note Next prog note by 06/17/24 Visit Start Time 10:49 Visit Stop Time 11:29 Visit Number 7 Number of RODENT CONTROL WORKER Visits 0 Evaluation Information Evaluation Date 04/23/24 Precautions Precautions Pt with wound vac over B nipples and PT to attempt to avoid stretching the surgical area PT-OP-B Current Condition Start: 04/17/24 07:50 Freq: Status: Active Protocol: Document 05/13/24 11:27 SAK (Rec: 05/13/24 12:25 SAK [id number]) Current Condition History of Current Condition Onset Date 04/01/24 Current Complaints Edema and minimal pain left clavicular area History of Current Condition Pt is s/p B mastectomy . Surgery went well and he is having a little B arm pit edema and edema over pect attachment area. Pt has a history of left clavicular area pain, increased thoracic kyphosis and tight anterior chest and shoulders. Pt is on testosterone, has history of hysterectomy, lap jackelyn, B eye procedures, dizziness felt to be postural in nature in the past. He has referral for ENT in future. He is starting migraine medication, once a month injection. Pt is right handed. Pt is having trouble with hygiene after toileting and reaching overhead d/t tightness and fear. Pt has numbness when holding phone in bed and he points to medial elbow. PT-OP-C Subjective Start: 04/17/24 07:50 Freq: Status: Active Protocol: Document 05/27/24 10:49 MB (Rec: 05/27/24 11:28 MB [id number]) OP-PT Subjective Patient Comments Patient Comments Pt reports sinus issues affecting vertigo/inner ear. His ENT appointment is far out in the future. Wound vac is okay and reports that granulation is occurring. He was feeling a little down next week. He has been doing his exercises. PT-OP-F Manual Assessment Start: 04/17/24 07:50 Freq: Status: Active Protocol: Document 04/23/24 09:47 MB (Rec: 04/23/24 16:29 MB [id number]) Manual Assessments Other Manual Assessments Other Manual Assessments Mild but more fascial type edema B axillary area PT-OP-J Posture/Palpation/Skin Start: 04/17/24 07:50 Freq: Status: Active Protocol: Document 04/23/24 10:47 MB (Rec: 04/23/24 11:20 MB [id number]) Posture Evaluation Comments Posture Comments Pectus excavatum, B nipples moved and with some dryness and blackened tissue for skin that may fall off, pt with skin tightness around nipples and no other surgical lines and binder does indent into skin, pt con't with forward head, rounded shoulders, elevated shoulders, right shoulder mildly higher than the left, mild Dowager's hump, mild righ thoracic convexity, right iliac crest mildly higher than the left, increased lumbar lordosis and soft tissue abdomen. PT-OP-K Range of Motion Start: 04/17/24 07:50 Freq: Status: Active Protocol: Document 04/23/24 10:47 MB (Rec: 04/23/24 11:20 MB [id number]) Shoulder Goniometric Range of Motion Shoulder Left Testing Position Standing Flexion 140 Extension 28 Abduction 140 Internal Rotation Behind Back (text) T12 Comments Abduction in scaption plane Pt supine for PROM ER and IR at 90/90: pt apprehensive at 90 deg abduction and PT just reaches 90 deg abduction and ER is neutral and IR to 15 deg Right Testing Position Standing Flexion 148 Extension 28 Abduction 152 Internal Rotation Behind Back (text) T10 Comments Abduction in scaption plane Pt supine for PROM ER and IR at 90/90: shoulder moves easily into 90 deg abduction and ER to 75 deg and IR to 45 deg PT-OP-M Strength Start: 04/17/24 07:50 Freq: Status: Active Protocol: Document 04/23/24 10:47 MB (Rec: 04/23/24 11:20 MB [id number]) Shoulder Strength Shoulder Manual Muscle Testing Bilateral Flexion 5 Normal Abduction (C5) 5 Normal Elbow/Forearm Strength Elbow and Forearm Manual Muscle Testing Bilateral Flexion (C6) 5 Normal Extension (C7) 5 Normal PT-OP-Q Treatments Start: 04/17/24 07:50 Freq: Status: Active Protocol: Document 05/27/24 10:49 MB (Rec: 05/27/24 11:28 MB [id number]) Manual Therapy Treatment Consent Patient gave verbal consent for manual Yes treatment Other Other Manual Treatments Pt in B side lying with head supported, pillow under ribs/ pelvis, pillow under top leg: STM and gentle range cervical spine and left shoulder and scapula, intrascapular muscles , gentle rib mobilization and pt cannot tolerate left arm overhead d/t decrease range and so gentle mobs with arm down today; pt supine: B first rib mobs, pect STM, SCM STM, STM anterior scalenes PT-OP-T Assessment and Plan Start: 04/17/24 07:50 Freq: Status: Active Protocol: Document 05/27/24 10:49 MB (Rec: 05/27/24 11:28 [id number]) Physical Therapy Assessment Rehab Potential Rehabilitation Potential Good Evaluation Complexity Number of Personal Factors/Comorbidities 1-2 Number of Body Systems Impaired 1-2 Clinical Presentation at Evaluation Evolving Impairments Impairments Activity Tolerance,Edema, Functional Activities, Functional Mobility,Integument ,Pain,Posture,ROM,Soft Tissue Mobility Goals 3 Impairment Pt not performing HEP including thoracic range and shoulder strength ex Graphics Specialist Goal (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 05/20/24: Pt is performing band resisted exercises in standing and over foam roller, baseball bat AAROM, open book LTG Duration 8 weeks 2 Impairment Limited shoulder ROM, left worse than right Halfway Goal (LTG) Pt will present with B shoulder active flexion and abduction to at least 160 deg and left shoulder passive 90/ 90 ER to 75 deg and IR to 40 deg to improve functional use of arm. 05/20/24: AROM in standing: flexion right 160 deg, flexion left 148 deg; abduction right 168 deg and left 148 deg; pt supine with left shoulder 90/ 90, PROM: ER to 25 deg and IR to 60 deg. LTG Duration 8 weeks 1 Impairment QuickDASH reflects over 54% impairment Halfway Goal (LTG) Pt will present with improved QuickDASH score to reflect no more than 15% impairment to improve quality of life and function. 05/20/24: QuickDASH score reflects 29.54% impairment, improvement since evaluation LTG Duration 8 weeks Assessment Summary Assessment Pt would benefit from left shoulder mobs but PT does not feel comfortable given wound vac. Physical Therapy Plan Frequency and Duration Frequency of Treatment 2x/Week Duration of treatment (weeks) 8 Plan of Care Start Date 04/23/24 Plan of Care End Date 06/23/24 Therapeutic Interventions Therapeutic Interventions Balance Training,Canalithic Repositioning,Home Exercise Program,Joint Mobilizations, Lymphedema Management,Manual Therapy,Neuromuscular Re- education,Patient/Caregiver Education,Self-Care/Home Management,Soft Tissue Mobilization,Taping, Therapeutic Activities, Therapeutic Exercises Modalities Cold Pack/Ice Massage,Electric Stimulation,Hot Packs, Ultrasound Next Visit Focus/Plan Next Note Type Treatment Note Next Visit Plan Continue per POC: emphasis on postural correction, shoulder ROM, manual as indicated. Progress exercises as needed.
--- NOTE | 2024-05-29 11:30 | PT.OTN ---
Current Diagnoses Encounter for breast reconstruction following mastectomy (05/29/24) Physical Therapy Treatment Note PT-OP-A Visit Information Start: 04/17/24 07:50 Freq: Status: Active Protocol: Document 05/29/24 10:49 SP (Rec: 05/29/24 11:38 SP [id number]) Out-Patient Physical Therapy Visit Information Visit Information Visit Type Treatment Note Visit Note Next prog note by 06/17/24 Visit Start Time 10:49 Visit Stop Time 11:30 Visit Number 8 Number of DRUM PRINTER Visits 1 Evaluation Information Evaluation Date 04/23/24 Precautions Precautions Pt with wound vac over B nipples and PT to attempt to avoid stretching the surgical area PT-OP-B Current Condition Start: 04/17/24 07:50 Freq: Status: Active Protocol: Document 05/13/24 11:27 SAK (Rec: 05/13/24 12:25 SAK [id number]) Current Condition History of Current Condition Onset Date 04/01/24 Current Complaints Edema and minimal pain left clavicular area History of Current Condition Pt is s/p B mastectomy . Surgery went well and he is having a little B arm pit edema and edema over pect attachment area. Pt has a history of left clavicular area pain, increased thoracic kyphosis and tight anterior chest and shoulders. Pt is on testosterone, has history of hysterectomy, lap jackelyn, B eye procedures, dizziness felt to be postural in nature in the past. He has referral for ENT in future. He is starting migraine medication, once a month injection. Pt is right handed. Pt is having trouble with hygiene after toileting and reaching overhead d/t tightness and fear. Pt has numbness when holding phone in bed and he points to medial elbow. PT-OP-C Subjective Start: 04/17/24 07:50 Freq: Status: Active Protocol: Document 05/29/24 10:49 SP (Rec: 05/29/24 11:38 SP [id number]) OP-PT Subjective Patient Comments Patient Comments Pt reports was little sore over L shld deltoid. PT-OP-F Manual Assessment Start: 04/17/24 07:50 Freq: Status: Active Protocol: Document 04/23/24 09:47 MB (Rec: 04/23/24 16:29 MB [id number]) Manual Assessments Other Manual Assessments Other Manual Assessments Mild but more fascial type edema B axillary area PT-OP-J Posture/Palpation/Skin Start: 04/17/24 07:50 Freq: Status: Active Protocol: Document 04/23/24 10:47 MB (Rec: 04/23/24 11:20 MB [id number]) Posture Evaluation Comments Posture Comments Pectus excavatum, B nipples moved and with some dryness and blackened tissue for skin that may fall off, pt with skin tightness around nipples and no other surgical lines and binder does indent into skin, pt con't with forward head, rounded shoulders, elevated shoulders, right shoulder mildly higher than the left, mild Dowager's hump, mild righ thoracic convexity, right iliac crest mildly higher than the left, increased lumbar lordosis and soft tissue abdomen. PT-OP-K Range of Motion Start: 04/17/24 07:50 Freq: Status: Active Protocol: Document 04/23/24 10:47 MB (Rec: 04/23/24 11:20 MB [id number]) Shoulder Goniometric Range of Motion Shoulder Left Testing Position Standing Flexion 140 Extension 28 Abduction 140 Internal Rotation Behind Back (text) T12 Comments Abduction in scaption plane Pt supine for PROM ER and IR at 90/90: pt apprehensive at 90 deg abduction and PT just reaches 90 deg abduction and ER is neutral and IR to 15 deg Right Testing Position Standing Flexion 148 Extension 28 Abduction 152 Internal Rotation Behind Back (text) T10 Comments Abduction in scaption plane Pt supine for PROM ER and IR at 90/90: shoulder moves easily into 90 deg abduction and ER to 75 deg and IR to 45 deg PT-OP-M Strength Start: 04/17/24 07:50 Freq: Status: Active Protocol: Document 04/23/24 10:47 MB (Rec: 04/23/24 11:20 MB [id number]) Shoulder Strength Shoulder Manual Muscle Testing Bilateral Flexion 5 Normal Abduction (C5) 5 Normal Elbow/Forearm Strength Elbow and Forearm Manual Muscle Testing Bilateral Flexion (C6) 5 Normal Extension (C7) 5 Normal PT-OP-Q Treatments Start: 04/17/24 07:50 Freq: Status: Active Protocol: Document 05/29/24 10:49 SP (Rec: 05/29/24 11:38 SP [id number]) Therapeutic Exercises Supine Exercises Foam roller Supine Exercise Name HEP: gentle pec stretch, FF, HABD, 1/2 X Side bilateral Resistance AROM Equipment Used foam roller under/along spine Reps/Minutes 8 reps each dejuan Comments pelvic tilt, safe no over pressure anterior chest slow range allow scap dep Sidelying Exercises open book Sidelying Exercise Name reviewed Side bilateral Reps/Minutes 5x dejuan Comments gentle slow range, no skin restrict tension Standing Exercises Ys wall slide, lift off Standing Exercise Name reviewed past HEP Side bilateral Resistance AROM Equipment Used facing wall Reps/Minutes 10 reps total, no tension last 2 reps Comments cued scap depression UR slide OH FF, lift off wall, no pain L post AC Jt mo Band exercises for strengthening Standing Exercise Name HEP Side bilateral Resistance Council green band Equipment Used See above Reps/Minutes Several reps for training Comments Scapular ret arms straight, shoulder ER, scap ret and triceps, reverse fly wall posture Standing Exercise Name reviewed Resistance AROM then off wall TB #2 humeral ER Reps/Minutes 10Sh x5 Comments pelvic tilt segmental up, chin tuck, Humeral ER palms fwd Manual Therapy Treatment Consent Patient gave verbal consent for manual Yes treatment Soft Tissue Mobilization UT, periscap Body Location L UT, LS, Rhomboid, distal pec , lat, deltoid Mobilization Type Rolling,Strumming,Sustained Pressure Intensity/Depth mod Comments supine, R SL, standing Joint Mobilizations L GH Direction inf Comments inferior glide L AC Jt Comments PA then gapping /c small range AB, reports no pain into FF and lift off 2 reps after. L scapulothoracic Comments adduction, depression PROM then with ABD tactile cues PT-OP-T Assessment and Plan Start: 04/17/24 07:50 Freq: Status: Active Protocol: Document 05/29/24 10:49 SP (Rec: 05/29/24 11:38 SP [id number]) Physical Therapy Assessment Goals 3 Impairment Pt not performing HEP including thoracic range and shoulder strength ex Usp Goal (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 05/20/24: Pt is performing band resisted exercises in standing and over foam roller, baseball bat AAROM, open book LTG Duration 8 weeks 2 Impairment Limited shoulder ROM, left worse than right Usp Goal (LTG) Pt will present with B shoulder active flexion and abduction to at least 160 deg and left shoulder passive 90/ 90 ER to 75 deg and IR to 40 deg to improve functional use of arm. 05/20/24: AROM in standing: flexion right 160 deg, flexion left 148 deg; abduction right 168 deg and left 148 deg; pt supine with left shoulder 90/ 90, PROM: ER to 25 deg and IR to 60 deg. LTG Duration 8 weeks 1 Impairment QuickDASH reflects over 54% impairment Usp Goal (LTG) Pt will present with improved QuickDASH score to reflect no more than 15% impairment to improve quality of life and function. 05/20/24: QuickDASH score reflects 29.54% impairment, improvement since evaluation LTG Duration 8 weeks Assessment Summary Assessment Pt reported increased L shld ROM post manual and scapular ROM over foam roller into FF. Review wall posture with cues emphasis on elongated trunk with head up humeral ER arms at side, reports feels alot better. Trialed TB humeral ER standing, band behind low back . Good reinforcement posture. Physical Therapy Plan Frequency and Duration Frequency of Treatment 2x/Week Duration of treatment (weeks) 8 Plan of Care Start Date 04/23/24 Plan of Care End Date 06/23/24 Therapeutic Interventions Therapeutic Interventions Balance Training,Canalithic Repositioning,Home Exercise Program,Joint Mobilizations, Lymphedema Management,Manual Therapy,Neuromuscular Re- education,Patient/Caregiver Education,Self-Care/Home Management,Soft Tissue Mobilization,Taping, Therapeutic Activities, Therapeutic Exercises Modalities Cold Pack/Ice Massage,Electric Stimulation,Hot Packs, Ultrasound Next Visit Focus/Plan Next Note Type Treatment Note Next Visit Plan REview for HEP next tx humeral ER. Continue per POC: emphasis on postural correction, shoulder ROM, manual as indicated. Progress exercises as needed.
--- NOTE | 2024-06-03 11:31 | PT.OTN ---
Current Diagnoses Encounter for breast reconstruction following mastectomy (06/03/24) Physical Therapy Treatment Note PT-OP-A Visit Information Start: 04/17/24 07:50 Freq: Status: Active Protocol: Document 06/03/24 10:48 MB (Rec: 06/03/24 11:30 MB [id number]) Out-Patient Physical Therapy Visit Information Visit Information Visit Type Treatment Note Visit Note Next prog note by 06/17/24 Visit Start Time 10:49 Visit Stop Time 11:29 Visit Number 9 Number of CRITICAL POWER TECHNICIAN Visits 0 Evaluation Information Evaluation Date 04/23/24 Precautions Precautions Pt with wound vac over B nipples and PT to attempt to avoid stretching the surgical area PT-OP-B Current Condition Start: 04/17/24 07:50 Freq: Status: Active Protocol: Document 05/13/24 11:27 SAK (Rec: 05/13/24 12:25 SAK [id number]) Current Condition History of Current Condition Onset Date 04/01/24 Current Complaints Edema and minimal pain left clavicular area History of Current Condition Pt is s/p B mastectomy . Surgery went well and he is having a little B arm pit edema and edema over pect attachment area. Pt has a history of left clavicular area pain, increased thoracic kyphosis and tight anterior chest and shoulders. Pt is on testosterone, has history of hysterectomy, lap jackelyn, B eye procedures, dizziness felt to be postural in nature in the past. He has referral for ENT in future. He is starting migraine medication, once a month injection. Pt is right handed. Pt is having trouble with hygiene after toileting and reaching overhead d/t tightness and fear. Pt has numbness when holding phone in bed and he points to medial elbow. PT-OP-C Subjective Start: 04/17/24 07:50 Freq: Status: Active Protocol: Document 06/03/24 10:48 MB (Rec: 06/03/24 11:30 MB [id number]) OP-PT Subjective Patient Comments Patient Comments Pt with some stress about the situation. PT-OP-F Manual Assessment Start: 04/17/24 07:50 Freq: Status: Active Protocol: Document 04/23/24 09:47 MB (Rec: 04/23/24 16:29 MB [id number]) Manual Assessments Other Manual Assessments Other Manual Assessments Mild but more fascial type edema B axillary area PT-OP-J Posture/Palpation/Skin Start: 04/17/24 07:50 Freq: Status: Active Protocol: Document 04/23/24 10:47 MB (Rec: 04/23/24 11:20 MB [id number]) Posture Evaluation Comments Posture Comments Pectus excavatum, B nipples moved and with some dryness and blackened tissue for skin that may fall off, pt with skin tightness around nipples and no other surgical lines and binder does indent into skin, pt con't with forward head, rounded shoulders, elevated shoulders, right shoulder mildly higher than the left, mild Dowager's hump, mild righ thoracic convexity, right iliac crest mildly higher than the left, increased lumbar lordosis and soft tissue abdomen. PT-OP-K Range of Motion Start: 04/17/24 07:50 Freq: Status: Active Protocol: Document 04/23/24 10:47 MB (Rec: 04/23/24 11:20 MB [id number]) Shoulder Goniometric Range of Motion Shoulder Left Testing Position Standing Flexion 140 Extension 28 Abduction 140 Internal Rotation Behind Back (text) T12 Comments Abduction in scaption plane Pt supine for PROM ER and IR at 90/90: pt apprehensive at 90 deg abduction and PT just reaches 90 deg abduction and ER is neutral and IR to 15 deg Right Testing Position Standing Flexion 148 Extension 28 Abduction 152 Internal Rotation Behind Back (text) T10 Comments Abduction in scaption plane Pt supine for PROM ER and IR at 90/90: shoulder moves easily into 90 deg abduction and ER to 75 deg and IR to 45 deg PT-OP-M Strength Start: 04/17/24 07:50 Freq: Status: Active Protocol: Document 04/23/24 10:47 MB (Rec: 04/23/24 11:20 MB [id number]) Shoulder Strength Shoulder Manual Muscle Testing Bilateral Flexion 5 Normal Abduction (C5) 5 Normal Elbow/Forearm Strength Elbow and Forearm Manual Muscle Testing Bilateral Flexion (C6) 5 Normal Extension (C7) 5 Normal PT-OP-Q Treatments Start: 04/17/24 07:50 Freq: Status: Active Protocol: Document 06/03/24 10:48 MB (Rec: 06/03/24 11:30 MB [id number]) Manual Therapy Treatment Consent Patient gave verbal consent for manual Yes treatment Other Other Manual Treatments Pt supine with head and legs supported: STM B pects, upper traps and infraspinatus, grade II-III cervical mobs PA and upglides, positional release ribs Self-Care/Home Management Treatment Education Patient Education Body Mechanics,Home Exercise Program,Pain Management, Posture,Safety Caregiver Education Reviewed exercises today and pt demonstrates in hook lying today and discussed manual PT PT-OP-T Assessment and Plan Start: 04/17/24 07:50 Freq: Status: Active Protocol: Document 06/03/24 10:48 MB (Rec: 06/03/24 11:30 MB [id number]) Physical Therapy Assessment Rehab Potential Rehabilitation Potential Good Evaluation Complexity Number of Personal Factors/Comorbidities 1-2 Number of Body Systems Impaired 1-2 Clinical Presentation at Evaluation Evolving Impairments Impairments Activity Tolerance,Edema, Functional Activities, Functional Mobility,Integument ,Pain,Posture,ROM,Soft Tissue Mobility Goals 3 Impairment Pt not performing HEP including thoracic range and shoulder strength ex Apple Sorter Goal (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 05/20/24: Pt is performing band resisted exercises in standing and over foam roller, baseball bat AAROM, open book LTG Duration 8 weeks 2 Impairment Limited shoulder ROM, left worse than right Mcfp Goal (LTG) Pt will present with B shoulder active flexion and abduction to at least 160 deg and left shoulder passive 90/ 90 ER to 75 deg and IR to 40 deg to improve functional use of arm. 05/20/24: AROM in standing: flexion right 160 deg, flexion left 148 deg; abduction right 168 deg and left 148 deg; pt supine with left shoulder 90/ 90, PROM: ER to 25 deg and IR to 60 deg. LTG Duration 8 weeks 1 Impairment QuickDASH reflects over 54% impairment Apple Sorter Goal (LTG) Pt will present with improved QuickDASH score to reflect no more than 15% impairment to improve quality of life and function. 05/20/24: QuickDASH score reflects 29.54% impairment, improvement since evaluation LTG Duration 8 weeks Assessment Summary Assessment Ongoing forward posture and pt demonstrates exercises added and states he is compliant. Con't per POC. Physical Therapy Plan Frequency and Duration Frequency of Treatment 2x/Week Duration of treatment (weeks) 8 Plan of Care Start Date 04/23/24 Plan of Care End Date 06/23/24 Therapeutic Interventions Therapeutic Interventions Balance Training,Canalithic Repositioning,Home Exercise Program,Joint Mobilizations, Lymphedema Management,Manual Therapy,Neuromuscular Re- education,Patient/Caregiver Education,Self-Care/Home Management,Soft Tissue Mobilization,Taping, Therapeutic Activities, Therapeutic Exercises Modalities Cold Pack/Ice Massage,Electric Stimulation,Hot Packs, Ultrasound Next Visit Focus/Plan Next Note Type Treatment Note Next Visit Plan Continue per POC: emphasis on postural correction, shoulder ROM, manual as indicated. Progress exercises as needed.
--- NOTE | 2024-06-05 16:08 | PT.OTN ---
Current Diagnoses Encounter for breast reconstruction following mastectomy (06/05/24) Physical Therapy Treatment Note PT-OP-A Visit Information Start: 04/17/24 07:50 Freq: Status: Active Protocol: Document 06/05/24 08:15 [facility] (Rec: 06/05/24 09:07 [facility] [id number]) Out-Patient Physical Therapy Visit Information Visit Information Visit Type Treatment Note Visit Note Next prog note by 06/17/24 Visit Start Time 10:49 Visit Stop Time 11:29 Visit Number 10 Number of SENIOR TREASURY CONSULTANT Visits 0 Evaluation Information Evaluation Date 04/23/24 Precautions Precautions Pt with wound vac over B nipples and PT to attempt to avoid stretching the surgical area PT-OP-B Current Condition Start: 04/17/24 07:50 Freq: Status: Active Protocol: Document 05/13/24 11:27 [facility] (Rec: 05/13/24 12:25 [facility] [id number]) Current Condition History of Current Condition Onset Date 04/01/24 Current Complaints Edema and minimal pain left clavicular area History of Current Condition Pt is s/p B mastectomy . Surgery went well and he is having a little B arm pit edema and edema over pect attachment area. Pt has a history of left clavicular area pain, increased thoracic kyphosis and tight anterior chest and shoulders. Pt is on testosterone, has history of hysterectomy, lap jackelyn, B eye procedures, dizziness felt to be postural in nature in the past. He has referral for ENT in future. He is starting migraine medication, once a month injection. Pt is right handed. Pt is having trouble with hygiene after toileting and reaching overhead d/t tightness and fear. Pt has numbness when holding phone in bed and he points to medial elbow. PT-OP-C Subjective Start: 04/17/24 07:50 Freq: Status: Active Protocol: Document 06/05/24 08:15 [facility] (Rec: 06/05/24 09:07 [facility] [id number]) OP-PT Subjective Patient Comments Patient Comments Patient upset, cat last night. Doesn't feel up to doing much today. States gradulation tissue forming in breasts but some tunnelling, going to still be using wound vac until about the end of june. PT-OP-F Manual Assessment Start: 04/17/24 07:50 Freq: Status: Active Protocol: Document 04/23/24 09:47 MB (Rec: 04/23/24 16:29 MB [id number]) Manual Assessments Other Manual Assessments Other Manual Assessments Mild but more fascial type edema B axillary area PT-OP-J Posture/Palpation/Skin Start: 04/17/24 07:50 Freq: Status: Active Protocol: Document 04/23/24 10:47 MB (Rec: 04/23/24 11:20 MB [id number]) Posture Evaluation Comments Posture Comments Pectus excavatum, B nipples moved and with some dryness and blackened tissue for skin that may fall off, pt with skin tightness around nipples and no other surgical lines and binder does indent into skin, pt con't with forward head, rounded shoulders, elevated shoulders, right shoulder mildly higher than the left, mild Dowager's hump, mild righ thoracic convexity, right iliac crest mildly higher than the left, increased lumbar lordosis and soft tissue abdomen. PT-OP-K Range of Motion Start: 04/17/24 07:50 Freq: Status: Active Protocol: Document 04/23/24 10:47 MB (Rec: 04/23/24 11:20 MB [id number]) Shoulder Goniometric Range of Motion Shoulder Left Testing Position Standing Flexion 140 Extension 28 Abduction 140 Internal Rotation Behind Back (text) T12 Comments Abduction in scaption plane Pt supine for PROM ER and IR at 90/90: pt apprehensive at 90 deg abduction and PT just reaches 90 deg abduction and ER is neutral and IR to 15 deg Right Testing Position Standing Flexion 148 Extension 28 Abduction 152 Internal Rotation Behind Back (text) T10 Comments Abduction in scaption plane Pt supine for PROM ER and IR at 90/90: shoulder moves easily into 90 deg abduction and ER to 75 deg and IR to 45 deg PT-OP-M Strength Start: 04/17/24 07:50 Freq: Status: Active Protocol: Document 04/23/24 10:47 MB (Rec: 04/23/24 11:20 MB [id number]) Shoulder Strength Shoulder Manual Muscle Testing Bilateral Flexion 5 Normal Abduction (C5) 5 Normal Elbow/Forearm Strength Elbow and Forearm Manual Muscle Testing Bilateral Flexion (C6) 5 Normal Extension (C7) 5 Normal PT-OP-Q Treatments Start: 04/17/24 07:50 Freq: Status: Active Protocol: Document 06/05/24 08:15 [facility] (Rec: 06/05/24 09:07 [facility] [id number]) Therapeutic Exercises Supine Exercises serratus punch Reps/Minutes 10x Foam roller Supine Exercise Name HEP: gentle pec stretch, FF, HABD, 1/2 X (some pain left) Side bilateral Resistance AROM Equipment Used foam roller under/along spine Reps/Minutes 8 reps each dejuan Comments pelvic tilt, safe no over pressure anterior chest slow range allow scap dep Sidelying Exercises open book Sidelying Exercise Name verbal review Standing Exercises Ys wall slide, lift off Standing Exercise Name reviewed past HEP Side bilateral Resistance AROM Equipment Used facing wall Reps/Minutes 10 x Comments denied pain Band exercises for strengthening Standing Exercise Name verbal review technique wall posture Standing Exercise Name reviewed Resistance AROM Reps/Minutes 10Sh x5 Comments pelvic tilt segmental up, chin tuck, Humeral ER palms fwd Manual Therapy Treatment Soft Tissue Mobilization UT, periscap Body Location L UT, LS, Rhomboid, distal pec , lat, deltoid Mobilization Type Rolling,Strumming,Sustained Pressure Intensity/Depth mod Comments supine, R SL, standing Joint Mobilizations L scapulothoracic Comments adduction, depression PROM then with ABD tactile cues Self-Care/Home Management Treatment Education Patient Education Body Mechanics,Home Exercise Program,Pain Management, Posture,Safety PT-OP-T Assessment and Plan Start: 04/17/24 07:50 Freq: Status: Active Protocol: Document 06/05/24 08:15 [facility] (Rec: 06/05/24 09:07 [facility] [id number]) Physical Therapy Assessment Impairments Impairments Activity Tolerance,Edema, Functional Activities, Functional Mobility,Integument ,Pain,Posture,ROM,Soft Tissue Mobility Goals 3 Impairment Pt not performing HEP including thoracic range and shoulder strength ex [place]way Goal (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 05/20/24: Pt is performing band resisted exercises in standing and over foam roller, baseball bat AAROM, open book LTG Duration 8 weeks 2 Impairment Limited shoulder ROM, left worse than right Upholsterer Outside Goal (LTG) Pt will present with B shoulder active flexion and abduction to at least 160 deg and left shoulder passive 90/ 90 ER to 75 deg and IR to 40 deg to improve functional use of arm. 05/20/24: AROM in standing: flexion right 160 deg, flexion left 148 deg; abduction right 168 deg and left 148 deg; pt supine with left shoulder 90/ 90, PROM: ER to 25 deg and IR to 60 deg. LTG Duration 8 weeks 1 Impairment QuickDASH reflects over 54% impairment [place] Goal (LTG) Pt will present with improved QuickDASH score to reflect no more than 15% impairment to improve quality of life and function. 05/20/24: QuickDASH score reflects 29.54% impairment, improvement since evaluation LTG Duration 8 weeks Assessment Summary Assessment Improving shoulder ROM, right shoulder elevation 145 with long lever, left long lever 85, short lever to 150; impingment symptoms L. Improving postural awareness. Today hard day due to continued wound vac use, of cat.Trial ice left shld end of treatment. Physical Therapy Plan Frequency and Duration Frequency of Treatment 2x/Week Duration of treatment (weeks) 8 Plan of Care Start Date 04/23/24 Plan of Care End Date 06/23/24 Therapeutic Interventions Therapeutic Interventions Balance Training,Canalithic Repositioning,Home Exercise Program,Joint Mobilizations, Lymphedema Management,Manual Therapy,Neuromuscular Re- education,Patient/Caregiver Education,Self-Care/Home Management,Soft Tissue Mobilization,Taping, Therapeutic Activities, Therapeutic Exercises Modalities Cold Pack/Ice Massage,Electric Stimulation,Hot Packs, Ultrasound Next Visit Focus/Plan Next Note Type Treatment Note Next Visit Plan Continue per POC: emphasis on postural correction, shoulder ROM, manual as indicated. Progress exercises as needed.
--- NOTE | 2024-06-05 16:12 | PT.OPPN ---
Current Diagnoses Encounter for breast reconstruction following mastectomy (06/05/24) Physical Therapy Progress Note PT-OP-A Visit Information Start: 04/17/24 07:50 Freq: Status: Active Protocol: Document 06/05/24 08:[address] [facility] (Rec: 06/05/24 09:[address] [facility] [id number]) Out-Patient Physical Therapy Visit Information Visit Information Visit Type Treatment Note Visit Note Next prog note by 06/17/24 Visit Start Time 10:49 Visit Stop Time 11:29 Visit Number 10 Number of TRADE UNION SECRETARY Visits 0 Evaluation Information Evaluation Date 04/23/24 Precautions Precautions Pt with wound vac over B nipples and PT to attempt to avoid stretching the surgical area PT-OP-B Current Condition Start: 04/17/24 07:50 Freq: Status: Active Protocol: Document 05/13/24 11:27 [facility] (Rec: 05/13/24 12:[address] [facility] [id number]) Current Condition History of Current Condition Onset Date 04/01/24 Current Complaints Edema and minimal pain left clavicular area History of Current Condition Pt is s/p B mastectomy . Surgery went well and he is having a little B arm pit edema and edema over pect attachment area. Pt has a history of left clavicular area pain, increased thoracic kyphosis and tight anterior chest and shoulders. Pt is on testosterone, has history of hysterectomy, lap jackelyn, B eye procedures, dizziness felt to be postural in nature in the past. He has referral for ENT in future. He is starting migraine medication, once a month injection. Pt is right handed. Pt is having trouble with hygiene after toileting and reaching overhead d/t tightness and fear. Pt has numbness when holding phone in bed and he points to medial elbow. PT-OP-C Subjective Start: 04/17/24 07:50 Freq: Status: Active Protocol: Document 06/05/24 08:[address] [facility] (Rec: 06/05/24 09:[address] [facility] [id number]) OP-PT Subjective Patient Comments Patient Comments Patient upset, cat last night. Doesn't feel up to doing much today. States gradulation tissue forming in breasts but some tunnelling, going to still be using wound vac until about the end of june. PT-OP-F Manual Assessment Start: 04/17/24 07:50 Freq: Status: Active Protocol: Document 04/23/24 09:47 MB (Rec: 04/23/24 16:29 MB [id number]) Manual Assessments Other Manual Assessments Other Manual Assessments Mild but more fascial type edema B axillary area PT-OP-J Posture/Palpation/Skin Start: 04/17/24 07:50 Freq: Status: Active Protocol: Document 04/23/24 10:47 MB (Rec: 04/23/24 11:20 MB [id number]) Posture Evaluation Comments Posture Comments Pectus excavatum, B nipples moved and with some dryness and blackened tissue for skin that may fall off, pt with skin tightness around nipples and no other surgical lines and binder does indent into skin, pt con't with forward head, rounded shoulders, elevated shoulders, right shoulder mildly higher than the left, mild Dowager's hump, mild righ thoracic convexity, right iliac crest mildly higher than the left, increased lumbar lordosis and soft tissue abdomen. PT-OP-K Range of Motion Start: 04/17/24 07:50 Freq: Status: Active Protocol: Document 04/23/24 10:47 MB (Rec: 04/23/24 11:20 MB [id number]) Shoulder Goniometric Range of Motion Shoulder Measured in Degrees Left Testing Position Standing Flexion 140 Extension 28 Abduction 140 Internal Rotation Behind Back (text) T12 Comments Abduction in scaption plane Pt supine for PROM ER and IR at 90/90: pt apprehensive at 90 deg abduction and PT just reaches 90 deg abduction and ER is neutral and IR to 15 deg Right Testing Position Standing Flexion 148 Extension 28 Abduction 152 Internal Rotation Behind Back (text) T10 Comments Abduction in scaption plane Pt supine for PROM ER and IR at 90/90: shoulder moves easily into 90 deg abduction and ER to 75 deg and IR to 45 deg PT-OP-M Strength Start: 04/17/24 07:50 Freq: Status: Active Protocol: Document 04/23/24 10:47 MB (Rec: 04/23/24 11:20 MB [id number]) Shoulder Strength Shoulder Manual Muscle Testing Bilateral Flexion 5 Normal Abduction (C5) 5 Normal Elbow/Forearm Strength Elbow and Forearm Manual Muscle Testing Bilateral Flexion (C6) 5 Normal Extension (C7) 5 Normal PT-OP-T Assessment and Plan Start: 04/17/24 07:50 Freq: Status: Active Protocol: Document 06/05/24 08:[address] [facility] (Rec: 06/05/24 09:[address] [facility] [id number]) Physical Therapy Assessment Impairments Impairments Activity Tolerance,Edema, Functional Activities, Functional Mobility,Integument ,Pain,Posture,ROM,Soft Tissue Mobility Goals 3 Impairment Pt not performing HEP including thoracic range and shoulder strength ex Oyster Culler Goal (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 05/20/24: Pt is performing band resisted exercises in standing and over foam roller, baseball bat AAROM, open book 06/03/24: patient compliant to HEP, needs cues for postural alignment, UE alignment for correct performance. LTG Duration 8 weeks 2 Impairment Limited shoulder ROM, left worse than right Intermediate Goal (LTG) Pt will present with B shoulder active flexion and abduction to at least 160 deg and left shoulder passive 90/ 90 ER to 75 deg and IR to 40 deg to improve functional use of arm. 05/20/24: AROM in standing: flexion right 160 deg, flexion left 148 deg; abduction right 168 deg and left 148 deg; pt supine with left shoulder 90/ 90, PROM: ER to 25 deg and IR to 60 deg. 06/03/24: AROM standing flex R 145 deg, left 150 LTG Duration 8 weeks 1 Impairment QuickDASH reflects over 54% impairment Oyster Culler Goal (LTG) Pt will present with improved QuickDASH score to reflect no more than 15% impairment to improve quality of life and function. 05/20/24: QuickDASH score reflects 29.54% impairment, improvement since evaluation 06/03/24: QuickDash score reflect impairment, good progress LTG Duration 8 weeks Assessment Summary Assessment Improving shoulder ROM, right shoulder elevation 145 with long lever, left long lever 85, short lever to 150; impingment symptoms L. Improving postural awareness. Today hard day due to continued wound vac use, of cat.Trial ice left shld end of treatment. Physical Therapy Plan Frequency and Duration Frequency of Treatment 2x/Week Duration of treatment (weeks) 8 Plan of Care Start Date 04/23/24 Plan of Care End Date 06/23/24 Therapeutic Interventions Therapeutic Interventions Balance Training,Canalithic Repositioning,Home Exercise Program,Joint Mobilizations, Lymphedema Management,Manual Therapy,Neuromuscular Re- education,Patient/Caregiver Education,Self-Care/Home Management,Soft Tissue Mobilization,Taping, Therapeutic Activities, Therapeutic Exercises Modalities Cold Pack/Ice Massage,Electric Stimulation,Hot Packs, Ultrasound Next Visit Focus/Plan Next Note Type Treatment Note Next Visit Plan Continue per POC: emphasis on postural correction, shoulder ROM, manual as indicated. Progress exercises as needed.
--- NOTE | 2024-06-10 13:09 | PT-OP ANOTE ---
Pt calls PT and PT returns call. Pt had left shoulder x-ray last date and image is available but not report. Pt has had significantly less left shoulder movement post-op B mastectomy and binding and now wound vac, though his range did increase on the last progress note. This PT favors frozen shoulder clinical presentation and pt has significantly tight myofascial in pect major, minor and coracobrachialis. Spoke with Dr. Hutton who clears trigger point treatment of those and other muscles as pt can tolerate to improve myofasical mobility, pain and shoulder ROM.
--- NOTE | 2024-06-11 10:53 | PT-OP ANOTE ---
Left shoulder x-ray 06/09/24: IMPRESSION: No acute bony abnormality.
--- NOTE | 2024-06-11 12:17 | PT.OTN ---
Current Diagnoses Encounter for breast reconstruction following mastectomy (06/11/24) Physical Therapy Treatment Note PT-OP-A Visit Information Start: 04/17/24 07:50 Freq: Status: Active Protocol: Document 06/11/24 11:31 MB (Rec: 06/11/24 12:16 MB [id number]) Out-Patient Physical Therapy Visit Information Visit Information Visit Type Treatment Note Visit Note Next prog note by 06/17/24 Visit Start Time 11:31 Visit Stop Time 12:11 Visit Number 12 Number of PHOTOENGRAVING PROOFER APPRENTICE Visits 0 Evaluation Information Evaluation Date 04/23/24 Precautions Precautions Pt with wound vac over B nipples and PT to attempt to avoid stretching the surgical area PT-OP-B Current Condition Start: 04/17/24 07:50 Freq: Status: Active Protocol: Document 05/13/24 11:27 [facility] (Rec: 05/13/24 12:25 [facility] [id number]) Current Condition History of Current Condition Onset Date 04/01/24 Current Complaints Edema and minimal pain left clavicular area History of Current Condition Pt is s/p B mastectomy . Surgery went well and he is having a little B arm pit edema and edema over pect attachment area. Pt has a history of left clavicular area pain, increased thoracic kyphosis and tight anterior chest and shoulders. Pt is on testosterone, has history of hysterectomy, lap jackelyn, B eye procedures, dizziness felt to be postural in nature in the past. He has referral for ENT in future. He is starting migraine medication, once a month injection. Pt is right handed. Pt is having trouble with hygiene after toileting and reaching overhead d/t tightness and fear. Pt has numbness when holding phone in bed and he points to medial elbow. PT-OP-C Subjective Start: 04/17/24 07:50 Freq: Status: Active Protocol: Document 06/11/24 11:31 MB (Rec: 06/11/24 12:16 MB [id number]) OP-PT Subjective Patient Comments Patient Comments Pt anticipates return to work on 07/02/24. No new reports. PT-OP-F Manual Assessment Start: 04/17/24 07:50 Freq: Status: Active Protocol: Document 04/23/24 09:47 MB (Rec: 04/23/24 16:29 MB [id number]) Manual Assessments Other Manual Assessments Other Manual Assessments Mild but more fascial type edema B axillary area PT-OP-J Posture/Palpation/Skin Start: 04/17/24 07:50 Freq: Status: Active Protocol: Document 04/23/24 10:47 MB (Rec: 04/23/24 11:20 MB [id number]) Posture Evaluation Comments Posture Comments Pectus excavatum, B nipples moved and with some dryness and blackened tissue for skin that may fall off, pt with skin tightness around nipples and no other surgical lines and binder does indent into skin, pt con't with forward head, rounded shoulders, elevated shoulders, right shoulder mildly higher than the left, mild Dowager's hump, mild righ thoracic convexity, right iliac crest mildly higher than the left, increased lumbar lordosis and soft tissue abdomen. PT-OP-K Range of Motion Start: 04/17/24 07:50 Freq: Status: Active Protocol: Document 04/23/24 10:47 MB (Rec: 04/23/24 11:20 MB [id number]) Shoulder Goniometric Range of Motion Shoulder Left Testing Position Standing Flexion 140 Extension 28 Abduction 140 Internal Rotation Behind Back (text) T12 Comments Abduction in scaption plane Pt supine for PROM ER and IR at 90/90: pt apprehensive at 90 deg abduction and PT just reaches 90 deg abduction and ER is neutral and IR to 15 deg Right Testing Position Standing Flexion 148 Extension 28 Abduction 152 Internal Rotation Behind Back (text) T10 Comments Abduction in scaption plane Pt supine for PROM ER and IR at 90/90: shoulder moves easily into 90 deg abduction and ER to 75 deg and IR to 45 deg PT-OP-M Strength Start: 04/17/24 07:50 Freq: Status: Active Protocol: Document 04/23/24 10:47 MB (Rec: 04/23/24 11:20 MB [id number]) Shoulder Strength Shoulder Manual Muscle Testing Bilateral Flexion 5 Normal Abduction (C5) 5 Normal Elbow/Forearm Strength Elbow and Forearm Manual Muscle Testing Bilateral Flexion (C6) 5 Normal Extension (C7) 5 Normal PT-OP-Q Treatments Start: 04/17/24 07:50 Freq: Status: Active Protocol: Document 06/11/24 11:31 MB (Rec: 06/11/24 12:16 MB [id number]) Manual Therapy Treatment Consent Patient gave verbal consent for manual Yes treatment Other Other Manual Treatments Pt supine with head supported: STM and MWM left pect major with AAROM left shoulder in ER and IR and CFM, TrP treatment left pect major, prone: rib recoil muscle energy technique , TrP left infra and upper traps, left scapular mobs and thoracic PA mobs Self-Care/Home Management Treatment Education Patient Education Home Exercise Program,Pain Management,Posture Other Education Ed on benefits of myofascial release with TrP treatment, frozen peas on left shoulder, con't pect stretch in doorway with walking fingers PT-OP-T Assessment and Plan Start: 04/17/24 07:50 Freq: Status: Active Protocol: Document 06/11/24 11:31 MB (Rec: 06/11/24 12:16 MB [id number]) Physical Therapy Assessment Impairments Impairments Activity Tolerance,Edema, Functional Activities, Functional Mobility,Integument ,Pain,Posture,ROM,Soft Tissue Mobility Goals 3 Impairment Pt not performing HEP including thoracic range and shoulder strength ex Mechanical Project Manager Goal (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 05/20/24: Pt is performing band resisted exercises in standing and over foam roller, baseball bat AAROM, open book 06/03/24: patient compliant to HEP, needs cues for postural alignment, UE alignment for correct performance. LTG Duration 8 weeks 2 Impairment Limited shoulder ROM, left worse than right [facility] Goal (LTG) Pt will present with B shoulder active flexion and abduction to at least 160 deg and left shoulder passive 90/ 90 ER to 75 deg and IR to 40 deg to improve functional use of arm. 05/20/24: AROM in standing: flexion right 160 deg, flexion left 148 deg; abduction right 168 deg and left 148 deg; pt supine with left shoulder 90/ 90, PROM: ER to 25 deg and IR to 60 deg. 06/03/24: AROM standing flex R 145 deg, left 150 LTG Duration 8 weeks 1 Impairment QuickDASH reflects over 54% impairment [facility] Goal (LTG) Pt will present with improved QuickDASH score to reflect no more than 15% impairment to improve quality of life and function. 05/20/24: QuickDASH score reflects 29.54% impairment, improvement since evaluation 06/03/24: QuickDash score reflect impairment, good progress LTG Duration 8 weeks Assessment Summary Assessment Left shoulder x-ray negative and cleared by Dr. Hutton for TrP therapy. Pt does a good job tolerating manual work today. Much better tissue mobs after treatment. Physical Therapy Plan Frequency and Duration Frequency of Treatment 2x/Week Duration of treatment (weeks) 8 Plan of Care Start Date 04/23/24 Plan of Care End Date 06/23/24 Therapeutic Interventions Therapeutic Interventions Balance Training,Canalithic Repositioning,Home Exercise Program,Joint Mobilizations, Lymphedema Management,Manual Therapy,Neuromuscular Re- education,Patient/Caregiver Education,Self-Care/Home Management,Soft Tissue Mobilization,Taping, Therapeutic Activities, Therapeutic Exercises Modalities Cold Pack/Ice Massage,Electric Stimulation,Hot Packs, Ultrasound Next Visit Focus/Plan Next Note Type Treatment Note Next Visit Plan Continue per POC as ana: emphasis on postural correction, shoulder ROM, manual as indicated. Progress exercises as needed.
--- NOTE | 2024-06-16 16:31 | PT.OTN ---
Current Diagnoses Encounter for breast reconstruction following mastectomy (06/16/24) Physical Therapy Treatment Note PT-OP-A Visit Information Start: 04/17/24 07:50 Freq: Status: Active Protocol: Document 06/16/24 14:36 [facility] (Rec: 06/16/24 15:21 [facility] [id number]) Out-Patient Physical Therapy Visit Information Visit Information Visit Type Treatment Note Visit Note Next prog note by 06/17/24 Visit Start Time 14:36 Visit Stop Time 15:29 Visit Number 13 Number of WATER JET LOOM FIXER Visits 0 Evaluation Information Evaluation Date 04/23/24 Precautions Precautions Pt with wound vac over B nipples and PT to attempt to avoid stretching the surgical area PT-OP-B Current Condition Start: 04/17/24 07:50 Freq: Status: Active Protocol: Document 05/13/24 11:27 [facility] (Rec: 05/13/24 12:25 [facility] [id number]) Current Condition History of Current Condition Onset Date 04/01/24 Current Complaints Edema and minimal pain left clavicular area History of Current Condition Pt is s/p B mastectomy . Surgery went well and he is having a little B arm pit edema and edema over pect attachment area. Pt has a history of left clavicular area pain, increased thoracic kyphosis and tight anterior chest and shoulders. Pt is on testosterone, has history of hysterectomy, lap jackelyn, B eye procedures, dizziness felt to be postural in nature in the past. He has referral for ENT in future. He is starting migraine medication, once a month injection. Pt is right handed. Pt is having trouble with hygiene after toileting and reaching overhead d/t tightness and fear. Pt has numbness when holding phone in bed and he points to medial elbow. PT-OP-C Subjective Start: 04/17/24 07:50 Freq: Status: Active Protocol: Document 06/16/24 14:36 [facility] (Rec: 06/16/24 15:21 [facility] [id number]) OP-PT Subjective Patient Comments Patient Comments Reports some relief of pain for about a day after last session, but symptoms very irritable after again left shoulder. Pain almost a 10 with movement of putting on backpack, dressing, shoulders lock up when overhed during wound care changes. Discussed other habitual movements and postures that may be contributory, with patient admitting to leaning on left UE while playing video games and plays the majority of the day per his report. PT-OP-F Manual Assessment Start: 04/17/24 07:50 Freq: Status: Active Protocol: Document 04/23/24 09:47 MB (Rec: 04/23/24 16:29 MB [id number]) Manual Assessments Other Manual Assessments Other Manual Assessments Mild but more fascial type edema B axillary area PT-OP-J Posture/Palpation/Skin Start: 04/17/24 07:50 Freq: Status: Active Protocol: Document 04/23/24 10:47 MB (Rec: 04/23/24 11:20 MB [id number]) Posture Evaluation Comments Posture Comments Pectus excavatum, B nipples moved and with some dryness and blackened tissue for skin that may fall off, pt with skin tightness around nipples and no other surgical lines and binder does indent into skin, pt con't with forward head, rounded shoulders, elevated shoulders, right shoulder mildly higher than the left, mild Dowager's hump, mild righ thoracic convexity, right iliac crest mildly higher than the left, increased lumbar lordosis and soft tissue abdomen. PT-OP-K Range of Motion Start: 04/17/24 07:50 Freq: Status: Active Protocol: Document 04/23/24 10:47 MB (Rec: 04/23/24 11:20 MB [id number]) Shoulder Goniometric Range of Motion Shoulder Left Testing Position Standing Flexion 140 Extension 28 Abduction 140 Internal Rotation Behind Back (text) T12 Comments Abduction in scaption plane Pt supine for PROM ER and IR at 90/90: pt apprehensive at 90 deg abduction and PT just reaches 90 deg abduction and ER is neutral and IR to 15 deg Right Testing Position Standing Flexion 148 Extension 28 Abduction 152 Internal Rotation Behind Back (text) T10 Comments Abduction in scaption plane Pt supine for PROM ER and IR at 90/90: shoulder moves easily into 90 deg abduction and ER to 75 deg and IR to 45 deg PT-OP-M Strength Start: 04/17/24 07:50 Freq: Status: Active Protocol: Document 04/23/24 10:47 MB (Rec: 04/23/24 11:20 MB [id number]) Shoulder Strength Shoulder Manual Muscle Testing Bilateral Flexion 5 Normal Abduction (C5) 5 Normal Elbow/Forearm Strength Elbow and Forearm Manual Muscle Testing Bilateral Flexion (C6) 5 Normal Extension (C7) 5 Normal PT-OP-Q Treatments Start: 04/17/24 07:50 Freq: Status: Active Protocol: Document 06/16/24 14:36 [facility] (Rec: 06/16/24 15:21 [facility] [id number]) Therapeutic Exercises Supine Exercises pec stretch Supine Exercise Name major, minor Equipment Used foam roller, then no foam roller due to pain Reps/Minutes 3 min Comments left UE supported by PT due to pain serratus punch Reps/Minutes 10x5 Sidelying Exercises open book Comments not tolerated left circles Comments noat tolerated left Standing Exercises wall posture Resistance AROM Reps/Minutes 10Sh x5 Comments pelvic tilt segmental up, chin tuck, Humeral ER palms fwd Manual Therapy Treatment Soft Tissue Mobilization MLD Body Location for chest, subax Mobilization Type Manual Lymphatic Drainage Intensity/Depth light Body Position Hooklying UT, periscap Body Location L UT, LS, Rhomboid, distal pec , lat, deltoid Mobilization Type Rolling,Strumming,Sustained Pressure Intensity/Depth mod Comments supine, R SL Joint Mobilizations left first rib Direction inf Grade III Body Position Supine Reps/Duration 2 min Comments improved positioning after mob L AC Jt Direction PA Grade II Body Position Supine L scapulothoracic Comments adduction, depression PROM then with ABD tactile cues Self-Care/Home Management Treatment Education Patient Education Home Exercise Program,Pain Management,Posture Other Education Ed decr leaning on left UE, dec [employer] postural correction ex, ice left shoulder PRN PT-OP-R Modalities Start: 04/17/24 07:50 Freq: Status: Active Protocol: Document 06/16/24 14:36 [facility] (Rec: 06/16/24 16:31 [facility] [id number]) Electric Stimulation Electric Stimulation Interferential Current (IFC) Body Location left shoulder Intensity 8 Target/Sweep Sweep Patient Position Hooklying Combined With Heat/Cold Cold Pack Iontophoresis Treatment L sh Treatment Medication Dexamethasone (-) Medication Amount (mL) (ml) 1 Medication Dosage 1mg/ml Patient Tolerance Good PT-OP-T Assessment and Plan Start: 04/17/24 07:50 Freq: Status: Active Protocol: Document 06/16/24 14:36 [facility] (Rec: 06/16/24 15:21 [facility] [id number]) Physical Therapy Assessment Impairments Impairments Activity Tolerance,Edema, Functional Activities, Functional Mobility,Integument ,Pain,Posture,ROM,Soft Tissue Mobility Goals 3 Impairment Pt not performing HEP including thoracic range and shoulder strength ex Penitentiary Goal (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 05/20/24: Pt is performing band resisted exercises in standing and over foam roller, baseball bat AAROM, open book 06/03/24: patient compliant to HEP, needs cues for postural alignment, UE alignment for correct performance. LTG Duration 8 weeks 2 Impairment Limited shoulder ROM, left worse than right Penitentiary Goal (LTG) Pt will present with B shoulder active flexion and abduction to at least 160 deg and left shoulder passive 90/ 90 ER to 75 deg and IR to 40 deg to improve functional use of arm. 05/20/24: AROM in standing: flexion right 160 deg, flexion left 148 deg; abduction right 168 deg and left 148 deg; pt supine with left shoulder 90/ 90, PROM: ER to 25 deg and IR to 60 deg. 06/03/24: AROM standing flex R 145 deg, left 150 LTG Duration 8 weeks 1 Impairment QuickDASH reflects over 54% impairment Quality Measurement Specialist Goal (LTG) Pt will present with improved QuickDASH score to reflect no more than 15% impairment to improve quality of life and function. 05/20/24: QuickDASH score reflects 29.54% impairment, improvement since evaluation 06/03/24: QuickDash score reflect impairment, good progress LTG Duration 8 weeks Assessment Summary Assessment Patient pain level high today with poor ana for stretching, some improvement with manual treatment. Trial IFES with CP and iontophoresis with Dexamethasone to decrease pain and inflammation. Physical Therapy Plan Frequency and Duration Frequency of Treatment 2x/Week Duration of treatment (weeks) 8 Plan of Care Start Date 04/23/24 Plan of Care End Date 06/23/24 Therapeutic Interventions Therapeutic Interventions Balance Training,Canalithic Repositioning,Home Exercise Program,Joint Mobilizations, Lymphedema Management,Manual Therapy,Neuromuscular Re- education,Patient/Caregiver Education,Self-Care/Home Management,Soft Tissue Mobilization,Taping, Therapeutic Activities, Therapeutic Exercises Modalities Cold Pack/Ice Massage,Electric Stimulation,Hot Packs, Iontophoresis,Ultrasound Next Visit Focus/Plan Next Note Type Treatment Note Next Visit Plan Continue per POC as ana: emphasis on postural correction, shoulder ROM, manual as indicated. Progress exercises as needed.
--- NOTE | 2024-06-18 13:44 | PT.OTN ---
Current Diagnoses Encounter for breast reconstruction following mastectomy (06/18/24) Physical Therapy Treatment Note PT-OP-A Visit Information Start: 04/17/24 07:50 Freq: Status: Active Protocol: Document 06/18/24 13:03 MB (Rec: 06/18/24 13:44 MB [id number]) Out-Patient Physical Therapy Visit Information Visit Information Visit Type Progress Note Visit Note Next progress note by 07/19/24 Visit Start Time 13:03 Visit Stop Time 13:43 Visit Number 14 Number of WOOL FLEECE GRADER Visits 0 Evaluation Information Evaluation Date 04/23/24 Precautions Precautions Pt with wound vac over B nipples and PT to attempt to avoid stretching the surgical area PT-OP-B Current Condition Start: 04/17/24 07:50 Freq: Status: Active Protocol: Document 05/13/24 11:27 [facility] (Rec: 05/13/24 12:25 [facility] [id number]) Current Condition History of Current Condition Onset Date 04/01/24 Current Complaints Edema and minimal pain left clavicular area History of Current Condition Pt is s/p B mastectomy . Surgery went well and he is having a little B arm pit edema and edema over pect attachment area. Pt has a history of left clavicular area pain, increased thoracic kyphosis and tight anterior chest and shoulders. Pt is on testosterone, has history of hysterectomy, lap jackelyn, B eye procedures, dizziness felt to be postural in nature in the past. He has referral for ENT in future. He is starting migraine medication, once a month injection. Pt is right handed. Pt is having trouble with hygiene after toileting and reaching overhead d/t tightness and fear. Pt has numbness when holding phone in bed and he points to medial elbow. PT-OP-C Subjective Start: 04/17/24 07:50 Freq: Status: Active Protocol: Document 06/18/24 13:03 MB (Rec: 06/18/24 13:44 MB [id number]) OP-PT Subjective Patient Comments Patient Comments Pt reports one day tingling in left thumb and index finger. E-stim was helpful. He is working on sitting on the couch rather than at the desk with [employer]. PT-OP-F Manual Assessment Start: 04/17/24 07:50 Freq: Status: Active Protocol: Document 04/23/24 09:47 MB (Rec: 04/23/24 16:29 MB [id number]) Manual Assessments Other Manual Assessments Other Manual Assessments Mild but more fascial type edema B axillary area PT-OP-J Posture/Palpation/Skin Start: 04/17/24 07:50 Freq: Status: Active Protocol: Document 04/23/24 10:47 MB (Rec: 04/23/24 11:20 MB [id number]) Posture Evaluation Comments Posture Comments Pectus excavatum, B nipples moved and with some dryness and blackened tissue for skin that may fall off, pt with skin tightness around nipples and no other surgical lines and binder does indent into skin, pt con't with forward head, rounded shoulders, elevated shoulders, right shoulder mildly higher than the left, mild Dowager's hump, mild righ thoracic convexity, right iliac crest mildly higher than the left, increased lumbar lordosis and soft tissue abdomen. PT-OP-K Range of Motion Start: 04/17/24 07:50 Freq: Status: Active Protocol: Document 04/23/24 10:47 MB (Rec: 04/23/24 11:20 MB [id number]) Shoulder Goniometric Range of Motion Shoulder Left Testing Position Standing Flexion 140 Extension 28 Abduction 140 Internal Rotation Behind Back (text) T12 Comments Abduction in scaption plane Pt supine for PROM ER and IR at 90/90: pt apprehensive at 90 deg abduction and PT just reaches 90 deg abduction and ER is neutral and IR to 15 deg Right Testing Position Standing Flexion 148 Extension 28 Abduction 152 Internal Rotation Behind Back (text) T10 Comments Abduction in scaption plane Pt supine for PROM ER and IR at 90/90: shoulder moves easily into 90 deg abduction and ER to 75 deg and IR to 45 deg PT-OP-M Strength Start: 04/17/24 07:50 Freq: Status: Active Protocol: Document 04/23/24 10:47 MB (Rec: 04/23/24 11:20 MB [id number]) Shoulder Strength Shoulder Manual Muscle Testing Bilateral Flexion 5 Normal Abduction (C5) 5 Normal Elbow/Forearm Strength Elbow and Forearm Manual Muscle Testing Bilateral Flexion (C6) 5 Normal Extension (C7) 5 Normal PT-OP-Q Treatments Start: 04/17/24 07:50 Freq: Status: Active Protocol: Document 06/18/24 13:03 MB (Rec: 06/18/24 13:44 MB [id number]) Therapeutic Exercises Supine Exercises pec stretch Comments Verbally reviewed today Foam roller Comments Verbally reviewed today Standing Exercises AAROM/PROM today for testing Comments See goals for numbers today Ys wall slide, lift off Comments Verbally reviewed today doorway stretch Comments Verbally reviewed today Band exercises for strengthening Comments Verbally reviewed today wall posture Comments Verbally reviewed today Manual Therapy Treatment Consent Patient gave verbal consent for manual Yes treatment Other Other Manual Treatments Pt supine with head supported under pillow: B SCM are severely tense and work on these and B upper traps today, grade II-III PA cervical mobs , left first rib isometric, left pect STM. Self-Care/Home Management Treatment Education Patient Education Body Mechanics,Home Exercise Program,Pain Management, Posture Other Education Re-ed pt to take breaks with [employer] and to work on exercises, benefits of TENS if he wishes to get one for home PT-OP-R Modalities Start: 04/17/24 07:50 Freq: Status: Active Protocol: Document 06/16/24 14:36 [facility] (Rec: 06/16/24 16:31 [facility]AK [id number]) Electric Stimulation Electric Stimulation Interferential Current (IFC) Body Location left shoulder Intensity 8 Target/Sweep Sweep Patient Position Hooklying Combined With Heat/Cold Cold Pack Iontophoresis Treatment L sh Treatment Medication Dexamethasone (-) Medication Amount (mL) (ml) 1 Medication Dosage 1mg/ml Patient Tolerance Good PT-OP-T Assessment and Plan Start: 04/17/24 07:50 Freq: Status: Active Protocol: Document 06/18/24 13:03 MB (Rec: 06/18/24 13:44 MB [id number]) Physical Therapy Assessment Rehab Potential Rehabilitation Potential Fair Evaluation Complexity Number of Personal Factors/Comorbidities 1-2 Number of Body Systems Impaired 1-2 Clinical Presentation at Evaluation Evolving Impairments Impairments Activity Tolerance,Edema, Functional Activities, Functional Mobility,Integument ,Pain,Posture,ROM,Soft Tissue Mobility Goals 3 Impairment Pt not performing HEP including thoracic range and shoulder strength ex Purchasing Expeditor Goal (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 05/20/24: Pt is performing band resisted exercises in standing and over foam roller, baseball bat AAROM, open book 06/03/24: patient compliant to HEP, needs cues for postural alignment, UE alignment for correct performance. 06/18/24: Pt is performing shoulder flexion, foam roller range, horizontal abduction, band exercises, wall posture and forward flexion and pect stretch. LTG Duration 8 weeks 2 Impairment Limited shoulder ROM, left worse than right Half-Way Goal (LTG) Pt will present with B shoulder active flexion and abduction to at least 160 deg and left shoulder passive 90/ 90 ER to 75 deg and IR to 40 deg to improve functional use of arm. 05/20/24: AROM in standing: flexion right 160 deg, flexion left 148 deg; abduction right 168 deg and left 148 deg; pt supine with left shoulder 90/ 90, PROM: ER to 25 deg and IR to 60 deg. 06/03/24: AROM standing flex R 145 deg, left 150 06/18/24: AROM in standing, shoulder flexion: Right 160 deg and left 150 deg; abduction right to 170 deg and abduction left in scaption plane to 165 deg (not pure abduction); PROM supine left shoulder in 64 deg abduction and ER to 20 deg and IR to 62 deg LTG Duration 8 weeks 1 Impairment QuickDASH reflects over 54% impairment Purchasing Expeditor Goal (LTG) Pt will present with improved QuickDASH score to reflect no more than 15% impairment to improve quality of life and function. 05/20/24: QuickDASH score reflects 29.54% impairment, improvement since evaluation 06/18/24: QuickDASH score reflects 31.81% impairment, which is slightly more impairment than previous progress note LTG Duration 8 weeks Assessment Summary Assessment QuickDASH score is slightly worse than last progress note. Pt reports that he likes TENS and ed that he can obtain one for home use. Left shoulder range is pretty similar to last progress note measurement and has an adhesive capsulitis pattern. Physical Therapy Plan Frequency and Duration Frequency of Treatment 1-2x/Week Duration of treatment (weeks) 8 Plan of Care Start Date 06/18/24 Plan of Care End Date 08/18/24 Therapeutic Interventions Therapeutic Interventions Balance Training,Canalithic Repositioning,Home Exercise Program,Joint Mobilizations, Lymphedema Management,Manual Therapy,Neuromuscular Re- education,Patient/Caregiver Education,Self-Care/Home Management,Soft Tissue Mobilization,Taping, Therapeutic Activities, Therapeutic Exercises Modalities Cold Pack/Ice Massage,Electric Stimulation,Hot Packs, Iontophoresis,Ultrasound Next Visit Focus/Plan Next Note Type Treatment Note Next Visit Plan Review all HEP exercises and update as need, check for performance and compliance and give check off grid, consider hands on wall and sliding heel back for posture exercise (Judith can teach), consider anterior neck stretch/upper traps and SCM POC with emphasis on postural correction, shoulder ROM, manual as indicated.
--- NOTE | 2024-06-18 13:44 | PT.OPPOC ---
Physical, Occupational & Speech Therapy At [facility] Current Diagnoses Encounter for breast reconstruction following mastectomy (06/18/24) Visit Care Team Role Provider Type Dev Escoto MD Attending Provider Physician Family Provider Primary Care Provider Referring Provider Specialty: Family Practice Address: [address] [place], [address] Email: [email or web address] Plan Of Care PT-OP-B Current Condition Start: 04/17/24 07:50 Freq: Status: Active Protocol: Document 05/13/24 11:27 SAK (Rec: 05/13/24 12:25 SAK [id number]) Current Condition History of Current Condition Onset Date 04/01/24 Current Complaints Edema and minimal pain left clavicular area History of Current Condition Pt is s/p B mastectomy . Surgery went well and he is having a little B arm pit edema and edema over pect attachment area. Pt has a history of left clavicular area pain, increased thoracic kyphosis and tight anterior chest and shoulders. Pt is on testosterone, has history of hysterectomy, lap jackelyn, B eye procedures, dizziness felt to be postural in nature in the past. He has referral for ENT in future. He is starting migraine medication, once a month injection. Pt is right handed. Pt is having trouble with hygiene after toileting and reaching overhead d/t tightness and fear. Pt has numbness when holding phone in bed and he points to medial elbow. PT-OP-T Assessment and Plan Start: 04/17/24 07:50 Freq: Status: Active Protocol: Document 06/18/24 13:03 MB (Rec: 06/18/24 13:44 MB [id number]) Physical Therapy Assessment Rehab Potential Rehabilitation Potential Fair Evaluation Complexity Number of Personal Factors/Comorbidities 1-2 Number of Body Systems Impaired 1-2 Clinical Presentation at Evaluation Evolving Impairments Impairments Activity Tolerance,Edema, Functional Activities, Functional Mobility,Integument ,Pain,Posture,ROM,Soft Tissue Mobility Goals 3 Impairment Pt not performing HEP including thoracic range and shoulder strength ex Training Program Assistant Goal (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 05/20/24: Pt is performing band resisted exercises in standing and over foam roller, baseball bat AAROM, open book 06/03/24: patient compliant to HEP, needs cues for postural alignment, UE alignment for correct performance. 06/18/24: Pt is performing shoulder flexion, foam roller range, horizontal abduction, band exercises, wall posture and forward flexion and pect stretch. LTG Duration 8 weeks 2 Impairment Limited shoulder ROM, left worse than right Training Program Assistant Goal (LTG) Pt will present with B shoulder active flexion and abduction to at least 160 deg and left shoulder passive 90/ 90 ER to 75 deg and IR to 40 deg to improve functional use of arm. 05/20/24: AROM in standing: flexion right 160 deg, flexion left 148 deg; abduction right 168 deg and left 148 deg; pt supine with left shoulder 90/ 90, PROM: ER to 25 deg and IR to 60 deg. 06/03/24: AROM standing flex R 145 deg, left 150 06/18/24: AROM in standing, shoulder flexion: Right 160 deg and left 150 deg; abduction right to 170 deg and abduction left in scaption plane to 165 deg (not pure abduction); PROM supine left shoulder in 64 deg abduction and ER to 20 deg and IR to 62 deg LTG Duration 8 weeks 1 Impairment QuickDASH reflects over 54% impairment Training Program Assistant Goal (LTG) Pt will present with improved QuickDASH score to reflect no more than 15% impairment to improve quality of life and function. 05/20/24: QuickDASH score reflects 29.54% impairment, improvement since evaluation 06/18/24: QuickDASH score reflects 31.81% impairment, which is slightly more impairment than previous progress note LTG Duration 8 weeks Assessment Summary Assessment QuickDASH score is slightly worse than last progress note. Pt reports that he likes TENS and ed that he can obtain one for home use. Left shoulder range is pretty similar to last progress note measurement and has an adhesive capsulitis pattern. Physical Therapy Plan Frequency and Duration Frequency of Treatment 1-2x/Week Duration of treatment (weeks) 8 Plan of Care Start Date 06/18/24 Plan of Care End Date 08/18/24 Therapeutic Interventions Therapeutic Interventions Balance Training,Canalithic Repositioning,Home Exercise Program,Joint Mobilizations, Lymphedema Management,Manual Therapy,Neuromuscular Re- education,Patient/Caregiver Education,Self-Care/Home Management,Soft Tissue Mobilization,Taping, Therapeutic Activities, Therapeutic Exercises Modalities Cold Pack/Ice Massage,Electric Stimulation,Hot Packs, Iontophoresis,Ultrasound Next Visit Focus/Plan Next Note Type Treatment Note Next Visit Plan Review all HEP exercises and update as need, check for performance and compliance and give check off grid, consider hands on wall and sliding heel back for posture exercise (Judith can teach), consider anterior neck stretch/upper traps and SCM POC with emphasis on postural correction, shoulder ROM, manual as indicated. Plan of Care Dates Plan of Care Start Date 06/18/24 Plan of Care End Date 08/18/24 Electronically Signed by: Judith Hernadez, PT 06/18/24 9905 If you are in agreement with this Plan of Care, please return a signed and dated copy. I have reviewed this Plan of Care and certify that the skilled therapy services above are required to meet the patient?s needs. Physician Signature Date Printed Name and Credentials Clinical Instructor Signature Printed Name and Credentials
--- NOTE | 2024-06-24 16:39 | PT.OTN ---
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 Surgery went well and he is having a little B arm pit edema and edema over pect attachment area. Pt has a history of left clavicular area pain, increased thoracic kyphosis and tight anterior chest and shoulders. Pt is on testosterone, has history of hysterectomy, lap jackelyn, B eye procedures, dizziness felt to be postural in nature in the past. He has referral for ENT in future. He is starting migraine medication, once a month injection. Pt is right handed. Pt is having trouble with hygiene after toileting and reaching overhead d/t tightness and fear. Pt has numbness when holding phone in bed and he points to medial elbow. PT-OP-C Subjective Start: 04/17/24 07:50 Freq: Status: Active Protocol: Document 06/24/24 15:15 [facility] (Rec: 06/24/24 16:38 [facility] [id number]) OP-PT Subjective Patient Comments Patient Comments Just saw wound care, recommending continued wound vac, needs to talk with boss about what can be done to accomodate for return to work. Has done pulleys, wall crawl theraband resistance exercises. Shoulder pain 1-2/ 10. Had to have arms overhead for wound care x 10 min , excrutiating pain when brought arm down. [place] IFES and Iontophoresis helpful, would like to try again. PT-OP-F Manual Assessment Start: 04/17/24 07:50 Freq: Status: Active Protocol: Document 04/23/24 09:47 MB (Rec: 04/23/24 16:29 MB [id number]) Manual Assessments Other Manual Assessments Other Manual Assessments Mild but more fascial type edema B axillary area PT-OP-J Posture/Palpation/Skin Start: 04/17/24 07:50 Freq: Status: Active Protocol: Document 04/23/24 10:47 MB (Rec: 04/23/24 11:20 MB [id number]) Posture Evaluation Comments Posture Comments Pectus excavatum, B nipples moved and with some dryness and blackened tissue for skin that may fall off, pt with skin tightness around nipples and no other surgical lines and binder does indent into skin, pt con't with forward head, rounded shoulders, elevated shoulders, right shoulder mildly higher than the left, mild Dowager's hump, mild righ thoracic convexity, right iliac crest mildly higher than the left, increased lumbar lordosis and soft tissue abdomen. PT-OP-K Range of Motion Start: 04/17/24 07:50 Freq: Status: Active Protocol: Document 04/23/24 10:47 MB (Rec: 04/23/24 11:20 MB [id number]) Shoulder Goniometric Range of Motion Shoulder Left Testing Position Standing Flexion 140 Extension 28 Abduction 140 Internal Rotation Behind Back (text) T12 Comments Abduction in scaption plane Pt supine for PROM ER and IR at 90/90: pt apprehensive at 90 deg abduction and PT just reaches 90 deg abduction and ER is neutral and IR to 15 deg Right Testing Position Standing Flexion 148 Extension 28 Abduction 152 Internal Rotation Behind Back (text) T10 Comments Abduction in scaption plane Pt supine for PROM ER and IR at 90/90: shoulder moves easily into 90 deg abduction and ER to 75 deg and IR to 45 deg PT-OP-M Strength Start: 04/17/24 07:50 Freq: Status: Active Protocol: Document 04/23/24 10:47 MB (Rec: 04/23/24 11:20 MB [id number]) Shoulder Strength Shoulder Manual Muscle Testing Bilateral Flexion 5 Normal Abduction (C5) 5 Normal Elbow/Forearm Strength Elbow and Forearm Manual Muscle Testing Bilateral Flexion (C6) 5 Normal Extension (C7) 5 Normal PT-OP-Q Treatments Start: 04/17/24 07:50 Freq: Status: Active Protocol: Document 06/24/24 15:15 [facility] (Rec: 06/24/24 16:38 [facility] [id number]) Cardio Equipment Recumbent Stepper (Sci-Fit) Duration (Minutes) 6 Resistance 1 Seat Position 9 Therapeutic Exercises Standing Exercises chopping Standing Exercise Name D2 flexion (chopping wood)- Side bilateral Resistance Tb #2 anchored over door Reps/Minutes 10 reps each side Comments cues for form and posture Band exercises for strengthening Standing Exercise Name row, shld ext, triceps Side bilateral Resistance [place] green band Reps/Minutes 10x5 Comments cues for neutral posture, scapular activation wall posture Resistance AROM Reps/Minutes 10Sh x5 Manual Therapy Treatment Consent Patient gave verbal consent for manual Yes treatment Soft Tissue Mobilization MLD Body Location for chest, subax Mobilization Type Manual Lymphatic Drainage Intensity/Depth light Body Position Hooklying Joint Mobilizations L GH Direction inf, post, dist Comments Gr II-III Self-Care/Home Management Treatment Education Patient Education Body Mechanics,Home Exercise Program,Pain Management, Posture Other Education Importance consistent compliance to HEP. Reminded to consider purchasing TENS due to good response IFES. PT-OP-R Modalities Start: 04/17/24 07:50 Freq: Status: Active Protocol: Document 06/24/24 15:15 [facility] (Rec: 06/24/24 16:38 [facility] [id number]) Electric Stimulation Electric Stimulation Interferential Current (IFC) Body Location left shoulder Intensity 12 Target/Sweep Sweep Patient Position Hooklying Combined With Heat/Cold Cold Pack Iontophoresis Treatment L sh Treatment Medication Dexamethasone (-) Medication Amount (mL) (ml) 1 Medication Dosage 1mg/ml Patient Tolerance Good PT-OP-T Assessment and Plan Start: 04/17/24 07:50 Freq: Status: Active Protocol: Document 06/24/24 15:15 [facility] (Rec: 06/24/24 16:38 [facility] [id number]) Physical Therapy Assessment Impairments Impairments Activity Tolerance,Edema, Functional Activities, Functional Mobility,Integument ,Pain,Posture,ROM,Soft Tissue Mobility Goals 3 Impairment Pt not performing HEP including thoracic range and shoulder strength ex Intermediate Goal (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 05/20/24: Pt is performing band resisted exercises in standing and over foam roller, baseball bat AAROM, open book 06/03/24: patient compliant to HEP, needs cues for postural alignment, UE alignment for correct performance. 06/18/24: Pt is performing shoulder flexion, foam roller range, horizontal abduction, band exercises, wall posture and forward flexion and pect stretch. LTG Duration 8 weeks 2 Impairment Limited shoulder ROM, left worse than right Intermediate Goal (LTG) Pt will present with B shoulder active flexion and abduction to at least 160 deg and left shoulder passive 90/ 90 ER to 75 deg and IR to 40 deg to improve functional use of arm. 05/20/24: AROM in standing: flexion right 160 deg, flexion left 148 deg; abduction right 168 deg and left 148 deg; pt supine with left shoulder 90/ 90, PROM: ER to 25 deg and IR to 60 deg. 06/03/24: AROM standing flex R 145 deg, left 150 06/18/24: AROM in standing, shoulder flexion: Right 160 deg and left 150 deg; abduction right to 170 deg and abduction left in scaption plane to 165 deg (not pure abduction); PROM supine left shoulder in 64 deg abduction and ER to 20 deg and IR to 62 deg LTG Duration 8 weeks 1 Impairment QuickDASH reflects over 54% impairment Intermediate Goal (LTG) Pt will present with improved QuickDASH score to reflect no more than 15% impairment to improve quality of life and function. 05/20/24: QuickDASH score reflects 29.54% impairment, improvement since evaluation 06/18/24: QuickDASH score reflects 31.81% impairment, which is slightly more impairment than previous progress note LTG Duration 8 weeks Assessment Summary Assessment Trial start recumbant elliptical with towel roll along spine with good tolerance, reviwed HEP especially TB ex for form stressing importance of compliance and attention to posture. Performed GH joint mobs, tightest post. Ended with IFES and iontophoresis. Physical Therapy Plan Frequency and Duration Frequency of Treatment 1-2x/Week Duration of treatment (weeks) 8 Plan of Care Start Date 06/18/24 Plan of Care End Date 08/18/24 Therapeutic Interventions Therapeutic Interventions Balance Training,Canalithic Repositioning,Home Exercise Program,Joint Mobilizations, Lymphedema Management,Manual Therapy,Neuromuscular Re- education,Patient/Caregiver Education,Self-Care/Home Management,Soft Tissue Mobilization,Taping, Therapeutic Activities, Therapeutic Exercises Modalities Cold Pack/Ice Massage,Electric Stimulation,Hot Packs, Iontophoresis,Ultrasound Next Visit Focus/Plan Next Note Type Treatment Note Next Visit Plan Do slide back heel posture exercises, ant neck/UT stretches and SCM POC with emphasis on postural correction, shoulder ROM, manual as indicated.
--- NOTE | 2024-06-26 14:46 | PT.OTN ---
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 Surgery went well and he is having a little B arm pit edema and edema over pect attachment area. Pt has a history of left clavicular area pain, increased thoracic kyphosis and tight anterior chest and shoulders. Pt is on testosterone, has history of hysterectomy, lap jackelyn, B eye procedures, dizziness felt to be postural in nature in the past. He has referral for ENT in future. He is starting migraine medication, once a month injection. Pt is right handed. Pt is having trouble with hygiene after toileting and reaching overhead d/t tightness and fear. Pt has numbness when holding phone in bed and he points to medial elbow. PT-OP-C Subjective Start: 04/17/24 07:50 Freq: Status: Active Protocol: Document 06/26/24 09:48 SAK (Rec: 06/26/24 10:35 [facility] [id number]) OP-PT Subjective Patient Comments Patient Comments Wound vac being taken off on Sunday, back to work Sunday. Shoulder improved since last PT appointment. Doing HEP, using pool noodle. PT-OP-F Manual Assessment Start: 04/17/24 07:50 Freq: Status: Active Protocol: Document 04/23/24 09:47 MB (Rec: 04/23/24 16:29 MB [id number]) Manual Assessments Other Manual Assessments Other Manual Assessments Mild but more fascial type edema B axillary area PT-OP-J Posture/Palpation/Skin Start: 04/17/24 07:50 Freq: Status: Active Protocol: Document 04/23/24 10:47 MB (Rec: 04/23/24 11:20 MB [id number]) Posture Evaluation Comments Posture Comments Pectus excavatum, B nipples moved and with some dryness and blackened tissue for skin that may fall off, pt with skin tightness around nipples and no other surgical lines and binder does indent into skin, pt con't with forward head, rounded shoulders, elevated shoulders, right shoulder mildly higher than the left, mild Dowager's hump, mild righ thoracic convexity, right iliac crest mildly higher than the left, increased lumbar lordosis and soft tissue abdomen. PT-OP-K Range of Motion Start: 04/17/24 07:50 Freq: Status: Active Protocol: Document 04/23/24 10:47 MB (Rec: 04/23/24 11:20 MB [id number]) Shoulder Goniometric Range of Motion Shoulder Left Testing Position Standing Flexion 140 Extension 28 Abduction 140 Internal Rotation Behind Back (text) T12 Comments Abduction in scaption plane Pt supine for PROM ER and IR at 90/90: pt apprehensive at 90 deg abduction and PT just reaches 90 deg abduction and ER is neutral and IR to 15 deg Right Testing Position Standing Flexion 148 Extension 28 Abduction 152 Internal Rotation Behind Back (text) T10 Comments Abduction in scaption plane Pt supine for PROM ER and IR at 90/90: shoulder moves easily into 90 deg abduction and ER to 75 deg and IR to 45 deg PT-OP-M Strength Start: 04/17/24 07:50 Freq: Status: Active Protocol: Document 04/23/24 10:47 MB (Rec: 04/23/24 11:20 MB [id number]) Shoulder Strength Shoulder Manual Muscle Testing Bilateral Flexion 5 Normal Abduction (C5) 5 Normal Elbow/Forearm Strength Elbow and Forearm Manual Muscle Testing Bilateral Flexion (C6) 5 Normal Extension (C7) 5 Normal PT-OP-Q Treatments Start: 04/17/24 07:50 Freq: Status: Active Protocol: Document 06/26/24 09:48 SAK (Rec: 06/26/24 10:35 SAK [id number]) Cardio Equipment Recumbent Stepper (Sci-Fit) Duration (Minutes) 7 Resistance 1.5 Seat Position 10 Treadmill Duration (Minutes) 5 Speed 1 Incline 0 Other postural cues entire kinetic chain, arm swing thumbs forward Therapeutic Exercises Supine Exercises pec stretch Comments Verbally reviewed today serratus punch Reps/Minutes 10x5 Foam roller Supine Exercise Name gentle pec stretch, FF, HABD, ER Sitting Exercises neck stretches Sitting Exercise Name UT, SCM pulleys Sitting Exercise Name HEP Manual Therapy Treatment Soft Tissue Mobilization MLD Body Location for chest, subax Mobilization Type Manual Lymphatic Drainage Intensity/Depth light Body Position Hooklying UT, periscap Body Location L UT, LS, Rhomboid, distal pec , lat, deltoid Mobilization Type Rolling,Strumming,Sustained Pressure Intensity/Depth mod Joint Mobilizations L GH Direction inf, post, dist Comments Gr II-III Self-Care/Home Management Treatment Education Patient Education Body Mechanics,Home Exercise Program,Pain Management, Posture Other Education Importance consistent compliance to HEP. Reminded to consider purchasing TENS due to good response IFES. PT-OP-R Modalities Start: 04/17/24 07:50 Freq: Status: Active Protocol: Document 06/26/24 09:48 [facility] (Rec: 06/26/24 10:35 [facility] [id number]) Electric Stimulation Electric Stimulation Interferential Current (IFC) Body Location left shoulder Intensity 12 Target/Sweep Sweep Patient Position Hooklying Combined With Heat/Cold Cold Pack Iontophoresis Treatment L sh Treatment Medication Dexamethasone (-) Medication Amount (mL) (ml) 1 Medication Dosage 1mg/ml Patient Tolerance Good PT-OP-T Assessment and Plan Start: 04/17/24 07:50 Freq: Status: Active Protocol: Document 06/26/24 09:48 [facility] (Rec: 06/26/24 10:35 [facility] [id number]) Physical Therapy Assessment Impairments Impairments Activity Tolerance,Edema, Functional Activities, Functional Mobility,Integument ,Pain,Posture,ROM,Soft Tissue Mobility Goals 3 Impairment Pt not performing HEP including thoracic range and shoulder strength ex Java Software Architect Goal (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 05/20/24: Pt is performing band resisted exercises in standing and over foam roller, baseball bat AAROM, open book 2/25/25: patient compliant to HEP, needs cues for postural alignment, UE alignment for correct performance. 06/18/24: Pt is performing shoulder flexion, foam roller range, horizontal abduction, band exercises, wall posture and forward flexion and pect stretch. LTG Duration 8 weeks 2 Impairment Limited shoulder ROM, left worse than right Java Software Architect Goal (LTG) Pt will present with B shoulder active flexion and abduction to at least 160 deg and left shoulder passive 90/ 90 ER to 75 deg and IR to 40 deg to improve functional use of arm. 05/20/24: AROM in standing: flexion right 160 deg, flexion left 148 deg; abduction right 168 deg and left 148 deg; pt supine with left shoulder 90/ 90, PROM: ER to 25 deg and IR to 60 deg. 06/03/24: AROM standing flex R 145 deg, left 150 06/18/24: AROM in standing, shoulder flexion: Right 160 deg and left 150 deg; abduction right to 170 deg and abduction left in scaption plane to 165 deg (not pure abduction); PROM supine left shoulder in 64 deg abduction and ER to 20 deg and IR to 62 deg LTG Duration 8 weeks 1 Impairment QuickDASH reflects over 54% impairment Java Software Architect Goal (LTG) Pt will present with improved QuickDASH score to reflect no more than 15% impairment to improve quality of life and function. 05/20/24: QuickDASH score reflects 29.54% impairment, improvement since evaluation 06/18/24: QuickDASH score reflects 31.81% impairment, which is slightly more impairment than previous progress note LTG Duration 8 weeks Assessment Summary Assessment Good progress today with increased exercise tolerance, left shoulder elevation to 165 end of session. ER to 40. Responds well to IFES and iontophoresis. Added neck stretches today. Patient to go back to work next week Physical Therapy Plan Frequency and Duration Frequency of Treatment 1-2x/Week Duration of treatment (weeks) 8 Plan of Care Start Date 06/18/24 Plan of Care End Date 08/18/24 Therapeutic Interventions Therapeutic Interventions Balance Training,Canalithic Repositioning,Home Exercise Program,Joint Mobilizations, Lymphedema Management,Manual Therapy,Neuromuscular Re- education,Patient/Caregiver Education,Self-Care/Home Management,Soft Tissue Mobilization,Taping, Therapeutic Activities, Therapeutic Exercises Modalities Cold Pack/Ice Massage,Electric Stimulation,Hot Packs, Iontophoresis,Ultrasound Next Visit Focus/Plan Next Note Type Treatment Note Next Visit Plan Do slide back heel posture exercises,continue progression of ther ex for left shoulder ROM, strengthening with emphasis on postural correction, shoulder ROM, manual as indicated including for lymphatic drainage.
--- NOTE | 2024-07-01 11:25 | PT.OTN ---
Current Diagnoses Encounter for breast reconstruction following mastectomy (07/01/24) Physical Therapy Treatment Note PT-OP-A Visit Information Start: 04/17/24 07:50 Freq: Status: Active Protocol: Document 07/01/24 10:44 MB (Rec: 07/01/24 11:25 MB [id number]) Out-Patient Physical Therapy Visit Information Visit Information Visit Type Treatment Note Visit Note Next progress note 07/19/24 Visit Start Time 10:44 Visit Stop Time 11:24 Visit Number 17 Number of OPERATIONS SUPPORT SPECIALIST Visits 0 Evaluation Information Evaluation Date 04/23/24 Precautions Precautions . PT-OP-B Current Condition Start: 04/17/24 07:50 Freq: Status: Active Protocol: Document 06/26/24 09:48 SAK (Rec: 06/26/24 10:35 SAK [id number]) Current Condition History of Current Condition Onset Date 04/01/24 Current Complaints Edema and minimal pain left clavicular area History of Current Condition Pt is s/p B mastectomy . Surgery went well and he is having a little B arm pit edema and edema over pect attachment area. Pt has a history of left clavicular area pain, increased thoracic kyphosis and tight anterior chest and shoulders. Pt is on testosterone, has history of hysterectomy, lap jackelyn, B eye procedures, dizziness felt to be postural in nature in the past. He has referral for ENT in future. He is starting migraine medication, once a month injection. Pt is right handed. Pt is having trouble with hygiene after toileting and reaching overhead d/t tightness and fear. Pt has numbness when holding phone in bed and he points to medial elbow. PT-OP-C Subjective Start: 04/17/24 07:50 Freq: Status: Active Protocol: Document 07/01/24 10:44 MB (Rec: 07/01/24 11:25 MB [id number]) OP-PT Subjective Patient Comments Patient Comments Wound vac came off on Sunday and he heads back to work tomorrow. Pain is better and he thinks that his range is better. PT-OP-F Manual Assessment Start: 04/17/24 07:50 Freq: Status: Active Protocol: Document 04/23/24 09:47 MB (Rec: 04/23/24 16:29 MB [id number]) Manual Assessments Other Manual Assessments Other Manual Assessments Mild but more fascial type edema B axillary area PT-OP-J Posture/Palpation/Skin Start: 04/17/24 07:50 Freq: Status: Active Protocol: Document 04/23/24 10:47 MB (Rec: 04/23/24 11:20 MB [id number]) Posture Evaluation Comments Posture Comments Pectus excavatum, B nipples moved and with some dryness and blackened tissue for skin that may fall off, pt with skin tightness around nipples and no other surgical lines and binder does indent into skin, pt con't with forward head, rounded shoulders, elevated shoulders, right shoulder mildly higher than the left, mild Dowager's hump, mild righ thoracic convexity, right iliac crest mildly higher than the left, increased lumbar lordosis and soft tissue abdomen. PT-OP-K Range of Motion Start: 04/17/24 07:50 Freq: Status: Active Protocol: Document 04/23/24 10:47 MB (Rec: 04/23/24 11:20 MB [id number]) Shoulder Goniometric Range of Motion Shoulder Left Testing Position Standing Flexion 140 Extension 28 Abduction 140 Internal Rotation Behind Back (text) T12 Comments Abduction in scaption plane Pt supine for PROM ER and IR at 90/90: pt apprehensive at 90 deg abduction and PT just reaches 90 deg abduction and ER is neutral and IR to 15 deg Right Testing Position Standing Flexion 148 Extension 28 Abduction 152 Internal Rotation Behind Back (text) T10 Comments Abduction in scaption plane Pt supine for PROM ER and IR at 90/90: shoulder moves easily into 90 deg abduction and ER to 75 deg and IR to 45 deg PT-OP-M Strength Start: 04/17/24 07:50 Freq: Status: Active Protocol: Document 04/23/24 10:47 MB (Rec: 04/23/24 11:20 MB [id number]) Shoulder Strength Shoulder Manual Muscle Testing Bilateral Flexion 5 Normal Abduction (C5) 5 Normal Elbow/Forearm Strength Elbow and Forearm Manual Muscle Testing Bilateral Flexion (C6) 5 Normal Extension (C7) 5 Normal PT-OP-Q Treatments Start: 04/17/24 07:50 Freq: Status: Active Protocol: Document 07/01/24 10:44 MB (Rec: 07/01/24 11:25 MB [id number]) Cardio Equipment Upper Body Ergometer (UBE) Duration (Minutes) 10 Other 1' forward and 1' backward, alternating for 10' Therapeutic Exercises Sitting Exercises Chin tuck in sitting Sitting Exercise Name Re-ed for home Comments Ed for 5 reps, 3 sec hold every 30 minutes Standing Exercises Arms on wall in press up position, heel slide out Standing Exercise Name HEP and video of PT made Comments Chin tuck and in alignment, pubic bone to navel, 3-4 reps each leg, twice/d AAROM/PROM today for testing Comments See findings today wall posture Comments Performed today Self-Care/Home Management Treatment Education Patient Education Body Mechanics,Home Exercise Program,Pain Management, Posture Other Education Importance of taking breaks with [place] and computer work, every 20-30 minutes to perform 5 chin tucks, 3 sec hold, standing wall posterior heel glides to help with posture for shoulder flexion, thoracic mobility and core PT-OP-R Modalities Start: 04/17/24 07:50 Freq: Status: Active Protocol: Document 06/26/24 09:48 SAK (Rec: 06/26/24 10:35 SAK [id number]) Electric Stimulation Electric Stimulation Interferential Current (IFC) Body Location left shoulder Intensity 12 Target/Sweep Sweep Patient Position Hooklying Combined With Heat/Cold Cold Pack Iontophoresis Treatment L sh Treatment Medication Dexamethasone (-) Medication Amount (mL) (ml) 1 Medication Dosage 1mg/ml Patient Tolerance Good PT-OP-T Assessment and Plan Start: 04/17/24 07:50 Freq: Status: Active Protocol: Document 07/01/24 10:44 MB (Rec: 07/01/24 11:25 MB [id number]) Physical Therapy Assessment Rehab Potential Rehabilitation Potential Fair Evaluation Complexity Number of Personal Factors/Comorbidities 1-2 Number of Body Systems Impaired 1-2 Clinical Presentation at Evaluation Evolving Impairments Impairments Activity Tolerance,Edema, Functional Activities, Functional Mobility,Integument ,Pain,Posture,ROM,Soft Tissue Mobility Goals 3 Impairment Pt not performing HEP including thoracic range and shoulder strength 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 05/20/24: Pt is performing band resisted exercises in standing and over foam roller, baseball bat AAROM, open book 06/03/24: patient compliant to HEP, needs cues for postural alignment, UE alignment for correct performance. 06/18/24: Pt is performing shoulder flexion, foam roller range, horizontal abduction, band exercises, wall posture and forward flexion and pect stretch. LTG Duration 8 weeks 2 Impairment Limited shoulder ROM, left worse than right Senior Care Goal (LTG) Pt will present with B shoulder active flexion and abduction to at least 160 deg and left shoulder passive 90/ 90 ER to 75 deg and IR to 40 deg to improve functional use of arm. 05/20/24: AROM in standing: flexion right 160 deg, flexion left 148 deg; abduction right 168 deg and left 148 deg; pt supine with left shoulder 90/ 90, PROM: ER to 25 deg and IR to 60 deg. 06/03/24: AROM standing flex R 145 deg, left 150 06/18/24: AROM in standing, shoulder flexion: Right 160 deg and left 150 deg; abduction right to 170 deg and abduction left in scaption plane to 165 deg (not pure abduction); PROM supine left shoulder in 64 deg abduction and ER to 20 deg and IR to 62 deg LTG Duration 8 weeks 1 Impairment QuickDASH reflects over 54% impairment Senior Care Goal (LTG) Pt will present with improved QuickDASH score to reflect no more than 15% impairment to improve quality of life and function. 05/20/24: QuickDASH score reflects 29.54% impairment, improvement since evaluation 06/18/24: QuickDASH score reflects 31.81% impairment, which is slightly more impairment than previous progress note LTG Duration 8 weeks Assessment Summary Assessment AROM exercises today: standing flexion right 166 deg, left 161 deg; standing abduction right 170 deg, left 161 deg; supine passive ER and IR: left shoulder in 45 deg abduction and ER moves to 30 deg; right Physical Therapy Plan Frequency and Duration Frequency of Treatment 1-2x/Week Duration of treatment (weeks) 8 Plan of Care Start Date 06/18/24 Plan of Care End Date 08/18/24 Therapeutic Interventions Therapeutic Interventions Balance Training,Canalithic Repositioning,Home Exercise Program,Joint Mobilizations, Lymphedema Management,Manual Therapy,Neuromuscular Re- education,Patient/Caregiver Education,Self-Care/Home Management,Soft Tissue Mobilization,Taping, Therapeutic Activities, Therapeutic Exercises Modalities Cold Pack/Ice Massage,Electric Stimulation,Hot Packs, Iontophoresis,Ultrasound Other Referrals/Consults Referrals/Consults Recommended Consider orthopedic consult with possible injection left shoulder Next Visit Focus/Plan Next Note Type Treatment Note Next Visit Plan Con't progression.
--- NOTE | 2024-07-06 11:32 | PT-OP ANOTE ---
Pt underwent left shoulder MRI on 07/04: IMPRESSION: 1. Calcific tendinitis involving distal supraspinatus at its insertion on the humeral head. Low-grade articular surface partial-thickness tear involving distal supraspinatus is also likely present. No full-thickness rotator cuff tendon rupture. No muscle atrophy. 2. No marrow edema. No fracture or dislocation. Small amount of subacromial subdeltoid bursal fluid, no loose bodies. 3. No evidence of focal glenoid labral tear. Can con't PT efforts including manual work over the left supraspinatus. Pt may decrease PT to 1x/wk and can schedule with either PT teammate involoved in his case. He may benefit from orthopedic surgeon referral.
--- NOTE | 2024-07-10 14:05 | PT.OTN ---
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 PT-OP-B Current Condition Start: 04/17/24 07:50 Freq: Status: Active Protocol: Document 06/26/24 09:48 SAK (Rec: 06/26/24 10:35 [facility] [id number]) Current Condition History of Current Condition Onset Date 04/01/24 Current Complaints Edema and minimal pain left clavicular area History of Current Condition Pt is s/p B mastectomy . Surgery went well and he is having a little B arm pit edema and edema over pect attachment area. Pt has a history of left clavicular area pain, increased thoracic kyphosis and tight anterior chest and shoulders. Pt is on testosterone, has history of hysterectomy, lap jackelyn, B eye procedures, dizziness felt to be postural in nature in the past. He has referral for ENT in future. He is starting migraine medication, once a month injection. Pt is right handed. Pt is having trouble with hygiene after toileting and reaching overhead d/t tightness and fear. Pt has numbness when holding phone in bed and he points to medial elbow. PT-OP-C Subjective Start: 04/17/24 07:50 Freq: Status: Active Protocol: Document 07/10/24 09:46 SAK (Rec: 07/10/24 10:40 [facility] [id number]) OP-PT Subjective Patient Comments Patient Comments States still going to wound care, still healing. Doing HEP. Sees Dr. Byrne today to talk about MRI, inflammation in his body, options. PT-OP-F Manual Assessment Start: 04/17/24 07:50 Freq: Status: Active Protocol: Document 04/23/24 09:47 MB (Rec: 04/23/24 16:29 MB [id number]) Manual Assessments Other Manual Assessments Other Manual Assessments Mild but more fascial type edema B axillary area PT-OP-J Posture/Palpation/Skin Start: 04/17/24 07:50 Freq: Status: Active Protocol: Document 04/23/24 10:47 MB (Rec: 04/23/24 11:20 MB [id number]) Posture Evaluation Comments Posture Comments Pectus excavatum, B nipples moved and with some dryness and blackened tissue for skin that may fall off, pt with skin tightness around nipples and no other surgical lines and binder does indent into skin, pt con't with forward head, rounded shoulders, elevated shoulders, right shoulder mildly higher than the left, mild Dowager's hump, mild righ thoracic convexity, right iliac crest mildly higher than the left, increased lumbar lordosis and soft tissue abdomen. PT-OP-K Range of Motion Start: 04/17/24 07:50 Freq: Status: Active Protocol: Document 04/23/24 10:47 MB (Rec: 04/23/24 11:20 MB [id number]) Shoulder Goniometric Range of Motion Shoulder Left Testing Position Standing Flexion 140 Extension 28 Abduction 140 Internal Rotation Behind Back (text) T12 Comments Abduction in scaption plane Pt supine for PROM ER and IR at 90/90: pt apprehensive at 90 deg abduction and PT just reaches 90 deg abduction and ER is neutral and IR to 15 deg Right Testing Position Standing Flexion 148 Extension 28 Abduction 152 Internal Rotation Behind Back (text) T10 Comments Abduction in scaption plane Pt supine for PROM ER and IR at 90/90: shoulder moves easily into 90 deg abduction and ER to 75 deg and IR to 45 deg PT-OP-M Strength Start: 04/17/24 07:50 Freq: Status: Active Protocol: Document 04/23/24 10:47 MB (Rec: 04/23/24 11:20 MB [id number]) Shoulder Strength Shoulder Manual Muscle Testing Bilateral Flexion 5 Normal Abduction (C5) 5 Normal Elbow/Forearm Strength Elbow and Forearm Manual Muscle Testing Bilateral Flexion (C6) 5 Normal Extension (C7) 5 Normal PT-OP-Q Treatments Start: 04/17/24 07:50 Freq: Status: Active Protocol: Document 07/10/24 09:46 SAK (Rec: 07/10/24 10:40 SAK [id number]) Cardio Equipment Upper Body Ergometer (UBE) Duration (Minutes) 5 Seat Position 10 Other fwd/bck, alternating Recumbent Stepper (Sci-Fit) Duration (Minutes) 5 Resistance 2 Seat Position 10 Therapeutic Exercises Supine Exercises serratus punch Reps/Minutes 10x5 Sitting Exercises Chin tuck in sitting Sitting Exercise Name reviewed Comments Ed for 5 reps, 3 sec hold every 30 minutes neck stretches Sitting Exercise Name UT, SCM reviewed pulleys Sitting Exercise Name HEP Manual Therapy Treatment Soft Tissue Mobilization UT, periscap Body Location L UT, LS, Rhomboid, distal pec , lat, deltoid Mobilization Type Rolling,Strumming,Sustained Pressure Intensity/Depth mod Joint Mobilizations L GH Direction inf, post, dist Comments Gr II-III Self-Care/Home Management Treatment Education Patient Education Body Mechanics,Home Exercise Program,Pain Management, Posture PT-OP-R Modalities Start: 04/17/24 07:50 Freq: Status: Active Protocol: Document 07/10/24 09:46 [facility] (Rec: 07/10/24 10:40 [facility] [id number]) Electric Stimulation Electric Stimulation Interferential Current (IFC) Body Location left shoulder Intensity 12 Target/Sweep Sweep Patient Position Hooklying Combined With Heat/Cold Cold Pack Iontophoresis Treatment L sh Treatment Medication Dexamethasone (-) Medication Amount (mL) (ml) 1 Medication Dosage 1mg/ml Patient Tolerance Good PT-OP-T Assessment and Plan Start: 04/17/24 07:50 Freq: Status: Active Protocol: Document 07/10/24 09:46 [facility] (Rec: 07/10/24 10:40 [facility] [id number]) Physical Therapy Assessment Impairments Impairments Activity Tolerance,Edema, Functional Activities, Functional Mobility,Integument ,Pain,Posture,ROM,Soft Tissue Mobility Goals 3 Impairment Pt not performing HEP including thoracic range and shoulder strength ex Director Of Medicare Goal (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 05/20/24: Pt is performing band resisted exercises in standing and over foam roller, baseball bat AAROM, open book 06/03/24: patient compliant to HEP, needs cues for postural alignment, UE alignment for correct performance. 06/18/24: Pt is performing shoulder flexion, foam roller range, horizontal abduction, band exercises, wall posture and forward flexion and pect stretch. LTG Duration 8 weeks 2 Impairment Limited shoulder ROM, left worse than right Director Of Medicare Goal (LTG) Pt will present with B shoulder active flexion and abduction to at least 160 deg and left shoulder passive 90/ 90 ER to 75 deg and IR to 40 deg to improve functional use of arm. 05/20/24: AROM in standing: flexion right 160 deg, flexion left 148 deg; abduction right 168 deg and left 148 deg; pt supine with left shoulder 90/ 90, PROM: ER to 25 deg and IR to 60 deg. 06/03/24: AROM standing flex R 145 deg, left 150 06/18/24: AROM in standing, shoulder flexion: Right 160 deg and left 150 deg; abduction right to 170 deg and abduction left in scaption plane to 165 deg (not pure abduction); PROM supine left shoulder in 64 deg abduction and ER to 20 deg and IR to 62 deg LTG Duration 8 weeks 1 Impairment QuickDASH reflects over 54% impairment Director Of Medicare Goal (LTG) Pt will present with improved QuickDASH score to reflect no more than 15% impairment to improve quality of life and function. 05/20/24: QuickDASH score reflects 29.54% impairment, improvement since evaluation 06/18/24: QuickDASH score reflects 31.81% impairment, which is slightly more impairment than previous progress note LTG Duration 8 weeks Assessment Summary Assessment Patient comploiance to HEP limited, reports depressed chest healing issues, tired from return to work. Reports decrease in pain with IFES and iontophoresis. Seeing doctor today regarding MRI results. Physical Therapy Plan Frequency and Duration Frequency of Treatment 1-2x/Week Duration of treatment (weeks) 8 Plan of Care Start Date 06/18/24 Plan of Care End Date 08/18/24 Therapeutic Interventions Therapeutic Interventions Balance Training,Canalithic Repositioning,Home Exercise Program,Joint Mobilizations, Lymphedema Management,Manual Therapy,Neuromuscular Re- education,Patient/Caregiver Education,Self-Care/Home Management,Soft Tissue Mobilization,Taping, Therapeutic Activities, Therapeutic Exercises Modalities Cold Pack/Ice Massage,Electric Stimulation,Hot Packs, Iontophoresis,Ultrasound Next Visit Focus/Plan Next Note Type Treatment Note Next Visit Plan Continue PT to improve left shoulder ROM, strength, and function.
--- NOTE | 2024-07-15 16:50 | PT.OTN ---
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 PT-OP-B Current Condition Start: 04/17/24 07:50 Freq: Status: Active Protocol: Document 06/26/24 09:48 SAK (Rec: 06/26/24 10:35 [facility] [id number]) Current Condition History of Current Condition Onset Date 04/01/24 Current Complaints Edema and minimal pain left clavicular area History of Current Condition Pt is s/p B mastectomy . Surgery went well and he is having a little B arm pit edema and edema over pect attachment area. Pt has a history of left clavicular area pain, increased thoracic kyphosis and tight anterior chest and shoulders. Pt is on testosterone, has history of hysterectomy, lap jackelyn, B eye procedures, dizziness felt to be postural in nature in the past. He has referral for ENT in future. He is starting migraine medication, once a month injection. Pt is right handed. Pt is having trouble with hygiene after toileting and reaching overhead d/t tightness and fear. Pt has numbness when holding phone in bed and he points to medial elbow. PT-OP-C Subjective Start: 04/17/24 07:50 Freq: Status: Active Protocol: Document 07/15/24 10:46 SAK (Rec: 07/15/24 11:32 SAK Laptop) OP-PT Subjective Patient Comments Patient Comments Prescribed an antibiotic for UTI. Shoulder 0/10 at side, 7 /10 with reaching. Shoulder pain increases with work. Questioned about mechanics of lifting, indicated reaching. PT-OP-F Manual Assessment Start: 04/17/24 07:50 Freq: Status: Active Protocol: Document 04/23/24 09:47 MB (Rec: 04/23/24 16:29 MB [id number]) Manual Assessments Other Manual Assessments Other Manual Assessments Mild but more fascial type edema B axillary area PT-OP-J Posture/Palpation/Skin Start: 04/17/24 07:50 Freq: Status: Active Protocol: Document 04/23/24 10:47 MB (Rec: 04/23/24 11:20 MB [id number]) Posture Evaluation Comments Posture Comments Pectus excavatum, B nipples moved and with some dryness and blackened tissue for skin that may fall off, pt with skin tightness around nipples and no other surgical lines and binder does indent into skin, pt con't with forward head, rounded shoulders, elevated shoulders, right shoulder mildly higher than the left, mild Dowager's hump, mild righ thoracic convexity, right iliac crest mildly higher than the left, increased lumbar lordosis and soft tissue abdomen. PT-OP-K Range of Motion Start: 04/17/24 07:50 Freq: Status: Active Protocol: Document 04/23/24 10:47 MB (Rec: 04/23/24 11:20 MB [id number]) Shoulder Goniometric Range of Motion Shoulder Left Testing Position Standing Flexion 140 Extension 28 Abduction 140 Internal Rotation Behind Back (text) T12 Comments Abduction in scaption plane Pt supine for PROM ER and IR at 90/90: pt apprehensive at 90 deg abduction and PT just reaches 90 deg abduction and ER is neutral and IR to 15 deg Right Testing Position Standing Flexion 148 Extension 28 Abduction 152 Internal Rotation Behind Back (text) T10 Comments Abduction in scaption plane Pt supine for PROM ER and IR at 90/90: shoulder moves easily into 90 deg abduction and ER to 75 deg and IR to 45 deg PT-OP-M Strength Start: 04/17/24 07:50 Freq: Status: Active Protocol: Document 04/23/24 10:47 MB (Rec: 04/23/24 11:20 MB [id number]) Shoulder Strength Shoulder Manual Muscle Testing Bilateral Flexion 5 Normal Abduction (C5) 5 Normal Elbow/Forearm Strength Elbow and Forearm Manual Muscle Testing Bilateral Flexion (C6) 5 Normal Extension (C7) 5 Normal PT-OP-Q Treatments Start: 04/17/24 07:50 Freq: Status: Active Protocol: Document 07/15/24 10:46 SAK (Rec: 07/15/24 11:32 SAK Laptop) Cardio Equipment Upper Body Ergometer (UBE) Duration (Minutes) 5 Seat Position 10 Other fwd/bck, alternating Recumbent Stepper (Sci-Fit) Duration (Minutes) 5 Resistance 2 Seat Position 10 Therapeutic Exercises Standing Exercises shoulder isometrics Standing Exercise Name flex,ext,ab,add, IR,ER Equipment Used wall Reps/Minutes 5x ea motion Comments reviewed for technique, cues postural alignment, for pain- free intensity wall posture Comments Performed today Manual Therapy Treatment Soft Tissue Mobilization UT, periscap Body Location L UT, LS, Rhomboid, distal pec , lat, deltoid Mobilization Type Rolling,Strumming,Sustained Pressure Intensity/Depth mod Joint Mobilizations left first rib Direction inf Grade III Body Position Supine Reps/Duration 2 min Comments improved positioning after mob L GH Direction inf, post, dist Body Position Hooklying Comments Gr II-III Self-Care/Home Management Treatment Education Patient Education Body Mechanics,Home Exercise Program,Joint Protection,Pain Management,Posture Other Education lifting body mechanics work and home; T-Alex arms. PT-OP-R Modalities Start: 04/17/24 07:50 Freq: Status: Active Protocol: Document 07/15/24 10:46 [facility] (Rec: 07/16/24 16:50 [facility] Laptop) Electric Stimulation Electric Stimulation Interferential Current (IFC) Body Location left shoulder Intensity 13 Target/Sweep Sweep Patient Position Hooklying Combined With Heat/Cold Cold Pack Comments reports decreased pain after Infrared Treatment Treatment Left Shoulder Body Position Sitting Continuous/Pulsed Continuous Program or Protocal chronic muscle pain Comments 6 locations along supraspinatus Iontophoresis Treatment L sh Treatment Medication Dexamethasone (-) Medication Amount (mL) (ml) 1 Medication Dosage 1mg/ml Patient Tolerance Good PT-OP-T Assessment and Plan Start: 04/17/24 07:50 Freq: Status: Active Protocol: Document 07/15/24 10:46 [facility] (Rec: 07/16/24 16:50 [facility] Laptop) Physical Therapy Assessment Evaluation Complexity Number of Personal Factors/Comorbidities 1-2 Number of Body Systems Impaired 1-2 Clinical Presentation at Evaluation Evolving Impairments Impairments Activity Tolerance,Edema, Functional Activities, Functional Mobility,Integument ,Pain,Posture,ROM,Soft Tissue Mobility Goals 3 Impairment Pt not performing HEP including thoracic range and shoulder strength ex Product Design Engineer Goal (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 05/20/24: Pt is performing band resisted exercises in standing and over foam roller, baseball bat AAROM, open book 06/03/24: patient compliant to HEP, needs cues for postural alignment, UE alignment for correct performance. 06/18/24: Pt is performing shoulder flexion, foam roller range, horizontal abduction, band exercises, wall posture and forward flexion and pect stretch. LTG Duration 8 weeks 2 Impairment Limited shoulder ROM, left worse than right Product Design Engineer Goal (LTG) Pt will present with B shoulder active flexion and abduction to at least 160 deg and left shoulder passive 90/ 90 ER to 75 deg and IR to 40 deg to improve functional use of arm. 05/20/24: AROM in standing: flexion right 160 deg, flexion left 148 deg; abduction right 168 deg and left 148 deg; pt supine with left shoulder 90/ 90, PROM: ER to 25 deg and IR to 60 deg. 06/03/24: AROM standing flex R 145 deg, left 150 06/18/24: AROM in standing, shoulder flexion: Right 160 deg and left 150 deg; abduction right to 170 deg and abduction left in scaption plane to 165 deg (not pure abduction); PROM supine left shoulder in 64 deg abduction and ER to 20 deg and IR to 62 deg LTG Duration 8 weeks 1 Impairment QuickDASH reflects over 54% impairment Half-Way Goal (LTG) Pt will present with improved QuickDASH score to reflect no more than 15% impairment to improve quality of life and function. 05/20/24: QuickDASH score reflects 29.54% impairment, improvement since evaluation 06/18/24: QuickDASH score reflects 31.81% impairment, which is slightly more impairment than previous progress note LTG Duration 8 weeks Assessment Summary Assessment Patient symptoms in left shoulder highly irritable, min ER ROM tolerated, work has increased his pain. Instructed in shoulder protection with lifting, cued short lever, use of core and legs with patient demonstrating good understanding. Physical Therapy Plan Frequency and Duration Frequency of Treatment 1-2x/Week Duration of treatment (weeks) 8 Plan of Care Start Date 06/18/24 Plan of Care End Date 08/18/24 Therapeutic Interventions Therapeutic Interventions Balance Training,Canalithic Repositioning,Home Exercise Program,Joint Mobilizations, Lymphedema Management,Manual Therapy,Neuromuscular Re- education,Patient/Caregiver Education,Self-Care/Home Management,Soft Tissue Mobilization,Taping, Therapeutic Activities, Therapeutic Exercises Modalities Cold Pack/Ice Massage,Electric Stimulation,Hot Packs, Iontophoresis,Ultrasound Next Visit Focus/Plan Next Note Type Treatment Note Next Visit Plan Continue PT to decrease left shoulder pain and improve left shoulder ROM, strength, and function.
--- NOTE | 2024-07-24 16:44 | PT.OTN ---
Current Diagnoses Encounter for breast reconstruction following mastectomy (07/24/24) Physical Therapy Treatment Note PT-OP-A Visit Information Start: 04/17/24 07:50 Freq: Status: Active Protocol: Document 07/24/24 08:12 [facility] (Rec: 07/24/24 09:02 [facility] Laptop) Out-Patient Physical Therapy Visit Information Visit Information Visit Type Treatment Note Visit Start Time 10:47 Visit Stop Time 11:45 Visit Number 20 Number of IMAGING AIDE Visits 0 Evaluation Information Evaluation Date 04/23/24 Precautions Precautions MRI showed distal supraspinatus tendonitis, likely supraspinatus tear, bursitis. PT-OP-B Current Condition Start: 04/17/24 07:50 Freq: Status: Active Protocol: Document 06/26/24 09:48 [facility] (Rec: 06/26/24 10:35 [facility] [id number]) Current Condition History of Current Condition Onset Date 04/01/24 Current Complaints Edema and minimal pain left clavicular area History of Current Condition Pt is s/p B mastectomy . Surgery went well and he is having a little B arm pit edema and edema over pect attachment area. Pt has a history of left clavicular area pain, increased thoracic kyphosis and tight anterior chest and shoulders. Pt is on testosterone, has history of hysterectomy, lap jackelyn, B eye procedures, dizziness felt to be postural in nature in the past. He has referral for ENT in future. He is starting migraine medication, once a month injection. Pt is right handed. Pt is having trouble with hygiene after toileting and reaching overhead d/t tightness and fear. Pt has numbness when holding phone in bed and he points to medial elbow. PT-OP-C Subjective Start: 04/17/24 07:50 Freq: Status: Active Protocol: Document 07/24/24 08:12 [facility] (Rec: 07/24/24 09:02 [facility] Laptop) OP-PT Subjective Patient Comments Patient Comments Pt. reports has had pain in all joints 1 week ago. Reports having increased pain left shoulder with work as well. Has seen doctor, tried Ibuprofen starting yesterday with a little improvement but doesn't really want to take medication. Having blood work done today. States feels very systemic, wondering about hormones. Has felt so poorly unable to tolerate HEP. PT-OP-F Manual Assessment Start: 04/17/24 07:50 Freq: Status: Active Protocol: Document 04/23/24 09:47 MB (Rec: 04/23/24 16:29 MB [id number]) Manual Assessments Other Manual Assessments Other Manual Assessments Mild but more fascial type edema B axillary area PT-OP-J Posture/Palpation/Skin Start: 04/17/24 07:50 Freq: Status: Active Protocol: Document 04/23/24 10:47 MB (Rec: 04/23/24 11:20 MB [id number]) Posture Evaluation Comments Posture Comments Pectus excavatum, B nipples moved and with some dryness and blackened tissue for skin that may fall off, pt with skin tightness around nipples and no other surgical lines and binder does indent into skin, pt con't with forward head, rounded shoulders, elevated shoulders, right shoulder mildly higher than the left, mild Dowager's hump, mild righ thoracic convexity, right iliac crest mildly higher than the left, increased lumbar lordosis and soft tissue abdomen. PT-OP-K Range of Motion Start: 04/17/24 07:50 Freq: Status: Active Protocol: Document 04/23/24 10:47 MB (Rec: 04/23/24 11:20 MB [id number]) Shoulder Goniometric Range of Motion Shoulder Left Testing Position Standing Flexion 140 Extension 28 Abduction 140 Internal Rotation Behind Back (text) T12 Comments Abduction in scaption plane Pt supine for PROM ER and IR at 90/90: pt apprehensive at 90 deg abduction and PT just reaches 90 deg abduction and ER is neutral and IR to 15 deg Right Testing Position Standing Flexion 148 Extension 28 Abduction 152 Internal Rotation Behind Back (text) T10 Comments Abduction in scaption plane Pt supine for PROM ER and IR at 90/90: shoulder moves easily into 90 deg abduction and ER to 75 deg and IR to 45 deg PT-OP-M Strength Start: 04/17/24 07:50 Freq: Status: Active Protocol: Document 04/23/24 10:47 MB (Rec: 04/23/24 11:20 MB [id number]) Shoulder Strength Shoulder Manual Muscle Testing Bilateral Flexion 5 Normal Abduction (C5) 5 Normal Elbow/Forearm Strength Elbow and Forearm Manual Muscle Testing Bilateral Flexion (C6) 5 Normal Extension (C7) 5 Normal PT-OP-Q Treatments Start: 04/17/24 07:50 Freq: Status: Active Protocol: Document 07/24/24 08:12 [facility] (Rec: 07/24/24 09:02 [facility] Laptop) Cardio Equipment Upper Body Ergometer (UBE) Duration (Minutes) 6 Seat Position 10 Other fwd/bck, alternating Recumbent Stepper (Sci-Fit) Duration (Minutes) 5 Resistance 2 Seat Position 10 Therapeutic Exercises Supine Exercises ER Supine Exercise Name PROM>AAROM Reps/Minutes 10x Comments poorly tolerated, ROM 20 deg PNF Supine Exercise Name D2 shoulder AAROM>AROM Reps/Minutes 10x, last 4 AROM Comments better tolerated than straight plane movement pec stretch Supine Exercise Name AROM hor ab, then stretch Equipment Used 1/2 roll serratus punch Equipment Used 1/2 foam roll on flat side Reps/Minutes 10x5 Sitting Exercises Chin tuck in sitting Sitting Exercise Name reviewed Reps/Minutes 5x Comments cues for lengthening of neck Manual Therapy Treatment Soft Tissue Mobilization UT, periscap Body Location L UT, LS, Rhomboid, distal pec , lat, deltoid Mobilization Type Rolling,Strumming,Sustained Pressure Intensity/Depth mod Joint Mobilizations left first rib Direction inf Grade III Body Position Supine Reps/Duration 2 min Comments improved positioning after mob L GH Direction inf, post, dist Body Position Hooklying Comments Gr II-III Self-Care/Home Management Treatment Education Other Education postural correction with sitting, standing and walking; used patient phone for taking pictures for reference PT-OP-R Modalities Start: 04/17/24 07:50 Freq: Status: Active Protocol: Document 07/24/24 08:12 [facility] (Rec: 07/24/24 16:43 [facility] Laptop) Electric Stimulation Electric Stimulation Interferential Current (IFC) Body Location left shoulder Intensity 13 Target/Sweep Sweep Patient Position Hooklying Combined With Heat/Cold Cold Pack Comments reports decreased pain after Iontophoresis Treatment L sh Treatment Medication Dexamethasone (-) Medication Amount (mL) (ml) 1 Medication Dosage 1mg/ml Patient Tolerance Good PT-OP-T Assessment and Plan Start: 04/17/24 07:50 Freq: Status: Active Protocol: Document 07/24/24 08:12 [facility] (Rec: 07/24/24 09:02 [facility] Laptop) Physical Therapy Assessment Evaluation Complexity Number of Personal Factors/Comorbidities 1-2 Number of Body Systems Impaired 1-2 Clinical Presentation at Evaluation Evolving Impairments Impairments Activity Tolerance,Edema, Functional Activities, Functional Mobility,Integument ,Pain,Posture,ROM,Soft Tissue Mobility Goals 3 Impairment Pt not performing HEP including thoracic range and shoulder strength ex Rocket Engine Tester Goal (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 05/20/24: Pt is performing band resisted exercises in standing and over foam roller, baseball bat AAROM, open book 06/03/24: patient compliant to HEP, needs cues for postural alignment, UE alignment for correct performance. 06/18/24: Pt is performing shoulder flexion, foam roller range, horizontal abduction, band exercises, wall posture and forward flexion and pect stretch. 07/24/24: patient performing HEP as tolerated though this week with reported all joints in severe pain did not tolerate. LTG Duration 8 weeks 2 Impairment Limited shoulder ROM, left worse than right Mcc Goal (LTG) Pt will present with B shoulder active flexion and abduction to at least 160 deg and left shoulder passive 90/ 90 ER to 75 deg and IR to 40 deg to improve functional use of arm. 05/20/24: AROM in standing: flexion right 160 deg, flexion left 148 deg; abduction right 168 deg and left 148 deg; pt supine with left shoulder 90/ 90, PROM: ER to 25 deg and IR to 60 deg. 06/03/24: AROM standing flex R 145 deg, left 150 06/18/24: AROM in standing, shoulder flexion: Right 160 deg and left 150 deg; abduction right to 170 deg and abduction left in scaption plane to 165 deg (not pure abduction); PROM supine left shoulder in 64 deg abduction and ER to 20 deg and IR to 62 deg 07/24/24: right shoulder ROM WNL, left shoulder PROM scaption 157, ER 20, IR 55 deg LTG Duration 09/23/24 1 Impairment QuickDASH reflects over 54% impairment Rocket Engine Tester Goal (LTG) Pt will present with improved QuickDASH score to reflect no more than 15% impairment to improve quality of life and function. 05/20/24: QuickDASH score reflects 29.54% impairment, improvement since evaluation 06/18/24: QuickDASH score reflects 31.81% impairment, which is slightly more impairment than previous progress note 07/24/24: QuickDash 35% impairment, better than eval but more than last session; again per above appears to have systemic joint pain occurring this week. LTG Duration 09/23/24 Assessment Summary Assessment Patient reporting severe all over body joint pain this week , unable to tolerate HEP, and assessment of ROM revealed dec ROM. Patient reporting increase in left shoulder pain with work activities. Was started on Ibuprofen yesterday and is going to have bloodwork today. Has significant postural impairment and has difficulty self-correcting without verbal , tactile, and visual cues. Would benefit from further skilled PT to address these impairments. Decreased pain with IFES and ice as well as Iontophoresis with Dexamethasone for approx 1-2 days. Physical Therapy Plan Frequency and Duration Frequency of Treatment 1-2x/Week Duration of treatment (weeks) 8 Plan of Care Start Date 07/24/24 Plan of Care End Date 09/23/24 Therapeutic Interventions Therapeutic Interventions Balance Training,Canalithic Repositioning,Home Exercise Program,Joint Mobilizations, Lymphedema Management,Manual Therapy,Neuromuscular Re- education,Patient/Caregiver Education,Self-Care/Home Management,Soft Tissue Mobilization,Taping, Therapeutic Activities, Therapeutic Exercises Modalities Cold Pack/Ice Massage,Electric Stimulation,Hot Packs, Iontophoresis,Ultrasound Next Visit Focus/Plan Next Note Type Treatment Note Next Visit Plan Continue PT to decrease left shoulder pain and improve left shoulder ROM, strength, and function.
--- NOTE | 2024-07-29 08:52 | PT.OTN ---
Current Diagnoses Encounter for breast reconstruction following mastectomy (07/29/24) Physical Therapy Treatment Note PT-OP-A Visit Information Start: 04/17/24 07:50 Freq: Status: Active Protocol: Document 07/29/24 08:15 MB (Rec: 07/29/24 08:52 MB Desktop) Out-Patient Physical Therapy Visit Information Visit Information Visit Type Progress Note Visit Note Next prog note by 08/28/24 Visit Start Time 08:15 Visit Stop Time 08:55 Visit Number 21 Number of BOOKING CLERK Visits 0 Evaluation Information Evaluation Date 04/23/24 Precautions Precautions MRI showed distal supraspinatus tendonitis, likely supraspinatus tear, bursitis. PT-OP-B Current Condition Start: 04/17/24 07:50 Freq: Status: Active Protocol: Document 06/26/24 09:48 [facility] (Rec: 06/26/24 10:35 [facility] [id number]) Current Condition History of Current Condition Onset Date 04/01/24 Current Complaints Edema and minimal pain left clavicular area History of Current Condition Pt is s/p B mastectomy . Surgery went well and he is having a little B arm pit edema and edema over pect attachment area. Pt has a history of left clavicular area pain, increased thoracic kyphosis and tight anterior chest and shoulders. Pt is on testosterone, has history of hysterectomy, lap jackelyn, B eye procedures, dizziness felt to be postural in nature in the past. He has referral for ENT in future. He is starting migraine medication, once a month injection. Pt is right handed. Pt is having trouble with hygiene after toileting and reaching overhead d/t tightness and fear. Pt has numbness when holding phone in bed and he points to medial elbow. 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 He is working on a week and off a week. PT-OP-F Manual Assessment Start: 04/17/24 07:50 Freq: Status: Active Protocol: Document 04/23/24 09:47 MB (Rec: 04/23/24 16:29 MB [id number]) Manual Assessments Other Manual Assessments Other Manual Assessments Mild but more fascial type edema B axillary area PT-OP-J Posture/Palpation/Skin Start: 04/17/24 07:50 Freq: Status: Active Protocol: Document 04/23/24 10:47 MB (Rec: 04/23/24 11:20 MB [id number]) Posture Evaluation Comments Posture Comments Pectus excavatum, B nipples moved and with some dryness and blackened tissue for skin that may fall off, pt with skin tightness around nipples and no other surgical lines and binder does indent into skin, pt con't with forward head, rounded shoulders, elevated shoulders, right shoulder mildly higher than the left, mild Dowager's hump, mild righ thoracic convexity, right iliac crest mildly higher than the left, increased lumbar lordosis and soft tissue abdomen. PT-OP-K Range of Motion Start: 04/17/24 07:50 Freq: Status: Active Protocol: Document 04/23/24 10:47 MB (Rec: 04/23/24 11:20 MB [id number]) Shoulder Goniometric Range of Motion Shoulder Left Testing Position Standing Flexion 140 Extension 28 Abduction 140 Internal Rotation Behind Back (text) T12 Comments Abduction in scaption plane Pt supine for PROM ER and IR at 90/90: pt apprehensive at 90 deg abduction and PT just reaches 90 deg abduction and ER is neutral and IR to 15 deg Right Testing Position Standing Flexion 148 Extension 28 Abduction 152 Internal Rotation Behind Back (text) T10 Comments Abduction in scaption plane Pt supine for PROM ER and IR at 90/90: shoulder moves easily into 90 deg abduction and ER to 75 deg and IR to 45 deg PT-OP-M Strength Start: 04/17/24 07:50 Freq: Status: Active Protocol: Document 04/23/24 10:47 MB (Rec: 04/23/24 11:20 MB [id number]) Shoulder Strength Shoulder Manual Muscle Testing Bilateral Flexion 5 Normal Abduction (C5) 5 Normal Elbow/Forearm Strength Elbow and Forearm Manual Muscle Testing Bilateral Flexion (C6) 5 Normal Extension (C7) 5 Normal PT-OP-Q Treatments Start: 04/17/24 07:50 Freq: Status: Active Protocol: Document 07/29/24 08:15 MB (Rec: 07/29/24 08:52 MB Desktop) Cardio Equipment Upper Body Ergometer (UBE) Duration (Minutes) 10 Other Standing, alternating 1' forward and 1' backward Therapeutic Exercises Standing Exercises doorway stretch Standing Exercise Name Reviewed and took photo of patient Comments Performed B arms and then progressed to uni arm ER stretch/iso Manual Therapy Treatment Consent Patient gave verbal consent for manual Yes treatment Other Other Manual Treatments [place] Protocol for left shoulder with AP, PA GH mobs, scapular mobs, SC and AC mobs pt in sidelying, supine and prone, muscle energy--all for left shoulder and pt with passive tension all mobs, especially in posterior shoulder joint and with ER and shoulder elevation/abduction in side lying PT-OP-R Modalities Start: 04/17/24 07:50 Freq: Status: Active Protocol: Document 07/24/24 08:12 [facility] (Rec: 07/24/24 16:43 [facility] Laptop) Electric Stimulation Electric Stimulation Interferential Current (IFC) Body Location left shoulder Intensity 13 Target/Sweep Sweep Patient Position Hooklying Combined With Heat/Cold Cold Pack Comments reports decreased pain after Iontophoresis Treatment L sh Treatment Medication Dexamethasone (-) Medication Amount (mL) (ml) 1 Medication Dosage 1mg/ml Patient Tolerance Good PT-OP-T Assessment and Plan Start: 04/17/24 07:50 Freq: Status: Active Protocol: Document 07/29/24 08:15 MB (Rec: 07/29/24 08:52 MB Desktop) Physical Therapy Assessment Rehab Potential Rehabilitation Potential Fair Evaluation Complexity Number of Personal Factors/Comorbidities 1-2 Number of Body Systems Impaired 1-2 Clinical Presentation at Evaluation Evolving Impairments Impairments Activity Tolerance,Edema, Functional Activities, Functional Mobility,Integument ,Pain,Posture,ROM,Soft Tissue Mobility Goals 4 Impairment Limited ROM left shoulder Linemarker Goal (LTG) Pt will present with active left shoulder flexion and abduction ROM 170 deg in standing and passive ER to 50 deg with shoulder in 90/90. LTG Duration 8 weeks 3 Impairment Pt not performing HEP including thoracic range and shoulder strength ex Fpc Goal (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 05/20/24: Pt is performing band resisted exercises in standing and over foam roller, baseball bat AAROM, open book 06/03/24: patient compliant to HEP, needs cues for postural alignment, UE alignment for correct performance. 06/18/24: Pt is performing shoulder flexion, foam roller range, horizontal abduction, band exercises, wall posture and forward flexion and pect stretch. 07/24/24: patient performing HEP as tolerated though this week with reported all joints in severe pain did not tolerate. 07/29/24: Pt is performing theraband exercises in standing at least once a day, pt is not performing thoracic exercises in hook lying as much, he is also performing wall exercises LTG Duration 8 weeks 2 Impairment Limited shoulder ROM, left worse than right Fpc Goal (LTG) Pt will present with B shoulder active flexion and abduction to at least 160 deg and left shoulder passive 90/ 90 ER to 75 deg and IR to 40 deg to improve functional use of arm. 05/20/24: AROM in standing: flexion right 160 deg, flexion left 148 deg; abduction right 168 deg and left 148 deg; pt supine with left shoulder 90/ 90, PROM: ER to 25 deg and IR to 60 deg. 06/03/24: AROM standing flex R 145 deg, left 150 06/18/24: AROM in standing, shoulder flexion: Right 160 deg and left 150 deg; abduction right to 170 deg and abduction left in scaption plane to 165 deg (not pure abduction); PROM supine left shoulder in 64 deg abduction and ER to 20 deg and IR to 62 deg 07/24/24: right shoulder ROM WNL, left shoulder PROM scaption 157, ER 20, IR 55 deg 07/29/24: Standing AROM shoulder flexion: R 166 deg and L 157 deg; abduction: right 172 deg and left 167 deg ; IR behind back left T10 and right T11. Supine PROM: shoulder does reach 90/90 with pain and tight end-feel and IR to 70 deg and ER 15 deg. LTG Duration 09/23/24 1 Impairment QuickDASH reflects over 54% impairment Fpc Goal (LTG) Pt will present with improved QuickDASH score to reflect no more than 15% impairment to improve quality of life and function. 05/20/24: QuickDASH score reflects 29.54% impairment, improvement since evaluation 06/18/24: QuickDASH score reflects 31.81% impairment, which is slightly more impairment than previous progress note 07/24/24: QuickDash 35% impairment, better than eval but more than last session; again per above appears to have systemic joint pain occurring this week. 07/29/24: QuickDASH score reflects 27.27% impairment LTG Duration 8 weeks Assessment Summary Assessment QuickDASH score is plateauing and pt is performing some of his exercises at home but not thoracic mobility ones. He has progressed with active left shoulder flexion and abduction and passive IR in supine with shoulder in 90/90 but ER is still very tight and limited and painful. Physical Therapy Plan Frequency and Duration Frequency of Treatment 1-2x/Week Duration of treatment (weeks) 8 Plan of Care Start Date 07/29/24 Plan of Care End Date 10/28/24 Therapeutic Interventions Therapeutic Interventions Balance Training,Canalithic Repositioning,Home Exercise Program,Joint Mobilizations, Lymphedema Management,Manual Therapy,Neuromuscular Re- education,Patient/Caregiver Education,Self-Care/Home Management,Soft Tissue Mobilization,Taping, Therapeutic Activities, Therapeutic Exercises Modalities Cold Pack/Ice Massage,Electric Stimulation,Hot Packs, Iontophoresis,Ultrasound Next Visit Focus/Plan Next Note Type Treatment Note Next Visit Plan Continue PT to decrease left shoulder pain and improve left shoulder ROM, strength, and function. Work on ER exercises especially.
--- NOTE | 2024-08-07 11:18 | PT.OTN ---
Current Diagnoses Encounter for breast reconstruction following mastectomy (08/07/24) Physical Therapy Treatment Note PT-OP-A Visit Information Start: 04/17/24 07:50 Freq: Status: Active Protocol: Document 08/07/24 09:49 [facility] (Rec: 08/07/24 10:02 [facility] Laptop) Out-Patient Physical Therapy Visit Information Visit Information Visit Type Progress Note Visit Note Next prog note by 08/28/24 Visit Start Time 09:50 Visit Stop Time 10:50 Visit Number 22 Number of WEB PAGE DEVELOPER Visits 0 Evaluation Information Evaluation Date 04/23/24 Precautions Precautions MRI showed distal supraspinatus tendonitis, likely supraspinatus tear, bursitis. PT-OP-B Current Condition Start: 04/17/24 07:50 Freq: Status: Active Protocol: Document 06/26/24 09:48 [facility] (Rec: 06/26/24 10:35 [facility] [id number]) Current Condition History of Current Condition Onset Date 04/01/24 Current Complaints Edema and minimal pain left clavicular area History of Current Condition Pt is s/p B mastectomy . Surgery went well and he is having a little B arm pit edema and edema over pect attachment area. Pt has a history of left clavicular area pain, increased thoracic kyphosis and tight anterior chest and shoulders. Pt is on testosterone, has history of hysterectomy, lap jackelyn, B eye procedures, dizziness felt to be postural in nature in the past. He has referral for ENT in future. He is starting migraine medication, once a month injection. Pt is right handed. Pt is having trouble with hygiene after toileting and reaching overhead d/t tightness and fear. Pt has numbness when holding phone in bed and he points to medial elbow. PT-OP-C Subjective Start: 04/17/24 07:50 Freq: Status: Active Protocol: Document 08/07/24 09:49 [facility] (Rec: 08/07/24 10:02 [facility] Laptop) OP-PT Subjective Patient Comments Patient Comments Reports staying off computer more. Pain variable, minimally changed. Reports after last session 1 day of some relief. 2 days relief after IFES and iontophoresis. Going to [place] orthopedist, consider injection 08/26/24. Has been doing jonel and theraband and isometric, and door stretch. PT-OP-F Manual Assessment Start: 04/17/24 07:50 Freq: Status: Active Protocol: Document 04/23/24 09:47 [facility] (Rec: 04/23/24 16:29 MB [id number]) Manual Assessments Other Manual Assessments Other Manual Assessments Mild but more fascial type edema B axillary area PT-OP-J Posture/Palpation/Skin Start: 04/17/24 07:50 Freq: Status: Active Protocol: Document 04/23/24 10:47 [facility] (Rec: 04/23/24 11:20 MB [id number]) Posture Evaluation Comments Posture Comments Pectus excavatum, B nipples moved and with some dryness and blackened tissue for skin that may fall off, pt with skin tightness around nipples and no other surgical lines and binder does indent into skin, pt con't with forward head, rounded shoulders, elevated shoulders, right shoulder mildly higher than the left, mild Dowager's hump, mild righ thoracic convexity, right iliac crest mildly higher than the left, increased lumbar lordosis and soft tissue abdomen. PT-OP-K Range of Motion Start: 04/17/24 07:50 Freq: Status: Active Protocol: Document 04/23/24 10:47 MB (Rec: 04/23/24 11:20 MB [id number]) Shoulder Goniometric Range of Motion Shoulder Left Testing Position Standing Flexion 140 Extension 28 Abduction 140 Internal Rotation Behind Back (text) T12 Comments Abduction in scaption plane Pt supine for PROM ER and IR at 90/90: pt apprehensive at 90 deg abduction and PT just reaches 90 deg abduction and ER is neutral and IR to 15 deg Right Testing Position Standing Flexion 148 Extension 28 Abduction 152 Internal Rotation Behind Back (text) T10 Comments Abduction in scaption plane Pt supine for PROM ER and IR at 90/90: shoulder moves easily into 90 deg abduction and ER to 75 deg and IR to 45 deg PT-OP-M Strength Start: 04/17/24 07:50 Freq: Status: Active Protocol: Document 04/23/24 10:47 MB (Rec: 04/23/24 11:20 MB [id number]) Shoulder Strength Shoulder Manual Muscle Testing Bilateral Flexion 5 Normal Abduction (C5) 5 Normal Elbow/Forearm Strength Elbow and Forearm Manual Muscle Testing Bilateral Flexion (C6) 5 Normal Extension (C7) 5 Normal PT-OP-Q Treatments Start: 04/17/24 07:50 Freq: Status: Active Protocol: Document 08/07/24 09:49 [facility] (Rec: 08/07/24 10:23 [facility] Laptop) Therapeutic Exercises Supine Exercises ER Supine Exercise Name PROM>AAROM Reps/Minutes 10x3 Comments improved to 45 deg pec stretch Supine Exercise Name AROM hor ab, then stretch Equipment Used 1/2 roll serratus punch Reps/Minutes 10x5 Cane AAROM Supine Exercise Name shoulder flex Sidelying Exercises open book Reps/Minutes 5x Comments cues for pain-free ROM, deep breathing Sitting Exercises deep breathing Sitting Exercise Name diaphragmatic, lateral thorax, chest Comments issue HO next session Standing Exercises shoulder isometrics Standing Exercise Name flex,ext,ab,add, IR,ER Equipment Used wall Reps/Minutes 5x ea motion Comments reviewed for technique, cues postural alignment, for pain- free intensity doorway stretch Standing Exercise Name reviewed Other Exercises cat/cow Reps/Minutes 5x Comments verbal and tactile cues Manual Therapy Treatment Consent Patient gave verbal consent for manual Yes treatment Soft Tissue Mobilization UT, periscap Body Location L UT, LS, Rhomboid, distal pec , lat, deltoid Mobilization Type Rolling,Strumming,Sustained Pressure Intensity/Depth mod Joint Mobilizations L GH Direction inf, post, dist Body Position Hooklying Comments Gr II-III PT-OP-R Modalities Start: 04/17/24 07:50 Freq: Status: Active Protocol: Document 08/07/24 09:49 [facility] (Rec: 08/07/24 10:02 [facility] Laptop) Electric Stimulation Electric Stimulation Interferential Current (IFC) Body Location left shoulder Intensity 13 Target/Sweep Sweep Patient Position Hooklying Combined With Heat/Cold Cold Pack Comments reports decreased pain after PT-OP-T Assessment and Plan Start: 04/17/24 07:50 Freq: Status: Active Protocol: Document 08/07/24 09:49 [facility] (Rec: 08/07/24 10:02 [facility] Laptop) Physical Therapy Assessment Evaluation Complexity Number of Personal Factors/Comorbidities 1-2 Number of Body Systems Impaired 1-2 Clinical Presentation at Evaluation Evolving Impairments Impairments Activity Tolerance,Edema, Functional Activities, Functional Mobility,Integument ,Pain,Posture,ROM,Soft Tissue Mobility Goals 4 Impairment Limited ROM left shoulder Zyglo Inspector Goal (LTG) Pt will present with active left shoulder flexion and abduction ROM 170 deg in standing and passive ER to 50 deg with shoulder in 90/90. LTG Duration 8 weeks 3 Impairment Pt not performing HEP including thoracic range and shoulder strength ex Correction Goal (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 05/20/24: Pt is performing band resisted exercises in standing and over foam roller, baseball bat AAROM, open book 06/03/24: patient compliant to HEP, needs cues for postural alignment, UE alignment for correct performance. 06/18/24: Pt is performing shoulder flexion, foam roller range, horizontal abduction, band exercises, wall posture and forward flexion and pect stretch. 07/24/24: patient performing HEP as tolerated though this week with reported all joints in severe pain did not tolerate. 07/29/24: Pt is performing theraband exercises in standing at least once a day, pt is not performing thoracic exercises in hook lying as much, he is also performing wall exercises LTG Duration 8 weeks 1 Impairment QuickDASH reflects over 54% impairment Correction Goal (LTG) Pt will present with improved QuickDASH score to reflect no more than 15% impairment to improve quality of life and function. 05/20/24: QuickDASH score reflects 29.54% impairment, improvement since evaluation 06/18/24: QuickDASH score reflects 31.81% impairment, which is slightly more impairment than previous progress note 07/24/24: QuickDash 35% impairment, better than eval but more than last session; again per above appears to have systemic joint pain occurring this week. 07/29/24: QuickDASH score reflects 27.27% impairment LTG Duration 8 weeks Assessment Summary Assessment Peristent pain left shoulder, compliance with HEP variable and often limited, appears impacted by patient depression verbalized by him, does see a counselor. Encouraged positive self care, ex in pain -free ROM and intensity for improved comfort and compliance. Decreased pain with modalities for approx 2 days indicated possible benefit from injection. Continued postural re- education throughout session Physical Therapy Plan Frequency and Duration Frequency of Treatment 1-2x/Week Duration of treatment (weeks) 8 Plan of Care Start Date 07/29/24 Plan of Care End Date 10/28/24 Therapeutic Interventions Therapeutic Interventions Balance Training,Canalithic Repositioning,Home Exercise Program,Joint Mobilizations, Lymphedema Management,Manual Therapy,Neuromuscular Re- education,Patient/Caregiver Education,Self-Care/Home Management,Soft Tissue Mobilization,Taping, Therapeutic Activities, Therapeutic Exercises Modalities Cold Pack/Ice Massage,Electric Stimulation,Hot Packs, Iontophoresis,Ultrasound Next Visit Focus/Plan Next Note Type Treatment Note Next Visit Plan Continue PT to decrease left shoulder pain and improve left shoulder ROM, strength, and function. Work on ER exercises especially. Consider posterior capsule stretch for home.
--- NOTE | 2024-08-11 17:52 | PT.OTN ---
Current Diagnoses Encounter for breast reconstruction following mastectomy (08/11/24) Physical Therapy Treatment Note PT-OP-A Visit Information Start: 04/17/24 07:50 Freq: Status: Active Protocol: Document 08/11/24 10:36 [facility] (Rec: 08/11/24 11:34 [facility] Laptop) Out-Patient Physical Therapy Visit Information Visit Information Visit Type Progress Note Visit Note Next prog note by 08/28/24 Visit Start Time 10:45 Visit Stop Time 10:50 Visit Number 23 Number of BOBBIN COLLECTOR Visits 0 Evaluation Information Evaluation Date 04/23/24 Precautions Precautions MRI showed distal supraspinatus tendonitis, likely supraspinatus tear, bursitis. PT-OP-B Current Condition Start: 04/17/24 07:50 Freq: Status: Active Protocol: Document 06/26/24 09:48 [facility] (Rec: 06/26/24 10:35 [facility] [id number]) Current Condition History of Current Condition Onset Date 04/01/24 Current Complaints Edema and minimal pain left clavicular area History of Current Condition Pt is s/p B mastectomy . Surgery went well and he is having a little B arm pit edema and edema over pect attachment area. Pt has a history of left clavicular area pain, increased thoracic kyphosis and tight anterior chest and shoulders. Pt is on testosterone, has history of hysterectomy, lap jackelyn, B eye procedures, dizziness felt to be postural in nature in the past. He has referral for ENT in future. He is starting migraine medication, once a month injection. Pt is right handed. Pt is having trouble with hygiene after toileting and reaching overhead d/t tightness and fear. Pt has numbness when holding phone in bed and he points to medial elbow. PT-OP-C Subjective Start: 04/17/24 07:50 Freq: Status: Active Protocol: Document 08/11/24 10:36 [facility] (Rec: 08/11/24 11:34 [facility] Laptop) OP-PT Subjective Patient Comments Patient Comments Feels a little less inflamed. Has been doing moderate HEP . PT-OP-F Manual Assessment Start: 04/17/24 07:50 Freq: Status: Active Protocol: Document 04/23/24 09:47 MB (Rec: 04/23/24 16:29 MB [id number]) Manual Assessments Other Manual Assessments Other Manual Assessments Mild but more fascial type edema B axillary area PT-OP-J Posture/Palpation/Skin Start: 04/17/24 07:50 Freq: Status: Active Protocol: Document 04/23/24 10:47 [facility] (Rec: 04/23/24 11:20 MB [id number]) Posture Evaluation Comments Posture Comments Pectus excavatum, B nipples moved and with some dryness and blackened tissue for skin that may fall off, pt with skin tightness around nipples and no other surgical lines and binder does indent into skin, pt con't with forward head, rounded shoulders, elevated shoulders, right shoulder mildly higher than the left, mild Dowager's hump, mild righ thoracic convexity, right iliac crest mildly higher than the left, increased lumbar lordosis and soft tissue abdomen. PT-OP-K Range of Motion Start: 04/17/24 07:50 Freq: Status: Active Protocol: Document 04/23/24 10:47 MB (Rec: 04/23/24 11:20 MB [id number]) Shoulder Goniometric Range of Motion Shoulder Left Testing Position Standing Flexion 140 Extension 28 Abduction 140 Internal Rotation Behind Back (text) T12 Comments Abduction in scaption plane Pt supine for PROM ER and IR at 90/90: pt apprehensive at 90 deg abduction and PT just reaches 90 deg abduction and ER is neutral and IR to 15 deg Right Testing Position Standing Flexion 148 Extension 28 Abduction 152 Internal Rotation Behind Back (text) T10 Comments Abduction in scaption plane Pt supine for PROM ER and IR at 90/90: shoulder moves easily into 90 deg abduction and ER to 75 deg and IR to 45 deg PT-OP-M Strength Start: 04/17/24 07:50 Freq: Status: Active Protocol: Document 04/23/24 10:47 MB (Rec: 04/23/24 11:20 MB [id number]) Shoulder Strength Shoulder Manual Muscle Testing Bilateral Flexion 5 Normal Abduction (C5) 5 Normal Elbow/Forearm Strength Elbow and Forearm Manual Muscle Testing Bilateral Flexion (C6) 5 Normal Extension (C7) 5 Normal PT-OP-Q Treatments Start: 04/17/24 07:50 Freq: Status: Active Protocol: Document 08/11/24 10:36 [facility] (Rec: 08/11/24 11:34 [facility] Laptop) Therapeutic Exercises Supine Exercises ER Supine Exercise Name PROM>AAROM Reps/Minutes 10x3 Comments 49 deg pec stretch Supine Exercise Name AROM hor ab, then stretch Equipment Used 1/2 roll serratus punch Reps/Minutes 10x5 Sidelying Exercises open book Reps/Minutes 5x Comments cues for pain-free ROM, deep breathing Sitting Exercises shoulder flex Sitting Exercise Name with hor ab pressure Resistance L2 TB lat pull Sitting Exercise Name facing away Resistance L2 TB Reps/Minutes 10x Comments forward, diagonal Standing Exercises shoulder ER Standing Exercise Name elbows straight Reps/Minutes 10x posture walk Equipment Used souza bag Reps/Minutes 20 ft wall posture Reps/Minutes 5 min Manual Therapy Treatment Taping left shoulder Treatment Focus postural correction, supraspinatus support Type of Tape Kinesio Tape Skin Inspection intact Comments 2 I strips between scapulae 75 % stretch Y strip shoulder starting deltoid insertion with tails ant and post 50% stretch I strip supraspinatus 50% stretch PT-OP-R Modalities Start: 04/17/24 07:50 Freq: Status: Active Protocol: Document 08/11/24 10:36 [facility] (Rec: 08/11/24 17:50 [facility] Laptop) Electric Stimulation Electric Stimulation Interferential Current (IFC) Body Location left shoulder Intensity 13 Target/Sweep Sweep Patient Position Hooklying Combined With Heat/Cold Cold Pack Comments reports decreased pain after Infrared Treatment Treatment Left Shoulder Body Position Sitting Continuous/Pulsed Continuous Program or Protocal chronic muscle pain Comments 6 locations along supraspinatus Iontophoresis Treatment L sh Treatment Medication Dexamethasone (-) Medication Amount (mL) (ml) 1 Medication Dosage 1mg/ml Patient Tolerance Good PT-OP-T Assessment and Plan Start: 04/17/24 07:50 Freq: Status: Active Protocol: Document 08/11/24 10:36 [facility] (Rec: 08/11/24 17:50 [facility] Laptop) Physical Therapy Assessment Evaluation Complexity Number of Personal Factors/Comorbidities 1-2 Number of Body Systems Impaired 1-2 Clinical Presentation at Evaluation Evolving Impairments Impairments Activity Tolerance,Edema, Functional Activities, Functional Mobility,Integument ,Pain,Posture,ROM,Soft Tissue Mobility Goals 4 Impairment Limited ROM left shoulder Sas Architect Goal (LTG) Pt will present with active left shoulder flexion and abduction ROM 170 deg in standing and passive ER to 50 deg with shoulder in 90/90. LTG Duration 8 weeks 3 Impairment Pt not performing HEP including thoracic range and shoulder strength ex Intermediate Goal (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 05/20/24: Pt is performing band resisted exercises in standing and over foam roller, baseball bat AAROM, open book 06/03/24: patient compliant to HEP, needs cues for postural alignment, UE alignment for correct performance. 06/18/24: Pt is performing shoulder flexion, foam roller range, horizontal abduction, band exercises, wall posture and forward flexion and pect stretch. 07/24/24: patient performing HEP as tolerated though this week with reported all joints in severe pain did not tolerate. 07/29/24: Pt is performing theraband exercises in standing at least once a day, pt is not performing thoracic exercises in hook lying as much, he is also performing wall exercises LTG Duration 8 weeks 1 Impairment QuickDASH reflects over 54% impairment Sas Architect Goal (LTG) Pt will present with improved QuickDASH score to reflect no more than 15% impairment to improve quality of life and function. 05/20/24: QuickDASH score reflects 29.54% impairment, improvement since evaluation 06/18/24: QuickDASH score reflects 31.81% impairment, which is slightly more impairment than previous progress note 07/24/24: QuickDash 35% impairment, better than eval but more than last session; again per above appears to have systemic joint pain occurring this week. 07/29/24: QuickDASH score reflects 27.27% impairment LTG Duration 8 weeks Assessment Summary Assessment Good tolerance for eccentric shoulder elevation seated with TB overhead with patient able to tolerate flexion and scaption to approx 155 deg, added to HEP Physical Therapy Plan Frequency and Duration Frequency of Treatment 1-2x/Week Duration of treatment (weeks) 8 Plan of Care Start Date 07/29/24 Plan of Care End Date 10/28/24 Therapeutic Interventions Therapeutic Interventions Balance Training,Canalithic Repositioning,Home Exercise Program,Joint Mobilizations, Lymphedema Management,Manual Therapy,Neuromuscular Re- education,Patient/Caregiver Education,Self-Care/Home Management,Soft Tissue Mobilization,Taping, Therapeutic Activities, Therapeutic Exercises Modalities Cold Pack/Ice Massage,Electric Stimulation,Hot Packs, Iontophoresis,Ultrasound Next Visit Focus/Plan Next Note Type Treatment Note Next Visit Plan Posterior capsule stretch. REview seated eccentric shoulder elevation ex, continue postural correction ed, shoulder ROM. Assess response to KT tape today.
--- NOTE | 2024-08-21 16:30 | PT.OTRE ---
Current Diagnoses Encounter for breast reconstruction following mastectomy (08/21/24) Past Medical History (Last Reviewed 02/14/24 @ 16:49 by Carley Sahni PA-C) Post-cholecystectomy syndrome Upper abdominal pain, unspecified Surgical History (Last Reviewed 02/14/24 @ 16:49 by Carley Sahni PA-C) Status post laparoscopic cholecystectomy Visit Care Team Role Provider Type Dev Escoto MD Attending Provider Physician Family Provider Primary Care Provider Referring Provider Specialty: Family Practice Address: [facility] [place], [place], [facility] Email: [email or web address] Physical Therapy Re-Evaluation PT-OP-A Visit Information Start: 04/17/24 07:50 Freq: Status: Active Protocol: Document 08/21/24 15:13 SAK (Rec: 08/21/24 15:42 SAK Laptop) Out-Patient Physical Therapy Visit Information Visit Information Visit Type Progress Note Visit Start Time 15:14 Visit Stop Time 16:00 Visit Number 24 Number of WARRANT SERVER Visits 0 PT-OP-B Current Condition Start: 04/17/24 07:50 Freq: Status: Active Protocol: Document 06/26/24 09:48 SAK (Rec: 06/26/24 10:35 SAK [id number]) Current Condition History of Current Condition Onset Date 04/01/24 Current Complaints Edema and minimal pain left clavicular area History of Current Condition Pt is s/p B mastectomy . Surgery went well and he is having a little B arm pit edema and edema over pect attachment area. Pt has a history of left clavicular area pain, increased thoracic kyphosis and tight anterior chest and shoulders. Pt is on testosterone, has history of hysterectomy, lap jackelyn, B eye procedures, dizziness felt to be postural in nature in the past. He has referral for ENT in future. He is starting migraine medication, once a month injection. Pt is right handed. Pt is having trouble with hygiene after toileting and reaching overhead d/t tightness and fear. Pt has numbness when holding phone in bed and he points to medial elbow. PT-OP-C Subjective Start: 04/17/24 07:50 Freq: Status: Active Protocol: Document 08/21/24 15:13 SAK (Rec: 08/21/24 15:42 SAK Laptop) OP-PT Subjective Patient Comments Patient Comments Goes to sports medicine physician 08/26/24; Dr. Lis Moeller. Reports having a hard week. Just had blood and a culture taken for testing, concern over infection from chest wound. Doesn't feel getting better, job makes pain worse. States feeling depressed. Short term relief with laser, IFES, KT tape. States iontophoresis irritated his skin. Using CBD ointment on shoulder every night. OP-PT Pain Assessment Location left shoulder Intensity 8 Description Aching,Chronic,Sharp,Stabbing, Tender,Tightness,Throbbing, With Movement Frequency Frequent Pain Aggravating Factors Activity,Exercise,Lifting Other Pain Aggravating Factors reaching Pain Alleviating Factors Inactivity,Rest Home Pain Medication Use Pain Medications Used Yes Comments Pain Comments using 800 mg Ibuprofen at night occasionally but concerned about GI upset PT-OP-F Manual Assessment Start: 04/17/24 07:50 Freq: Status: Active Protocol: Document 04/23/24 09:47 MB (Rec: 04/23/24 16:29 MB [id number]) Manual Assessments Other Manual Assessments Other Manual Assessments Mild but more fascial type edema B axillary area PT-OP-J Posture/Palpation/Skin Start: 04/17/24 07:50 Freq: Status: Active Protocol: Document 04/23/24 10:47 MB (Rec: 04/23/24 11:20 MB [id number]) Posture Evaluation Comments Posture Comments Pectus excavatum, B nipples moved and with some dryness and blackened tissue for skin that may fall off, pt with skin tightness around nipples and no other surgical lines and binder does indent into skin, pt con't with forward head, rounded shoulders, elevated shoulders, right shoulder mildly higher than the left, mild Dowager's hump, mild righ thoracic convexity, right iliac crest mildly higher than the left, increased lumbar lordosis and soft tissue abdomen. PT-OP-K Range of Motion Start: 04/17/24 07:50 Freq: Status: Active Protocol: Document 04/23/24 10:47 MB (Rec: 04/23/24 11:20 MB [id number]) Shoulder Goniometric Range of Motion Shoulder Measured in Degrees Left Testing Position Standing Flexion 140 Extension 28 Abduction 140 Internal Rotation Behind Back (text) T12 Comments Abduction in scaption plane Pt supine for PROM ER and IR at 90/90: pt apprehensive at 90 deg abduction and PT just reaches 90 deg abduction and ER is neutral and IR to 15 deg Right Testing Position Standing Flexion 148 Extension 28 Abduction 152 Internal Rotation Behind Back (text) T10 Comments Abduction in scaption plane Pt supine for PROM ER and IR at 90/90: shoulder moves easily into 90 deg abduction and ER to 75 deg and IR to 45 deg PT-OP-M Strength Start: 04/17/24 07:50 Freq: Status: Active Protocol: Document 04/23/24 10:47 MB (Rec: 04/23/24 11:20 MB [id number]) Shoulder Strength Shoulder Manual Muscle Testing Bilateral Flexion 5 Normal Abduction (C5) 5 Normal Elbow/Forearm Strength Elbow and Forearm Manual Muscle Testing Bilateral Flexion (C6) 5 Normal Extension (C7) 5 Normal PT-OP-Q Treatments Start: 04/17/24 07:50 Freq: Status: Active Protocol: Document 08/21/24 15:13 SAK (Rec: 08/21/24 16:30 SAK Laptop) Therapeutic Exercises Supine Exercises ER Supine Exercise Name PROM>AAROM Reps/Minutes 10x2 Comments 38 deg Sitting Exercises shoulder flex Sitting Exercise Name with hor ab pressure Resistance L2 TB Reps/Minutes 10x lat pull Sitting Exercise Name facing away Resistance L2 TB Reps/Minutes 10x2 Comments forward, diagonal deep breathing Sitting Exercise Name diaphragmatic, lateral thorax, chest Comments issue HO next session Standing Exercises shoulder isometrics Standing Exercise Name verbal review Other Exercises cat/cow Other Exercise Name sitting Reps/Minutes 5x Comments verbal and tactile cues Manual Therapy Treatment Soft Tissue Mobilization UT, periscap Body Location L UT, LS, Rhomboid, distal pec , lat, deltoid Mobilization Type Rolling,Strumming,Sustained Pressure Intensity/Depth mod Taping left shoulder Treatment Focus shoulder support Type of Tape Kinesio Tape Skin Inspection intact Comments Y strip shoulder starting deltoid insertion with PT-OP-R Modalities Start: 04/17/24 07:50 Freq: Status: Active Protocol: Document 08/21/24 15:13 SAK (Rec: 08/21/24 15:42 SAK Laptop) Electric Stimulation Electric Stimulation Interferential Current (IFC) Body Location left shoulder Intensity 13 Target/Sweep Sweep Patient Position Hooklying Combined With Heat/Cold Cold Pack Comments reports decreased pain after Infrared Treatment Treatment Left Shoulder Body Position Sitting Continuous/Pulsed Continuous Program or Protocal chronic muscle pain Comments 6 locations along supraspinatus PT-OP-T Assessment and Plan Start: 04/17/24 07:50 Freq: Status: Active Protocol: Document 08/21/24 15:13 [facility] (Rec: 08/21/24 15:42 [facility] Laptop) Physical Therapy Assessment Impairments Impairments Activity Tolerance,Edema, Functional Activities, Functional Mobility,Integument ,Pain,Posture,ROM,Soft Tissue Mobility Goals 4 Impairment Limited ROM left shoulder Conference Services Coordinator Goal (LTG) Pt will present with active left shoulder flexion and abduction ROM 170 deg in standing and passive ER to 50 deg with shoulder in 90/90. 08/21/24: Improved to 158 flexion, 155 abduction (pain with eccentric lowering), IR T 6, ER LTG Duration 10/21/24 3 Impairment Pt not performing HEP including thoracic range and shoulder strength ex [facility] Goal (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 05/20/24: Pt is performing band resisted exercises in standing and over foam roller, baseball bat AAROM, open book 06/03/24: patient compliant to HEP, needs cues for postural alignment, UE alignment for correct performance. 06/18/24: Pt is performing shoulder flexion, foam roller range, horizontal abduction, band exercises, wall posture and forward flexion and pect stretch. 07/24/24: patient performing HEP as tolerated though this week with reported all joints in severe pain did not tolerate. 07/29/24: Pt is performing theraband exercises in standing at least once a day, pt is not performing thoracic exercises in hook lying as much, he is also performing wall exercises 08/21/24: Iconsistent performance HEP due to high pain level. Best tolerance use of theraband for seated eccentric shoulder elevation. LTG Duration 10/21/24 1 Impairment QuickDASH reflects over 54% impairment Conference Services Coordinator Goal (LTG) Pt will present with improved QuickDASH score to reflect no more than 15% impairment to improve quality of life and function. 05/20/24: QuickDASH score reflects 29.54% impairment, improvement since evaluation 06/18/24: QuickDASH score reflects 31.81% impairment, which is slightly more impairment than previous progress note 07/24/24: QuickDash 35% impairment, better than eval but more than last session; again per above appears to have systemic joint pain occurring this week. 07/29/24: QuickDASH score reflects 27.27% impairment 08/21/24: 45%; score worsened since return to work LTG Duration 8 weeks Assessment Summary Assessment Patient improved left shoulder active flexion and abduction ROM but pain with lowering, improved with resisted lowering. ER still very limited and painful. Patient off work today and states better on days off. Reports severe increase in pain on work days, takes 800 mg Ibuprofen end of work days at times. Better awareness of posture and correction strategies but still requires frequent cues Hopeful orthopedist will be helpful but also expressed fear that surgery may be needed. Physical Therapy Plan Frequency and Duration Frequency of Treatment 1-2x/Week Duration of treatment (weeks) 8 Plan of Care Start Date 08/21/24 Plan of Care End Date 10/21/24 Therapeutic Interventions Therapeutic Interventions Balance Training,Canalithic Repositioning,Home Exercise Program,Joint Mobilizations, Lymphedema Management,Manual Therapy,Neuromuscular Re- education,Patient/Caregiver Education,Self-Care/Home Management,Soft Tissue Mobilization,Taping, Therapeutic Activities, Therapeutic Exercises Modalities Cold Pack/Ice Massage,Electric Stimulation,Hot Packs, Iontophoresis,Ultrasound Next Visit Focus/Plan Next Note Type Treatment Note Next Visit Plan Continue PT pending recommendations from orthopedist. Posterior capsule stretch. Review seated eccentric shoulder elevation ex, continue postural correction ex, shoulder ROM, strengthening, consider thoracic mobilization .
--- NOTE | 2024-08-26 11:26 | PT.OTN ---
Current Diagnoses Encounter for breast reconstruction following mastectomy (08/26/24) Physical Therapy Treatment Note PT-OP-A Visit Information Start: 04/17/24 07:50 Freq: Status: Active Protocol: Document 08/26/24 10:42 MB (Rec: 08/26/24 11:25 MB Desktop) Out-Patient Physical Therapy Visit Information Visit Information Visit Type Treatment Note Visit Start Time 10:42 Visit Stop Time 11:12 Visit Number 25 Number of JAVA SWING DEVELOPER Visits 0 Evaluation Information Evaluation Date 04/23/24 Precautions Precautions MRI showed distal supraspinatus tendonitis, likely supraspinatus tear, bursitis. PT-OP-B Current Condition Start: 04/17/24 07:50 Freq: Status: Active Protocol: Document 06/26/24 09:48 SAK (Rec: 06/26/24 10:35 SAK [id number]) Current Condition History of Current Condition Onset Date 04/01/24 Current Complaints Edema and minimal pain left clavicular area History of Current Condition Pt is s/p B mastectomy . Surgery went well and he is having a little B arm pit edema and edema over pect attachment area. Pt has a history of left clavicular area pain, increased thoracic kyphosis and tight anterior chest and shoulders. Pt is on testosterone, has history of hysterectomy, lap jackelyn, B eye procedures, dizziness felt to be postural in nature in the past. He has referral for ENT in future. He is starting migraine medication, once a month injection. Pt is right handed. Pt is having trouble with hygiene after toileting and reaching overhead d/t tightness and fear. Pt has numbness when holding phone in bed and he points to medial elbow. PT-OP-C Subjective Start: 04/17/24 07:50 Freq: Status: Active Protocol: Document 08/26/24 10:42 MB (Rec: 08/26/24 11:25 MB Desktop) OP-PT Subjective Patient Comments Patient Comments Pt states that he is feeling, osmani. PT-OP-F Manual Assessment Start: 04/17/24 07:50 Freq: Status: Active Protocol: Document 04/23/24 09:47 MB (Rec: 04/23/24 16:29 MB [id number]) Manual Assessments Other Manual Assessments Other Manual Assessments Mild but more fascial type edema B axillary area PT-OP-J Posture/Palpation/Skin Start: 04/17/24 07:50 Freq: Status: Active Protocol: Document 04/23/24 10:47 MB (Rec: 04/23/24 11:20 MB [id number]) Posture Evaluation Comments Posture Comments Pectus excavatum, B nipples moved and with some dryness and blackened tissue for skin that may fall off, pt with skin tightness around nipples and no other surgical lines and binder does indent into skin, pt con't with forward head, rounded shoulders, elevated shoulders, right shoulder mildly higher than the left, mild Dowager's hump, mild righ thoracic convexity, right iliac crest mildly higher than the left, increased lumbar lordosis and soft tissue abdomen. PT-OP-K Range of Motion Start: 04/17/24 07:50 Freq: Status: Active Protocol: Document 04/23/24 10:47 MB (Rec: 04/23/24 11:20 MB [id number]) Shoulder Goniometric Range of Motion Shoulder Left Testing Position Standing Flexion 140 Extension 28 Abduction 140 Internal Rotation Behind Back (text) T12 Comments Abduction in scaption plane Pt supine for PROM ER and IR at 90/90: pt apprehensive at 90 deg abduction and PT just reaches 90 deg abduction and ER is neutral and IR to 15 deg Right Testing Position Standing Flexion 148 Extension 28 Abduction 152 Internal Rotation Behind Back (text) T10 Comments Abduction in scaption plane Pt supine for PROM ER and IR at 90/90: shoulder moves easily into 90 deg abduction and ER to 75 deg and IR to 45 deg PT-OP-M Strength Start: 04/17/24 07:50 Freq: Status: Active Protocol: Document 04/23/24 10:47 MB (Rec: 04/23/24 11:20 MB [id number]) Shoulder Strength Shoulder Manual Muscle Testing Bilateral Flexion 5 Normal Abduction (C5) 5 Normal Elbow/Forearm Strength Elbow and Forearm Manual Muscle Testing Bilateral Flexion (C6) 5 Normal Extension (C7) 5 Normal PT-OP-Q Treatments Start: 04/17/24 07:50 Freq: Status: Active Protocol: Document 08/26/24 10:42 MB (Rec: 08/26/24 11:25 MB Desktop) Cardio Equipment Upper Body Ergometer (UBE) Duration (Minutes) 10 Other Pt standing, 1' forward and 1' backward Therapeutic Exercises Supine Exercises Scapular retraction and posterior capsule stretch today Supine Exercise Name Pt has standing handouts at home Comments Re-ed to con't at home Manual Therapy Treatment Consent Patient gave verbal consent for manual Yes treatment Other Other Manual Treatments Scapular mobs all directions, GH mobs AP, PA, into ER and IR , SC and AC mobs, AAROM and pt in prone, supine, side lying, mobs into tolerable range, ER to neutral in prone, very tight capsule/adhesive capsulitis, side lying pect major STM makes abduction much better, at least 50 deg PT-OP-R Modalities Start: 04/17/24 07:50 Freq: Status: Active Protocol: Document 08/21/24 15:13 SAK (Rec: 08/21/24 15:42 SAK Laptop) Electric Stimulation Electric Stimulation Interferential Current (IFC) Body Location left shoulder Intensity 13 Target/Sweep Sweep Patient Position Hooklying Combined With Heat/Cold Cold Pack Comments reports decreased pain after Infrared Treatment Treatment Left Shoulder Body Position Sitting Continuous/Pulsed Continuous Program or Protocal chronic muscle pain Comments 6 locations along supraspinatus PT-OP-T Assessment and Plan Start: 04/17/24 07:50 Freq: Status: Active Protocol: Document 08/26/24 10:42 MB (Rec: 08/26/24 11:25 MB Desktop) Physical Therapy Assessment Rehab Potential Rehabilitation Potential Fair Evaluation Complexity Number of Personal Factors/Comorbidities 1-2 Number of Body Systems Impaired 1-2 Clinical Presentation at Evaluation Evolving Impairments Impairments Activity Tolerance,Edema, Functional Activities, Functional Mobility,Integument ,Pain,Posture,ROM,Soft Tissue Mobility Goals 4 Impairment Limited ROM left shoulder Juice Scaleman Goal (LTG) Pt will present with active left shoulder flexion and abduction ROM 170 deg in standing and passive ER to 50 deg with shoulder in 90/90. 08/21/24: Improved to 158 flexion, 155 abduction (pain with eccentric lowering), IR T 6, ER LTG Duration 10/21/24 3 Impairment Pt not performing HEP including thoracic range and shoulder strength ex Juice Scaleman Goal (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 05/20/24: Pt is performing band resisted exercises in standing and over foam roller, baseball bat AAROM, open book 06/03/24: patient compliant to HEP, needs cues for postural alignment, UE alignment for correct performance. 06/18/24: Pt is performing shoulder flexion, foam roller range, horizontal abduction, band exercises, wall posture and forward flexion and pect stretch. 07/24/24: patient performing HEP as tolerated though this week with reported all joints in severe pain did not tolerate. 07/29/24: Pt is performing theraband exercises in standing at least once a day, pt is not performing thoracic exercises in hook lying as much, he is also performing wall exercises 08/21/24: Iconsistent performance HEP due to high pain level. Best tolerance use of theraband for seated eccentric shoulder elevation. LTG Duration 10/21/24 1 Impairment QuickDASH reflects over 54% impairment Juice Scaleman Goal (LTG) Pt will present with improved QuickDASH score to reflect no more than 15% impairment to improve quality of life and function. 05/20/24: QuickDASH score reflects 29.54% impairment, improvement since evaluation 06/18/24: QuickDASH score reflects 31.81% impairment, which is slightly more impairment than previous progress note 07/24/24: QuickDash 35% impairment, better than eval but more than last session; again per above appears to have systemic joint pain occurring this week. 07/29/24: QuickDASH score reflects 27.27% impairment 08/21/24: 45%; score worsened since return to work LTG Duration 8 weeks Assessment Summary Assessment Will prepare for HEP review next treatment date. Pt sees ortho today and may get further plan for treatment/ injection, etc. Physical Therapy Plan Frequency and Duration Frequency of Treatment 1-2x/Week Duration of treatment (weeks) 8 Plan of Care Start Date 08/21/24 Plan of Care End Date 10/21/24 Therapeutic Interventions Therapeutic Interventions Balance Training,Canalithic Repositioning,Home Exercise Program,Joint Mobilizations, Lymphedema Management,Manual Therapy,Neuromuscular Re- education,Patient/Caregiver Education,Self-Care/Home Management,Soft Tissue Mobilization,Taping, Therapeutic Activities, Therapeutic Exercises Modalities Cold Pack/Ice Massage,Electric Stimulation,Hot Packs, Iontophoresis,Ultrasound Next Visit Focus/Plan Next Note Type Treatment Note Next Visit Plan Con't [place] Protocol, full exercise review and go through handouts to see what to keep and what to get rid of
--- NOTE | 2024-09-08 10:31 | PT.OTN ---
Current Diagnoses Encounter for breast reconstruction following mastectomy (09/08/24) Physical Therapy Treatment Note PT-OP-A Visit Information Start: 04/17/24 07:50 Freq: Status: Active Protocol: Document 09/08/24 09:51 SP (Rec: 09/08/24 10:34 SP [id number]) Out-Patient Physical Therapy Visit Information Visit Information Visit Type Treatment Note Visit Start Time 09:51 Visit Stop Time 10:31 Visit Number 26 Number of IMAGERY INTELLIGENCE Visits 1 Evaluation Information Evaluation Date 04/23/24 Precautions Precautions MRI showed distal supraspinatus tendonitis, likely supraspinatus tear, bursitis. PT-OP-B Current Condition Start: 04/17/24 07:50 Freq: Status: Active Protocol: Document 06/26/24 09:48 SAK (Rec: 06/26/24 10:35 SAK [id number]) Current Condition History of Current Condition Onset Date 04/01/24 Current Complaints Edema and minimal pain left clavicular area History of Current Condition Pt is s/p B mastectomy . Surgery went well and he is having a little B arm pit edema and edema over pect attachment area. Pt has a history of left clavicular area pain, increased thoracic kyphosis and tight anterior chest and shoulders. Pt is on testosterone, has history of hysterectomy, lap jackelyn, B eye procedures, dizziness felt to be postural in nature in the past. He has referral for ENT in future. He is starting migraine medication, once a month injection. Pt is right handed. Pt is having trouble with hygiene after toileting and reaching overhead d/t tightness and fear. Pt has numbness when holding phone in bed and he points to medial elbow. PT-OP-C Subjective Start: 04/17/24 07:50 Freq: Status: Active Protocol: Document 09/08/24 09:51 SP (Rec: 09/08/24 10:34 SP [id number]) OP-PT Subjective Patient Comments Patient Comments Pt stated had follow up with ortho and wants to do a barbatage procedure in her L ld, discussed wanting to be under anesthesia. PT-OP-F Manual Assessment Start: 04/17/24 07:50 Freq: Status: Active Protocol: Document 04/23/24 09:47 MB (Rec: 04/23/24 16:29 MB [id number]) Manual Assessments Other Manual Assessments Other Manual Assessments Mild but more fascial type edema B axillary area PT-OP-J Posture/Palpation/Skin Start: 04/17/24 07:50 Freq: Status: Active Protocol: Document 04/23/24 10:47 MB (Rec: 04/23/24 11:20 MB [id number]) Posture Evaluation Comments Posture Comments Pectus excavatum, B nipples moved and with some dryness and blackened tissue for skin that may fall off, pt with skin tightness around nipples and no other surgical lines and binder does indent into skin, pt con't with forward head, rounded shoulders, elevated shoulders, right shoulder mildly higher than the left, mild Dowager's hump, mild righ thoracic convexity, right iliac crest mildly higher than the left, increased lumbar lordosis and soft tissue abdomen. PT-OP-K Range of Motion Start: 04/17/24 07:50 Freq: Status: Active Protocol: Document 04/23/24 10:47 MB (Rec: 04/23/24 11:20 MB [id number]) Shoulder Goniometric Range of Motion Shoulder Left Testing Position Standing Flexion 140 Extension 28 Abduction 140 Internal Rotation Behind Back (text) T12 Comments Abduction in scaption plane Pt supine for PROM ER and IR at 90/90: pt apprehensive at 90 deg abduction and PT just reaches 90 deg abduction and ER is neutral and IR to 15 deg Right Testing Position Standing Flexion 148 Extension 28 Abduction 152 Internal Rotation Behind Back (text) T10 Comments Abduction in scaption plane Pt supine for PROM ER and IR at 90/90: shoulder moves easily into 90 deg abduction and ER to 75 deg and IR to 45 deg PT-OP-M Strength Start: 04/17/24 07:50 Freq: Status: Active Protocol: Document 04/23/24 10:47 MB (Rec: 04/23/24 11:20 MB [id number]) Shoulder Strength Shoulder Manual Muscle Testing Bilateral Flexion 5 Normal Abduction (C5) 5 Normal Elbow/Forearm Strength Elbow and Forearm Manual Muscle Testing Bilateral Flexion (C6) 5 Normal Extension (C7) 5 Normal PT-OP-Q Treatments Start: 04/17/24 07:50 Freq: Status: Active Protocol: Document 09/08/24 09:51 SP (Rec: 09/08/24 10:34 SP [id number]) Therapeutic Exercises Supine Exercises ER Supine Exercise Name AAROM Side left Resistance cane Equipment Used towel under upper arm Reps/Minutes 10x2 Comments occ tactile cue for maintain 90 deg elbow (approx 30 deg abd) Sitting Exercises shoulder flex Sitting Exercise Name 90 tony FF w/ hor ab pressure Side bilateral Resistance L2 TB teal Reps/Minutes 10x Comments cued upright posture lat pull Sitting Exercise Name lat pull down/eccentric flexion & abduction Side bilateral Resistance L2>3 TB anchored behind Equipment Used rear facing and chair angled Reps/Minutes 10x3 Comments cued slow eccentric control Standing Exercises Ys wall slide, lift off Side bilateral Resistance 2# TB Reps/Minutes 10 reps Comments cued front body touching wall, CS chin tuck retracted neutral Manual Therapy Treatment Consent Patient gave verbal consent for manual Yes treatment Soft Tissue Mobilization UT, periscap Body Location L prox bicep, distal pec, deltoid Mobilization Type Rolling,Strumming,Sustained Pressure,Other Intensity/Depth mod Body Position Hooklying Comments STMs and MWM humeral ER/IR Joint Mobilizations L GH Direction inf, post, dist Body Position Hooklying Comments Gr II Taping left shoulder Treatment Focus shoulder support Type of Tape Kinesio Tape Skin Inspection intact Comments Y strip shoulder starting deltoid insertion with PT-OP-R Modalities Start: 04/17/24 07:50 Freq: Status: Active Protocol: Document 08/21/24 15:13 SAK (Rec: 08/21/24 15:42 SAK Laptop) Electric Stimulation Electric Stimulation Interferential Current (IFC) Body Location left shoulder Intensity 13 Target/Sweep Sweep Patient Position Hooklying Combined With Heat/Cold Cold Pack Comments reports decreased pain after Infrared Treatment Treatment Left Shoulder Body Position Sitting Continuous/Pulsed Continuous Program or Protocal chronic muscle pain Comments 6 locations along supraspinatus PT-OP-T Assessment and Plan Start: 04/17/24 07:50 Freq: Status: Active Protocol: Document 09/08/24 09:51 SP (Rec: 09/08/24 10:34 SP [id number]) Physical Therapy Assessment Goals 4 Impairment Limited ROM left shoulder Care Home Goal (LTG) Pt will present with active left shoulder flexion and abduction ROM 170 deg in standing and passive ER to 50 deg with shoulder in 90/90. 08/21/24: Improved to 158 flexion, 155 abduction (pain with eccentric lowering), IR T 6, ER LTG Duration 10/21/24 3 Impairment Pt not performing HEP including thoracic range and shoulder strength ex [employer] Goal (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 05/20/24: Pt is performing band resisted exercises in standing and over foam roller, baseball bat AAROM, open book 06/03/24: patient compliant to HEP, needs cues for postural alignment, UE alignment for correct performance. 06/18/24: Pt is performing shoulder flexion, foam roller range, horizontal abduction, band exercises, wall posture and forward flexion and pect stretch. 07/24/24: patient performing HEP as tolerated though this week with reported all joints in severe pain did not tolerate. 07/29/24: Pt is performing theraband exercises in standing at least once a day, pt is not performing thoracic exercises in hook lying as much, he is also performing wall exercises 08/21/24: Iconsistent performance HEP due to high pain level. Best tolerance use of theraband for seated eccentric shoulder elevation. LTG Duration 10/21/24 1 Impairment QuickDASH reflects over 54% impairment Care Home Goal (LTG) Pt will present with improved QuickDASH score to reflect no more than 15% impairment to improve quality of life and function. 05/20/24: QuickDASH score reflects 29.54% impairment, improvement since evaluation 06/18/24: QuickDASH score reflects 31.81% impairment, which is slightly more impairment than previous progress note 07/24/24: QuickDash 35% impairment, better than eval but more than last session; again per above appears to have systemic joint pain occurring this week. 07/29/24: QuickDASH score reflects 27.27% impairment 08/21/24: 45%; score worsened since return to work LTG Duration 8 weeks Assessment Summary Assessment Pt improved form with cuing, was able tolerated increased resistance to ther ex today seated and standing. Cues for carryover homework at home for strengthening. No reports of pain and improved self corrections. Physical Therapy Plan Frequency and Duration Frequency of Treatment 1-2x/Week Duration of treatment (weeks) 8 Plan of Care Start Date 08/21/24 Plan of Care End Date 10/21/24 Therapeutic Interventions Therapeutic Interventions Balance Training,Canalithic Repositioning,Home Exercise Program,Joint Mobilizations, Lymphedema Management,Manual Therapy,Neuromuscular Re- education,Patient/Caregiver Education,Self-Care/Home Management,Soft Tissue Mobilization,Taping, Therapeutic Activities, Therapeutic Exercises Modalities Cold Pack/Ice Massage,Electric Stimulation,Hot Packs, Iontophoresis,Ultrasound Other Referrals/Consults Referrals/Consults Recommended Consider orthopedic consult with possible injection left shoulder Next Visit Focus/Plan Next Note Type Treatment Note Next Visit Plan Con't [place] Protocol, full exercise review and go through handouts to see what to keep and what to get rid of
--- NOTE | 2024-09-22 14:32 | PT.OTN ---
Current Diagnoses Encounter for breast reconstruction following mastectomy (09/22/24) Physical Therapy Treatment Note PT-OP-A Visit Information Start: 04/17/24 07:50 Freq: Status: Active Protocol: Document 09/22/24 13:33 SAK (Rec: 09/22/24 14:32 SAK Laptop) Out-Patient Physical Therapy Visit Information Visit Information Visit Type Treatment Note Visit Start Time 13:45 Visit Stop Time 14:25 Visit Number 27 Number of PROMOTION OFFICER Visits 1 Evaluation Information Evaluation Date 04/23/24 Precautions Precautions MRI showed distal supraspinatus tendonitis, likely supraspinatus tear, bursitis. PT-OP-B Current Condition Start: 04/17/24 07:50 Freq: Status: Active Protocol: Document 06/26/24 09:48 SAK (Rec: 06/26/24 10:35 SAK [id number]) Current Condition History of Current Condition Onset Date 04/01/24 Current Complaints Edema and minimal pain left clavicular area History of Current Pt is s/p B mastectomy 04/01/24. Surgery went well and Condition he is having a little B arm pit edema and edema over pect attachment area. Pt has a history of left clavicular area pain, increased thoracic kyphosis and tight anterior chest and shoulders. Pt is on testosterone, has history of hysterectomy, lap jackelyn, B eye procedures, dizziness felt to be postural in nature in the past. He has referral for ENT in future. He is starting migraine medication, once a month injection. Pt is right handed. Pt is having trouble with hygiene after toileting and reaching overhead d/t tightness and fear. Pt has numbness when holding phone in bed and he points to medial elbow. PT-OP-C Subjective Start: 04/17/24 07:50 Freq: Status: Active Protocol: Document 09/22/24 13:33 SAK (Rec: 09/22/24 14:32 SAK Laptop) OP-PT Subjective Patient Comments Patient Comments Reports feeling very depressed. Just finished with wound care; probably will still need to go for 1-2 months to achieve healing. Left shoulder pinching, locking up. Saw Dr. Byrne. PT-OP-F Manual Assessment Start: 04/17/24 07:50 Freq: Status: Active Protocol: Document 04/23/24 09:47 MB (Rec: 04/23/24 16:29 MB [id number]) Manual Assessments Other Manual Assessments Other Manual Mild but more fascial type edema B axillary area Assessments PT-OP-J Posture/Palpation/Skin Start: 04/17/24 07:50 Freq: Status: Active Protocol: Document 04/23/24 10:47 MB (Rec: 04/23/24 11:20 MB [id number]) Posture Evaluation Comments Posture Comments Pectus excavatum, B nipples moved and with some dryness and blackened tissue for skin that may fall off, pt with skin tightness around nipples and no other surgical lines and binder does indent into skin, pt con 't with forward head, rounded shoulders, elevated shoulders, right shoulder mildly higher than the left, mild Dowager's hump, mild righ thoracic convexity, right iliac crest mildly higher than the left, increased lumbar lordosis and soft tissue abdomen. PT-OP-K Range of Motion Start: 04/17/24 07:50 Freq: Status: Active Protocol: Document 04/23/24 10:47 MB (Rec: 04/23/24 11:20 MB [id number]) Shoulder Goniometric Range of Motion Shoulder Left Testing Position Standing Flexion 140 Extension 28 Abduction 140 Internal Rotation T12 Behind Back (text) Comments Abduction in scaption plane Pt supine for PROM ER and IR at 90/90: pt apprehensive at 90 deg abduction and PT just reaches 90 deg abduction and ER is neutral and IR to 15 deg Right Testing Position Standing Flexion 148 Extension 28 Abduction 152 Internal Rotation T10 Behind Back (text) Comments Abduction in scaption plane Pt supine for PROM ER and IR at 90/90: shoulder moves easily into 90 deg abduction and ER to 75 deg and IR to 45 deg PT-OP-M Strength Start: 04/17/24 07:50 Freq: Status: Active Protocol: Document 04/23/24 10:47 MB (Rec: 04/23/24 11:20 MB [id number]) Shoulder Strength Shoulder Manual Muscle Testing Bilateral Flexion 5 Normal Abduction (C5) 5 Normal Elbow/Forearm Strength Elbow and Forearm Manual Muscle Testing Bilateral Flexion (C6) 5 Normal Extension (C7) 5 Normal PT-OP-Q Treatments Start: 04/17/24 07:50 Freq: Status: Active Protocol: Document 09/22/24 13:33 SAK (Rec: 09/22/24 14:32 SAK Laptop) Therapeutic Exercises Sitting Exercises shoulder flex Sitting Exercise FF w/ hor ab pressure Name Side bilateral Resistance L2 TB teal Reps/Minutes 10x Comments cued upright posture lat pull Sitting Exercise lat pull down/eccentric flexion & abduction Name Side bilateral Resistance L2>3 TB anchored behind Equipment Used rear facing and chair angled Reps/Minutes 10x3 Comments cued slow eccentric control Standing Exercises row Resistance L3 TB Reps/Minutes 10x5 Band exercises for strengthening Standing Exercise row, shld ext, ER Name Side bilateral Resistance [place] green band Reps/Minutes 10x5 Comments cues for neutral posture, scapular activation Manual Therapy Treatment Consent Patient gave verbal Yes consent for manual treatment Soft Tissue Mobilization subscap Comments pin and stretch UT, periscap Body Location L prox bicep, distal pec, deltoid Mobilization Type Rolling,Strumming,Sustained Pressure,Other Intensity/Depth mod Body Position Hooklying Comments STMs and MWM humeral ER/IR Joint Mobilizations L GH Direction inf, post, dist Body Position Hooklying Comments Gr II L scapulothoracic Comments adduction, depression PROM then with ABD tactile cues Manual Techniques pin and stretch Type for shoulder elevation and ab Comments subscap Other Other Manual Scapular mobs all directions, GH mobs AP, PA, into ER Treatments and IR, SC and AC mobs, AAROM and pt in prone, supine, side lying, mobs into tolerable range, ER to neutral in prone, very tight capsule/adhesive capsulitis, side lying pect major STM makes abduction much better, at least 50 deg PT-OP-R Modalities Start: 04/17/24 07:50 Freq: Status: Active Protocol: Document 08/21/24 15:13 [facility] (Rec: 08/21/24 15:42 [facility] Laptop) Electric Stimulation Electric Stimulation Interferential Current (IFC) Body Location left shoulder Intensity 13 Target/Sweep Sweep Patient Position Hooklying Combined With Heat/ Cold Pack Cold Comments reports decreased pain after Infrared Treatment Treatment Left Shoulder Body Position Sitting Continuous/Pulsed Continuous Program or Protocal chronic muscle pain Comments 6 locations along supraspinatus PT-OP-T Assessment and Plan Start: 04/17/24 07:50 Freq: Status: Active Protocol: Document 09/22/24 13:33 [facility] (Rec: 09/22/24 14:32 [facility] Laptop) Physical Therapy Assessment Goals 4 Impairment Limited ROM left shoulder Shelter Goal (LTG) Pt will present with active left shoulder flexion and abduction ROM 170 deg in standing and passive ER to 50 deg with shoulder in 90/90. 08/21/24: Improved to 158 flexion, 155 abduction (pain with eccentric lowering), IR T 6, ER LTG Duration 10/21/24 3 Impairment Pt not performing HEP including thoracic range and shoulder strength ex Shelter Goal (LTG) Pt will perform progressive HEP with I including alignment, flexibility, breathing, ROM and intrascapular, core and posterior shoulder strengthening to improve range and posture. 05/20/24: Pt is performing band resisted exercises in standing and over foam roller, baseball bat AAROM, open book 06/03/24: patient compliant to HEP, needs cues for postural alignment, UE alignment for correct performance. 06/18/24: Pt is performing shoulder flexion, foam roller range, horizontal abduction, band exercises, wall posture and forward flexion and pect stretch. 07/24/24: patient performing HEP as tolerated though this week with reported all joints in severe pain did not tolerate. 07/29/24: Pt is performing theraband exercises in standing at least once a day, pt is not performing thoracic exercises in hook lying as much, he is also performing wall exercises 08/21/24: Iconsistent performance HEP due to high pain level. Best tolerance use of theraband for seated eccentric shoulder elevation. LTG Duration 10/21/24 1 Impairment QuickDASH reflects over 54% impairment Shelter Goal (LTG) Pt will present with improved QuickDASH score to reflect no more than 15% impairment to improve quality of life and function. 05/20/24: QuickDASH score reflects 29.54% impairment, improvement since evaluation 06/18/24: QuickDASH score reflects 31.81% impairment, which is slightly more impairment than previous progress note 07/24/24: QuickDash 35% impairment, better than eval but more than last session; again per above appears to have systemic joint pain occurring this week. 07/29/24: QuickDASH score reflects 27.27% impairment 08/21/24: 45%; score worsened since return to work LTG Duration 8 weeks Assessment Summary Assessment Mod cues for postural alignment and core stab with ex. Noted improved ROM elevation and ER. Physical Therapy Plan Frequency and Duration Frequency of 1-2x/Week Treatment Duration of 8 treatment (weeks) Plan of Care Start 08/21/24 Plan of Care End 10/21/24 Date Therapeutic Interventions Therapeutic Balance Training,Canalithic Repositioning,Home Exercise Interventions Program,Joint Mobilizations,Lymphedema Management, Manual Therapy,Neuromuscular Re-education,Patient/ Caregiver Education,Self-Care/Home Management,Soft Tissue Mobilization,Taping,Therapeutic Activities, Therapeutic Exercises Modalities Cold Pack/Ice Massage,Electric Stimulation,Hot Packs, Iontophoresis,Ultrasound Next Visit Focus/Plan Next Note Type Treatment Note Next Visit Plan Continue ther ex, manual, modalities PRN.
--- NOTE | 2024-10-02 16:00 | PT.OTN ---
Current Diagnoses Encounter for breast reconstruction following mastectomy (10/02/24) Physical Therapy Treatment Note PT-OP-A Visit Information Start: 04/17/24 07:50 Freq: Status: Active Protocol: Document 10/02/24 13:35 SAK (Rec: 10/02/24 14:35 SAK Laptop) Out-Patient Physical Therapy Visit Information Visit Information Visit Type Treatment Note Visit Start Time 13:45 Visit Stop Time 14:25 Visit Number 28 Number of MANAGEMENT TRAINEE Visits 0 Evaluation Information Evaluation Date 04/23/24 Precautions Precautions MRI showed distal supraspinatus tendonitis, likely supraspinatus tear, bursitis. PT-OP-B Current Condition Start: 04/17/24 07:50 Freq: Status: Active Protocol: Document 10/02/24 13:35 SAK (Rec: 10/02/24 14:35 SAK Laptop) Current Condition History of Current Condition Onset Date 04/01/24 Current Complaints Edema and minimal pain left clavicular area History of Current Pt is s/p B mastectomy 04/01/24. Surgery went well and Condition he is having a little B arm pit edema and edema over pect attachment area. Pt has a history of left clavicular area pain, increased thoracic kyphosis and tight anterior chest and shoulders. Pt is on testosterone, has history of hysterectomy, lap jackelyn, B eye procedures, dizziness felt to be postural in nature in the past. He has referral for ENT in future. He is starting migraine medication, once a month injection. Pt is right handed. Pt is having trouble with hygiene after toileting and reaching overhead d/t tightness and fear. Pt has numbness when holding phone in bed and he points to medial elbow. PT-OP-C Subjective Start: 04/17/24 07:50 Freq: Status: Active Protocol: Document 10/02/24 13:35 SAK (Rec: 10/02/24 14:35 SAK Laptop) OP-PT Subjective Patient Comments Patient Comments increased pain today, even right shoulder, possibly due to lifting activies at home. States wound care ordering antibiotics due to impaired healing. PT-OP-F Manual Assessment Start: 04/17/24 07:50 Freq: Status: Active Protocol: Document 04/23/24 09:47 MB (Rec: 04/23/24 16:29 MB [id number]) Manual Assessments Other Manual Assessments Other Manual Mild but more fascial type edema B axillary area Assessments PT-OP-J Posture/Palpation/Skin Start: 04/17/24 07:50 Freq: Status: Active Protocol: Document 04/23/24 10:47 MB (Rec: 04/23/24 11:20 MB [id number]) Posture Evaluation Comments Posture Comments Pectus excavatum, B nipples moved and with some dryness and blackened tissue for skin that may fall off, pt with skin tightness around nipples and no other surgical lines and binder does indent into skin, pt con 't with forward head, rounded shoulders, elevated shoulders, right shoulder mildly higher than the left, mild Dowager's hump, mild righ thoracic convexity, right iliac crest mildly higher than the left, increased lumbar lordosis and soft tissue abdomen. PT-OP-K Range of Motion Start: 04/17/24 07:50 Freq: Status: Active Protocol: Document 04/23/24 10:47 MB (Rec: 04/23/24 11:20 MB [id number]) Shoulder Goniometric Range of Motion Shoulder Left Testing Position Standing Flexion 140 Extension 28 Abduction 140 Internal Rotation T12 Behind Back (text) Comments Abduction in scaption plane Pt supine for PROM ER and IR at 90/90: pt apprehensive at 90 deg abduction and PT just reaches 90 deg abduction and ER is neutral and IR to 15 deg Right Testing Position Standing Flexion 148 Extension 28 Abduction 152 Internal Rotation T10 Behind Back (text) Comments Abduction in scaption plane Pt supine for PROM ER and IR at 90/90: shoulder moves easily into 90 deg abduction and ER to 75 deg and IR to 45 deg PT-OP-M Strength Start: 04/17/24 07:50 Freq: Status: Active Protocol: Document 04/23/24 10:47 MB (Rec: 04/23/24 11:20 MB [id number]) Shoulder Strength Shoulder Manual Muscle Testing Bilateral Flexion 5 Normal Abduction (C5) 5 Normal Elbow/Forearm Strength Elbow and Forearm Manual Muscle Testing Bilateral Flexion (C6) 5 Normal Extension (C7) 5 Normal PT-OP-Q Treatments Start: 04/17/24 07:50 Freq: Status: Active Protocol: Document 10/02/24 13:35 SAK (Rec: 10/02/24 14:35 SAK Laptop) Therapeutic Exercises Sidelying Exercises open book Reps/Minutes 5x Comments cues for pain-free ROM, deep breathing Sitting Exercises shoulder flex Sitting Exercise FF w/ hor ab pressure Name Side bilateral Resistance latex free L3 Reps/Minutes 10x Comments cued upright posture lat pull Sitting Exercise lat pull down/eccentric flexion & abduction Name Side bilateral Resistance L3 latex free Equipment Used rear facing and chair angled Reps/Minutes 10x3 Comments cued slow eccentric control neck stretches Sitting Exercise UT, SCM, LS Name Reps/Minutes 2x30 Standing Exercises sh ER Standing Exercise 90/90 Name Equipment Used L1 TB Reps/Minutes 10x row Resistance L3 TB Reps/Minutes 10x5 shoulder ER Standing Exercise elbows straight IR/ER for joint lubriation Name Reps/Minutes 10x Band exercises for strengthening Standing Exercise row, shld ext, ER Name Side bilateral Resistance [place] green band Reps/Minutes 10x5 Comments cues for neutral posture, scapular activation PT-OP-R Modalities Start: 04/17/24 07:50 Freq: Status: Active Protocol: Document 08/21/24 15:13 SAK (Rec: 08/21/24 15:42 SAK Laptop) Electric Stimulation Electric Stimulation Interferential Current (IFC) Body Location left shoulder Intensity 13 Target/Sweep Sweep Patient Position Hooklying Combined With Heat/ Cold Pack Cold Comments reports decreased pain after Infrared Treatment Treatment Left Shoulder Body Position Sitting Continuous/Pulsed Continuous Program or Protocal chronic muscle pain Comments 6 locations along supraspinatus PT-OP-T Assessment and Plan Start: 04/17/24 07:50 Freq: Status: Active Protocol: Document 10/02/24 13:35 SAK (Rec: 10/02/24 14:35 SAK Laptop) Physical Therapy Assessment Goals 4 Impairment Limited ROM left shoulder Motor Patrol Operator Goal (LTG) Pt will present with active left shoulder flexion and abduction ROM 170 deg in standing and passive ER to 50 deg with shoulder in 90/90. 08/21/24: Improved to 158 flexion, 155 abduction (pain with eccentric lowering), IR T 6, ER 10/02/24: shoulder flexion increased to 163, abduction 160, IR T6, ER 32 deg today, was 50 deg last session LTG Duration 10/21/24 3 Impairment Pt not performing HEP including thoracic range and shoulder strength ex Motor Patrol Operator Goal (LTG) Pt will perform progressive HEP with I including alignment, flexibility, breathing, ROM and intrascapular, core and posterior shoulder strengthening to improve range and posture. 05/20/24: Pt is performing band resisted exercises in standing and over foam roller, baseball bat AAROM, open book 06/03/24: patient compliant to HEP, needs cues for postural alignment, UE alignment for correct performance. 06/18/24: Pt is performing shoulder flexion, foam roller range, horizontal abduction, band exercises, wall posture and forward flexion and pect stretch. 07/24/24: patient performing HEP as tolerated though this week with reported all joints in severe pain did not tolerate. 07/29/24: Pt is performing theraband exercises in standing at least once a day, pt is not performing thoracic exercises in hook lying as much, he is also performing wall exercises 08/21/24: Iconsistent performance HEP due to high pain level. Best tolerance use of theraband for seated eccentric shoulder elevation. 10/02/24: variable compliance with HEP, pt appears to be in depressed state, does minimal outside his home except work, sees a counselor LTG Duration 10/21/24 1 Impairment QuickDASH reflects over 54% impairment Motor Patrol Operator Goal (LTG) Pt will present with improved QuickDASH score to reflect no more than 15% impairment to improve quality of life and function. 05/20/24: QuickDASH score reflects 29.54% impairment, improvement since evaluation 06/18/24: QuickDASH score reflects 31.81% impairment, which is slightly more impairment than previous progress note 07/24/24: QuickDash 35% impairment, better than eval but more than last session; again per above appears to have systemic joint pain occurring this week. 07/29/24: QuickDASH score reflects 27.27% impairment 08/21/24: 45%; score worsened since return to work 10/02/24: not reassessed this date, reports work activities worsen his pain. LTG Duration 8 weeks Progress Towards Goals Progress Towards Slow Progress - Other Goals Assessment Summary Assessment Jacinda is having challenges complying with HEP, largely due to appearing depressed due to his medical issues as well as other psych/soc issues affecting his mental health. He does work with a counselor. Much encouragement required to participate in HEP activities . Has made some progress despite this with his ROM. 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 Would benefit from further skilled PT to continue shoulder rehab. Physical Therapy Plan Frequency and Duration Frequency of 1-2x/Week Treatment Duration of 8 treatment (weeks) Plan of Care Start 08/21/24 Date Plan of Care End 10/21/24 Date Therapeutic Interventions Therapeutic Balance Training,Canalithic Repositioning,Home Exercise Interventions Program,Joint Mobilizations,Lymphedema Management, Manual Therapy,Neuromuscular Re-education,Patient/ Caregiver Education,Self-Care/Home Management,Soft Tissue Mobilization,Taping,Therapeutic Activities, Therapeutic Exercises Modalities Cold Pack/Ice Massage,Electric Stimulation,Hot Packs, Iontophoresis,Ultrasound Next Visit Focus/Plan Next Note Type Treatment Note Next Visit Plan Continue ther ex, manual, modalities PRN for shoulder rehab, emphasize body mechanics with work-related activities.
--- NOTE | 2024-10-06 16:44 | PT.OTN ---
Current Diagnoses Encounter for breast reconstruction following mastectomy (10/06/24) Physical Therapy Treatment Note PT-OP-A Visit Information Start: 04/17/24 07:50 Freq: Status: Active Protocol: Document 10/06/24 13:48 SAK (Rec: 10/06/24 14:33 SAK Laptop) Out-Patient Physical Therapy Visit Information Visit Information Visit Type Treatment Note Visit Start Time 13:47 Visit Stop Time 14:25 Visit Number 29 Number of RETINAL SURGEON Visits 0 Evaluation Information Evaluation Date 04/23/24 Precautions Precautions MRI showed distal supraspinatus tendonitis, likely supraspinatus tear, bursitis. PT-OP-B Current Condition Start: 04/17/24 07:50 Freq: Status: Active Protocol: Document 10/06/24 13:48 SAK (Rec: 10/06/24 14:33 SAK Laptop) Current Condition History of Current Condition Onset Date 04/01/24 Current Complaints Edema and minimal pain left clavicular area History of Current Pt is s/p B mastectomy 04/01/24. Surgery went well and Condition he is having a little B arm pit edema and edema over pect attachment area. Pt has a history of left clavicular area pain, increased thoracic kyphosis and tight anterior chest and shoulders. Pt is on testosterone, has history of hysterectomy, lap jackelyn, B eye procedures, dizziness felt to be postural in nature in the past. He has referral for ENT in future. He is starting migraine medication, once a month injection. Pt is right handed. Pt is having trouble with hygiene after toileting and reaching overhead d/t tightness and fear. Pt has numbness when holding phone in bed and he points to medial elbow. PT-OP-C Subjective Start: 04/17/24 07:50 Freq: Status: Active Protocol: Document 10/06/24 13:48 SAK (Rec: 10/06/24 14:33 SAK Laptop) OP-PT Subjective Patient Comments Patient Comments Doing better with HEP. Got out of house a little over weekend as encouraged. Reports L shoulder still locks sometimes. 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 Agreeable to look further at his body mechanics with job activities PT-OP-F Manual Assessment Start: 04/17/24 07:50 Freq: Status: Active Protocol: Document 04/23/24 09:47 MB (Rec: 04/23/24 16:29 MB [id number]) Manual Assessments Other Manual Assessments Other Manual Mild but more fascial type edema B axillary area Assessments PT-OP-J Posture/Palpation/Skin Start: 04/17/24 07:50 Freq: Status: Active Protocol: Document 04/23/24 10:47 MB (Rec: 04/23/24 11:20 MB [id number]) Posture Evaluation Comments Posture Comments Pectus excavatum, B nipples moved and with some dryness and blackened tissue for skin that may fall off, pt with skin tightness around nipples and no other surgical lines and binder does indent into skin, pt con 't with forward head, rounded shoulders, elevated shoulders, right shoulder mildly higher than the left, mild Dowager's hump, mild righ thoracic convexity, right iliac crest mildly higher than the left, increased lumbar lordosis and soft tissue abdomen. PT-OP-K Range of Motion Start: 04/17/24 07:50 Freq: Status: Active Protocol: Document 04/23/24 10:47 MB (Rec: 04/23/24 11:20 MB [id number]) Shoulder Goniometric Range of Motion Shoulder Left Testing Position Standing Flexion 140 Extension 28 Abduction 140 Internal Rotation T12 Behind Back (text) Comments Abduction in scaption plane Pt supine for PROM ER and IR at 90/90: pt apprehensive at 90 deg abduction and PT just reaches 90 deg abduction and ER is neutral and IR to 15 deg Right Testing Position Standing Flexion 148 Extension 28 Abduction 152 Internal Rotation T10 Behind Back (text) Comments Abduction in scaption plane Pt supine for PROM ER and IR at 90/90: shoulder moves easily into 90 deg abduction and ER to 75 deg and IR to 45 deg PT-OP-M Strength Start: 04/17/24 07:50 Freq: Status: Active Protocol: Document 04/23/24 10:47 MB (Rec: 04/23/24 11:20 MB [id number]) Shoulder Strength Shoulder Manual Muscle Testing Bilateral Flexion 5 Normal Abduction (C5) 5 Normal Elbow/Forearm Strength Elbow and Forearm Manual Muscle Testing Bilateral Flexion (C6) 5 Normal Extension (C7) 5 Normal PT-OP-Q Treatments Start: 04/17/24 07:50 Freq: Status: Active Protocol: Document 10/06/24 13:48 [facility] (Rec: 10/06/24 14:33 [facility] Laptop) Therapeutic Exercises Sitting Exercises shoulder flex Sitting Exercise FF w/ hor ab pressure Name Side bilateral Resistance latex free L3 Reps/Minutes 10x Comments cued upright posture lat pull Sitting Exercise lat pull down/eccentric flexion & abduction Name Side bilateral Resistance L3 latex free Equipment Used rear facing and chair angled Reps/Minutes 10x3 Comments cued slow eccentric control Chin tuck in sitting Sitting Exercise reviewed Name Reps/Minutes 5x Comments cues for lengthening of neck neck stretches Sitting Exercise UT, SCM, LS Name Reps/Minutes 2x30 deep breathing Sitting Exercise diaphragmatic, lateral thorax, chest Name Comments issue HO next session pulleys Sitting Exercise HEP Name Standing Exercises hip hinge, wt shifts Standing Exercise to prep for assisting pts with transfers Name Comments use of yardstick to facil long spine, hip hinge Theraband Standing Exercise simulate assisting with ransfers, bed mobility with Name patients Resistance L3 TB Reps/Minutes 12 min sh ER Standing Exercise 90/90 AROM first Name Equipment Used L1 TB Reps/Minutes 10x row Resistance L3 TB Reps/Minutes 10x5 Therapeutic Activity Therapeutic Activity job activity simulation Reps/Minutes 20 Comments simulated patient assisting patients with sit to stand and moving pts up in bed; posture, core activation, body mechanics for spine and shoulder protection and safety, multiple repeititions Manual Therapy Treatment Soft Tissue Mobilization UT, periscap Body Location L prox bicep, distal pec, deltoid Mobilization Type Rolling,Strumming,Sustained Pressure,Other Intensity/Depth mod Body Position Hooklying Comments STMs and MWM humeral ER/IR Self-Care/Home Management Treatment Education Patient Education Body Mechanics,Home Exercise Program,Joint Protection, Pain Management,Posture Other Education Body mechanics for assisting patient's sit to stand. PT-OP-R Modalities Start: 04/17/24 07:50 Freq: Status: Active Protocol: Document 08/21/24 15:13 [facility] (Rec: 08/21/24 15:42 [facility] Laptop) Electric Stimulation Electric Stimulation Interferential Current (IFC) Body Location left shoulder Intensity 13 Target/Sweep Sweep Patient Position Hooklying Combined With Heat/ Cold Pack Cold Comments reports decreased pain after Infrared Treatment Treatment Left Shoulder Body Position Sitting Continuous/Pulsed Continuous Program or Protocal chronic muscle pain Comments 6 locations along supraspinatus PT-OP-T Assessment and Plan Start: 04/17/24 07:50 Freq: Status: Active Protocol: Document 10/06/24 13:48 SAK (Rec: 10/06/24 14:33 SAK Laptop) Physical Therapy Assessment Goals 4 Impairment Limited ROM left shoulder Metal Pickling Equipment Operator Goal (LTG) Pt will present with active left shoulder flexion and abduction ROM 170 deg in standing and passive ER to 50 deg with shoulder in 90/90. 08/21/24: Improved to 158 flexion, 155 abduction (pain with eccentric lowering), IR T 6, ER 10/02/24: shoulder flexion increased to 163, abduction 160, IR T6, ER 32 deg today, was 50 deg last session LTG Duration 10/21/24 3 Impairment Pt not performing HEP including thoracic range and shoulder strength ex Metal Pickling Equipment Operator Goal (LTG) Pt will perform progressive HEP with I including alignment, flexibility, breathing, ROM and intrascapular, core and posterior shoulder strengthening to improve range and posture. 05/20/24: Pt is performing band resisted exercises in standing and over foam roller, baseball bat AAROM, open book 06/03/24: patient compliant to HEP, needs cues for postural alignment, UE alignment for correct performance. 06/18/24: Pt is performing shoulder flexion, foam roller range, horizontal abduction, band exercises, wall posture and forward flexion and pect stretch. 07/24/24: patient performing HEP as tolerated though this week with reported all joints in severe pain did not tolerate. 07/29/24: Pt is performing theraband exercises in standing at least once a day, pt is not performing thoracic exercises in hook lying as much, he is also performing wall exercises 08/21/24: Iconsistent performance HEP due to high pain level. Best tolerance use of theraband for seated eccentric shoulder elevation. 10/02/24: variable compliance with HEP, pt appears to be in depressed state, does minimal outside his home except work, sees a counselor LTG Duration 10/21/24 1 Impairment QuickDASH reflects over 54% impairment Residential Goal (LTG) Pt will present with improved QuickDASH score to reflect no more than 15% impairment to improve quality of life and function. 05/20/24: QuickDASH score reflects 29.54% impairment, improvement since evaluation 06/18/24: QuickDASH score reflects 31.81% impairment, which is slightly more impairment than previous progress note 07/24/24: QuickDash 35% impairment, better than eval but more than last session; again per above appears to have systemic joint pain occurring this week. 07/29/24: QuickDASH score reflects 27.27% impairment 08/21/24: 45%; score worsened since return to work 10/02/24: not reassessed this date, reports work activities worsen his pain. 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 Will need further review and education, for safety and joint protection. Physical Therapy Plan Frequency and Duration Frequency of 1-2x/Week Treatment Duration of 8 treatment (weeks) Plan of Care Start 08/21/24 Date Plan of Care End 10/21/24 Date Therapeutic Interventions Therapeutic Balance Training,Canalithic Repositioning,Home Exercise Interventions Program,Joint Mobilizations,Lymphedema Management, Manual Therapy,Neuromuscular Re-education,Patient/ Caregiver Education,Self-Care/Home Management,Soft Tissue Mobilization,Taping,Therapeutic Activities, Therapeutic Exercises Modalities Cold Pack/Ice Massage,Electric Stimulation,Hot Packs, Iontophoresis,Ultrasound Next Visit Focus/Plan Next Note Type Treatment Note Next Visit Plan Continue ther ex, manual, modalities PRN for shoulder rehab, review posture and body mechanics with work- related activities.
--- NOTE | 2024-10-28 15:34 | PT.OTRE ---
Current Diagnoses Encounter for breast reconstruction following mastectomy (10/28/24) Past Medical History (Last Updated 09/17/24 @ 09:25 by Demetri Horner MD) Dyspareunia [id number] transgender person Pain in vestibule of vulva Post-cholecystectomy syndrome Upper abdominal pain, unspecified Surgical History (Last Reviewed 02/14/24 @ 16:49 by Carley Sahni PA-C) Status post laparoscopic cholecystectomy Visit Care Team Role Provider Type Dev Escoto MD Attending Provider Physician Family Provider Primary Care Provider Referring Provider Specialty: [facility] Address: [facility] [place], [address] Email: [email or web address] Physical Therapy Re-Evaluation PT-OP-A Visit Information Start: 04/17/24 07:50 Freq: Status: Active Protocol: Document 10/28/24 14:26 SAK (Rec: 10/28/24 15:33 SAK Laptop) Out-Patient Physical Therapy Visit Information Visit Information Visit Type Treatment Note Visit Start Time 14:32 Visit Stop Time 15:12 Visit Number 30 Number of GARDE MANAGER Visits 0 Evaluation Information Evaluation Date 04/23/24 Precautions Precautions MRI showed distal supraspinatus tendonitis, likely supraspinatus tear, bursitis. PT-OP-B Current Condition Start: 04/17/24 07:50 Freq: Status: Active Protocol: Document 10/28/24 14:26 SAK (Rec: 10/28/24 15:33 SAK Laptop) Current Condition History of Current Condition Onset Date 04/01/24 Current Complaints Edema and minimal pain left clavicular area History of Current Pt is s/p B mastectomy 04/01/24. Surgery went well and Condition he is having a little B arm pit edema and edema over pect attachment area. Pt has a history of left clavicular area pain, increased thoracic kyphosis and tight anterior chest and shoulders. Pt is on testosterone, has history of hysterectomy, lap jackelyn, B eye procedures, dizziness felt to be postural in nature in the past. He has referral for ENT in future. He is starting migraine medication, once a month injection. Pt is right handed. Pt is having trouble with hygiene after toileting and reaching overhead d/t tightness and fear. Pt has numbness when holding phone in bed and he points to medial elbow. 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 Occasional left shoulder pinching especially with reaching out to the side. Trying to improve body mechanics for job activities especially moving patients. PT-OP-F Manual Assessment Start: 04/17/24 07:50 Freq: Status: Active Protocol: Document 04/23/24 09:47 MB (Rec: 04/23/24 16:29 MB [id number]) Manual Assessments Other Manual Assessments Other Manual Mild but more fascial type edema B axillary area Assessments PT-OP-J Posture/Palpation/Skin Start: 04/17/24 07:50 Freq: Status: Active Protocol: Document 04/23/24 10:47 MB (Rec: 04/23/24 11:20 MB [id number]) Posture Evaluation Comments Posture Comments Pectus excavatum, B nipples moved and with some dryness and blackened tissue for skin that may fall off, pt with skin tightness around nipples and no other surgical lines and binder does indent into skin, pt con 't with forward head, rounded shoulders, elevated shoulders, right shoulder mildly higher than the left, mild Dowager's hump, mild righ thoracic convexity, right iliac crest mildly higher than the left, increased lumbar lordosis and soft tissue abdomen. PT-OP-K Range of Motion Start: 04/17/24 07:50 Freq: Status: Active Protocol: Document 04/23/24 10:47 MB (Rec: 04/23/24 11:20 MB [id number]) Shoulder Goniometric Range of Motion Shoulder Measured in Degrees Left Testing Position Standing Flexion 140 Extension 28 Abduction 140 Internal Rotation T12 Behind Back (text) Comments Abduction in scaption plane Pt supine for PROM ER and IR at 90/90: pt apprehensive at 90 deg abduction and PT just reaches 90 deg abduction and ER is neutral and IR to 15 deg Right Testing Position Standing Flexion 148 Extension 28 Abduction 152 Internal Rotation T10 Behind Back (text) Comments Abduction in scaption plane Pt supine for PROM ER and IR at 90/90: shoulder moves easily into 90 deg abduction and ER to 75 deg and IR to 45 deg PT-OP-M Strength Start: 04/17/24 07:50 Freq: Status: Active Protocol: Document 04/23/24 10:47 MB (Rec: 04/23/24 11:20 MB [id number]) Shoulder Strength Shoulder Manual Muscle Testing Bilateral Flexion 5 Normal Abduction (C5) 5 Normal Elbow/Forearm Strength Elbow and Forearm Manual Muscle Testing Bilateral Flexion (C6) 5 Normal Extension (C7) 5 Normal PT-OP-Q Treatments Start: 04/17/24 07:50 Freq: Status: Active Protocol: Document 10/28/24 14:26 SAK (Rec: 10/28/24 15:33 SAK Laptop) Manual Therapy Treatment Other Other Manual MMT, ROM testing left UE: MMT 4+/5 all motions except Treatments ER 4/5. Self-Care/Home Management Treatment Education Patient Education Body Mechanics,Home Exercise Program,Joint Protection, Pain Management,Posture Other Education Body mechanics for assisting patient's sit to stand, transfers, bed mobility PT-OP-R Modalities Start: 04/17/24 07:50 Freq: Status: Active Protocol: Document 08/21/24 15:13 SAK (Rec: 08/21/24 15:42 SAK Laptop) Electric Stimulation Electric Stimulation Interferential Current (IFC) Body Location left shoulder Intensity 13 Target/Sweep Sweep Patient Position Hooklying Combined With Heat/ Cold Pack Cold Comments reports decreased pain after Infrared Treatment Treatment Left Shoulder Body Position Sitting Continuous/Pulsed Continuous Program or Protocal chronic muscle pain Comments 6 locations along supraspinatus PT-OP-T Assessment and Plan Start: 04/17/24 07:50 Freq: Status: Active Protocol: Document 10/28/24 14:26 SAK (Rec: 10/28/24 15:33 SAK Laptop) Physical Therapy Assessment Impairments Impairments Activity Tolerance,Edema,Functional Activities, Functional Mobility,Integument,Pain,Posture,ROM,Soft Tissue Mobility Goals 4 Impairment Limited ROM left shoulder Agricultural Crop Farm Manager Goal (LTG) Pt will present with active left shoulder flexion and abduction ROM 170 deg in standing and passive ER to 50 deg with shoulder in 90/90. 08/21/24: Improved to 158 flexion, 155 abduction (pain with eccentric lowering), IR T 6, ER 6/26/25: shoulder flexion increased to 163, abduction 160, IR T6, ER 32 deg today, was 50 deg last session 10/28/24: goal met LTG Duration goal met 3 Impairment Pt not performing HEP including thoracic range and shoulder strength ex Senior Care Goal (LTG) Pt will perform progressive HEP with I including alignment, flexibility, breathing, ROM and intrascapular, core and posterior shoulder strengthening to improve range and posture. 05/20/24: Pt is performing band resisted exercises in standing and over foam roller, baseball bat AAROM, open book 06/03/24: patient compliant to HEP, needs cues for postural alignment, UE alignment for correct performance. 06/18/24: Pt is performing shoulder flexion, foam roller range, horizontal abduction, band exercises, wall posture and forward flexion and pect stretch. 07/24/24: patient performing HEP as tolerated though this week with reported all joints in severe pain did not tolerate. 07/29/24: Pt is performing theraband exercises in standing at least once a day, pt is not performing thoracic exercises in hook lying as much, he is also performing wall exercises 08/21/24: Iconsistent performance HEP due to high pain level. Best tolerance use of theraband for seated eccentric shoulder elevation. 10/02/24: variable compliance with HEP, pt appears to be in depressed state, does minimal outside his home except work, sees a counselor 10/28/24: improved, mostly met LTG Duration 11/21/24 1 Impairment QuickDASH reflects over 54% impairment Senior Care Goal (LTG) Pt will present with improved QuickDASH score to reflect no more than 15% impairment to improve quality of life and function. 05/20/24: QuickDASH score reflects 29.54% impairment, improvement since evaluation 06/18/24: QuickDASH score reflects 31.81% impairment, which is slightly more impairment than previous progress note 07/24/24: QuickDash 35% impairment, better than eval but more than last session; again per above appears to have systemic joint pain occurring this week. 07/29/24: QuickDASH score reflects 27.27% impairment 08/21/24: 45%; score worsened since return to work 10/02/24: not reassessed this date, reports work activities worsen his pain. 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 Left shoulder ROM WNL and demonstrating improvemment in strength. Reports he is trying to work on body mechanics for shoulder protection with work activities as instructed last session; demonstrated improvement today but feel he needs 1 further session to assure safety with techniques as well as final HEP review. Recommend 1 further PT session then discharge to independent HEP. Physical Therapy Plan Frequency and Duration Frequency of 1x/Week Treatment Duration of 1 treatment (weeks) Plan of Care Start 10/28/24 Date Plan of Care End 11/04/24 Date Therapeutic Interventions Therapeutic Balance Training,Canalithic Repositioning,Home Exercise Interventions Program,Joint Mobilizations,Lymphedema Management, Manual Therapy,Neuromuscular Re-education,Patient/ Caregiver Education,Self-Care/Home Management,Soft Tissue Mobilization,Taping,Therapeutic Activities, Therapeutic Exercises Modalities Cold Pack/Ice Massage,Electric Stimulation,Hot Packs, Iontophoresis,Ultrasound Next Visit Focus/Plan Next Note Type Discharge Summary Next Visit Plan Review HEP and body with work related activities for shoulder protection emphasizing correct body mechanics. Plan dischage after next session, patient in agreement.
--- NOTE | 2024-10-28 15:34 | PT.OPPOC ---
Physical, Occupational & Speech Therapy At [facility] Current Diagnoses Encounter for breast reconstruction following mastectomy (10/28/24) Visit Care Team Role Provider Type Dev Escoto MD Attending Provider Physician Family Provider Primary Care Provider Referring Provider Specialty: Family Practice Address: [facility] [place], [address] Email: [email or web address] Plan Of Care PT-OP-B Current Condition Start: 04/17/24 07:50 Freq: Status: Active Protocol: Document 10/28/24 14:26 SAK (Rec: 10/28/24 15:33 SAK Laptop) Current Condition History of Current Condition Onset Date 04/01/24 Current Complaints Edema and minimal pain left clavicular area History of Current Pt is s/p B mastectomy 04/01/24. Surgery went well and Condition he is having a little B arm pit edema and edema over pect attachment area. Pt has a history of left clavicular area pain, increased thoracic kyphosis and tight anterior chest and shoulders. Pt is on testosterone, has history of hysterectomy, lap jackelyn, B eye procedures, dizziness felt to be postural in nature in the past. He has referral for ENT in future. He is starting migraine medication, once a month injection. Pt is right handed. Pt is having trouble with hygiene after toileting and reaching overhead d/t tightness and fear. Pt has numbness when holding phone in bed and he points to medial elbow. PT-OP-T Assessment and Plan Start: 04/17/24 07:50 Freq: Status: Active Protocol: Document 10/28/24 14:26 SAK (Rec: 10/28/24 15:33 SAK Laptop) Physical Therapy Assessment Impairments Impairments Activity Tolerance,Edema,Functional Activities, Functional Mobility,Integument,Pain,Posture,ROM,Soft Tissue Mobility Goals 4 Impairment Limited ROM left shoulder Half-Way Goal (LTG) Pt will present with active left shoulder flexion and abduction ROM 170 deg in standing and passive ER to 50 deg with shoulder in 90/90. 08/21/24: Improved to 158 flexion, 155 abduction (pain with eccentric lowering), IR T 6, ER 10/02/24: shoulder flexion increased to 163, abduction 160, IR T6, ER 32 deg today, was 50 deg last session 10/28/24: goal met LTG Duration goal met 3 Impairment Pt not performing HEP including thoracic range and shoulder strength ex Half-Way Goal (LTG) Pt will perform progressive HEP with I including alignment, flexibility, breathing, ROM and intrascapular, core and posterior shoulder strengthening to improve range and posture. 05/20/24: Pt is performing band resisted exercises in standing and over foam roller, baseball bat AAROM, open book 06/03/24: patient compliant to HEP, needs cues for postural alignment, UE alignment for correct performance. 06/18/24: Pt is performing shoulder flexion, foam roller range, horizontal abduction, band exercises, wall posture and forward flexion and pect stretch. 07/24/24: patient performing HEP as tolerated though this week with reported all joints in severe pain did not tolerate. 07/29/24: Pt is performing theraband exercises in standing at least once a day, pt is not performing thoracic exercises in hook lying as much, he is also performing wall exercises 08/21/24: Iconsistent performance HEP due to high pain level. Best tolerance use of theraband for seated eccentric shoulder elevation. 10/02/24: variable compliance with HEP, pt appears to be in depressed state, does minimal outside his home except work, sees a counselor 10/28/24: improved, mostly met LTG Duration 11/21/24 1 Impairment QuickDASH reflects over 54% impairment Half-Way Goal (LTG) Pt will present with improved QuickDASH score to reflect no more than 15% impairment to improve quality of life and function. 05/20/24: QuickDASH score reflects 29.54% impairment, improvement since evaluation 06/18/24: QuickDASH score reflects 31.81% impairment, which is slightly more impairment than previous progress note 07/24/24: QuickDash 35% impairment, better than eval but more than last session; again per above appears to have systemic joint pain occurring this week. 07/29/24: QuickDASH score reflects 27.27% impairment 08/21/24: 45%; score worsened since return to work 10/02/24: not reassessed this date, reports work activities worsen his pain. 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 Left shoulder ROM WNL and demonstrating improvemment in strength. Reports he is trying to work on body mechanics for shoulder protection with work activities as instructed last session; demonstrated improvement today but feel he needs 1 further session to assure safety with techniques as well as final HEP review. Recommend 1 further PT session then discharge to independent [facility]. Physical Therapy Plan Frequency and Duration Frequency of 1x/Week Treatment Duration of 1 treatment (weeks) Plan of Care Start 10/28/24 Date Plan of Care End 11/04/24 Date Therapeutic Interventions Therapeutic Balance Training,Canalithic Repositioning,Home Exercise Interventions Program,Joint Mobilizations,Lymphedema Management, Manual Therapy,Neuromuscular Re-education,Patient/ Caregiver Education,Self-Care/Home Management,Soft Tissue Mobilization,Taping,Therapeutic Activities, Therapeutic Exercises Modalities Cold Pack/Ice Massage,Electric Stimulation,Hot Packs, Iontophoresis,Ultrasound Next Visit Focus/Plan Next Note Type Discharge Summary Next Visit Plan Review HEP and body with work related activities for shoulder protection emphasizing correct body mechanics. Plan dischage after next session, patient in agreement. Plan of Care Dates Plan of Care Start Date 10/28/24 Plan of Care End Date 11/04/24 Electronically Signed by: Hansa Foreman, PT 10/28/24 0283 If you are in agreement with this Plan of Care, please return a signed and dated copy. I have reviewed this Plan of Care and certify that the skilled therapy services above are required to meet the patient?s needs. Physician Signature Date Printed Name and Credentials Clinical Instructor Signature Printed Name and Credentials
--- NOTE | 2024-11-03 16:00 | PT.OPPOC ---
Physical, Occupational & Speech Therapy At [facility] Current Diagnoses Encounter for breast reconstruction following mastectomy (11/03/24) Visit Care Team Role Provider Type Dev Escoto MD Attending Provider Physician Family Provider Primary Care Provider Referring Provider Specialty: Family Practice Address: [address] [place], [address] Email: [email or web address] Of Care PT-OP-A Visit Information Start: 04/17/24 07:50 Freq: Status: Active Protocol: Document 11/03/24 11:33 SAK (Rec: 11/03/24 11:46 SAK Laptop) Out-Patient Physical Therapy Visit Information Visit Information Visit Type Treatment Note Visit Start Time 11:34 Visit Stop Time 12:17 Visit Number 31 Number of STRATIGRAPHER Visits 0 Evaluation Information Evaluation Date 04/23/24 Precautions Precautions MRI showed distal supraspinatus tendonitis, likely supraspinatus tear, bursitis. PT-OP-B Current Condition Start: 04/17/24 07:50 Freq: Status: Active Protocol: Document 11/03/24 11:33 SAK (Rec: 11/03/24 11:46 SAK Laptop) Current Condition History of Current Condition Onset Date 04/01/24 Current Complaints Edema and minimal pain left clavicular area History of Current Pt is s/p B mastectomy 04/01/24. Surgery went well and Condition he is having a little B arm pit edema and edema over pect attachment area. Pt has a history of left clavicular area pain, increased thoracic kyphosis and tight anterior chest and shoulders. Pt is on testosterone, has history of hysterectomy, lap jackelyn, B eye procedures, dizziness felt to be postural in nature in the past. He has referral for ENT in future. He is starting migraine medication, once a month injection. Pt is right handed. Pt is having trouble with hygiene after toileting and reaching overhead d/t tightness and fear. Pt has numbness when holding phone in bed and he points to medial elbow. PT-OP-C Subjective Start: 04/17/24 07:50 Freq: Status: Active Protocol: Document 11/03/24 11:33 SAK (Rec: 11/03/24 11:46 SAK Laptop) OP-PT Subjective Patient Comments Patient Comments Today having lots of pain left shoulder since last Sunday, no known reason. , has been trying to do better body mechanics at work. 20 days since cortisone shot. States he almost went to ER due to severity of the pain. Pain constant 7/10 with pinching pain when reaching out to the side. Is going to have a urinalysis due to possible UTI. Has final wound care check next week. OP-PT Pain Assessment Location left shoulder Pain Intensity 7 PT-OP-F Manual Assessment Start: 04/17/24 07:50 Freq: Status: Active Protocol: Document 04/23/24 09:47 MB (Rec: 04/23/24 16:29 MB [id number]) Manual Assessments Other Manual Assessments Other Manual Mild but more fascial type edema B axillary area Assessments PT-OP-J Posture/Palpation/Skin Start: 04/17/24 07:50 Freq: Status: Active Protocol: Document 04/23/24 10:47 MB (Rec: 04/23/24 11:20 MB [id number]) Posture Evaluation Comments Posture Comments Pectus excavatum, B nipples moved and with some dryness and blackened tissue for skin that may fall off, pt with skin tightness around nipples and no other surgical lines and binder does indent into skin, pt con 't with forward head, rounded shoulders, elevated shoulders, right shoulder mildly higher than the left, mild Dowager's hump, mild righ thoracic convexity, right iliac crest mildly higher than the left, increased lumbar lordosis and soft tissue abdomen. PT-OP-K Range of Motion Start: 04/17/24 07:50 Freq: Status: Active Protocol: Document 04/23/24 10:47 MB (Rec: 04/23/24 11:20 MB [id number]) Shoulder Goniometric Range of Motion Shoulder Measured in Degrees Left Testing Position Standing Flexion 140 Extension 28 Abduction 140 Internal Rotation T12 Behind Back (text) Comments Abduction in scaption plane Pt supine for PROM ER and IR at 90/90: pt apprehensive at 90 deg abduction and PT just reaches 90 deg abduction and ER is neutral and IR to 15 deg Right Testing Position Standing Flexion 148 Extension 28 Abduction 152 Internal Rotation T10 Behind Back (text) Comments Abduction in scaption plane Pt supine for PROM ER and IR at 90/90: shoulder moves easily into 90 deg abduction and ER to 75 deg and IR to 45 deg PT-OP-M Strength Start: 04/17/24 07:50 Freq: Status: Active Protocol: Document 04/23/24 10:47 MB (Rec: 04/23/24 11:20 MB [id number]) Shoulder Strength Shoulder Manual Muscle Testing Bilateral Flexion 5 Normal Abduction (C5) 5 Normal Elbow/Forearm Strength Elbow and Forearm Manual Muscle Testing Bilateral Flexion (C6) 5 Normal Extension (C7) 5 Normal PT-OP-N Lymphedema Start: 11/03/24 11:47 Freq: Status: Active Protocol: Document 11/03/24 11:32 SAK (Rec: 11/03/24 12:13 SAK Laptop) Lymphedema Measurements Upper Extremity Circumference Measurements left MCP 19 cm Dorsum of Hand 19.8 cm Wrist 16.5 cm 5 cm From Wrist 18.9 cm Crease 10 cm From Wrist 23 cm Crease 15 cm From Wrist 26.5 cm Crease 20 cm From Wrist 27.5 cm Crease 25 cm From Wrist 28.7 cm Crease 30 cm From Wrist 32.2 cm Crease 35 cm From Wrist 35.2 cm Crease 40 cm From Wrist 38.8 cm Crease Elbow Joint 28.3 cm right MCP 19 cm Dorsum of Hand 19.5 cm Wrist 15.9 cm 5 cm From Wrist 18.6 cm Crease 10 cm From Wrist 22.9 cm Crease 15 cm From Wrist 26.7 cm Crease 20 cm From Wrist 27.3 cm Crease 25 cm From Wrist 28 cm Crease 30 cm From Wrist 31.5 cm Crease 35 cm From Wrist 33.7 cm Crease 40 cm From Wrist 35.8 cm Crease Elbow Joint 27.3 cm PT-OP-Q Treatments Start: 04/17/24 07:50 Freq: Status: Active Protocol: Document 11/03/24 11:33 SAK (Rec: 11/03/24 17:05 SAK Laptop) Therapeutic Exercises Sidelying Exercises open book Sidelying Exercise modified, arm at side Name Reps/Minutes 5x Comments cues for pain-free ROM, deep breathing Manual Therapy Treatment Consent Patient gave verbal Yes consent for manual treatment Soft Tissue Mobilization scar mobilization Body Location dejuan mastectomy scars Intensity/Depth gentle Body Position Supine Comments gentle skin stretch adjacent to scars MLD Body Location for chest, subax, proximal left UE Mobilization Type Manual Lymphatic Drainage Intensity/Depth light Comments hooklying and right sidelying Self-Care/Home Management Treatment Education Other Education POC PT-OP-R Modalities Start: 04/17/24 07:50 Freq: Status: Active Protocol: Document 08/21/24 15:13 [facility] (Rec: 08/21/24 15:42 SAK Laptop) Electric Stimulation Electric Stimulation Interferential Current (IFC) Body Location left shoulder Intensity 13 Target/Sweep Sweep Patient Position Hooklying Combined With Heat/ Cold Pack Cold Comments reports decreased pain after Infrared Treatment Treatment Left Shoulder Body Position Sitting Continuous/Pulsed Continuous Program or Protocal chronic muscle pain Comments 6 locations along supraspinatus PT-OP-T Assessment and Plan Start: 04/17/24 07:50 Freq: Status: Active Protocol: Document 11/03/24 11:33 [facility] (Rec: 11/03/24 11:46 [facility] Laptop) Physical Therapy Assessment Impairments Impairments Activity Tolerance,Edema,Functional Activities, Functional Mobility,Integument,Pain,Posture,ROM,Soft Tissue Mobility Goals 6 Impairment edema chest and upper left UE Residential Goal (LTG) Decrease edema to WNL in chest and left UE (as compared to right) for improved mobility and function and decreased pain. LTG Duration 01/04/25 5 Impairment decrease soft tissue mobility of dejuan mastectomy scars Residential Goal (LTG) Improve scar mobility to WNL for improved function and decreased pain in upper quadrants LTG Duration 01/04/25 4 Impairment Limited ROM left shoulder Residential Goal (LTG) Pt will present with active left shoulder flexion and abduction ROM 170 deg in standing and passive ER to 50 deg with shoulder in 90/90. 08/21/24: Improved to 158 flexion, 155 abduction (pain with eccentric lowering), IR T 6, ER 10/02/24: shoulder flexion increased to 163, abduction 160, IR T6, ER 32 deg today, was 50 deg last session 10/28/24: goal met LTG Duration goal met 3 Impairment Pt not performing HEP including thoracic range and shoulder strength ex Residential Goal (LTG) Pt will perform progressive HEP with I including alignment, flexibility, breathing, ROM and intrascapular, core and posterior shoulder strengthening to improve range and posture. 05/20/24: Pt is performing band resisted exercises in standing and over foam roller, baseball bat AAROM, open book 06/03/24: patient compliant to HEP, needs cues for postural alignment, UE alignment for correct performance. 06/18/24: Pt is performing shoulder flexion, foam roller range, horizontal abduction, band exercises, wall posture and forward flexion and pect stretch. 07/24/24: patient performing HEP as tolerated though this week with reported all joints in severe pain did not tolerate. 07/29/24: Pt is performing theraband exercises in standing at least once a day, pt is not performing thoracic exercises in hook lying as much, he is also performing wall exercises 08/21/24: Iconsistent performance HEP due to high pain level. Best tolerance use of theraband for seated eccentric shoulder elevation. 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 05/20/24: QuickDASH score reflects 29.54% impairment, improvement since evaluation 06/18/24: QuickDASH score reflects 31.81% impairment, which is slightly more impairment than previous progress note 07/24/24: QuickDash 35% impairment, better than eval but more than last session; again per above appears to have systemic joint pain occurring this week. 07/29/24: QuickDASH score reflects 27.27% impairment 08/21/24: 45%; score worsened since return to work 10/02/24: not reassessed this date, reports work activities worsen his pain. 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 LTG Duration 01/04/25 Progress Towards Goals Progress Towards Slow Progress due to Medical Issues Goals Assessment Summary Assessment Plan had been to discharge from PT today but patient presented with severe exacerbation of shoulder pain, no known reason. Feel due to persistent shoulder pain and dysfunction as well as mastectomy scars now healed after infected wounds but with very poor mobility as well as edema noted in left chest and proximal UE feel further PT is indicated to address goals as above. Feel tightness in mastectomy scars and edema may be contributing to postural dysfunction and shoulder pain. They appear healed enough to initiate soft tissue mobilization techniques. Feel he would benefit from further skilled PT. POC was discussed and patient was in agreement. Physical Therapy Plan Frequency and Duration Frequency of 1x/Week Treatment Duration of 8 treatment (weeks) Plan of Care Start 10/28/24 Date Plan of Care End 12/29/24 Date Therapeutic Interventions Therapeutic Balance Training,Canalithic Repositioning,Home Exercise Interventions Program,Joint Mobilizations,Lymphedema Management, Manual Therapy,Neuromuscular Re-education,Patient/ Caregiver Education,Self-Care/Home Management,Soft Tissue Mobilization,Taping,Therapeutic Activities, Therapeutic Exercises Modalities Cold Pack/Ice Massage,Electric Stimulation,Hot Packs, Iontophoresis,Ultrasound Discharge Physical Therapy Discharge Reasons Goals Met Next Visit Focus/Plan Next Note Type Treatment Note Next Visit Plan Manual lymphatic drainage, soft tissue mobilization of mastectomy scars, gentle mobilization of chest, thorax, and shoulders. Plan of Care Dates Plan of Care Start Date 10/28/24 Plan of Care End Date 12/29/24 Electronically Signed by: Hansa Foreman, PT 11/18/24 0852 If you are in agreement with this Plan of Care, please return a signed and dated copy. I have reviewed this Plan of Care and certify that the skilled therapy services above are required to meet the patient?s needs. Physician Signature Date Printed Name and Credentials Clinical Instructor Signature Printed Name and Credentials
--- NOTE | 2024-11-03 17:06 | PT.OTRE ---
Current Diagnoses Encounter for breast reconstruction following mastectomy (11/03/24) Past Medical History (Last Updated 09/17/24 @ 09:25 by Demetri Horner MD) Dyspareunia Ruvlch-rq-kaze transgender person Pain in vestibule of vulva Post-cholecystectomy syndrome Upper abdominal pain, unspecified Surgical History (Last Reviewed 02/14/24 @ 16:49 by Carley Sahni PA-C) Status post laparoscopic cholecystectomy Visit Care Team Role Provider Type Dev Escoto MD Attending Provider Physician Family Provider Primary Care Provider Referring Provider Specialty: [facility] Address: [facility] [place], [address] Email: [email or web address] Re-Evaluation PT-OP-A Visit Information Start: 04/17/24 07:50 Freq: Status: Active Protocol: Document 11/03/24 11:33 SAK (Rec: 11/03/24 11:46 SAK Laptop) Out-Patient Physical Therapy Visit Information Visit Information Visit Type Treatment Note Visit Start Time 11:34 Visit Stop Time 12:17 Visit Number 31 Number of KETTLE COORDINATOR Visits 0 Evaluation Information Evaluation Date 04/23/24 Precautions Precautions MRI showed distal supraspinatus tendonitis, likely supraspinatus tear, bursitis. PT-OP-B Current Condition Start: 04/17/24 07:50 Freq: Status: Active Protocol: Document 11/03/24 11:33 SAK (Rec: 11/03/24 11:46 SAK Laptop) Current Condition History of Current Condition Onset Date 04/01/24 Current Complaints Edema and minimal pain left clavicular area History of Current Pt is s/p B mastectomy 04/01/24. Surgery went well and Condition he is having a little B arm pit edema and edema over pect attachment area. Pt has a history of left clavicular area pain, increased thoracic kyphosis and tight anterior chest and shoulders. Pt is on testosterone, has history of hysterectomy, lap jackelyn, B eye procedures, dizziness felt to be postural in nature in the past. He has referral for ENT in future. He is starting migraine medication, once a month injection. Pt is right handed. Pt is having trouble with hygiene after toileting and reaching overhead d/t tightness and fear. Pt has numbness when holding phone in bed and he points to medial elbow. PT-OP-C Subjective Start: 04/17/24 07:50 Freq: Status: Active Protocol: Document 11/03/24 11:33 SAK (Rec: 11/03/24 11:46 SAK Laptop) OP-PT Subjective Patient Comments Patient Comments Today having lots of pain left shoulder since last Sunday, no known reason. , has been trying to do better body mechanics at work. 20 days since cortisone shot. States he almost went to ER due to severity of the pain. Pain constant 7/10 with pinching pain when reaching out to the side. Is going to have a urinalysis due to possible UTI. Has final wound care check next week. OP-PT Pain Assessment Location left shoulder Pain Intensity 7 PT-OP-F Manual Assessment Start: 04/17/24 07:50 Freq: Status: Active Protocol: Document 04/23/24 09:47 MB (Rec: 04/23/24 16:29 MB [id number]) Manual Assessments Other Manual Assessments Other Manual Mild but more fascial type edema B axillary area Assessments PT-OP-J Posture/Palpation/Skin Start: 04/17/24 07:50 Freq: Status: Active Protocol: Document 04/23/24 10:47 MB (Rec: 04/23/24 11:20 MB [id number]) Posture Evaluation Comments Posture Comments Pectus excavatum, B nipples moved and with some dryness and blackened tissue for skin that may fall off, pt with skin tightness around nipples and no other surgical lines and binder does indent into skin, pt con 't with forward head, rounded shoulders, elevated shoulders, right shoulder mildly higher than the left, mild Dowager's hump, mild righ thoracic convexity, right iliac crest mildly higher than the left, increased lumbar lordosis and soft tissue abdomen. PT-OP-K Range of Motion Start: 04/17/24 07:50 Freq: Status: Active Protocol: Document 04/23/24 10:47 MB (Rec: 04/23/24 11:20 MB [id number]) Shoulder Goniometric Range of Motion Shoulder Measured in Degrees Left Testing Position Standing Flexion 140 Extension 28 Abduction 140 Internal Rotation T12 Behind Back (text) Comments Abduction in scaption plane Pt supine for PROM ER and IR at 90/90: pt apprehensive at 90 deg abduction and PT just reaches 90 deg abduction and ER is neutral and IR to 15 deg Right Testing Position Standing Flexion 148 Extension 28 Abduction 152 Internal Rotation T10 Behind Back (text) Comments Abduction in scaption plane Pt supine for PROM ER and IR at 90/90: shoulder moves easily into 90 deg abduction and ER to 75 deg and IR to 45 deg PT-OP-M Strength Start: 04/17/24 07:50 Freq: Status: Active Protocol: Document 04/23/24 10:47 MB (Rec: 04/23/24 11:20 MB [id number]) Shoulder Strength Shoulder Manual Muscle Testing Bilateral Flexion 5 Normal Abduction (C5) 5 Normal Elbow/Forearm Strength Elbow and Forearm Manual Muscle Testing Bilateral Flexion (C6) 5 Normal Extension (C7) 5 Normal PT-OP-N Lymphedema Start: 11/03/24 11:47 Freq: Status: Active Protocol: Document 11/03/24 11:32 SAK (Rec: 11/03/24 12:13 SAK Laptop) Lymphedema Measurements Upper Extremity Circumference Measurements left MCP 19 cm Dorsum of Hand 19.8 cm Wrist 16.5 cm 5 cm From Wrist 18.9 cm Crease 10 cm From Wrist 23 cm Crease 15 cm From Wrist 26.5 cm Crease 20 cm From Wrist 27.5 cm Crease 25 cm From Wrist 28.7 cm Crease 30 cm From Wrist 32.2 cm Crease 35 cm From Wrist 35.2 cm Crease 40 cm From Wrist 38.8 cm Crease Elbow Joint 28.3 cm right MCP 19 cm Dorsum of Hand 19.5 cm Wrist 15.9 cm 5 cm From Wrist 18.6 cm Crease 10 cm From Wrist 22.9 cm Crease 15 cm From Wrist 26.7 cm Crease 20 cm From Wrist 27.3 cm Crease 25 cm From Wrist 28 cm Crease 30 cm From Wrist 31.5 cm Crease 35 cm From Wrist 33.7 cm Crease 40 cm From Wrist 35.8 cm Crease Elbow Joint 27.3 cm PT-OP-Q Treatments Start: 04/17/24 07:50 Freq: Status: Active Protocol: Document 11/03/24 11:33 SAK (Rec: 11/03/24 17:05 SAK Laptop) Therapeutic Exercises Sidelying Exercises open book Sidelying Exercise modified, arm at side Name Reps/Minutes 5x Comments cues for pain-free ROM, deep breathing Manual Therapy Treatment Consent Patient gave verbal Yes consent for manual treatment Soft Tissue Mobilization scar mobilization Body Location dejuan mastectomy scars Intensity/Depth gentle Body Position Supine Comments gentle skin stretch adjacent to scars MLD Body Location for chest, subax, proximal left UE Mobilization Type Manual Lymphatic Drainage Intensity/Depth light Comments hooklying and right sidelying Self-Care/Home Management Treatment Education Other Education POC PT-OP-R Modalities Start: 04/17/24 07:50 Freq: Status: Active Protocol: Document 08/21/24 15:13 [facility] (Rec: 08/21/24 15:42 SAK Laptop) Electric Stimulation Electric Stimulation Interferential Current (IFC) Body Location left shoulder Intensity 13 Target/Sweep Sweep Patient Position Hooklying Combined With Heat/ Cold Pack Cold Comments reports decreased pain after Infrared Treatment Treatment Left Shoulder Body Position Sitting Continuous/Pulsed Continuous Program or Protocal chronic muscle pain Comments 6 locations along supraspinatus PT-OP-T Assessment and Plan Start: 04/17/24 07:50 Freq: Status: Active Protocol: Document 11/03/24 11:33 [facility] (Rec: 11/03/24 11:46 SAK Laptop) Physical Therapy Assessment Impairments Impairments Activity Tolerance,Edema,Functional Activities, Functional Mobility,Integument,Pain,Posture,ROM,Soft Tissue Mobility Goals 6 Impairment edema chest and upper left UE Home Housekeeper Goal (LTG) Decrease edema to WNL in chest and left UE (as compared to right) for improved mobility and function and decreased pain. LTG Duration 01/04/25 5 Impairment decrease soft tissue mobility of dejuan mastectomy scars Residential Goal (LTG) Improve scar mobility to WNL for improved function and decreased pain in upper quadrants LTG Duration 01/04/25 4 Impairment Limited ROM left shoulder Home Housekeeper Goal (LTG) Pt will present with active left shoulder flexion and abduction ROM 170 deg in standing and passive ER to 50 deg with shoulder in 90/90. 08/21/24: Improved to 158 flexion, 155 abduction (pain with eccentric lowering), IR T 6, ER 10/02/24: shoulder flexion increased to 163, abduction 160, IR T6, ER 32 deg today, was 50 deg last session 10/28/24: goal met LTG Duration goal met 3 Impairment Pt not performing HEP including thoracic range and shoulder strength ex Residential Goal (LTG) Pt will perform progressive HEP with I including alignment, flexibility, breathing, ROM and intrascapular, core and posterior shoulder strengthening to improve range and posture. 05/20/24: Pt is performing band resisted exercises in standing and over foam roller, baseball bat AAROM, open book 06/03/24: patient compliant to HEP, needs cues for postural alignment, UE alignment for correct performance. 06/18/24: Pt is performing shoulder flexion, foam roller range, horizontal abduction, band exercises, wall posture and forward flexion and pect stretch. 07/24/24: patient performing HEP as tolerated though this week with reported all joints in severe pain did not tolerate. 07/29/24: Pt is performing theraband exercises in standing at least once a day, pt is not performing thoracic exercises in hook lying as much, he is also performing wall exercises 08/21/24: Iconsistent performance HEP due to high pain level. Best tolerance use of theraband for seated eccentric shoulder elevation. 10/02/24: variable compliance with HEP, pt appears to be in depressed state, does minimal outside his home except work, sees a counselor 10/28/24: improved, mostly met LTG Duration 01/04/25 1 Impairment QuickDASH reflects over 54% impairment Home Housekeeper Goal (LTG) Pt will present with improved QuickDASH score to reflect no more than 15% impairment to improve quality of life and function. 05/20/24: QuickDASH score reflects 29.54% impairment, improvement since evaluation 06/18/24: QuickDASH score reflects 31.81% impairment, which is slightly more impairment than previous progress note 07/24/24: QuickDash 35% impairment, better than eval but more than last session; again per above appears to have systemic joint pain occurring this week. 07/29/24: QuickDASH score reflects 27.27% impairment 08/21/24: 45%; score worsened since return to work 10/02/24: not reassessed this date, reports work activities worsen his pain. 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 LTG Duration 01/04/25 Progress Towards Goals Progress Towards Slow Progress due to Medical Issues Goals Assessment Summary Assessment Plan had been to discharge from PT today but patient presented with severe exacerbation of shoulder pain, no known reason. Feel due to persistent shoulder pain and dysfunction as well as mastectomy scars now healed after infected wounds but with very poor mobility as well as edema noted in left chest and proximal UE feel further PT is indicated to address goals as above. Feel tightness in mastectomy scars and edema may be contributing to postural dysfunction and shoulder pain. They appear healed enough to initiate soft tissue mobilization techniques. Feel he would benefit from further skilled PT. POC was discussed and patient was in agreement. Physical Therapy Plan Frequency and Duration Frequency of 1x/Week Treatment Duration of 1 treatment (weeks) Plan of Care Start 10/28/24 Date Plan of Care End 11/04/24 Date Therapeutic Interventions Therapeutic Balance Training,Canalithic Repositioning,Home Exercise Interventions Program,Joint Mobilizations,Lymphedema Management, Manual Therapy,Neuromuscular Re-education,Patient/ Caregiver Education,Self-Care/Home Management,Soft Tissue Mobilization,Taping,Therapeutic Activities, Therapeutic Exercises Modalities Cold Pack/Ice Massage,Electric Stimulation,Hot Packs, Iontophoresis,Ultrasound Discharge Physical Therapy Discharge Reasons Goals Met Next Visit Focus/Plan Next Note Type Treatment Note Next Visit Plan Manual lymphatic drainage, soft tissue mobilization of mastectomy scars, gentle mobilization of chest, thorax, and shoulders.
--- NOTE | 2024-11-18 10:41 | PT.OTN ---
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 Surgery went well and Condition he is having a little B arm pit edema and edema over pect attachment area. Pt has a history of left clavicular area pain, increased thoracic kyphosis and tight anterior chest and shoulders. Pt is on testosterone, has history of hysterectomy, lap jackelyn, B eye procedures, dizziness felt to be postural in nature in the past. He has referral for ENT in future. He is starting migraine medication, once a month injection. Pt is right handed. Pt is having trouble with hygiene after toileting and reaching overhead d/t tightness and fear. Pt has numbness when holding phone in bed and he points to medial elbow. PT-OP-C Subjective Start: 04/17/24 07:50 Freq: Status: Active Protocol: Document 11/18/24 08:59 [facility] (Rec: 11/18/24 09:16 [facility] Laptop) OP-PT Subjective Patient Comments Patient Comments Sees Dr. Mays in [facility]. REports shoulder pain better. Sees wound care later today. REports left nipple has open area along incision. Shoulder pain has calmed down, reports feeling Cortisone shot may be helping a little. PT-OP-F Manual Assessment Start: 04/17/24 07:50 Freq: Status: Active Protocol: Document 04/23/24 09:47 MB (Rec: 04/23/24 16:29 MB [id number]) Manual Assessments Other Manual Assessments Other Manual Mild but more fascial type edema B axillary area Assessments PT-OP-J Posture/Palpation/Skin Start: 04/17/24 07:50 Freq: Status: Active Protocol: Document 04/23/24 10:47 MB (Rec: 04/23/24 11:20 MB [id number]) Posture Evaluation Comments Posture Comments Pectus excavatum, B nipples moved and with some dryness and blackened tissue for skin that may fall off, pt with skin tightness around nipples and no other surgical lines and binder does indent into skin, pt con 't with forward head, rounded shoulders, elevated shoulders, right shoulder mildly higher than the left, mild Dowager's hump, mild righ thoracic convexity, right iliac crest mildly higher than the left, increased lumbar lordosis and soft tissue abdomen. PT-OP-K Range of Motion Start: 04/17/24 07:50 Freq: Status: Active Protocol: Document 04/23/24 10:47 MB (Rec: 04/23/24 11:20 MB [id number]) Shoulder Goniometric Range of Motion Shoulder Left Testing Position Standing Flexion 140 Extension 28 Abduction 140 Internal Rotation T12 Behind Back (text) Comments Abduction in scaption plane Pt supine for PROM ER and IR at 90/90: pt apprehensive at 90 deg abduction and PT just reaches 90 deg abduction and ER is neutral and IR to 15 deg Right Testing Position Standing Flexion 148 Extension 28 Abduction 152 Internal Rotation T10 Behind Back (text) Comments Abduction in scaption plane Pt supine for PROM ER and IR at 90/90: shoulder moves easily into 90 deg abduction and ER to 75 deg and IR to 45 deg PT-OP-M Strength Start: 04/17/24 07:50 Freq: Status: Active Protocol: Document 04/23/24 10:47 MB (Rec: 04/23/24 11:20 MB [id number]) Shoulder Strength Shoulder Manual Muscle Testing Bilateral Flexion 5 Normal Abduction (C5) 5 Normal Elbow/Forearm Strength Elbow and Forearm Manual Muscle Testing Bilateral Flexion (C6) 5 Normal Extension (C7) 5 Normal PT-OP-N Lymphedema Start: 11/03/24 11:47 Freq: Status: Active Protocol: Document 11/03/24 11:32 SAK (Rec: 11/03/24 12:13 SAK Laptop) Lymphedema Measurements Upper Extremity Circumference Measurements left MCP 19 cm Dorsum of Hand 19.8 cm Wrist 16.5 cm 5 cm From Wrist 18.9 cm Crease 10 cm From Wrist 23 cm Crease 15 cm From Wrist 26.5 cm Crease 20 cm From Wrist 27.5 cm Crease 25 cm From Wrist 28.7 cm Crease 30 cm From Wrist 32.2 cm Crease 35 cm From Wrist 35.2 cm Crease 40 cm From Wrist 38.8 cm Crease Elbow Joint 28.3 cm right MCP 19 cm Dorsum of Hand 19.5 cm Wrist 15.9 cm 5 cm From Wrist 18.6 cm Crease 10 cm From Wrist 22.9 cm Crease 15 cm From Wrist 26.7 cm Crease 20 cm From Wrist 27.3 cm Crease 25 cm From Wrist 28 cm Crease 30 cm From Wrist 31.5 cm Crease 35 cm From Wrist 33.7 cm Crease 40 cm From Wrist 35.8 cm Crease Elbow Joint 27.3 cm PT-OP-Q Treatments Start: 04/17/24 07:50 Freq: Status: Active Protocol: Document 11/18/24 08:59 [facility] (Rec: 11/18/24 09:16 [facility] Laptop) Therapeutic Exercises Sidelying Exercises shoulder ER Side bilateral Reps/Minutes 10x open book Sidelying Exercise modified, arm at side Name Reps/Minutes 5x Comments cues for pain-free ROM, deep breathing Manual Therapy Treatment Soft Tissue Mobilization scar mobilization Body Location dejuan mastectomy scars Intensity/Depth gentle Body Position Supine Comments gentle skin stretch adjacent to scars subscap Comments pin and stretch MLD Body Location for chest, subax, proximal left UE Mobilization Type Manual Lymphatic Drainage Intensity/Depth light Comments hooklying and right sidelying PT-OP-R Modalities Start: 04/17/24 07:50 Freq: Status: Active Protocol: Document 08/21/24 15:13 [facility] (Rec: 08/21/24 15:42 [facility] Laptop) Electric Stimulation Electric Stimulation Interferential Current (IFC) Body Location left shoulder Intensity 13 Target/Sweep Sweep Patient Position Hooklying Combined With Heat/ Cold Pack Cold Comments reports decreased pain after Infrared Treatment Treatment Left Shoulder Body Position Sitting Continuous/Pulsed Continuous Program or Protocal chronic muscle pain Comments 6 locations along supraspinatus PT-OP-T Assessment and Plan Start: 04/17/24 07:50 Freq: Status: Active Protocol: Document 11/18/24 08:59 [facility] (Rec: 11/18/24 09:16 SAK Laptop) Physical Therapy Assessment Goals 6 Impairment edema chest and upper left UE Keyboard Teacher Goal (LTG) Decrease edema to WNL in chest and left UE (as compared to right) for improved mobility and function and decreased pain. LTG Duration 01/04/25 5 Impairment decrease soft tissue mobility of dejuan mastectomy scars Halfway Goal (LTG) Improve scar mobility to WNL for improved function and decreased pain in upper quadrants LTG Duration 01/04/25 4 Impairment Limited ROM left shoulder Keyboard Teacher Goal (LTG) Pt will present with active left shoulder flexion and abduction ROM 170 deg in standing and passive ER to 50 deg with shoulder in 90/90. 08/21/24: Improved to 158 flexion, 155 abduction (pain with eccentric lowering), IR T 6, ER 10/02/24: shoulder flexion increased to 163, abduction 160, IR T6, ER 32 deg today, was 50 deg last session 10/28/24: goal met LTG Duration goal met 3 Impairment Pt not performing HEP including thoracic range and shoulder strength ex Halfway Goal (LTG) Pt will perform progressive HEP with I including alignment, flexibility, breathing, ROM and intrascapular, core and posterior shoulder strengthening to improve range and posture. 05/20/24: Pt is performing band resisted exercises in standing and over foam roller, baseball bat AAROM, open book 06/03/24: patient compliant to HEP, needs cues for postural alignment, UE alignment for correct performance. 06/18/24: Pt is performing shoulder flexion, foam roller range, horizontal abduction, band exercises, wall posture and forward flexion and pect stretch. 07/24/24: patient performing HEP as tolerated though this week with reported all joints in severe pain did not tolerate. 07/29/24: Pt is performing theraband exercises in standing at least once a day, pt is not performing thoracic exercises in hook lying as much, he is also performing wall exercises 08/21/24: Iconsistent performance HEP due to high pain level. Best tolerance use of theraband for seated eccentric shoulder elevation. 10/02/24: variable compliance with HEP, pt appears to be in depressed state, does minimal outside his home except work, sees a counselor 10/28/24: improved, mostly met LTG Duration 01/04/25 1 Impairment QuickDASH reflects over 54% impairment Keyboard Teacher Goal (LTG) Pt will present with improved QuickDASH score to reflect no more than 15% impairment to improve quality of life and function. 05/20/24: QuickDASH score reflects 29.54% impairment, improvement since evaluation 06/18/24: QuickDASH score reflects 31.81% impairment, which is slightly more impairment than previous progress note 07/24/24: QuickDash 35% impairment, better than eval but more than last session; again per above appears to have systemic joint pain occurring this week. 07/29/24: QuickDASH score reflects 27.27% impairment 08/21/24: 45%; score worsened since return to work 10/02/24: not reassessed this date, reports work activities worsen his pain. 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 LTG Duration 01/04/25 Assessment Summary Assessment Focused on ther ex for continued shoulder strengthening and soft tissue mobilization right mastectomy scar; gentle, with MLD for chest dejuan. Good tolerance. Incoporated deep breathing. Physical Therapy Plan Frequency and Duration Frequency of 1x/Week Treatment Duration of 8 treatment (weeks) Plan of Care Start 10/28/24 Date Plan of Care End 12/29/24 Date Next Visit Focus/Plan Next Note Type Treatment Note Next Visit Plan Assess response to last session. Manual lymphatic drainage, soft tissue mobilization of mastectomy scars, gentle mobilization of chest, thorax, and shoulders.
--- NOTE | 2024-11-24 15:38 | PT-OP ANOTE ---
Pt cancelled today's appt, feeling sick unable to make appt.
--- NOTE | 2024-12-02 14:53 | PT-OP ANOTE ---
Pt did not show for appt today, called and left message regarding missed appt and can still see if gets here soon. Discussed next appt. Can also call and see if another appt this week.
--- NOTE | 2024-12-16 17:14 | PT.OPDS ---
Current Diagnoses Encounter for breast reconstruction following mastectomy (12/16/24) Visit Care Team Role Provider Type Dev Escoto MD Attending Provider Physician Family Provider Primary Care Provider Referring Provider Specialty: Family Practice Address: [address] [place], [address] Email: [email or web address] Visit Number Visit Number 33 Discharge Summary PT OP: Full Body Start: 12/02/24 14:37 Freq: Status: Active Protocol: Document 12/16/24 14:32 SAK (Rec: 12/16/24 15:15 SAK Laptop) Out-Patient Physical Therapy Visit Information Visit Information Visit Type Treatment Note Visit Start Time 14:32 Visit Stop Time 15:15 Visit Number 33 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 Current Condition History of Current Condition Onset Date 04/01/24 Current Complaints Edema and minimal pain left clavicular area History of Current Pt is s/p B mastectomy 04/01/24. Surgery went well and Condition he is having a little B arm pit edema and edema over pect attachment area. Pt has a history of left clavicular area pain, increased thoracic kyphosis and tight anterior chest and shoulders. Pt is on testosterone, has history of hysterectomy, lap jackelyn, B eye procedures, dizziness felt to be postural in nature in the past. He has referral for ENT in future. He is starting migraine medication, once a month injection. Pt is right handed. Pt is having trouble with hygiene after toileting and reaching overhead d/t tightness and fear. Pt has numbness when holding phone in bed and he points to medial elbow. OP-PT Subjective Patient Comments Patient Comments Wound now healed, no more wound care. Hormone challenges, got in with for hormone care. Shoulder pain variable, good tolerance for HEP. Occasional pinching of left shoulder, going to see Dr. Mays in March, thinking probably procedure next year to remove calcium deposits. Manual Therapy Treatment Soft Tissue Mobilization scar mobilization Body Location dejuan mastectomy scars Intensity/Depth gentle Body Position Supine Comments gentle skin stretch adjacent to scars subscap Comments pin and stretch MLD Body Location for chest, subax, proximal left UE Mobilization Type Manual Lymphatic Drainage Intensity/Depth light Comments hooklying and right sidelying UT, periscap Body Location L prox bicep, distal pec, deltoid Mobilization Type Rolling,Strumming,Sustained Pressure,Other Intensity/Depth mod Body Position Hooklying Comments STMs and MWM humeral ER/IR Self-Care/Home Management Treatment Education Other Education self massage mastectomy scars Physical Therapy Assessment Impairments Impairments Activity Tolerance,Edema,Functional Activities, Functional Mobility,Integument,Pain,Posture,ROM,Soft Tissue Mobility Goals 6 Impairment edema chest and upper left UE [employer]worker [employer] Goal (LTG) Decrease edema to WNL in chest and left UE (as compared to right) for improved mobility and function and decreased pain. 12/16/24: appears stable, WFL LTG Duration 01/04/25 5 Impairment decrease soft tissue mobility of dejuan mastectomy scars [facility] Goal (LTG) Improve scar mobility to WNL for improved function and decreased pain in upper quadrants 12/16/24: patient has been instructed in self massage for improved scar tissue mobility. LTG Duration 01/04/25 4 Impairment Limited ROM left shoulder [employer]worker [employer] Goal (LTG) Pt will present with active left shoulder flexion and abduction ROM 170 deg in standing and passive ER to 50 deg with shoulder in 90/90. 08/21/24: Improved to 158 flexion, 155 abduction (pain with eccentric lowering), IR T 6, ER 10/02/24: shoulder flexion increased to 163, abduction 160, IR T6, ER 32 deg today, was 50 deg last session 10/28/24: goal met LTG Duration goal met 3 Impairment Pt not performing HEP including thoracic range and shoulder strength ex [facility] Goal (LTG) Pt will perform progressive HEP with I including alignment, flexibility, breathing, ROM and intrascapular, core and posterior shoulder strengthening to improve range and posture. 05/20/24: Pt is performing band resisted exercises in standing and over foam roller, baseball bat AAROM, open book 06/03/24: patient compliant to HEP, needs cues for postural alignment, UE alignment for correct performance. 06/18/24: Pt is performing shoulder flexion, foam roller range, horizontal abduction, band exercises, wall posture and forward flexion and pect stretch. 07/24/24: patient performing HEP as tolerated though this week with reported all joints in severe pain did not tolerate. 07/29/24: Pt is performing theraband exercises in standing at least once a day, pt is not performing thoracic exercises in hook lying as much, he is also performing wall exercises 08/21/24: Iconsistent performance HEP due to high pain level. Best tolerance use of theraband for seated eccentric shoulder elevation. 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 05/20/24: QuickDASH score reflects 29.54% impairment, improvement since evaluation 06/18/24: QuickDASH score reflects 31.81% impairment, which is slightly more impairment than previous progress note 07/24/24: QuickDash 35% impairment, better than eval but more than last session; again per above appears to have systemic joint pain occurring this week. 07/29/24: QuickDASH score reflects 27.27% impairment 08/21/24: 45%; score worsened since return to work 10/02/24: not reassessed this date, reports work activities worsen his pain. 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 12/16/24: 27%, partially met LTG Duration 01/04/25 Assessment Summary Assessment Patient progress has plateaued. Is inddependent with HEP, compliance variable. left shoulder ROM WNL, pain with resisted shoulder flex, ab, and elbow ext. Reporting improved tolerance to work and demonstrates good understanding of body mechanics principles for shoulder protection. Will be seeing Dr. Mays in March, and is anticipating a surgical procedure to his left shoulder next year. Plan discharge from PT at this time. May benefit from further PT in the future. Physical Therapy Plan Discharge Physical Therapy Discharge Reasons Plateau in Progress
== END 2024-12-17 13:46 | disposition home or self-care (01) ==
LOC: PHYS 14:30
PROVIDERS: Family Provider Family Medicine; PCP Family Medicine; Referring Provider Family Medicine; Visit Provider Family Medicine
DX: Z42.1 Encounter for breast reconstruction following mastectomy (principal)
CPT/HCPCS: 97014; 97110; 97140; 97530; 97535; G0283

== ENCOUNTER 2025-01-30 13:39 | Emergency (ER) | payer OTHER, SELFPAY ==
[2025-01-30 13:44] VITALS: BP 140/85; PULSE 70; RESP 16; TEMP 36.8; O2SAT 96; BMI 29.2
--- NOTE | 2025-01-30 13:51 | DI.CT.S_ITS ---
PROCEDURE: CT ABDOMEN PELVIS W CON INDICATIONS: increased abdominal pain, known liver cyst TECHNIQUE: After the administration of intravenous contrast, axial sections acquired from the lung bases to the pubic symphysis. Coronal and sagittal reformats were performed. For radiation dose reduction, the following was used: automated exposure control, adjustment of mA and/or kV according to patient size. COMPARISON: [facility], CT, CT ABDOMEN PELVIS W CON, 08/22/2023, 18:16. FINDINGS: Image quality: Diagnostic. Lower Chest: Soft tissue retraction it in the inferior left breast, a new compared to 08/21/2024. ABDOMEN: Liver: No solid mass. Gallbladder: Post cholecystectomy Biliary ducts: No biliary dilation. Pancreas: No ductal dilation. Spleen: Size is within normal limits. Adrenal Glands: No adrenal nodules. Kidneys and Ureters: No hydronephrosis. No solid mass. No complex renal cystic lesion which requires follow up. Stomach and Bowel: Normal colonic caliber, without significant wall thickening. Mild mural thickening of the proximal appendix without appendicolith. The appendix is nondistended. Peritoneum: No abnormal intraperitoneal fluid. No free air. Ventral Wall: No significant ventral hernia. Abdominal Nodes: No retroperitoneal or mesenteric adenopathy by size criteria. Vessels: Aorta and inferior vena cava are normal in size. PELVIS: Pelvic Organs: Unremarkable. Bladder: No bladder wall thickening, accounting for underdistention. Pelvic Nodes: No enlarged lymph nodes. Miscellaneous: No inguinal hernias are seen. Bones: No aggressive osseous abnormality. IMPRESSION: 1. Mild mural thickening of the proximal appendix is concerning for early acute appendicitis. 2. Left inferior breast soft tissue retraction, may represent postsurgical change. Recommend correlation with clinical history. If there is no history of left breast surgical intervention, recommend correlation with outpatient dedicated breast imaging. Dictated by: To Anderson M.D. on 01/30/2025 at 14:46 Approved by: To Anderson M.D. on 01/30/2025 at 14:50
--- NOTE | 2025-01-30 14:16 | ED.ABDPAIN ---
HPI - Abdominal Pain <Carley Sahni PA-C - Last Filed: 01/30/25 19:46> General Chief Complaint: Abdominal Pain Stated Complaint: Abdominal Pain Time Seen by Provider: 01/30/25 13:47 Source: patient Mode of arrival: Ambulatory History of Present Illness HPI narrative: Jacinda Fox is a very pleasant 29-year-old transgender male on testosterone with a past medical history of SVT on metoprolol, cholecystectomy, hysterectomy, hepatic cysts, colitis, GERD presents to the emergency department for epigastric/right upper quadrant abdominal pain x3 weeks. Patient states they have dealt with this pain intermittently for the last 1-1.5 years. They are currently in the process of trying to follow up with a gastrointestinal specialist at the [facility] however insurance will not cover a repeat CT abdomen and pelvis. Over the last 3 weeks, without a known trigger, the patient has had increase in their epigastric and right upper quadrant pain with radiation to the right shoulder. We have also had increase in acid reflux symptoms despite taking pantoprazole, and nausea. They are having loose stools but no significant constipation, diarrhea. He is also experiencing mild dysuria. No fevers, chills, flu-like symptoms, lower extremity edema. Abdominal surgical history includes cholecystectomy in 2020, laparoscopic hysterectomy. They did have MRCP in 2021 that revealed no intrahepatic or extrahepatic biliary dilatation. Related Data Home Medications ?Medication ?Instructions ?Recorded ?Confirmed escitalopram oxalate 10 mg tablet 10 mg PO DAILY 01/22/23 12/01/24 metoprolol succinate 25 mg 25 mg PO DAILY 01/22/23 12/01/24 tablet,extended release 24 hr testosterone cypionate 200 mg/mL mg IM 01/22/23 12/01/24 intramuscular oil cyclosporine 0.05 % eye drops in a drp EYE-BOTH 11/11/24 12/01/24 dropperette ondansetron 4 mg disintegrating mg PO 11/11/24 12/01/24 tablet triamcinolone acetonide 0.1 % applic topical QD-BID PRN 11/11/24 12/01/24 topical cream Previous Rx's ?Medication ?Instructions ?Recorded tramadol 100 mg tablet 100 mg PO TID PRN pain #10 tabs 02/02/23 pantoprazole 20 mg tablet,delayed 20 mg PO DAILY #14 tabs 08/22/23 release estradiol 10 mcg vaginal tablet 10 mcg vaginal 3XW #12 tabs 11/11/24 (Vagifem) phenazopyridine 100 mg tablet 100 mg PO TID PRN pain #20 tabs 12/01/24 (Pyridium) lidocaine HCl 2 % mucosal jelly 1 applic topical BID PRN pain in 12/12/24 vestibule of vulva #30 mL Allergies Allergy/AdvReac Type Severity Reaction Status Date / Time acetaminophen (From [place]) Allergy Severe Rash Verified 01/30/25 13:47 hydrocodone (From [place]) Allergy Severe Rash Verified 01/30/25 13:47 prochlorperazine (From Allergy Severe Palpitation Verified 01/30/25 13:47 Compazine) s articaine Allergy Palpitation Verified 01/30/25 13:47 s Review of Systems <Carley Sahni PA-C - Last Filed: 01/30/25 19:46> Review of Systems ROS Unobtainable: All systems reviewed & are unremarkable except as noted in HPI and below Patient History <Carley Sahni PA-C - Last Filed: 01/30/25 19:46> Medical History Pain in vestibule of vulva Galtxj-gi-rlog transgender person Dyspareunia Upper abdominal pain, unspecified Post-cholecystectomy syndrome Surgical History Status post laparoscopic cholecystectomy Social History household members: spouse Smoking Status: Former smoker alcohol intake: never Smoking Status: Former smoker tobacco type: cigarettes alcohol intake frequency: 0-2 drinks per day Exam <Carley Sahni PA-C - Last Filed: 01/30/25 19:46> Narrative Exam Narrative: GENERAL: 29 year old patient appears stated age. Well-developed patient, in no acute distress. HEAD: Atraumatic. Normocephalic. EYES: No scleral icterus. No injection or drainage. NECK: Trachea midline. Cervical ROM intact. CARDIOVASCULAR: Regular rate and rhythm. RESPIRATORY: ?Nonlabored respirations. ?Speaking in clear, full sentences. ?Clear to auscultation. Breath sounds equal bilaterally. No wheezes, rales, or rhonchi. ? GASTROINTESTINAL: Abdomen soft, non-distended, bowel sounds normal. There is a focal area of tenderness in the upper abdomen between the epigastric and right upper quadrant region. Negative Torres's sign. No rebound or guarding. EXTREMITIES: No LE edema. NEURO: AOx3. ?Clear speech. ?Moves all 4 extremities appropriately. SKIN: No rash or erythema of visible areas Initial Vital Signs Initial Vital Signs: Vital Signs Temperature 98.3 F 01/30/25 13:44 Pulse Rate 70 01/30/25 13:44 Respiratory Rate 16 01/30/25 13:44 Blood Pressure 140/85 01/30/25 13:44 Pulse Oximetry 96 01/30/25 13:44 Oxygen Delivery Method Room Air 01/30/25 13:44 <Linda Rosario DO - Last Filed: 01/30/25 22:43> Initial Vital Signs Initial Vital Signs: Vital Signs Temperature 98.3 F 01/30/25 13:44 Pulse Rate 70 01/30/25 13:44 Respiratory Rate 16 01/30/25 13:44 Blood Pressure 140/85 01/30/25 13:44 Pulse Oximetry 96 01/30/25 13:44 Oxygen Delivery Method Room Air 01/30/25 13:44 Course <Carley Sahni PA-C - Last Filed: 01/30/25 19:46> Orders Ordered: ED Orders 01/30/25 13:51 CT abdomen pelvis w con Stat 01/30/25 14:15 Complete Blood Count AUTO DIFF Stat Comprehensive Metabolic Panel Stat Lipase Stat 01/30/25 14:30 Urinalysis and Microscopic Stat Discontinued Medications Sodium Chloride (Normal Saline 0.9%) 1,000 mls @ 1,000 mls/hr IV BOLUS ONE Stop: 01/30/25 15:04 Last Infusion: 01/30/25 15:36 Dose: Infused Documented By: Admin: 01/30/25 14:39 Dose: 1,000 mls/hr Documented By: RB Ondansetron HCl (Ondansetron 4 Mg/2 Ml Inj) 4 mg IV NOW ONE Stop: 01/30/25 14:06 Last Admin: 01/30/25 14:39 Dose: 4 mg Documented By: RB Scopolamine (Scopolamine 1 Patch) 1 patch TOP NOW ONE Stop: 01/30/25 16:34 Last Admin: 01/30/25 16:45 Dose: 1 patch Documented By: RB Vital Signs Vital signs: Vital Signs - 8 hr 01/30/25 19:58 Temperature 97.9 F Pulse Rate 68 Blood Pressure 129/81 Pulse Oximetry 96 Oxygen Delivery Method Room Air <Linda Rosario DO - Last Filed: 01/30/25 22:43> Orders Ordered: ED Orders 01/30/25 13:51 CT abdomen pelvis w con Stat 01/30/25 14:15 Complete Blood Count AUTO DIFF Stat Comprehensive Metabolic Panel Stat Lipase Stat 01/30/25 14:30 Urinalysis and Microscopic Stat Discontinued Medications Sodium Chloride (Normal Saline 0.9%) 1,000 mls @ 1,000 mls/hr IV BOLUS ONE Stop: 01/30/25 15:04 Last Infusion: 01/30/25 15:36 Dose: Infused Documented By: Admin: 01/30/25 14:39 Dose: 1,000 mls/hr Documented By: MALA Ondansetron HCl (Ondansetron 4 Mg/2 Ml Inj) 4 mg IV NOW ONE Stop: 01/30/25 14:06 Last Admin: 01/30/25 14:39 Dose: 4 mg Documented By: RB Scopolamine (Scopolamine 1 Patch) 1 patch TOP NOW ONE Stop: 01/30/25 16:34 Last Admin: 01/30/25 16:45 Dose: 1 patch Documented By: RB Vital Signs Vital signs: Vital Signs - 8 hr 01/30/25 19:58 Temperature 97.9 F Pulse Rate 68 Blood Pressure 129/81 Pulse Oximetry 96 Oxygen Delivery Method Room Air MDM - Abdominal Pain <Carley Sahni PA-C - Last Filed: 01/30/25 19:46> Medical Records Attestation: I reviewed the patient's medical records. Lab Data 01/30/25 14:15 01/30/25 14:15 Labs: Lab Results 01/30/25 01/30/25 Range/Units 14:15 14:30 WBC 7.8 (4.5-11.0) X10^3/uL RBC 5.35 H (4.0-5.2) X10^6/uL Hgb 15.3 (12.0-16.0) g/dL Hct 45.5 (36-46) % MCV 85.1 (80-100) fL MCH 28.6 (26-34) PG MCHC 33.6 (30-36) % RDW 14.8 (11.6-14.8) % Plt Count 325 (150-400) X10^3/uL Neut % (Auto) 60.4 (50-75) % Lymph % (Auto) 27.1 (25-40) % [place] % (Auto) 9.6 (3-14) % Eos % (Auto) 1.9 L (2-4) % Baso % (Auto) 1.0 (0-2) % Neut # (Auto) 4700 (3658-9681) /uL Lymph # (Auto) 2100 (8696-5094) /uL [place] # (Auto) 800 (0-900) /uL Eos # (Auto) 100 (0-450) /uL Baso # (Auto) 100 (0-100) /uL Sodium 139 (137-145) mmol/L Potassium 3.9 (3.4-5.1) mmol/L Chloride 105 (98-107) mmol/L Carbon Dioxide 24 (22-32) mmol/L BUN 7 (7-17) mg/dL Creatinine 0.74 (0.52-1.04) mg/dL Estimated GFR > 60 (>60) mL/min BUN/Creatinine Ratio 9.5 (6-22) Glucose 95 (70-99) mg/dL Calcium 9.0 (8.4-10.2) mg/dL Total Bilirubin 0.9 (0.2-1.3) mg/dL AST 33 (14-36) IU/L ALT 39 H (<35) IU/L Alkaline Phosphatase 79 (38-126) U/L Total Protein 8.1 (6.3-8.2) g/dL Albumin 4.8 (3.5-5.0) g/dL Globulin 3.3 (1.7-4.1) g/dL Albumin/Globulin Ratio 1.5 (1.0-2.8) Lipase 129 (23-300) U/L Urine Color Yellow Urine Appearance Clear Urine pH 6.5 (4.5-8.0) Ur Specific [place] 1.015 (1.000-1.035) Urine Protein Negative (Negative) Urine Glucose (UA) Negative (Negative) g/dL Urine Ketones Negative (NEGATIVE) Urine Occult Blood Negative (Negative) Urine Nitrate Negative (Negative) Urine Bilirubin Negative (NEGATIVE) Urine Urobilinogen 0.2 (0.2) E.U./dL Ur Leukocyte Esterase Negative (NEGATIVE) Urine RBC None seen (0-5/HPF) Urine WBC None seen (0-5/HPF) Ur Squamous Epith Cells 0-1 /hpf (0-5/HPF) Urine Bacteria Few (2-10) H (None) Ur Culture Indicated? Cult not indicated Vol Urine Centrifuged 10ml (spun) Imaging Data CT scan - abdomen/pelvis: Radiologist's Impression: PROCEDURE: CT ABDOMEN PELVIS W CON INDICATIONS: increased abdominal pain, known liver cyst TECHNIQUE: After the administration of intravenous contrast, axial sections acquired from the lung bases to the pubic symphysis. Coronal and sagittal reformats were performed. For radiation dose reduction, the following was used: automated exposure control, adjustment of mA and/or kV according to patient size. COMPARISON: [facility], CT, CT ABDOMEN PELVIS W CON, 08/22/2023, 18:16. FINDINGS: Image quality: Diagnostic. Lower Chest: Soft tissue retraction it in the inferior left breast, a new compared to 08/21/2024. ABDOMEN: Liver: No solid mass. Gallbladder: Post cholecystectomy Biliary ducts: No biliary dilation. Pancreas: No ductal dilation. Spleen: Size is within normal limits. Adrenal Glands: No adrenal nodules. Kidneys and Ureters: No hydronephrosis. No solid mass. No complex renal cystic lesion which requires follow up. Stomach and Bowel: Normal colonic caliber, without significant wall thickening. Mild mural thickening of the proximal appendix without appendicolith. The appendix is nondistended. Peritoneum: No abnormal intraperitoneal fluid. No free air. Ventral Wall: No significant ventral hernia. Abdominal Nodes: No retroperitoneal or mesenteric adenopathy by size criteria. Vessels: Aorta and inferior vena cava are normal in size. PELVIS: Pelvic Organs: Unremarkable. Bladder: No bladder wall thickening, accounting for underdistention. Pelvic Nodes: No enlarged lymph nodes. Miscellaneous: No inguinal hernias are seen. Bones: No aggressive osseous abnormality. IMPRESSION: 1. Mild mural thickening of the proximal appendix is concerning for early acute appendicitis. 2. Left inferior breast soft tissue retraction, may represent postsurgical change. Recommend correlation with clinical history. If there is no history of left breast surgical intervention, recommend correlation with outpatient dedicated breast imaging. Dictated by: To Anderson M.D. on 01/30/2025 at 14:46 Approved by: To Anderson M.D. on 01/30/2025 at 14:50 [facility] Narrative Medical decision making narrative: 29-year-old transgender male on testosterone with a past medical history of SVT on metoprolol, cholecystectomy, hysterectomy, hepatic cysts, colitis, GERD presents to the emergency department for epigastric/right upper quadrant abdominal pain x3 weeks. Differential diagnosis includes but isn't limited to gastritis, pancreatitis, GERD, H pylori, post cholecystectomy syndrome, choledocholithiasis, UTI, pyelonephritis, colitis, etc. On exam patient is in no acute distress, nontoxic-appearing, all vital signs within normal limits. They have a focal area of tenderness between the epigastric right upper quadrant urine abdomen, negative Torres's sign, no rebound or guarding. Cholecystectomy 2020 with subsequent MRI in 2021 revealing no biliary intrahepatic or extrahepatic biliary dilatation. Patient is in the process of trying to follow up with GI at . We will obtain CT abdomen pelvis with IV contrast, CBC, CMP, lipase, urine. Treat with IV fluids and Zofran. CT reveals mild mural thickening of the proximal appendix concerning for early acute appendicitis. Left inferior breast soft tissue retraction, may represent postsurgical change recommend correlation with clinical history. Labs reveal normal WBC count 7.8, hemoglobin 15.3 hematocrit 45.5. Sodium 139, potassium 3.9, BUN 7 creatinine 0.74. Glucose 95. Normal AST, very slight elevation of ALT 39. Normal lipase 129. UA with very few bacteria, negative nitrite, leuk esterase, RBC, WBC. We will consult gen surg, after further discussion with the patient they do report they have been noticing some intermittent right lower quadrant pain however the majority of the pain is primarily in the right upper quadrant. 1535: Spoke with gen surg Dr. Olea, he will come down to see the pt in the ER when able. Does not request any abx at this time. 1900: Gen surg still in OR, updated pt, they are doing OK at this time, repeat abdominal exam reveals persistent RUQ/epigastric tenderness but no rebound or guarding. Nausea is controlled at this time with scopolamine patch which was requested by patient. 1727: Dr. Olea, Gen surg, evaluated the patient at the bedside. Discussed that patient's exam not concerning for appendicitis, he would like the patient to be discharged and will have his office call to schedule an EGD outpatient. Discussed all lab work, urine, imaging findings with the patient. They feel well and are agreeable to go home. Discussed follow up with gen surg for EGD. Discussed gastritis. Discussed PCP follow up and strict ER return precautions. Patient verbalized understanding of all information agreeable with the plan. He is stable for discharge home. <Linda Rosario, DO - Last Filed: 01/30/25 22:43> Lab Data Labs: Lab Results 01/30/25 01/30/25 Range/Units 14:15 14:30 WBC 7.8 (4.5-11.0) X10^3/uL RBC 5.35 H (4.0-5.2) X10^6/uL Hgb 15.3 (12.0-16.0) g/dL Hct 45.5 (36-46) % MCV 85.1 (80-100) fL MCH 28.6 (26-34) PG MCHC 33.6 (30-36) % RDW 14.8 (11.6-14.8) % Plt Count 325 (150-400) X10^3/uL Neut % (Auto) 60.4 (50-75) % Lymph % (Auto) 27.1 (25-40) % [place] % (Auto) 9.6 (3-14) % Eos % (Auto) 1.9 L (2-4) % Baso % (Auto) 1.0 (0-2) % Neut # (Auto) 4700 (0560-3103) /uL Lymph # (Auto) 2100 (7973-6102) /uL [place] # (Auto) 800 (0-900) /uL Eos # (Auto) 100 (0-450) /uL Baso # (Auto) 100 (0-100) /uL Sodium 139 (137-145) mmol/L Potassium 3.9 (3.4-5.1) mmol/L Chloride 105 (98-107) mmol/L Carbon Dioxide 24 (22-32) mmol/L BUN 7 (7-17) mg/dL Creatinine 0.74 (0.52-1.04) mg/dL Estimated GFR > 60 (>60) mL/min BUN/Creatinine Ratio 9.5 (6-22) Glucose 95 (70-99) mg/dL Calcium 9.0 (8.4-10.2) mg/dL Total Bilirubin 0.9 (0.2-1.3) mg/dL AST 33 (14-36) IU/L ALT 39 H (<35) IU/L Alkaline Phosphatase 79 (38-126) U/L Total Protein 8.1 (6.3-8.2) g/dL Albumin 4.8 (3.5-5.0) g/dL Globulin 3.3 (1.7-4.1) g/dL Albumin/Globulin Ratio 1.5 (1.0-2.8) Lipase 129 (23-300) U/L Urine Color Yellow Urine Appearance Clear Urine pH 6.5 (4.5-8.0) Ur Specific [place] 1.015 (1.000-1.035) Urine Protein Negative (Negative) Urine Glucose (UA) Negative (Negative) g/dL Urine Ketones Negative (NEGATIVE) Urine Occult Blood Negative (Negative) Urine Nitrate Negative (Negative) Urine Bilirubin Negative (NEGATIVE) Urine Urobilinogen 0.2 (0.2) E.U./dL Ur Leukocyte Esterase Negative (NEGATIVE) Urine RBC None seen (0-5/HPF) Urine WBC None seen (0-5/HPF) Ur Squamous Epith Cells 0-1 /hpf (0-5/HPF) Urine Bacteria Few (2-10) H (None) Ur Culture Indicated? Cult not indicated Vol Urine Centrifuged 10ml (spun) Discharge Plan Departure Patient Disposition: Home Clinical Impression: Abdominal pain, right upper quadrant, Nausea Instructions: DI for Abdominal Pain-Adult Activity Restrictions/Additional Instructions: Dear Mr. Fox, Thank you for coming to the emergency department. Today you were evaluated for abdominal pain and nausea. Your CT scan revealed some thickening of the appendix however you were evaluated by General surgery and at this time they are not concerned that you have acute appendicitis. They would like you to follow up with their office to have an EGD performed for possible gastritis. Please avoid spicy, acidic foods and frequent NSAID use as this can worsen gastritis. Please follow up with your primary care doctor and please send your results to GI. Please return to the emergency department if you develop severe pain, persistent vomiting, fevers or any other concerns. Please follow up with your primary care doctor within the next 2-3 days for ER follow-up. (If you do not have a PCP you can call [phone]. ?to schedule an appointment with an [facility] Primary Care Provider) IF YOU DEVELOP ANY NEW OR WORSENING SYMPTOMS, RETURN TO THE ER! Please read the attached instructions, they highlight more specific treatments and interventions for you at home. Thank you for letting me participate in your care, Carley Sahni PA-C Prescriptions: No Action testosterone cypionate 200 mg/mL oil IM escitalopram oxalate 10 mg tablet 10 mg PO DAILY metoprolol succinate 25 mg tablet extended release 24 hr 25 mg PO DAILY lidocaine HCl 2 % jelly 1 applic topical BID PRN (Reason: pain in vestibule of vulva) Qty: 30 6RF triamcinolone acetonide 0.1 % cream topical QD-BID PRN ondansetron 4 mg tablet,disintegrating PO cyclosporine 0.05 % dropperette EYE-BOTH Patient Comments: [NO ORIGINAL SIG] estradiol [Vagifem] 10 mcg tablet 10 mcg vaginal 3XW Qty: 12 12RF phenazopyridine [Pyridium] 100 mg tablet 100 mg PO TID PRN (Reason: pain) Qty: 20 5RF pantoprazole 20 mg tablet,delayed release (DR/EC) 20 mg PO DAILY Qty: 14 0RF tramadol 100 mg tablet 100 mg PO TID PRN (Reason: pain) Qty: 10 0RF Referrals: Thaddeus Olea MD [Physician, General Surgery] Dev Escoto MD [Primary Care Provider, Family Practice] Stand Alone Forms: Patient Portal/API, Work Release Note ED Sign-out <Linda Rosario, - Last Filed: 01/30/25 22:43> Cosign ED Attending Cosjermaineature Attestation: I was immediately available in the department for consultation. Case was discussed, workup was reviewed. Dr. Olea was here in the department and evaluated patient.
[2025-01-30 14:22] LABS: Add Manual Diff / Slide Review NO; Hematocrit 45.5 % (36-46); Hemoglobin 15.3 g/dL (12.0-16.0); Lymphocytes Absolute Auto 2100 /uL (1100-4500); Mean Corpuscular HGB Conc 33.6 % (30-36); Mean Corpuscular Hemoglobin 28.6 PG (26-34); Mean Corpuscular Volume 85.1 fL (80-100); Platelet Count 325 X10^3/uL (150-400)
[2025-01-30 14:37] LABS: Alanine Aminotransferase 39 IU/L (<35); Albumin 4.8 g/dL (3.5-5.0); Albumin Globulin Ratio 1.5 (1.0-2.8); Alkaline Phosphatase 79 U/L (38-126); Blood Urea Nitrogen 7 mg/dL (7-17); Calcium 9.0 mg/dL (8.4-10.2); Carbon Dioxide 24 mmol/L (22-32); Chloride 105 mmol/L (98-107); Estimated Glomerular Filt Rate > 60 mL/min (>60); Globulin 3.3 g/dL (1.7-4.1); Glucose 95 mg/dL (70-99); HEMOLYSIS < 15 (0-50); Lipase 129 U/L (23-300); Potassium 3.9 mmol/L (3.4-5.1); Sodium 139 mmol/L (137-145); Total Protein 8.1 g/dL (6.3-8.2)
[2025-01-30] MEDS: SODIUM CHLORIDE 0.9% 1,000 ML 1000 ML IV (14:39)
[2025-01-30] MEDS: ONDANSETRON 4 MG/2 ML INJ IV (14:39)
[2025-01-30 14:56] LABS: Appearance Urine UA CLEAR; Bilirubin Urine UA NEGATIVE (NEGATIVE); Color Urine UA YELLOW; Glucose Urine UA NEGATIVE (Negative); Ketones Urine UA NEGATIVE (NEGATIVE); Leukocyte Esterase Urine UA NEGATIVE (NEGATIVE); Nitrite Urine UA NEGATIVE (Negative); Occult Blood Urine UA NEGATIVE (Negative); Protein Urine UA NEGATIVE (Negative); Specific Gravity Urine UA 1.015 (1.000-1.035); Urobilinogen Urine UA 0.2 E.U./dL (0.2)
[2025-01-30 15:15] LABS: pH Urine UA 6.5 (4.5-8.0)
[2025-01-30 15:26] LABS: Culture Indicated Urine Cult Not Indicated
[2025-01-30] MEDS: SCOPOLAMINE 1 PATCH TOP (16:45)
--- NOTE | 2025-01-30 19:26 | PM.HP.IH.1 ---
History of Present Illness History of Present Illness Date Patient Seen: 01/30/25 Time Patient Seen: 19:27 Chief complaint: Abdominal Pain Narrative: Octavio is a 29-year-old transgender male with about one month of epigastric abdominal pain. He states the pain is constant and has been present in some form or another for over 2 years. He has had EGD and colonoscopy performed by Dr. Albert about a year ago with no significant findings. He has had a laparoscopic cholecystectomy in 2020. A CT scan today showed questionable thickening of the proximal appendix. On my read there is no periappendiceal inflammation. He reports that he has been taking a lot of ibuprofen and Tylenol for total body pain. [facility] Medical History Pain in vestibule of vulva Qdykgf-[id number]-rgcr transgender person Dyspareunia Upper abdominal pain, unspecified Post-cholecystectomy syndrome Surgical History Status post laparoscopic cholecystectomy Social History household members: spouse Smoking Status: Former smoker alcohol intake: never Meds Home Medications and Allergies Home Medications ?Medication ?Instructions ?Recorded ?Confirmed ?Type escitalopram oxalate 10 mg tablet 10 mg PO DAILY 01/22/23 12/01/24 History metoprolol succinate 25 mg 25 mg PO DAILY 01/22/23 12/01/24 History tablet,extended release 24 hr testosterone cypionate 200 mg/mL mg IM 01/22/23 12/01/24 History intramuscular oil tramadol 100 mg tablet 100 mg PO TID PRN pain #10 tabs 02/02/23 12/01/24 Rx pantoprazole 20 mg tablet,delayed 20 mg PO DAILY #14 tabs 08/22/23 12/01/24 Rx release cyclosporine 0.05 % eye drops in a drp EYE-BOTH 11/11/24 12/01/24 History dropperette estradiol 10 mcg vaginal tablet 10 mcg vaginal 3XW #12 tabs 11/11/24 12/01/24 Rx (Vagifem) ondansetron 4 mg disintegrating mg PO 11/11/24 12/01/24 History tablet triamcinolone acetonide 0.1 % applic topical QD-BID PRN 11/11/24 12/01/24 History topical cream phenazopyridine 100 mg tablet 100 mg PO TID PRN pain #20 tabs 12/01/24 12/01/24 Rx (Pyridium) lidocaine HCl 2 % mucosal jelly 1 applic topical BID PRN pain in 12/12/24 Rx vestibule of vulva #30 mL Allergies Allergy/AdvReac Type Severity Reaction Status Date / Time acetaminophen (From [place]) Allergy Severe Rash Verified 01/30/25 13:47 hydrocodone (From [place]) Allergy Severe Rash Verified 01/30/25 13:47 prochlorperazine (From Allergy Severe Palpitation Verified 01/30/25 13:47 Compazine) s articaine Allergy Palpitation Verified 01/30/25 13:47 s Exam Vital Signs (past 8 hours): - 01/30/25 13:44 Temperature 98.3 F Pulse Rate 70 Respiratory Rate 16 Blood Pressure 140/85 Pulse Oximetry 96 Oxygen Delivery Method Room Air Oxygen Delivery Method Room Air Narrative Exam Narrative: Abdomen is soft, nontender No tenderness at McBurney's point Objective Labs 01/30/25 14:15 01/30/25 14:15 Labs: Laboratory Results - last 24 hr 01/30/25 01/30/25 14:15 14:30 WBC 7.8 RBC 5.35 H Hgb 15.3 Hct 45.5 MCV 85.1 MCH 28.6 MCHC 33.6 RDW 14.8 Plt Count 325 Neut % (Auto) 60.4 Lymph % (Auto) 27.1 [place] % (Auto) 9.6 Eos % (Auto) 1.9 L Baso % (Auto) 1.0 Neut # (Auto) 4700 Lymph # (Auto) 2100 [place] # (Auto) 800 Eos # (Auto) 100 Baso # (Auto) 100 Sodium 139 Potassium 3.9 Chloride 105 Carbon Dioxide 24 BUN 7 Creatinine 0.74 Estimated GFR > 60 BUN/Creatinine Ratio 9.5 Glucose 95 Calcium 9.0 Total Bilirubin 0.9 AST 33 ALT 39 H Alkaline Phosphatase 79 Total Protein 8.1 Albumin 4.8 Globulin 3.3 Albumin/Globulin Ratio 1.5 Lipase 129 Urine Color Yellow Urine Appearance Clear Urine pH 6.5 Ur Specific [place] 1.015 Urine Protein Negative Urine Glucose (UA) Negative Urine Ketones Negative Urine Occult Blood Negative Urine Nitrate Negative Urine Bilirubin Negative Urine Urobilinogen 0.2 Ur Leukocyte Esterase Negative Urine RBC None seen Urine WBC None seen Ur Squamous Epith Cells 0-1 /hpf Urine Bacteria Few (2-10) H Ur Culture Indicated? Cult not indicated Vol Urine Centrifuged 10ml (spun) Assessment & Plan Assessment and plan (1) Abdominal pain, right upper quadrant: Status: Acute Plan I have no concerns for acute appendicitis based on the appearance of the CT scan and physical exam. Okay for discharge home at this time. I will arrange for an outpatient EGD to rule out ulcers and other upper GI problems. Time-Based Coding :: [TOTAL MINUTES] spent with patient and on the chart (including review of chart, obtaining history, exam, reviewing outside data, placing orders, documenting exam and treatment plan, and counseling patient) on [DATE]. [employer] Document charge(s): No
[2025-01-30 19:58] VITALS: BP 129/81; PULSE 68; TEMP 36.6; O2SAT 96
== END 2025-01-30 20:00 | disposition home or self-care (01) ==
PROVIDERS: Emergency Medicine; Emergency Provider Physician Assistant; PCP Family Medicine
DX: R10.11 Right upper quadrant pain (principal); R11.0 Nausea
CPT/HCPCS: 36415; 74177; 80053; 81001; 83690; 85025; 96361; 96374; 99284; J2405; J7030; Q9967

== ENCOUNTER 2025-02-17 09:51 | Day surgery (SDC) | payer OTHER, SELFPAY ==
--- NOTE | 2025-02-17 | PATH_ITS ---
[facility] Accession Number: [id number] No. of containers..03 Tissue . 01 Material submitted: . PART A: stomach - ANTRUM PART B: duodenum - DUODENUM PART C: esophagus - ESOPHAGUS, DISTAL . 01 Diagnosis: Part A: ANTRUM: Gastric mucosa with mild chronic inflammation. No Helicobacter organisms identified. No intestinal metaplasia, dysplasia, or malignancy identified. . Part B: DUODENUM: Duodenal mucosa with no diagnostic alterations. No active inflammation and no evidence of celiac disease. . Part C: ESOPHAGUS, DISTAL: Squamous mucosa with no diagnostic alterations. Eosinophils are not increased. STO 02/26/20251750 Local . 01 Electronically signed: . Logan Gutiérrez MD, Pathologist NPI- [id number] . 01 Gross description: . A. Received in formalin with two patient identifiers, and antrum BX are two, 0.2-0.3 cm, webber tissue fragments, entirely submitted in A1. . B. Received in formalin with two patient identifiers, and duodenum are two, 0.1-0.2 cm, webber tissue fragments, entirely submitted in B1. . C. Received in formalin with two patient identifiers, and distal esophagus is one, 0.1 cm, webber tissue fragment, entirely submitted in C1. ([id number]) /MRV 02/26/20251750 Local . 01 Microscopic: . Part A: ANTRUM: An immunohistochemical stain was performed to evaluate for Helicobacter organisms and is negative. The control stains appropriately. * This test was developed and the performance characteristics were validated by [facility]. It has not been cleared or approved by the Food and Drug Administration. . 01 Pathologist provided ICD-10: K29.50 . 01 CPT . 531933, 262792, 087505, [id number] Specimen Comment: A courtesy copy of this report has been sent to [phone] Performed at: [address] [facility] [address], [place], [place] [id number] MD Logan Gutiérrez MD Phone: [phone]
[2025-02-17 10:17] VITALS: BP 128/82; PULSE 78; RESP 17; TEMP 36.4; O2SAT 98
--- NOTE | 2025-02-17 10:39 | PM.PREOP ---
Pre-operative Note COVID-19 COVID-19 status: Not tested Interval Note History & Physical reviewed/Exam performed by Physician: Yes Changes to H&P: No ASA Class (for procedural sedation): II
[2025-02-17 11:31] VITALS: BP 111/58; PULSE 86; RESP 12; TEMP 36.7; O2SAT 94
[2025-02-17 11:35] VITALS: BP 135/80; PULSE 96; RESP 16; O2SAT 96
--- NOTE | 2025-02-17 11:41 | PM.OP.EGD ---
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 A bite blocked was placed. The patient was positioned in the left lateral decubitus position. Anesthesia was administered. The endoscope was inserted through the bite block and passed through the esophagus and stomach and into the duodenum. The duodenal mucosa appeared normal. Random biopsies were taken from the duodenum with cold forceps. The scope was withdrawn into the duodenal bulb and no abnormalities were seen. The scope was withdrawn into the stomach. There was mild antritis and random biopsies were taken from the antrum with cold forceps. The rest of the stomach was normal. The scope was retroflexed and no hiatal hernia was seen. The scope was withdrawn into the esophagus and no abnormalities were seen. Random biopsies were taken from the distal esophagus with the cold forceps. The scope was withdrawn. The patient was awakened and brought to recovery. Sedation time: 5 minutes Findings: Grossly normal esophagus, stomach and duodenum Estimated Blood Loss: 5 Complications: none Post-procedure Disposition: PACU
[2025-02-17 11:45] VITALS: BP 119/66; PULSE 85; RESP 20; O2SAT 97
[2025-02-17] MEDS: ONDANSETRON 4 MG/2 ML INJ IV (11:47)
[2025-02-17] MEDS: LACTATED RINGERS 1,000 ML 42 ML IV (11:48)
[2025-02-17 12:00] VITALS: BP 122/58; PULSE 78; RESP 16; O2SAT 98
--- NOTE | 2025-02-17 12:14 | SUR.PHASEII ---
Discharge instructions given and pt states they understand d/c instructions. Pt to be d/joe with .
== END 2025-02-17 12:19 | disposition home or self-care (01) ==
PROVIDERS: PCP Family Medicine; Referring Provider Surgery; Visit Provider Surgery
PROC: 0DJ08ZZ Inspection of Upper Intestinal Tract, Via Natural or Artificial Opening Endoscopic (ICD-10-PCS; CPT 43239; principal; 2025-02-17 11:00)
DX: K29.50 Unspecified chronic gastritis without bleeding (principal); R10.13 Epigastric pain; R10.11 Right upper quadrant pain; K21.9 Gastro-esophageal reflux disease without esophagitis; G47.30 Sleep apnea, unspecified; E66.9 Obesity, unspecified; I47.10 Supraventricular tachycardia, unspecified; I49.3 Ventricular premature depolarization; Z90.49 Acquired absence of other specified parts of digestive tract; Z87.891 Personal history of nicotine dependence
CPT/HCPCS: 43239; J2405; J2704; J7120

== ENCOUNTER → 2025-03-13 07:25 | Outpatient (CLI) | payer OTHER, SELFPAY ==
[2025-03-13 08:34] LABS: Hematocrit 43.6 % (36-46); Hemoglobin 14.8 g/dL (12.0-16.0); Mean Corpuscular HGB Conc 33.9 % (30-36); Mean Corpuscular Hemoglobin 28.7 PG (26-34); Mean Corpuscular Volume 84.5 fL (80-100); Platelet Count 309 X10^3/uL (150-400)
== END ==
PROVIDERS: Student in an Organized Health Care Education/Training Program; PCP Family Medicine; Referring Provider Naturopath; Visit Provider Naturopath
DX: F64.9 Gender identity disorder, unspecified (principal); Z78.9 Other specified health status
CPT/HCPCS: 36415; 84402; 84403; 85027

== ENCOUNTER → 2025-04-06 16:44 | Outpatient (CLI) | payer OTHER, SELFPAY ==
[2025-04-06 18:15] LABS: Add Manual Diff / Slide Review NO; Hematocrit 43.7 % (36-46); Hemoglobin 14.9 g/dL (12.0-16.0); Lymphocytes Absolute Auto 2500 /uL (1100-4500); Mean Corpuscular HGB Conc 34.0 % (30-36); Mean Corpuscular Hemoglobin 28.5 PG (26-34); Mean Corpuscular Volume 83.6 fL (80-100); Platelet Count 279 X10^3/uL (150-400)
[2025-04-06 18:50] LABS: Alanine Aminotransferase 56 IU/L (<35); Albumin 4.6 g/dL (3.5-5.0); Albumin Globulin Ratio 1.5 (1.0-2.8); Alkaline Phosphatase 101 U/L (38-126); Blood Urea Nitrogen 15 mg/dL (7-17); Calcium 9.3 mg/dL (8.4-10.2); Carbon Dioxide 24 mmol/L (22-32); Chloride 104 mmol/L (98-107); Cholesterol 171 mg/dL (140-199); Estimated Glomerular Filt Rate > 60 mL/min (>60); Globulin 3.0 g/dL (1.7-4.1); Glucose 82 mg/dL (70-99); HDL Cholesterol 59 mg/dL (40-60); HEMOLYSIS < 15 (0-50); Hemoglobin A1C% w Est Avg Glu 4.6 % (4.0-6.0); Potassium 4.0 mmol/L (3.4-5.1); Sodium 139 mmol/L (137-145); Total Protein 7.6 g/dL (6.3-8.2); Triglycerides 109 mg/dL (35-150)
== END ==
PROVIDERS: PCP Family Medicine; Referring Provider Family Medicine; Visit Provider Family Medicine
DX: E34.9 Endocrine disorder, unspecified (principal); F64.0 Transsexualism; Z13.1 Encounter for screening for diabetes mellitus; Z13.220 Encounter for screening for lipoid disorders; Z79.899 Other long term (current) drug therapy
CPT/HCPCS: 36415; 80053; 80061; 83036; 85025